=== PATIENT | male | born 1930 | race Caucasian/White ===

== ENCOUNTER 2017-02-15 13:32 | Inpatient (IN) | payer MEDICARE, OTHER ==
[2017-02-15 14:15] LABS: #Eosinphils 0.1 thou/uL (0.0-0.7); #Lymphocytes 1.7 thou/uL (1.20-3.40); #Monocytes 0.6 thou/uL (0.11-0.59); #Neutrophils 3.5 thou/uL (1.40-6.50); %Basophils 0.6 % (0.0-1.0); %Eosinophils 2.4 % (0.0-10.0); %Lymphocytes 28.2 % (21.0-51.0); %Monocytes 9.6 % (0.0-10.0); Hematocrit 29.2 % (42.0-52.0); Mean Platelet Volume 7.7 fL (7.4-10.4); Red Blood Cell (RBC) Count 3.27 mill/uL (4.70-6.10); White Blood Cell (WBC) Count 5.9 thou/uL (4.8-10.8)
[2017-02-15] MEDS ORDERED: Diltiazem HCl 125 MG, IV Admixture Fee 1 EACH in Sodium Chloride 0.9% 100 ML IVPB SCH (14:15)
[2017-02-15 14:24] LABS: PTT 38.7 SEC (22.9-36.1); Prothrombin Time 31.9 SEC (12.0-14.7)
[2017-02-15 14:36] LABS: ALT (SGPT) 11 U/L (8-55); AST (SGOT) 16 U/L (5-34); Alkaline Phosphatase 77 U/L (40-150); Anion Gap 11 mmol/L (10-20); BUN (Urea Nitrogen) 21 mg/dL (8.4-25.7); Bilirubin, Total 0.5 mg/dL (0.2-1.2); Calc. Creatinine Clearance 0 mL/min (70-130); Calcium 8.5 mg/dL (7.8-10.44); Carbon Dioxide 32 mmol/L (23-31); Chloride 102 mmol/L (98-107); Estimated GFR-MDRD 40; Globulin 2.6 g/dL (2.4-3.5); Protein, Total 6.1 g/dL (5.8-8.1)
[2017-02-15 14:40] LABS: Troponin I 0.028 ng/mL (< 0.028)
--- NOTE | 2017-02-15 15:17 | RAD ---
PORTABLE CHEST ONE VIEW: Date: 02-15-17 Time: 2:36 p.m. History: Irregular heartbeat, dizziness, shortness of breath. FINDINGS: Comparison is made with 01-05-16. Heart size is borderline. There are mild bibasilar infiltrates. No pneumothorax or pleural effusions are seen. There is no evidence of ilya pulmonary edema. POS: [facility]
--- NOTE | 2017-02-15 16:26 | HP ---
PRIMARY CARE PHYSICIAN: Bandar Dinero MD. REASON FOR ADMISSION: Atrial fibrillation with rapid ventricular response. HISTORY OF PRESENT ILLNESS: An 86-year-old male who has paroxysmal atrial fibrillation on chronic anticoagulation therapy with warfarin, who was not feeling good on Monday. The patient was feeling dizziness. He had a followup appointment with primary care physician. At that time, patient was doing well and that is why no action was taken. Patient was keep feeling dizziness over the weekend. Today, his home health nurse came and she checked pulse and patient's pulse was in 140 and it was irregular At the same time, the patient was feeling dizziness and mild shortness of breath and that is why a home health nurse advised to go to the emergency room for evaluation. Patient was not wanted to come to the ER, but patient's family member advised as well; and finally, he agreed to come to the ER. When he came to the emergency room, he was found with atrial fibrillation with RVR. His heart rate was 128. He was given Cardizem drip; and after that, his rate was under control. Patient was feeling better after Cardizem drip. At this point, we are admitting this patient for medication adjustment. The patient denies any fever, but he was feeling chills. He does report intermittent constipation. He denies any UTI symptoms. He denies any nausea, vomiting, or chest pain. He denies any syncope. He denies any orthopnea, PND or leg swelling. Patient saw primary care physician on Monday. At that time, his Coumadin level was checked. The patient was also told that he had some urinary tract infection and patient was given prescription for Omnicef, but patient has not started antibiotic therapy yet. He was feeling cold, but he denies any fever. Patient denies using oxygen at home, but when he arrived to emergency room, he was relatively hypoxic with saturation 90%. REVIEW OF SYSTEMS: Please see my HPI for pertinent positives and negatives. All other review of system reviewed and negative except as mentioned in the HPI. Constitutional: Weight loss or gain, ability to conduct usual activities. Skin: Rash, itching. Eyes: Double vision, pain. ENT/Mouth: Nose bleeding, neck stiffness, pain, tenderness. Cardiovascular: Palpitations, dyspnea on exertion, orthopnea. Respiratory: Shortness of breath, wheezing, cough, hemoptysis, fever or night sweats. Gastrointestinal: Poor appetite, abdominal pain, heartburn, nausea, vomiting, constipation, or diarrhea. Genitourinary: Urgency, frequency, dysuria, nocturia. Musculoskeletal: Pain, swelling. Neurologic/Psychiatric: Anxiety, depression. Allergy/Immunologic: Skin rash, bleeding tendency. PAST MEDICAL HISTORY: Coronary artery disease, paroxysmal atrial fibrillation, diabetes type 2, benign enlargement of prostate, chronic physical deconditioning , history of ulcerative colitis. PAST SURGICAL HISTORY: Carpal tunnel surgery, cardioversion for atrial fibrillation. PAST PSYCHIATRIC HISTORY: Anxiety and depression. The patient is not on any specific medication. SOCIAL HISTORY: Patient lives at [facility]. No history of tobacco, alcohol or illicit drug abuse. FAMILY HISTORY: No strong family history of CAD, CVA or cancer ALLERGY: No known drug allergy. EMERGENCY ROOM COURSE: The patient is given Cardizem drip. CURRENT HOME MEDICATIONS: Proscar 5 mg p.o. daily, fludrocortisone 0.1 mg p.o. daily, glipizide 10 mg p.o. daily, isosorbide mononitrate 10 mg p.o. daily, Lasix 40 mg p.o. b.i.d., Synthroid 100 mcg p.o. daily, lisinopril 10 mg p.o. b.i.d., Toprol-XL 50 mg p.o. daily, omeprazole 40 mg p.o. daily, warfarin 5 mg at bedtime on Monday, , Monday, and 7.5 mg on Monday, Monday, Monday, Monday. PHYSICAL EXAMINATION: VITAL SIGNS: Currently, blood pressure 115/64, pulse 68, respiratory rate 24, temperature 98.4, saturation 90% on room air on arrival, weight 90.9 kilograms. GENERAL: Patient is currently alert, awake, in no obvious acute distress. HEENT: Head, normocephalic, atraumatic. Eyes: Pupils round, reactive to light. Extraocular muscles intact. ENT: Oropharynx within normal limits. Moist mucous membranes. No oral lesions. No pharyngeal erythema. No exudate. NECK: Supple. Range of motion is normal. No meningeal signs of irritation. LUNGS: Clear to auscultation without any rhonchi or rales. CARDIAC: S1, S2, irregular, rate controlled. No murmur. No gallop. No rub. ABDOMEN: Soft, bowel sounds present, nontender, nondistended. No organomegaly. No mass. No suprapubic tenderness. BACK EXAMINATION: Unremarkable, no CVA tenderness. EXTREMITIES: Upper extremity passive movement of all joints are normal. Lower extremities: No edema. Good peripheral pulsation. SKIN: No skin rash. HEMATOLOGICAL SYSTEM: No lymphadenopathy. PSYCHIATRIC: Normal affect. SIGNIFICANT LABS: 1. CBC: WBC 5.9, hemoglobin 9.5, platelet 189,000. INR 2.9. D-dimer less than 0.27. BMP shows sodium 141, potassium 3.8, chloride 102, carbon dioxide 32 , BUN 11, creatinine 1.65, glucose 201, calcium 8.5. 2. LFT: AST 16, ALT 11, alkaline phosphatase 77, albumin 3.5. CK-MB 1.8, troponin I 0.028. BNP 643.1. EKG showing atrial fibrillation with RVR. Subsequently, director workers compensation showing atrial fibrillation with controlled ventricular response. ASSESSMENT AND PLAN: 1. Atrial fibrillation with rapid ventricular response, currently controlled with Cardizem drip. At this point, I will hold the Cardizem drip for a while and we will monitor on telemetry floor. If he is getting recurrently atrial rapid ventricular response, then we will restart Cardizem drip at 5 mg per hour. If this patient remains in atrial fibrillation with RVR, then we will consult Cardiology for medication adjustment. Meanwhile, we will continue with Toprol-XL 50 mg p.o. daily. I will obtain echocardiography to assess ejection fraction and other structural abnormality. 2. Elevated BNP, likely due to diastolic heart failure. We will obtain echocardiography to assess ejection fraction and other structural abnormality. 3. Diabetes type 2. We will continue glipizide 10 mg p.o. daily, insulin as per sliding scale per protocol. Diabetic diet will be given. 4. Hypothyroidism. We will continue Synthroid 100 mcg p.o. daily and will check TSH. 5. Benign enlargement of prostate. We will continue Proscar 5 mg p.o. daily. 6. Hypertension. Currently, blood pressure is well controlled. We will continue with lisinopril 10 mg twice daily. 7. Chronic anticoagulation. We will continue warfarin as per home dosage. We will monitor PT/INR on daily basis. 8. Ulcerative colitis. We will continue patient's home medication for ulcerative colitis. 9. Deep venous thrombosis prophylaxis. Patient is already on chronic anticoagulation therapy, no need of Lovenox therapy. 10. Gastrointestinal prophylaxis, Protonix 40 mg p.o. daily. CODE STATUS: The patient is FULL CODE. The patient's is surrogate decision maker. Disposition plan based on clinical course. At this point, we will keep this patient as a full admission. If this patient has recurrent atrial fibrillation with RVR, then he may need ablation procedure versus cardioversion. In that case, we will consult cardiology evaluation. BRANDON
[2017-02-15] MEDS ORDERED: Ondansetron ODT 4 MG TAB SL PRN (17:45)
[2017-02-15] MEDS ORDERED: Acetaminophen 325 MG TAB PO PRN ×2 (17:45→17:56)
[2017-02-15] MEDS ORDERED: Ondansetron HCl/PF 4 MG/2 ML Vial IVP PRN ×2 (17:45→17:56)
[2017-02-15] MEDS ORDERED: HYDROcodone/Acetaminophen 5/325 mg Tablet PO PRN (17:56)
[2017-02-15] MEDS ORDERED: Diabetic Tussin 200 MG/10 ML UDCUP PO PRN (17:56)
[2017-02-15] MEDS ORDERED: Loratadine 10 MG TAB PO PRN (17:56)
[2017-02-15] MEDS ORDERED: Dextrose 5% in Water 1,000 ML IV PRN (17:56)
[2017-02-15] MEDS ORDERED: Loperamide HCl 2 MG CAP PO PRN (17:56)
[2017-02-15] MEDS ORDERED: Zolpidem Tartrate 5 MG TAB PO PRN (17:56)
[2017-02-15] MEDS ORDERED: Nitroglycerin 0.4 MG TAB (25 Tab Bottle) SL PRN (17:56)
[2017-02-15] MEDS ORDERED: Senokot 8.6 MG TAB PO PRN (17:56)
[2017-02-15] MEDS ORDERED: Eucerin (Mineral Oil/Petrolatum,White) 30 gm Jar TOP PRN (17:56)
[2017-02-15] MEDS ORDERED: Dextrose 50% Abboject 50 ML SYRINGE SLOW IVP PRN (17:56)
[2017-02-15] MEDS ORDERED: Mag-Al 1200 mg/1200 mg/30 ML UDCUP PO PRN (17:56)
[2017-02-15] MEDS ORDERED: Milk Of Magnesia 30 ML UDCUP PO PRN (17:56)
[2017-02-15] MEDS ORDERED: Ondansetron ODT 4 MG TAB PO PRN (17:56)
[2017-02-15] MEDS ORDERED: Pharmacy to MANAGE WARFARIN PO PRN (17:59)
[2017-02-15] MEDS ORDERED: Warfarin Sodium 7.5 MG TAB PO SCH (18:15)
[2017-02-15 20:10] LABS: Bilirubin Negative (Negative); Blood, Urine Negative (Negative); Glucose, Urine (Dipstick) Negative (Negative); Ketone, Urine Negative (Negative); Nitrite Negative (Negative); Protein, Urine (Dipstick) Negative (Neg-Trace)
[2017-02-15 20:13] LABS: Bacteria/HPF None Seen HPF (None Seen); Hyaline Casts/LPF 0-3 HYALINE CAST LPF (0-3 Hyaline); RBC/HPF 0-3 HPF (0-3); Squamous Epithelial None Seen HPF (0-3); WBC/HPF None Seen HPF (0-3)
[2017-02-16] MEDS ORDERED: Sodium Chloride 0.9% 10 ML ONE (02:36)
[2017-02-16] MEDS ORDERED: Digoxin 0.5 MG/2 ML AMP SLOW IVP SCH (02:45)
[2017-02-16] MEDS: Sodium Chloride 0.9% 1,000 ML IV SCH ×3 (03:00→22:08)
[2017-02-16 05:15] LABS: #Eosinphils 0.2 thou/uL (0.0-0.7); #Lymphocytes 1.5 thou/uL (1.20-3.40); #Monocytes 0.6 thou/uL (0.11-0.59); #Neutrophils 2.7 thou/uL (1.40-6.50); %Basophils 0.7 % (0.0-1.0); %Eosinophils 4.4 % (0.0-10.0); %Monocytes 12.2 % (0.0-10.0); Hematocrit 26.6 % (42.0-52.0); Mean Platelet Volume 7.9 fL (7.4-10.4); Red Blood Cell (RBC) Count 2.98 mill/uL (4.70-6.10); White Blood Cell (WBC) Count 5.1 thou/uL (4.8-10.8)
[2017-02-16 05:28] LABS: Prothrombin Time 35.2 SEC (12.0-14.7)
--- NOTE | 2017-02-16 05:31 | PDOC.EVN ---
Event Note - Event Note Event Note: Afib with rvr into 130's despite increasing cardizem drip to 10mg/hr. One dose digoxin 0.5mg iv. Clinically appears a bit dry, NS@100mls/hr one liter and stop.
[2017-02-16 05:54] LABS: Anion Gap 11 mmol/L (10-20); BUN (Urea Nitrogen) 21 mg/dL (8.4-25.7); Calc. Creatinine Clearance 49 mL/min (70-130); Calcium 8.3 mg/dL (7.8-10.44); Carbon Dioxide 32 mmol/L (23-31); Chloride 102 mmol/L (98-107); Cholesterol 138 mg/dl (< 200 Desired); Estimated GFR-MDRD 43; LDL Cholesterol, Calculated 90 mg/dL; Magnesium 1.5 mg/dL (1.6-2.6); Phosphorus 3.2 mg/dL (2.3-4.7)
[2017-02-16] MEDS: Levothyroxine Sodium 100 MCG TAB PO SCH (07:14)
[2017-02-16] MEDS ORDERED: Potassium Chloride 40 MEQ in Premix Bag 1 BAG IVPB SCH (09:00)
[2017-02-16] MEDS: Isosorbide Dinitrate 20 MG TAB PO SCH (09:14)
[2017-02-16] MEDS: glipiZIDE 10 MG TAB PO SCH (09:15)
[2017-02-16] MEDS: Potassium Chloride 20 MEQ TAB PO SCH (09:15)
[2017-02-16] MEDS: Magnesium Oxide 400 MG TAB PO SCH ×2 (09:15→20:19)
[2017-02-16] MEDS: Finasteride 5 MG TAB PO SCH (09:16)
[2017-02-16] MEDS ORDERED: Potassium Chloride 40 MEQ, IV Admixture Fee 1 EACH in Sodium Chloride 0.9% 250 ML 250 ML IVPB SCH (09:30)
--- NOTE | 2017-02-16 11:38 | PDOC.PN ---
- Subjective Encounter Start Date: 02/16/17 Encounter Start Time: 11:36 - Objective Resuscitation Status: Resuscitation Status FULL:Full Resuscitation Vital Signs & Weight: Vital Signs (12 hours) Temp Pulse Resp BP Pulse Ox 02/16/17 09:06 98.4 F 88 20 130/67 93 L 02/16/17 08:00 98.4 F 88 20 93 L 02/16/17 07:08 98.2 F 80 16 146/65 H 02/16/17 04:10 88 02/16/17 03:07 83 16 147/68 H 95 02/16/17 03:00 78 L 02/16/17 02:44 133 H 02/16/17 01:30 142 H 18 119/68 02/16/17 00:35 130 H 18 118/71 Weight Weight 213 lb 9.6 oz I&O: 02/15/17 02/16/17 02/17/17 06:59 06:59 06:59 Intake Total 485.5 Balance 485.5 Result Diagrams: 02/16/17 04:25 02/16/17 04:25 Additional Labs: Accuchecks 02/16/17 02/15/17 02/15/17 05:54 23:37 18:23 POC Glucose 138 H 215 H 161 H Laboratory Tests 01/01/16 01/03/17 01/10/17 12:04 11:19 12:34 Hgb 11.6 L Creatinine 1.84 H B-Natriuretic Peptide 288.8 H Triglycerides Cholesterol LDL Cholesterol, Calc HDL Cholesterol TSH 3rd Generation 02/15/17 02/15/17 02/15/17 13:50 13:50 13:50 Hgb 9.5 L Creatinine 1.65 H B-Natriuretic Peptide 643.1 H Triglycerides Cholesterol LDL Cholesterol, Calc HDL Cholesterol TSH 3rd Generation 02/16/17 02/16/17 02/16/17 04:25 04:25 04:25 Hgb 8.6 L Creatinine 1.55 H B-Natriuretic Peptide Triglycerides 102 Cholesterol 138 LDL Cholesterol, Calc 90 HDL Cholesterol 28 TSH 3rd Generation 0.3441 L Radiology Reviewed by me: Yes (CXR-mild bibasilar infiltrates) Phys Exam - Physical Examination Constitutional: NAD sleepy but easily awakened HEENT: PERRLA, moist MMs, sclera anicteric, oral pharynx no lesions Neck: no nodes, no JVD, supple, full ROM Respiratory: no wheezing, no rales, no rhonchi Cardiovascular: no significant murmur, irregular Gastrointestinal: soft, non-tender, no distention, positive bowel sounds Musculoskeletal: no edema, pulses present Neurological: non-focal, normal sensation, moves all 4 limbs Psychiatric: normal affect Skin: no rash Dx/Plan (1) Chronic atrial fibrillation with RVR Code(s): I48.2 - CHRONIC ATRIAL FIBRILLATION Status: Acute (2) CINDY (acute kidney injury) Code(s): N17.9 - ACUTE KIDNEY FAILURE, UNSPECIFIED Status: Acute (3) DM2 (diabetes mellitus, type 2) Status: Chronic Qualifiers: Diabetes mellitus complication status: with hyperglycemia (4) HTN (hypertension) Code(s): I10 - ESSENTIAL (PRIMARY) HYPERTENSION Status: Chronic (5) Hypothyroid Code(s): E03.9 - HYPOTHYROIDISM, UNSPECIFIED Status: Chronic (6) Anemia Code(s): D64.9 - ANEMIA, UNSPECIFIED Status: Chronic Qualifiers: Anemia type: unspecified type Qualified Code(s): D64.9 - Anemia, unspecified (7) H/O ulcerative colitis Code(s): Z87.19 - PERSONAL HISTORY OF OTHER DISEASES OF THE DIGESTIVE SYSTEM Status: Chronic (8) Chronic anticoagulation Code(s): Z79.01 - MCC (CURRENT) USE OF ANTICOAGULANTS Status: Chronic Comment: Monitor Daily INR.dosing per pharmacy - Plan plan discussed w/ family, PT/OT, geriatric social worker, out of bed/ambulate, DVT proph w/SCDs Cont cardiazem drip.cardiology recs requested. HR better controlled. -: ECHO pending.cont Coumadin as before w INR monitoring. -: check Iron indices,FOBt,B12/FA for drop in Hb-H/O UC w/o bleed now -: add PO ABx for early PNA on CXR.. -: Monitor renal Fx.on IVF for now as clinically dry. * .replace and recheck Potassium Review of Systems - Review of Systems Other: Pt reluctant as he is sleepy.discussed w family at bedside. - Medications/Allergies Allergies/Adverse Reactions: Allergies Allergy/AdvReac Type Severity Reaction Status Date / Time No Known Drug Allergies Allergy Verified 08/27/13 22:26 Medications: Current Medications Acetaminophen (Tylenol) 650 mg PO Q4H PRN PRN Reason: Headache/Fever or Pain Hydrocodone Bitart/Acetaminophen ([place] 5/325) 1 tab PO Q4H PRN PRN Reason: Moderate Pain (4-6) Al Hydroxide/Mg Hydroxide (Maalox) 30 ml PO Q6H PRN PRN Reason: Heartburn or Indigestion Dextrose/Water (Dextrose 50%) 25 gm SLOW IVP PRN PRN PRN Reason: Hypoglycemia Finasteride (Proscar) 5 mg PO DAILY [facility] Last Admin: 02/16/17 09:16 Dose: 5 mg Glipizide (Glucotrol) 10 mg PO DAILY-[facility] Last Admin: 02/16/17 09:15 Dose: 10 mg Glucagon (Glucagon) 1 mg IM PRN PRN PRN Reason: Hypoglycemia Guaifenesin (Robitussin Sf) 200 mg PO Q4H PRN PRN Reason: Cough Hydralazine HCl (Apresoline) 10 mg SLOW IVP Q4H PRN PRN Reason: Systolic BP > 180 Dextrose/Water (D5w) 1,000 mls @ 0 mls/hr IV .Q0M PRN; As Directed PRN Reason: Hypoglycemia Diltiazem HCl 125 mg/ Sodium (Chloride) 125 mls @ 10 mls/hr IVPB INF PRN; Protocol; 10 MG/HR PRN Reason: for afib with rvr >120 persist Last Admin: 02/16/17 09:14 Dose: 125 mls Sodium Chloride (Normal Saline 0.9%) 1,000 mls @ 100 mls/hr IV .Q10H [facility] Last Admin: 02/16/17 03:00 Dose: 1,000 mls Potassium Chloride 40 meq/Miscellaneous Medication 1 each/ Sodium Chloride 270 mls @ 67.5 mls/hr IVPB NOW [facility] Stop: 02/16/17 13:00 Last Admin: 02/16/17 11:17 Dose: Not Given Insulin Human Lispro (Humalog) 0 units SC .MODERATE SLIDING SC PRN PRN Reason: Moderate Correctional Scale Insulin Human Lispro (Humalog) 0 units SC .BEDTIME SLIDING SC PRN PRN Reason: Bedtime Correctional Scale Isosorbide Dinitrate (Isordil) 10 mg PO DAILY [facility] Last Admin: 02/16/17 09:14 Dose: 10 mg Levothyroxine Sodium (Synthroid) 100 mcg PO 0600 [facility] Last Admin: 02/16/17 07:14 Dose: 100 mcg Loperamide HCl (Imodium) 2 mg PO PRN PRN PRN Reason: Diarrhea/Loose Stools Loratadine (Claritin) 10 mg PO DAILYPRN PRN PRN Reason: Sinus Symptoms Magnesium Hydroxide (Milk Of Magnesium) 30 ml PO DAILYPRN PRN PRN Reason: Constipation Magnesium Oxide (Magnesium Oxide) 400 mg PO BID [facility] Last Admin: 02/16/17 09:15 Dose: 400 mg Mineral Oil/White Petrolatum (Eucerin Cream) 0 gm TOP BIDPRN PRN PRN Reason: Dry Skin Miscellaneous Medication (Pharmacy To Dose) 1 each PO PRN PRN PRN Reason: . Nitroglycerin (Nitrostat) 0.4 mg SL Q5MIN PRN PRN Reason: Chest Pain Ondansetron HCl (Zofran Odt) 4 mg PO Q6H PRN PRN Reason: Nausea/Vomiting Ondansetron HCl (Zofran) 4 mg IVP Q6H PRN PRN Reason: Nausea/Vomiting Pantoprazole Sodium (Protonix) 40 mg PO DAILY [facility] Last Admin: 02/16/17 09:16 Dose: 40 mg Potassium Chloride (K-Dur) 40 meq PO QAM-WM [facility] Last Admin: 02/16/17 09:15 Dose: 40 meq Senna (Senokot) 2 tab PO HSPRN PRN PRN Reason: Constipation Sodium Chloride (Flush - Normal Saline) 10 ml IVF Q12HR [facility] Sodium Chloride (Flush - Normal Saline) 10 ml IVF PRN PRN PRN Reason: Saline Flush Warfarin Sodium (Coumadin) 5 mg PO TuThSa@1700 [facility] Warfarin Sodium (Coumadin) 7.5 mg PO SuMoWeFr@1700 [facility] Zolpidem Tartrate (Ambien) 5 mg PO HSPRN PRN PRN Reason: Insomnia
--- NOTE | 2017-02-16 11:40 | CON ---
DATE OF CONSULTATION: 02/16/2017 REASON FOR CONSULTATION: Atrial fibrillation with rapid ventricular response. REFERRING PROVIDER: Cori Campbell M.D. HISTORY OF PRESENT ILLNESS: Mr. Fried is a very pleasant 86-year-old gentleman who I have seen and evaluated in the past. He has a history of chronic atrial fibrillation and is on anticoagulation t herapy. He states he has not been feeling well over the last several days. During my interview, he appeared to be wheezing, which is a new finding. No chest pain or pressure noted. He did have barney rtness of breath, likely related to atrial fibrillation with RVR. He has been on beta-jaron thera py in the past. PAST MEDICAL HISTORY: Hyperlipidemia, hypertension, diabetes mellitus, chronic atrial fibrillation, basal cell skin cancer, left shoulder surgery, cholecystectomy, and prostate biopsy. ALLERGIES: None. HOME MEDICATIONS: Include Coumadin, Nitrostat, isosorbide, Lasix, glyburide, Tirosint, omeprazole, lisinopril, metformin, finasteride, and metoprolol. REVIEW OF SYSTEMS: Ten point review of systems reviewed and as above, otherwise negative. PHYSICAL EXAMINATION: GENERAL: Patient is a pleasant male, who is in no acute distress. The patient appears his stated age. VITAL SIGNS: Blood pressure 130/67, pulse 88, and temperature 98.4. NEUROLOGIC: The patient is alert and oriented x3 with no focal neurologic deficits. HEENT: Sclerae without icterus. Mouth has moist mucous membranes with normal pallor. NECK: No JVD. Carotid upstroke brisk. No bruits bilaterally. LUNGS: Wheezing noted bilaterally. BACK: No scoliosis or kyphosis. CARDIAC: Irregularly irregular. ABDOMEN: Soft, nontender, nondistended. No peritoneal signs present. No hepatosplenomegaly. No abnormal striae. EXTREMITIES: 1+ pitting edema. SKIN: No gross abnormalities. PERTINENT LABORATORY DATA: Including hemoglobin of 8.6, creatinine 1.55 with a GFR of 43. BNP of 643. IMPRESSION: Atrial fibrillation with rapid ventricular response. RECOMMENDATIONS: Mr. Fried's heart rate is certainly increased. He has been on metoprolol in the past. He is currently wheezing. At this point, we will add Cardizem 180 one p.o. x1 dose now and h opes of decreasing the IV calcium channel jaron. We may also consider IV digoxin. We would recom mend an echo with Doppler. Last echo in the office was dated 12/2015 with an EF of 55% to 60%. Las t EKG in the office also showed sinus rhythm, which was dated 11/2015. Goal at this point is rate control and anticoagulation therapy. If he fails rate control, we would consider cardioversion. We will also try and decrease beta-jaron therapy due to asthma.
[2017-02-16] MEDS ORDERED: Amoxicillin/Potassium Clav 875 MG TAB PO SCH (12:00)
[2017-02-16] MEDS: HumaLOG 300 UNITS/3 ML VIAL SC PRN (12:22)
[2017-02-16 15:36] LABS: Iron 24 ug/dL (65-175)
[2017-02-16 16:50] LABS: Free T3 1.96 pg/mL (1.71-3.71)
[2017-02-16] MEDS ORDERED: Warfarin Sodium 5 MG TAB PO SCH (17:00)
[2017-02-16] MEDS: Amoxicillin/Potassium Clav 875 MG TAB PO SCH (20:19)
[2017-02-17] MEDS ORDERED: Furosemide 40 MG/4 ML VIAL ONE (04:55)
[2017-02-17] MEDS ORDERED: Furosemide 100 MG/10 ML VIAL SLOW IVP SCH (05:00)
--- NOTE | 2017-02-17 05:06 | PDOC.EVN ---
Event Note - Event Note Event Note: S: Called to evaluate patient for low oxygen saturations. Patient was notes to drop his oxygen saturation when he walked to the bathroom earlier, and also while he has been laying in bed. The patient currently denies feeling short of breath O: Lungs- + expiratory wheezing, and decreased breath sounds at the bases CV: heart rate is regular, no murmurs EXT : + pitting edema P: Hypoxemia- suspect volume overload- IV fluids have been heplocked, and will give a dose of Lasix 60mg IV and re-assess.
[2017-02-17 06:33] LABS: #Eosinphils 0.1 thou/uL (0.0-0.7); #Lymphocytes 1.5 thou/uL (1.20-3.40); #Monocytes 0.7 thou/uL (0.11-0.59); #Neutrophils 5.2 thou/uL (1.40-6.50); %Basophils 0.3 % (0.0-1.0); %Eosinophils 1.9 % (0.0-10.0); %Lymphocytes 20.2 % (21.0-51.0); %Monocytes 9.5 % (0.0-10.0); Mean Platelet Volume 7.3 fL (7.4-10.4); Red Blood Cell (RBC) Count 3.21 mill/uL (4.70-6.10); White Blood Cell (WBC) Count 7.6 thou/uL (4.8-10.8)
[2017-02-17 06:44] LABS: Prothrombin Time 33.1 SEC (12.0-14.7)
[2017-02-17] MEDS: Levothyroxine Sodium 100 MCG TAB PO SCH (06:53)
[2017-02-17 07:01] LABS: Anion Gap 14 mmol/L (10-20); BUN (Urea Nitrogen) 19 mg/dL (8.4-25.7); Calc. Creatinine Clearance 47 mL/min (70-130); Calcium 8.3 mg/dL (7.8-10.44); Carbon Dioxide 27 mmol/L (23-31); Chloride 105 mmol/L (98-107); Estimated GFR-MDRD 41
--- NOTE | 2017-02-17 09:13 | PRG ---
DATE OF SERVICE: 02/17/2017 Mr. Fried's status is unchanged. He continues to be on IV Cardizem at 10 mg per hour. He also con tinues to have wheezing. PHYSICAL EXAMINATION: VITAL SIGNS: Blood pressure 134/73, pulse 87, temperature afebrile. LUNGS: Mild wheezing noted bilaterally. CARDIAC: Irregular, irregular. ABDOMEN: Soft, nontender, nondistended. EXTREMITIES: No edema. PERTINENT LABORATORY DATA: Hemoglobin 9.1. Creatinine 1.62, GFR 41. IMPRESSION: 1. Atrial fibrillation. 2. Recent volume overload and hypoxia. RECOMMENDATIONS: I agree with the dose of Lasix last evening. Will also add diltiazem 180 one p.o. q.a.m. to try and wean off his IV Cardizem. His LVEF has been normal in the past. Would recommend a repeat echo to assess LV function.
[2017-02-17] MEDS ORDERED: IRON SUCROSE COMPLEX 100 MG/5 ML SLOW IVP SCH (09:15)
[2017-02-17] MEDS: glipiZIDE 10 MG TAB PO SCH (09:21)
[2017-02-17] MEDS: Isosorbide Dinitrate 20 MG TAB PO SCH (09:23)
[2017-02-17] MEDS: Magnesium Oxide 400 MG TAB PO SCH ×2 (09:23→21:33)
[2017-02-17] MEDS: Finasteride 5 MG TAB PO SCH (09:24)
[2017-02-17] MEDS: Potassium Chloride 20 MEQ TAB PO SCH (09:27)
[2017-02-17] MEDS: Amoxicillin/Potassium Clav 875 MG TAB PO SCH ×2 (09:27→21:33)
[2017-02-17] MEDS: HumaLOG 300 UNITS/3 ML VIAL SC PRN ×2 (12:02→21:42)
--- NOTE | 2017-02-17 12:51 | PDOC.PN ---
- Subjective Encounter Start Date: 02/17/17 Encounter Start Time: 12:49 Subjective: had pisode of SOb this am which improved w lasix -: feels better now .no chest pain. wants to move around - Objective Resuscitation Status: Resuscitation Status FULL:Full Resuscitation MAR Reviewed: Yes Vital Signs & Weight: Vital Signs (12 hours) Temp Pulse Pulse Resp BP BP Pulse Ox 02/17/17 08:52 102 H 157/86 H 02/17/17 08:00 97.1 F L 100 28 H 135/77 94 L 02/17/17 04:48 20 87 L 02/17/17 04:20 89 18 134/73 98 02/17/17 04:18 98 02/17/17 03:54 96 Pulse Ox 02/17/17 08:52 94 L 02/17/17 08:00 02/17/17 04:48 02/17/17 04:20 02/17/17 04:18 02/17/17 03:54 Weight Weight 213 lb 9.6 oz I&O: 02/16/17 02/17/17 02/18/17 06:59 06:59 06:59 Intake Total 3301.5 Output Total 1390 Balance 1911.5 Result Diagrams: 02/17/17 06:07 02/17/17 06:07 Additional Labs: Accuchecks 02/17/17 02/17/17 02/16/17 11:25 05:56 22:21 POC Glucose 310 H 197 H 199 H 02/16/17 17:01 POC Glucose 146 H Laboratory Tests 01/03/17 02/15/17 02/15/17 11:19 13:50 13:50 Creatinine 1.65 H Iron TIBC % Saturation B-Natriuretic Peptide 288.8 H 643.1 H Vitamin B12 02/16/17 02/16/17 02/16/17 04:25 14:58 14:58 Creatinine 1.55 H Iron 24 L TIBC 300 % Saturation 8 L B-Natriuretic Peptide Vitamin B12 365 02/17/17 06:07 Creatinine 1.62 H Iron TIBC % Saturation B-Natriuretic Peptide Vitamin B12 Phys Exam - Physical Examination Constitutional: NAD HEENT: PERRLA, moist MMs, sclera anicteric, oral pharynx no lesions Neck: no nodes, no JVD, supple, full ROM Respiratory: no wheezing, no rales few rhonchi and decreased sounds at bases Cardiovascular: no significant murmur, irregular Gastrointestinal: soft, non-tender, no distention, positive bowel sounds Musculoskeletal: no edema, pulses present Neurological: non-focal, normal sensation, moves all 4 limbs Psychiatric: normal affect, A&O x 3 Skin: no rash Dx/Plan (1) Dyspnea Code(s): R06.00 - DYSPNEA, UNSPECIFIED Status: Acute Comment: likley due to Fluid overload (2) Fluid overload Code(s): E87.70 - FLUID OVERLOAD, UNSPECIFIED Status: Acute (3) Chronic atrial fibrillation with RVR Code(s): I48.2 - CHRONIC ATRIAL FIBRILLATION Status: Acute Comment: Rate controlled now on PO cardiazem (4) CINDY (acute kidney injury) Code(s): N17.9 - ACUTE KIDNEY FAILURE, UNSPECIFIED Status: Acute Comment: Stable. (5) DM2 (diabetes mellitus, type 2) Status: Chronic Qualifiers: Diabetes mellitus complication status: with hyperglycemia (6) HTN (hypertension) Code(s): I10 - ESSENTIAL (PRIMARY) HYPERTENSION Status: Chronic (7) Hypothyroid Code(s): E03.9 - HYPOTHYROIDISM, UNSPECIFIED Status: Chronic (8) Anemia Code(s): D64.9 - ANEMIA, UNSPECIFIED Status: Chronic Qualifiers: Anemia type: unspecified type Qualified Code(s): D64.9 - Anemia, unspecified (9) H/O ulcerative colitis Code(s): Z87.19 - PERSONAL HISTORY OF OTHER DISEASES OF THE DIGESTIVE SYSTEM Status: Chronic (10) Chronic anticoagulation Code(s): Z79.01 - PRISON (CURRENT) USE OF ANTICOAGULANTS Status: Chronic Comment: Monitor Daily INR.dosing per pharmacy (11) EBONI (iron deficiency anemia) Code(s): D50.9 - IRON DEFICIENCY ANEMIA, UNSPECIFIED Status: Chronic Qualifiers: Iron deficiency anemia type: unspecified iron deficiency Qualified Code(s) : D50.9 - Iron deficiency anemia, unspecified - Plan continue antibiotics, PT/OT, secondary social studies teacher, respiratory therapy, incentive spirometry, out of bed/ambulate, DVT proph w/SCDs restart low dose daily lasix but closely monitor renal Fx.O2 prn.nebs etc -: cont empiric ABx for PNA. -: Fe levels low-will give IV Fe to improve oxygenation as well. -: FOBt ngative.H/h stable.monitor. -: Cont PO Cardiazem for rate control.cont coumadin w INr monitoring * .am labs. * HH set up as pt did well w PT Review of Systems - Review of Systems Constitutional: Weakness. negative: Fever, Chills, Sweats, Malaise, Other Respiratory: SOB with Excertion. negative: Cough, Dry, Shortness of Breath, Hemoptysis, Pleuritic Pain, Sputum, Wheezing Cardiovascular: negative: Chest Pain, Palpitations, Orthopnea, Paroxysmal Noc. Dyspnea, Edema, Light Headedness, Other Gastrointestinal: negative: Nausea, Vomiting, Abdominal Pain, Diarrhea, Constipation, Melena, Hematochezia, Other Genitourinary: negative: Dysuria, Frequency, Incontinence, Hematuria, Retention , Other Musculoskeletal: negative: Neck Pain, Shoulder Pain, Arm Pain, Back Pain, Hand Pain, Leg Pain, Foot Pain, Other Neurological: negative: Weakness, Numbness, Incoordination, Change in Speech, Confusion, Seizures, Other - Medications/Allergies Allergies/Adverse Reactions: Allergies Allergy/AdvReac Type Severity Reaction Status Date / Time No Known Drug Allergies Allergy Verified 08/27/13 22:26 shrimp Allergy Uncoded 05/01/13 13:29 Medications: Current Medications Acetaminophen (Tylenol) 650 mg PO Q4H PRN PRN Reason: Headache/Fever or Pain Hydrocodone Bitart/Acetaminophen ([place] 5/325) 1 tab PO Q4H PRN PRN Reason: Moderate Pain (4-6) Al Hydroxide/Mg Hydroxide (Maalox) 30 ml PO Q6H PRN PRN Reason: Heartburn or Indigestion Albuterol/Ipratropium (Duoneb) 3 ml NEB Q4H PRN PRN Reason: SOB &/or Wheezing Last Admin: 02/17/17 03:54 Dose: 3 ml Amoxicillin/Clavulanate Potassium (Augmentin) 875 mg PO Q12HR [facility] Last Admin: 02/17/17 09:27 Dose: 875 mg Dextrose/Water (Dextrose 50%) 25 gm SLOW IVP PRN PRN PRN Reason: Hypoglycemia Diltiazem HCl (Cardizem Cd) 180 mg PO DAILY [facility] Last Admin: 02/17/17 09:26 Dose: 180 mg Finasteride (Proscar) 5 mg PO DAILY [facility] Furosemide (Lasix) 40 mg PO DAILY [facility] Glipizide (Glucotrol) 10 mg PO DAILY-[facility] Last Admin: 02/17/17 09:21 Dose: 10 mg Glucagon (Glucagon) 1 mg IM PRN PRN PRN Reason: Hypoglycemia Guaifenesin (Robitussin Sf) 200 mg PO Q4H PRN PRN Reason: Cough Hydralazine HCl (Apresoline) 10 mg SLOW IVP Q4H PRN PRN Reason: Systolic BP > 180 Dextrose/Water (D5w) 1,000 mls @ 0 mls/hr IV .Q0M PRN; As Directed PRN Reason: Hypoglycemia Diltiazem HCl 125 mg/ Sodium (Chloride) 125 mls @ 10 mls/hr IVPB INF PRN; Protocol; 10 MG/HR PRN Reason: for afib with rvr >120 persist Last Admin: 02/16/17 22:10 Dose: 125 mls Insulin Human Lispro (Humalog) 0 units SC .MODERATE SLIDING SC PRN PRN Reason: Moderate Correctional Scale Last Admin: 02/17/17 12:02 Dose: 8 unit Insulin Human Lispro (Humalog) 0 units SC .BEDTIME SLIDING SC PRN PRN Reason: Bedtime Correctional Scale Isosorbide Dinitrate (Isordil) 10 mg PO DAILY [facility] Last Admin: 02/17/17 09:23 Dose: 10 mg Levothyroxine Sodium (Synthroid) 100 mcg PO 0600 [facility] Last Admin: 02/17/17 06:53 Dose: 100 mcg Levothyroxine Sodium (Synthroid) 100 mcg PO DAILY [facility] Loperamide HCl (Imodium) 2 mg PO PRN PRN PRN Reason: Diarrhea/Loose Stools Loratadine (Claritin) 10 mg PO DAILYPRN PRN PRN Reason: Sinus Symptoms Magnesium Hydroxide (Milk Of Magnesium) 30 ml PO DAILYPRN PRN PRN Reason: Constipation Magnesium Oxide (Magnesium Oxide) 400 mg PO BID [facility] Last Admin: 02/17/17 09:23 Dose: 400 mg Mineral Oil/White Petrolatum (Eucerin Cream) 0 gm TOP BIDPRN PRN PRN Reason: Dry Skin Miscellaneous Medication (Pharmacy To Dose) 1 each PO PRN PRN PRN Reason: . Nitroglycerin (Nitrostat) 0.4 mg SL Q5MIN PRN PRN Reason: Chest Pain Ondansetron HCl (Zofran Odt) 4 mg PO Q6H PRN PRN Reason: Nausea/Vomiting Ondansetron HCl (Zofran) 4 mg IVP Q6H PRN PRN Reason: Nausea/Vomiting Pantoprazole Sodium (Protonix) 40 mg PO DAILY [facility] Potassium Chloride (K-Dur) 40 meq PO QAM-WM [facility] Last Admin: 02/17/17 09:27 Dose: 40 meq Senna (Senokot) 2 tab PO HSPRN PRN PRN Reason: Constipation Sodium Chloride (Flush - Normal Saline) 10 ml IVF Q12HR [facility] Last Admin: 02/17/17 12:03 Dose: 10 ml Sodium Chloride (Flush - Normal Saline) 10 ml IVF PRN PRN PRN Reason: Saline Flush Warfarin Sodium (Coumadin) 5 mg PO 1700 [facility] Zolpidem Tartrate (Ambien) 5 mg PO HSPRN PRN PRN Reason: Insomnia
[2017-02-17] MEDS ORDERED: Warfarin Sodium 7.5 MG TAB PO SCH (17:00)
[2017-02-17] MEDS ORDERED: Warfarin Sodium 5 MG TAB PO SCH (17:00)
[2017-02-18 05:32] LABS: #Eosinphils 0.3 thou/uL (0.0-0.7); #Lymphocytes 1.1 thou/uL (1.20-3.40); #Monocytes 0.8 thou/uL (0.11-0.59); #Neutrophils 3.4 thou/uL (1.40-6.50); %Basophils 0.5 % (0.0-1.0); %Eosinophils 4.5 % (0.0-10.0); %Monocytes 14.2 % (0.0-10.0); Hematocrit 27.1 % (42.0-52.0); Mean Platelet Volume 7.8 fL (7.4-10.4); White Blood Cell (WBC) Count 5.7 thou/uL (4.8-10.8)
[2017-02-18 05:36] LABS: Prothrombin Time 30.6 SEC (12.0-14.7)
[2017-02-18 06:04] LABS: Anion Gap 13 mmol/L (10-20); BUN (Urea Nitrogen) 21 mg/dL (8.4-25.7); Calc. Creatinine Clearance 48 mL/min (70-130); Calcium 8.5 mg/dL (7.8-10.44); Carbon Dioxide 29 mmol/L (23-31); Chloride 104 mmol/L (98-107); Estimated GFR-MDRD 43
[2017-02-18] MEDS: Levothyroxine Sodium 100 MCG TAB PO SCH ×2 (06:47→10:02)
[2017-02-18] MEDS ORDERED: Non-Formulary Item 1 EACH (Omeprazole [Omeprazole] 40 MG) PO SCH (09:00)
[2017-02-18] MEDS ORDERED: Furosemide 40 MG TAB PO SCH (09:12)
[2017-02-18] MEDS: Furosemide 40 MG TAB PO SCH (09:56)
[2017-02-18] MEDS: Isosorbide Dinitrate 20 MG TAB PO SCH (09:57)
[2017-02-18] MEDS: Finasteride 5 MG TAB PO SCH (09:57)
[2017-02-18] MEDS: glipiZIDE 10 MG TAB PO SCH (09:57)
[2017-02-18] MEDS: Magnesium Oxide 400 MG TAB PO SCH ×2 (09:58→23:03)
[2017-02-18] MEDS: Amoxicillin/Potassium Clav 875 MG TAB PO SCH ×2 (09:59→23:03)
[2017-02-18] MEDS: Potassium Chloride 20 MEQ TAB PO SCH (09:59)
--- NOTE | 2017-02-18 13:57 | PDOC.PN ---
- Subjective Encounter Start Date: 02/18/17 Encounter Start Time: 08:20 Pt seen for followup re: atrial flutter. Denies chest pain, shortness of breath , fever or chills. - Objective Resuscitation Status: Resuscitation Status FULL:Full Resuscitation MAR Reviewed: Yes Vital Signs & Weight: Vital Signs (12 hours) Temp Pulse Resp BP BP Pulse Ox 02/18/17 11:19 98.6 F 97 24 H 149/63 H 99 02/18/17 09:05 98.6 F 97 24 H 151/69 H 97 02/18/17 04:00 96.3 F L 74 16 132/59 L 97 Weight Weight 213 lb 9.6 oz I&O: 02/17/17 02/18/17 02/19/17 06:59 06:59 06:59 Intake Total 3301.5 250 Output Total 1390 300 550 Balance 1911.5 -300 -300 Result Diagrams: 02/18/17 04:23 02/18/17 04:23 Additional Labs: Accuchecks 02/18/17 02/18/17 02/17/17 05:15 04:34 20:56 POC Glucose 144 H 142 H 233 H 02/17/17 17:29 POC Glucose 148 H EKG Reviewed by me: Yes (Tele: atrial flutter) Dx/Plan (1) Atrial flutter Code(s): I48.92 - UNSPECIFIED ATRIAL FLUTTER Status: Acute (2) Pneumonia Code(s): J18.9 - PNEUMONIA, UNSPECIFIED ORGANISM Status: Suspected (3) Hypothyroid Code(s): E03.9 - HYPOTHYROIDISM, UNSPECIFIED Status: Chronic (4) Atrial fibrillation Code(s): I48.91 - UNSPECIFIED ATRIAL FIBRILLATION Status: Chronic (5) Benign hypertension Code(s): I10 - ESSENTIAL (PRIMARY) HYPERTENSION Status: Chronic (6) Diabetes mellitus Code(s): E11.9 - TYPE 2 DIABETES MELLITUS WITHOUT COMPLICATIONS Status: Chronic - Plan continue antibiotics, PT/OT, out of bed/ambulate * . Continue diuretics. Continue antibiotic (suspected pneumonia). Mobilize pt. Continue synthroid. Review of Systems - Review of Systems Constitutional: negative: Fever, Chills, Sweats, Weakness, Malaise Respiratory: negative: Cough, Dry, Shortness of Breath, Hemoptysis, SOB with Excertion, Pleuritic Pain, Sputum, Wheezing Cardiovascular: negative: Chest Pain, Palpitations, Orthopnea, Paroxysmal Noc. Dyspnea, Edema, Light Headedness Gastrointestinal: negative: Nausea, Vomiting, Abdominal Pain, Diarrhea, Constipation, Melena, Hematochezia - Medications/Allergies Allergies/Adverse Reactions: Allergies Allergy/AdvReac Type Severity Reaction Status Date / Time No Known Drug Allergies Allergy Verified 08/27/13 22:26 shrimp Allergy Uncoded 05/01/13 13:29 Medications: Current Medications Acetaminophen (Tylenol) 650 mg PO Q4H PRN PRN Reason: Headache/Fever or Pain Hydrocodone Bitart/Acetaminophen ([place] 5/325) 1 tab PO Q4H PRN PRN Reason: Moderate Pain (4-6) Al Hydroxide/Mg Hydroxide (Maalox) 30 ml PO Q6H PRN PRN Reason: Heartburn or Indigestion Albuterol/Ipratropium (Duoneb) 3 ml NEB Q4H PRN PRN Reason: SOB &/or Wheezing Last Admin: 02/17/17 03:54 Dose: 3 ml Amoxicillin/Clavulanate Potassium (Augmentin) 875 mg PO Q12HR [facility] Last Admin: 02/18/17 09:59 Dose: 875 mg Dextrose/Water (Dextrose 50%) 25 gm SLOW IVP PRN PRN PRN Reason: Hypoglycemia Diltiazem HCl (Cardizem Cd) 180 mg PO DAILY [facility] Last Admin: 02/18/17 09:58 Dose: 180 mg Finasteride (Proscar) 5 mg PO DAILY [facility] Last Admin: 02/18/17 09:57 Dose: 5 mg Furosemide (Lasix) 40 mg PO DAILY [facility] Last Admin: 02/18/17 09:56 Dose: 40 mg Glipizide (Glucotrol) 10 mg PO DAILY-[facility] Last Admin: 02/18/17 09:57 Dose: 10 mg Glucagon (Glucagon) 1 mg IM PRN PRN PRN Reason: Hypoglycemia Guaifenesin (Robitussin Sf) 200 mg PO Q4H PRN PRN Reason: Cough Hydralazine HCl (Apresoline) 10 mg SLOW IVP Q4H PRN PRN Reason: Systolic BP > 180 Dextrose/Water (D5w) 1,000 mls @ 0 mls/hr IV .Q0M PRN; As Directed PRN Reason: Hypoglycemia Diltiazem HCl 125 mg/ Sodium (Chloride) 125 mls @ 10 mls/hr IVPB INF PRN; Protocol; 10 MG/HR PRN Reason: for afib with rvr >120 persist Last Admin: 02/16/17 22:10 Dose: 125 mls Insulin Human Lispro (Humalog) 0 units SC .MODERATE SLIDING SC PRN PRN Reason: Moderate Correctional Scale Last Admin: 02/17/17 12:02 Dose: 8 unit Insulin Human Lispro (Humalog) 0 units SC .BEDTIME SLIDING SC PRN PRN Reason: Bedtime Correctional Scale Last Admin: 02/17/17 21:42 Dose: 2 unit Isosorbide Dinitrate (Isordil) 10 mg PO DAILY [facility] Last Admin: 02/18/17 09:57 Dose: 10 mg Levothyroxine Sodium (Synthroid) 100 mcg PO 0600 [facility] Last Admin: 02/18/17 06:47 Dose: 100 mcg Levothyroxine Sodium (Synthroid) 100 mcg PO DAILY [facility] Last Admin: 02/18/17 10:02 Dose: Not Given Loperamide HCl (Imodium) 2 mg PO PRN PRN PRN Reason: Diarrhea/Loose Stools Loratadine (Claritin) 10 mg PO DAILYPRN PRN PRN Reason: Sinus Symptoms Magnesium Hydroxide (Milk Of Magnesium) 30 ml PO DAILYPRN PRN PRN Reason: Constipation Magnesium Oxide (Magnesium Oxide) 400 mg PO BID [facility] Last Admin: 02/18/17 09:58 Dose: 400 mg Mineral Oil/White Petrolatum (Eucerin Cream) 0 gm TOP BIDPRN PRN PRN Reason: Dry Skin Miscellaneous Medication (Pharmacy To Dose) 1 each PO PRN PRN PRN Reason: . Nitroglycerin (Nitrostat) 0.4 mg SL Q5MIN PRN PRN Reason: Chest Pain Ondansetron HCl (Zofran Odt) 4 mg PO Q6H PRN PRN Reason: Nausea/Vomiting Ondansetron HCl (Zofran) 4 mg IVP Q6H PRN PRN Reason: Nausea/Vomiting Pantoprazole Sodium (Protonix) 40 mg PO DAILY [facility] Last Admin: 02/18/17 09:58 Dose: 40 mg Potassium Chloride (K-Dur) 40 meq PO QA-[facility] Last Admin: 02/18/17 09:59 Dose: 40 meq Senna (Senokot) 2 tab PO HSPRN PRN PRN Reason: Constipation Sodium Chloride (Flush - Normal Saline) 10 ml IVF Q12HR [facility] Last Admin: 02/18/17 10:01 Dose: 10 ml Sodium Chloride (Flush - Normal Saline) 10 ml IVF PRN PRN PRN Reason: Saline Flush Warfarin Sodium (Coumadin) 5 mg PO 1700 [facility] Zolpidem Tartrate (Ambien) 5 mg PO HSPRN PRN PRN Reason: Insomnia
--- NOTE | 2017-02-18 17:09 | PDOC.CTH ---
Cardiology Progress Note - Subjective No new issues or complaints. - Objective Vital Signs Temp Pulse Resp BP Pulse Ox 02/18/17 16:00 98.2 F 70 22 H 138/60 100 02/18/17 11:19 98.6 F 97 24 H 149/63 H 99 02/18/17 09:05 98.6 F 97 24 H 151/69 H 97 Weight 213 lb 9.6 oz 02/17/17 02/18/17 02/19/17 06:59 06:59 06:59 Intake Total 3301.5 250 Output Total 1390 300 550 Balance 1911.5 -300 -300 - Physical Examination General/Neuro: alert & oriented x3, NAD Neck: no JVD present Lungs: unlabored respirations Heart: other: (Irregular) Abdomen: NT/ND Extremities: other: (no edema.) - Telemetry Telemetry Rhythm: Afib HR 80-90 - Labs Result Diagrams: 02/18/17 04:23 02/18/17 04:23 Troponin/CKMB CK-MB (CK-2) 1.8 ng/mL (0-6.6) 02/15/17 13:50 Troponin I 0.028 ng/mL (< 0.028) 02/15/17 13:50 - Assessment/Plan 1. Chronic afib, now rate controlled. 2. Acute diastolic heart failure. 3. Possible pneumonia PLAN: - Continue current management. - On PO lasix now. - Rate controlled on current PO regimen.
[2017-02-18] MEDS: Warfarin Sodium 5 MG TAB PO SCH (18:07)
[2017-02-18] MEDS: HumaLOG 300 UNITS/3 ML VIAL SC PRN (18:11)
[2017-02-19 05:05] LABS: Anion Gap 10 mmol/L (10-20); BUN (Urea Nitrogen) 23 mg/dL (8.4-25.7); Calc. Creatinine Clearance 44 mL/min (70-130); Calcium 8.7 mg/dL (7.8-10.44); Carbon Dioxide 32 mmol/L (23-31); Chloride 104 mmol/L (98-107); Estimated GFR-MDRD 38
[2017-02-19 05:06] LABS: Prothrombin Time 24.8 SEC (12.0-14.7)
[2017-02-19] MEDS: Levothyroxine Sodium 100 MCG TAB PO SCH (05:20)
[2017-02-19] MEDS: glipiZIDE 10 MG TAB PO SCH (09:50)
[2017-02-19] MEDS: Isosorbide Dinitrate 20 MG TAB PO SCH (09:51)
[2017-02-19] MEDS: Amoxicillin/Potassium Clav 875 MG TAB PO SCH ×2 (09:52→20:32)
[2017-02-19] MEDS: Finasteride 5 MG TAB PO SCH (09:52)
[2017-02-19] MEDS: Potassium Chloride 20 MEQ TAB PO SCH (09:52)
[2017-02-19] MEDS: Magnesium Oxide 400 MG TAB PO SCH ×2 (09:52→20:32)
[2017-02-19] MEDS: Furosemide 40 MG TAB PO SCH (09:52)
--- NOTE | 2017-02-19 11:58 | PDOC.PN ---
- Subjective Encounter Start Date: 02/19/17 Encounter Start Time: 11:57 Pt seen for followup re; [email or web address]. fib. Slept better. No chest pain, shortness of breath, fevers or chills. No nausea or vomiting. - Objective Resuscitation Status: Resuscitation Status FULL:Full Resuscitation MAR Reviewed: Yes Vital Signs & Weight: Vital Signs (12 hours) Temp Pulse Resp BP BP Pulse Ox 02/19/17 11:48 97.9 F 84 22 H 121/68 92 L 02/19/17 08:15 97.4 F L 108 H 22 H 118/74 93 L 02/19/17 04:00 97.6 F 98 20 152/67 H 97 Weight Weight 213 lb 9.6 oz I&O: 02/18/17 02/19/17 02/20/17 06:59 06:59 06:59 Intake Total 250 Output Total 300 550 Balance -300 -300 Result Diagrams: 02/18/17 04:23 02/20/17 05:23 Additional Labs: Accuchecks 02/19/17 02/18/17 02/18/17 05:33 20:32 16:40 POC Glucose 116 H 172 H 257 H 02/18/17 11:26 POC Glucose 260 H EKG Reviewed by me: Yes (Tele: anthony peñaloza) Phys Exam - Physical Examination Obese HEENT: moist MMs, oral pharynx no lesions Neck: supple Respiratory: no wheezing, no rales, no rhonchi, clear to auscultation bilateral Cardiovascular: no rub, irregular Gastrointestinal: soft Musculoskeletal: pulses present Neurological: moves all 4 limbs Psychiatric: normal affect Dx/Plan (1) Atrial fibrillation Code(s): I48.91 - UNSPECIFIED ATRIAL FIBRILLATION Status: Chronic (2) Pneumonia Code(s): J18.9 - PNEUMONIA, UNSPECIFIED ORGANISM Status: Suspected (3) Hypothyroid Code(s): E03.9 - HYPOTHYROIDISM, UNSPECIFIED Status: Chronic (4) Benign hypertension Code(s): I10 - ESSENTIAL (PRIMARY) HYPERTENSION Status: Chronic (5) Diabetes mellitus Code(s): E11.9 - TYPE 2 DIABETES MELLITUS WITHOUT COMPLICATIONS Status: Chronic (6) Atrial flutter Code(s): I48.92 - UNSPECIFIED ATRIAL FLUTTER Status: Resolved - Plan continue antibiotics * . Continue diuretics. Continue diuretics. Continue warfarin. Review of Systems - Review of Systems Constitutional: negative: Fever, Chills, Sweats, Weakness, Malaise Respiratory: negative: Cough, Dry, Shortness of Breath, Hemoptysis, SOB with Excertion, Pleuritic Pain, Sputum, Wheezing Cardiovascular: negative: Chest Pain, Palpitations, Orthopnea, Paroxysmal Noc. Dyspnea, Edema, Light Headedness, Other - Medications/Allergies Allergies/Adverse Reactions: Allergies Allergy/AdvReac Type Severity Reaction Status Date / Time No Known Drug Allergies Allergy Verified 08/27/13 22:26 shrimp Allergy Uncoded 05/01/13 13:29 Medications: Current Medications Acetaminophen (Tylenol) 650 mg PO Q4H PRN PRN Reason: Headache/Fever or Pain Hydrocodone Bitart/Acetaminophen ([place] 5/325) 1 tab PO Q4H PRN PRN Reason: Moderate Pain (4-6) Al Hydroxide/Mg Hydroxide (Maalox) 30 ml PO Q6H PRN PRN Reason: Heartburn or Indigestion Albuterol/Ipratropium (Duoneb) 3 ml NEB Q4H PRN PRN Reason: SOB &/or Wheezing Last Admin: 02/17/17 03:54 Dose: 3 ml Amoxicillin/Clavulanate Potassium (Augmentin) 875 mg PO Q12HR [facility] Last Admin: 02/19/17 09:52 Dose: 875 mg Dextrose/Water (Dextrose 50%) 25 gm SLOW IVP PRN PRN PRN Reason: Hypoglycemia Diltiazem HCl (Cardizem Cd) 180 mg PO DAILY [facility] Last Admin: 02/19/17 09:50 Dose: 180 mg Finasteride (Proscar) 5 mg PO DAILY [facility] Last Admin: 02/19/17 09:52 Dose: 5 mg Furosemide (Lasix) 40 mg PO DAILY [facility] Last Admin: 02/19/17 09:52 Dose: 40 mg Glipizide (Glucotrol) 10 mg PO DAILY-[facility] Last Admin: 02/19/17 09:50 Dose: 10 mg Glucagon (Glucagon) 1 mg IM PRN PRN PRN Reason: Hypoglycemia Guaifenesin (Robitussin Sf) 200 mg PO Q4H PRN PRN Reason: Cough Hydralazine HCl (Apresoline) 10 mg SLOW IVP Q4H PRN PRN Reason: Systolic BP > 180 Dextrose/Water (D5w) 1,000 mls @ 0 mls/hr IV .Q0M PRN; As Directed PRN Reason: Hypoglycemia Insulin Human Lispro (Humalog) 0 units SC .MODERATE SLIDING SC PRN PRN Reason: Moderate Correctional Scale Last Admin: 02/18/17 18:11 Dose: 6 unit Insulin Human Lispro (Humalog) 0 units SC .BEDTIME SLIDING SC PRN PRN Reason: Bedtime Correctional Scale Last Admin: 02/17/17 21:42 Dose: 2 unit Isosorbide Dinitrate (Isordil) 10 mg PO DAILY [facility] Last Admin: 02/19/17 09:51 Dose: 10 mg Levothyroxine Sodium (Synthroid) 100 mcg PO 0600 [facility] Last Admin: 02/19/17 05:20 Dose: 100 mcg Loperamide HCl (Imodium) 2 mg PO PRN PRN PRN Reason: Diarrhea/Loose Stools Loratadine (Claritin) 10 mg PO DAILYPRN PRN PRN Reason: Sinus Symptoms Magnesium Hydroxide (Milk Of Magnesium) 30 ml PO DAILYPRN PRN PRN Reason: Constipation Magnesium Oxide (Magnesium Oxide) 400 mg PO BID [facility] Last Admin: 02/19/17 09:52 Dose: 400 mg Mineral Oil/White Petrolatum (Eucerin Cream) 0 gm TOP BIDPRN PRN PRN Reason: Dry Skin Miscellaneous Medication (Pharmacy To Dose) 1 each PO PRN PRN PRN Reason: . Nitroglycerin (Nitrostat) 0.4 mg SL Q5MIN PRN PRN Reason: Chest Pain Ondansetron HCl (Zofran Odt) 4 mg PO Q6H PRN PRN Reason: Nausea/Vomiting Ondansetron HCl (Zofran) 4 mg IVP Q6H PRN PRN Reason: Nausea/Vomiting Pantoprazole Sodium (Protonix) 40 mg PO DAILY [facility] Last Admin: 02/19/17 09:52 Dose: 40 mg Potassium Chloride (K-Dur) 40 meq PO QAM-WM [facility] Last Admin: 02/19/17 09:52 Dose: 40 meq Senna (Senokot) 2 tab PO HSPRN PRN PRN Reason: Constipation Sodium Chloride (Flush - Normal Saline) 10 ml IVF Q12HR [facility] Last Admin: 02/19/17 09:54 Dose: 10 ml Sodium Chloride (Flush - Normal Saline) 10 ml IVF PRN PRN PRN Reason: Saline Flush Warfarin Sodium (Coumadin) 5 mg PO 1700 [facility] Last Admin: 02/18/17 18:07 Dose: 5 mg Zolpidem Tartrate (Ambien) 5 mg PO HSPRN PRN PRN Reason: Insomnia
[2017-02-19] MEDS: HumaLOG 300 UNITS/3 ML VIAL SC PRN (14:02)
--- NOTE | 2017-02-19 15:00 | PDOC.CTH ---
Cardiology Progress Note - Subjective He is doing well. No new issues. Still a little short winded. - Objective Vital Signs Temp Pulse Resp BP BP Pulse Ox 02/19/17 11:48 97.9 F 84 22 H 121/68 92 L 02/19/17 08:15 97.4 F L 108 H 22 H 118/74 93 L 02/19/17 04:00 97.6 F 98 20 152/67 H 97 Weight 213 lb 9.6 oz 02/18/17 02/19/17 02/20/17 06:59 06:59 06:59 Intake Total 250 Output Total 300 550 Balance -300 -300 - Physical Examination General/Neuro: alert & oriented x3, NAD Neck: no JVD present Lungs: unlabored respirations, other: (MIld crackles. ) Heart: other: (Irregular) Abdomen: NT/ND Extremities: + edema B (1+) - Telemetry Telemetry Rhythm: Afib HR 90's. - Labs Result Diagrams: 02/18/17 04:23 02/19/17 04:23 Troponin/CKMB CK-MB (CK-2) 1.8 ng/mL (0-6.6) 02/15/17 13:50 Troponin I 0.028 ng/mL (< 0.028) 02/15/17 13:50 - Assessment/Plan 1. Chronic afib, rate controlled. 2. Acute diastolic heart failure. 3. Possible pneumonia PLAN: - Continue current management. - Continue PO lasix. - Rate controlled on current PO regimen.
[2017-02-19] MEDS: Warfarin Sodium 5 MG TAB PO SCH (17:14)
[2017-02-20 05:47] LABS: Prothrombin Time 22.1 SEC (12.0-14.7)
[2017-02-20] MEDS: Levothyroxine Sodium 100 MCG TAB PO SCH ×2 (05:48→07:49)
[2017-02-20 06:04] LABS: Anion Gap 9 mmol/L (10-20); BUN (Urea Nitrogen) 26 mg/dL (8.4-25.7); Calc. Creatinine Clearance 45 mL/min (70-130); Calcium 8.8 mg/dL (7.8-10.44); Carbon Dioxide 32 mmol/L (23-31); Chloride 104 mmol/L (98-107); Estimated GFR-MDRD 39
[2017-02-20] MEDS: Potassium Chloride 20 MEQ TAB PO SCH (08:15)
[2017-02-20] MEDS: Amoxicillin/Potassium Clav 875 MG TAB PO SCH ×2 (08:16→20:39)
[2017-02-20] MEDS: glipiZIDE 10 MG TAB PO SCH (08:16)
[2017-02-20] MEDS: Magnesium Oxide 400 MG TAB PO SCH ×2 (08:16→20:39)
[2017-02-20] MEDS: Finasteride 5 MG TAB PO SCH (08:16)
[2017-02-20] MEDS: Furosemide 40 MG TAB PO SCH (08:16)
[2017-02-20] MEDS: Isosorbide Dinitrate 20 MG TAB PO SCH (10:11)
--- NOTE | 2017-02-20 11:08 | PDOC.PN ---
- Subjective Encounter Start Date: 02/20/17 Encounter Start Time: 08:40 Pt seen for followup re; anthony peñaloza. Says he feels better. denies chest pain, shortness of breath, fevers or chills. - Objective Resuscitation Status: Resuscitation Status FULL:Full Resuscitation MAR Reviewed: Yes Vital Signs & Weight: Vital Signs (12 hours) Temp Pulse Resp BP BP Pulse Ox 02/20/17 08:15 98.2 F 101 H 12 154/86 H 96 02/20/17 04:30 92 L 02/20/17 04:00 97.8 F 108 H 20 131/87 92 L 02/20/17 00:16 94 L 02/19/17 23:51 98.3 F 110 H 18 146/92 H 94 L Weight Weight 217 lb I&O: 02/19/17 02/20/17 02/21/17 06:59 06:59 06:59 Intake Total 250 600 Output Total 550 Balance -300 600 Result Diagrams: 02/18/17 04:23 02/20/17 05:23 Additional Labs: Accuchecks 02/20/17 02/19/17 02/19/17 05:55 22:12 16:53 POC Glucose 131 H 183 H 162 H 02/19/17 11:42 POC Glucose 245 H EKG Reviewed by me: Yes (Tele: anthony peñaloza) Phys Exam - Physical Examination Constitutional: NAD HEENT: moist MMs, oral pharynx no lesions Neck: supple Respiratory: no wheezing, no rales, no rhonchi, clear to auscultation bilateral Cardiovascular: no rub, irregular Gastrointestinal: soft Musculoskeletal: edema present Neurological: moves all 4 limbs Psychiatric: normal affect Dx/Plan (1) Atrial fibrillation Code(s): I48.91 - UNSPECIFIED ATRIAL FIBRILLATION Status: Chronic (2) Pneumonia Code(s): J18.9 - PNEUMONIA, UNSPECIFIED ORGANISM Status: Suspected (3) Hypothyroid Code(s): E03.9 - HYPOTHYROIDISM, UNSPECIFIED Status: Chronic (4) Benign hypertension Code(s): I10 - ESSENTIAL (PRIMARY) HYPERTENSION Status: Chronic (5) Diabetes mellitus Code(s): E11.9 - TYPE 2 DIABETES MELLITUS WITHOUT COMPLICATIONS Status: Chronic (6) Atrial flutter Code(s): I48.92 - UNSPECIFIED ATRIAL FLUTTER Status: Resolved - Plan * . Clinically improving. Ambulate pt. Continue diuretics. Continue antibiotics. Review of Systems - Review of Systems Constitutional: negative: Fever, Chills, Sweats, Weakness, Malaise Cardiovascular: negative: Chest Pain, Palpitations, Orthopnea, Paroxysmal Noc. Dyspnea, Edema, Light Headedness Gastrointestinal: negative: Nausea, Vomiting, Abdominal Pain, Diarrhea, Constipation, Melena, Hematochezia - Medications/Allergies Allergies/Adverse Reactions: Allergies Allergy/AdvReac Type Severity Reaction Status Date / Time No Known Drug Allergies Allergy Verified 08/27/13 22:26 shrimp Allergy Uncoded 05/01/13 13:29 Medications: Current Medications Acetaminophen (Tylenol) 650 mg PO Q4H PRN PRN Reason: Headache/Fever or Pain Hydrocodone Bitart/Acetaminophen ([place] 5/325) 1 tab PO Q4H PRN PRN Reason: Moderate Pain (4-6) Al Hydroxide/Mg Hydroxide (Maalox) 30 ml PO Q6H PRN PRN Reason: Heartburn or Indigestion Albuterol/Ipratropium (Duoneb) 3 ml NEB Q4H PRN PRN Reason: SOB &/or Wheezing Last Admin: 02/17/17 03:54 Dose: 3 ml Amoxicillin/Clavulanate Potassium (Augmentin) 875 mg PO Q12HR [facility] Last Admin: 02/20/17 08:16 Dose: 875 mg Dextrose/Water (Dextrose 50%) 25 gm SLOW IVP PRN PRN PRN Reason: Hypoglycemia Diltiazem HCl (Cardizem Cd) 180 mg PO DAILY [facility] Last Admin: 02/20/17 08:16 Dose: 180 mg Finasteride (Proscar) 5 mg PO DAILY [facility] Last Admin: 02/20/17 08:16 Dose: 5 mg Furosemide (Lasix) 40 mg PO DAILY [facility] Last Admin: 02/20/17 08:16 Dose: 40 mg Glipizide (Glucotrol) 10 mg PO DAILY-[facility] Last Admin: 02/20/17 08:16 Dose: 10 mg Glucagon (Glucagon) 1 mg IM PRN PRN PRN Reason: Hypoglycemia Guaifenesin (Robitussin Sf) 200 mg PO Q4H PRN PRN Reason: Cough Hydralazine HCl (Apresoline) 10 mg SLOW IVP Q4H PRN PRN Reason: Systolic BP > 180 Dextrose/Water (D5w) 1,000 mls @ 0 mls/hr IV .Q0M PRN; As Directed PRN Reason: Hypoglycemia Insulin Human Lispro (Humalog) 0 units SC .MODERATE SLIDING SC PRN PRN Reason: Moderate Correctional Scale Last Admin: 02/19/17 14:02 Dose: 4 unit Insulin Human Lispro (Humalog) 0 units SC .BEDTIME SLIDING SC PRN PRN Reason: Bedtime Correctional Scale Last Admin: 02/17/17 21:42 Dose: 2 unit Isosorbide Dinitrate (Isordil) 10 mg PO DAILY [facility] Last Admin: 02/20/17 10:11 Dose: 10 mg Levothyroxine Sodium (Synthroid) 100 mcg PO 0600 [facility] Last Admin: 02/20/17 05:48 Dose: 100 mcg Loperamide HCl (Imodium) 2 mg PO PRN PRN PRN Reason: Diarrhea/Loose Stools Loratadine (Claritin) 10 mg PO DAILYPRN PRN PRN Reason: Sinus Symptoms Magnesium Hydroxide (Milk Of Magnesium) 30 ml PO DAILYPRN PRN PRN Reason: Constipation Magnesium Oxide (Magnesium Oxide) 400 mg PO BID [facility] Last Admin: 02/20/17 08:16 Dose: 400 mg Mineral Oil/White Petrolatum (Eucerin Cream) 0 gm TOP BIDPRN PRN PRN Reason: Dry Skin Miscellaneous Medication (Pharmacy To Dose) 1 each PO PRN PRN PRN Reason: . Nitroglycerin (Nitrostat) 0.4 mg SL Q5MIN PRN PRN Reason: Chest Pain Ondansetron HCl (Zofran Odt) 4 mg PO Q6H PRN PRN Reason: Nausea/Vomiting Ondansetron HCl (Zofran) 4 mg IVP Q6H PRN PRN Reason: Nausea/Vomiting Pantoprazole Sodium (Protonix) 40 mg PO DAILY [facility] Last Admin: 02/20/17 08:16 Dose: 40 mg Potassium Chloride (K-Dur) 40 meq PO QAM-WM [facility] Last Admin: 02/20/17 08:15 Dose: 40 meq Senna (Senokot) 2 tab PO HSPRN PRN PRN Reason: Constipation Sodium Chloride (Flush - Normal Saline) 10 ml IVF Q12HR [facility] Last Admin: 09/25/17 08:15 Dose: 10 ml Sodium Chloride (Flush - Normal Saline) 10 ml IVF PRN PRN PRN Reason: Saline Flush Warfarin Sodium (Coumadin) 6 mg PO 1700 [facility] Zolpidem Tartrate (Ambien) 5 mg PO HSPRN PRN PRN Reason: Insomnia
[2017-02-20] MEDS: HumaLOG 300 UNITS/3 ML VIAL SC PRN ×2 (12:30→18:16)
--- NOTE | 2017-02-20 12:57 | PDOC.CTH ---
Cardiology Progress Note - Subjective Patient seen and examined. No new complaints. He reports overall feeling better and denies any CP, pressure or palpitations. He states SOB is greatly improved. - Objective Vital Signs Temp Pulse Resp BP BP Pulse Ox 02/20/17 12:23 97.7 F 84 14 131/62 97 02/20/17 08:15 98.2 F 101 H 12 154/86 H 96 02/20/17 08:00 98.2 F 101 H 12 96 02/20/17 04:30 92 L 02/20/17 04:00 97.8 F 108 H 20 131/87 92 L Weight 217 lb 02/19/17 02/20/17 02/21/17 06:59 06:59 06:59 Intake Total 250 600 Output Total 550 Balance -300 600 - Physical Examination General/Neuro: alert & oriented x3, NAD Neck: no JVD present Lungs: CTA, unlabored respirations, other: (oxygen via NC) Heart: other: (irregular) Abdomen: NT/ND, soft, other: (active BS) Extremities: other: (1+ edema to BLE) - Telemetry Telemetry Rhythm: afib - Labs Result Diagrams: 02/18/17 04:23 02/20/17 05:23 Troponin/CKMB CK-MB (CK-2) 1.8 ng/mL (0-6.6) 02/15/17 13:50 Troponin I 0.028 ng/mL (< 0.028) 02/15/17 13:50 - Assessment/Plan 1. Chronic afib, rate controlled 2. Acute diastolic heart failure 3. Possible pneumonia PLAN: Mr. Fried's status continues to improve. His afib is rate controlled on current therapy and he is asymptomatic. He is anticoagulated with coumadin. We will continue diuresis with lasix and monitor response. Mitochondrial Disorders Counselor improved overnight.
[2017-02-20] MEDS: Warfarin Sodium 3 MG TAB PO SCH (16:10)
[2017-02-21 05:23] LABS: Prothrombin Time 22.2 SEC (12.0-14.7)
[2017-02-21] MEDS: Levothyroxine Sodium 100 MCG TAB PO SCH (05:26)
[2017-02-21 05:33] LABS: Anion Gap 13 mmol/L (10-20); BUN (Urea Nitrogen) 29 mg/dL (8.4-25.7); Calc. Creatinine Clearance 47 mL/min (70-130); Calcium 8.9 mg/dL (7.8-10.44); Carbon Dioxide 31 mmol/L (23-31); Chloride 100 mmol/L (98-107); Estimated GFR-MDRD 41
[2017-02-21] MEDS: Isosorbide Dinitrate 20 MG TAB PO SCH (08:48)
[2017-02-21] MEDS: glipiZIDE 10 MG TAB PO SCH (08:48)
[2017-02-21] MEDS: Potassium Chloride 20 MEQ TAB PO SCH (08:48)
[2017-02-21] MEDS: Furosemide 40 MG TAB PO SCH (08:48)
[2017-02-21] MEDS: Amoxicillin/Potassium Clav 875 MG TAB PO SCH (08:48)
[2017-02-21] MEDS: Finasteride 5 MG TAB PO SCH (08:48)
[2017-02-21] MEDS: Magnesium Oxide 400 MG TAB PO SCH ×2 (08:48→21:25)
--- NOTE | 2017-02-21 10:11 | PRG ---
DATE OF SERVICE: 02/21/2017 Mr. Fried is stable today. He is seen sitting up in a chair. He states he feels weak. PHYSICAL EXAMINATION: VITAL SIGNS: Blood pressure 144/67, pulse 100, respirations 20. LUNGS: Clear to auscultation. CARDIAC: Irregular, irregular. ABDOMEN: Soft, nontender, nondistended. EXTREMITIES: No edema. IMPRESSION: Atrial fibrillation. RECOMMENDATIONS: 1. Increase Cardizem from 180 one p.o. q.a.m. to 240 q.a.m. 2. Physical therapy. 3. Continue Coumadin as prescribed, achieve an INR of 2-3.
--- NOTE | 2017-02-21 10:32 | PQF ---
CLINICAL DOCUMENTATION IMPROVEMENT CLARIFICATION FORM: ICD-10 Updated PLEASE DO AN ADDENDUM TO THE PROGRESS NOTE WITH ANY DOCUMENTATION UPDATES OR ADDITIONS AND CARRY THROUGH TO DC SUMMARY. THANK YOU. DATE: 02/21/17 ATTN: Dr. Pope Please exercise your independent, professional judgment in responding to the clarification form. Clinical indicators are provided on the bottom of this form for your review Please check appropriate box(s): [ ] Acute Respiratory Failure: [ ] with Hypoxia[ ] with Hypercapnia [ ] Acute On Chronic Respiratory Failure: [ ] with Hypoxia [ ] with Hypercapnia [ x ] Acute Respiratory Failure due to: (etiology) ACUTE DIASTOLIC CHF__ [ ] Chronic Respiratory Failure only [ ] with Hypoxia [ ] with Hypercapnia [ ] Other diagnosis [ ] Unable to determine For continuity of documentation, please document condition throughout progress notes and discharge summary. Thank You. The following CLINICAL INDICATORS - SIGNS / SYMPTOMS are present in the medical record: H&P: RESP RATE 24, SATURATION 90% ON ROOM AIR ON ARRIVAL NURSING NOTE 02/17 0447 SATS 87% ON 2L WHILE SLEEPING 0510 60 MG IV LASIX GIVEN. SATS 94% ON 4L PER NC. EVENT NOTE 02/17: HYPOXEMIA - SUSPECT VOLUME OVERLOAD CARDIOLOGY PN 02/18: ACUTE DIASTOLIC HEART FAILURE. RISKS: H&P: HX OF CAD, PAROXYSMAL ATRIAL FIB; DM 2, ULCERATIVE COLITIS. ASSESS: ATRIAL FIBRILLATION WITH RVR. ELEVATED BNP LIKELY D/T DIASTOLIC HEART FAILURE. TREATMENT: CPOE 02/15: RESP: O2 TO KEEP SATS 92% CPOE 02/17: LASIX 60MG SLOW IVP NOW (This form is maintained as a part of the permanent medical record) 2014 [employer]. All Rights Reserved Alejandrina Lay RN, BSN [email or web address] Office: [phone] [facility]
[2017-02-21] MEDS: HumaLOG 300 UNITS/3 ML VIAL SC PRN ×3 (13:21→21:27)
--- NOTE | 2017-02-21 15:51 | DIS ---
DATE OF ADMISSION: 02/15/2017 DATE OF DISCHARGE: 02/21/2017 PRIMARY CARE PHYSICIAN: Bandar Dinero M.D. DISCHARGE DIAGNOSES: 1. Acute hypoxic respiratory failure secondary to #2. 2. Acute diastolic heart failure. 3. Atrial fibrillation with rapid ventricular response. 4. Chronic renal insufficiency. 5. Pneumonia, suspected. CONDITION OF PATIENT AT THE TIME OF DISCHARGE: Stable. I assessed Mr. Corky Sevilla on the day of dis charge. He denied any chest pain or shortness of breath. Vital signs are stable. S1 and S2 are he eyad, regular. Lung examination reveals no wheeze, rhonchi, or crepitations. DISCHARGE MEDICATIONS: Furosemide dose was decreased to 40 mg daily. Antibiotics were discontinued . Discharge medications include Cardizem-CD 240 mg daily, Proscar 5 mg daily, fludrocortisone 0.1 m g daily, isosorbide mononitrate 30 mg daily, levothyroxine 100 mcg daily, lisinopril 10 mg 2 times a day, omeprazole 40 mg daily, pravastatin 40 mg at bedtime, warfarin 5 mg on Monday, , and Monday and 7.5 mg on the remaining 4 days of the week. HOSPITAL COURSE: Mr. Corky Sevilla is a pleasant 86-year-old gentleman who was admitted to [facility] on 02/15/2017 for atrial fibrillation with rapid ventricular response. He wa s also found to be in congestive heart failure. He was seen by Cardiology Service. He was started on Cardizem drip, with improvement of his heart rate. He was continued on oral antibiotics for susp ected pneumonia. These were discontinued on the day of discharge. A 2D echocardiogram on 02/17/2017 showed ejection fraction of 50 to 55%. Diastolic function could n ot be assessed secondary to atrial fibrillation. He had moderate mitral regurgitation and sclerotic aortic valve and mild tricuspid regurgitation. His Cardizem was started during this hospitalization, dose increased to 240 mg daily on the day of d ischarge. He had a creatinine of 1.62 on the day of discharge. Because of concern over his renal function, hi s furosemide dose was decreased to 40 mg daily. He is advised to follow up with his primary care ph ysician for further management. On the day of discharge, Mr. Fried has normal electrolytes, elevated blood urea nitrogen of 29 and elevated creatinine of 1.62. On 02/18, he had a white count of 5700, hemoglobin 8.6 and platelet co unt of 180. During this hospitalization, he had a low TSH of 0.3441. Free T4 and free T3 were norm al at 1.37 and 1.96, respectively. He had a fasting lipid profile, which showed triglycerides 102, cholesterol 138, LDL 90, and HDL 28. BNP during this admission was 643.1. His vitamin B12 level wa s 365 picograms per mL. Many thanks for allowing me to participate in your patient's care. Please feel free to contact me w ith any questions or concerns. DISCHARGE DESTINATION: Home with home health. TOTAL AMOUNT OF TIME SPENT COORDINATING THIS DISCHARGE: 33 minutes.
[2017-02-21] MEDS: Warfarin Sodium 3 MG TAB PO SCH (16:23)
--- NOTE | 2017-02-21 16:39 | PDOC.PN ---
- Subjective Encounter Start Date: 02/21/17 Encounter Start Time: 08:40 Pt seen for followup re: anthony peñaloza. Denies chest pain, shortness of breath, fevers or chills. No nausea or vomiting. - Objective Resuscitation Status: Resuscitation Status FULL:Full Resuscitation MAR Reviewed: Yes Vital Signs & Weight: Vital Signs (12 hours) Temp Pulse Resp BP BP Pulse Ox 02/21/17 15:26 97.9 F 68 20 126/60 94 L 02/21/17 10:24 100 144/67 H 02/21/17 08:52 97.6 F 100 20 97 02/21/17 08:40 97.6 F 100 20 144/67 H 92 L Weight Weight 218 lb 3.2 oz I&O: 02/20/17 02/21/17 02/22/17 06:59 06:59 06:59 Intake Total 600 960 Output Total 500 Balance 600 460 Result Diagrams: 02/18/17 04:23 02/21/17 04:46 Additional Labs: Accuchecks 02/21/17 02/21/17 02/20/17 11:35 05:52 20:37 POC Glucose 283 H 111 H 138 H 02/20/17 17:39 POC Glucose 208 H EKG Reviewed by me: Yes (Tele: anthony peñaloza) Phys Exam - Physical Examination Constitutional: NAD HEENT: moist MMs Neck: supple Respiratory: no wheezing, no rales, no rhonchi, clear to auscultation bilateral Cardiovascular: no rub, irregular Gastrointestinal: soft, positive bowel sounds Musculoskeletal: pulses present Neurological: moves all 4 limbs Psychiatric: normal affect Dx/Plan (1) Atrial fibrillation Code(s): I48.91 - UNSPECIFIED ATRIAL FIBRILLATION Status: Chronic (2) Pneumonia Code(s): J18.9 - PNEUMONIA, UNSPECIFIED ORGANISM Status: Suspected (3) Hypothyroid Code(s): E03.9 - HYPOTHYROIDISM, UNSPECIFIED Status: Chronic (4) Benign hypertension Code(s): I10 - ESSENTIAL (PRIMARY) HYPERTENSION Status: Chronic (5) Diabetes mellitus Code(s): E11.9 - TYPE 2 DIABETES MELLITUS WITHOUT COMPLICATIONS Status: Chronic (6) Atrial flutter Code(s): I48.92 - UNSPECIFIED ATRIAL FLUTTER Status: Resolved - Plan * . Discontinue antibiotics. Cardizem dose increased, monitor on telemetry. Likely home later today if heart rate is controlled. Review of Systems - Medications/Allergies Allergies/Adverse Reactions: Allergies Allergy/AdvReac Type Severity Reaction Status Date / Time No Known Drug Allergies Allergy Verified 08/27/13 22:26 shrimp Allergy Uncoded 05/01/13 13:29 Medications: Current Medications Acetaminophen (Tylenol) 650 mg PO Q4H PRN PRN Reason: Headache/Fever or Pain Hydrocodone Bitart/Acetaminophen ([place] 5/325) 1 tab PO Q4H PRN PRN Reason: Moderate Pain (4-6) Al Hydroxide/Mg Hydroxide (Maalox) 30 ml PO Q6H PRN PRN Reason: Heartburn or Indigestion Albuterol/Ipratropium (Duoneb) 3 ml NEB Q4H PRN PRN Reason: SOB &/or Wheezing Last Admin: 02/17/17 03:54 Dose: 3 ml Amoxicillin/Clavulanate Potassium (Augmentin) 875 mg PO Q12HR [facility] Last Admin: 02/21/17 08:48 Dose: 875 mg Dextrose/Water (Dextrose 50%) 25 gm SLOW IVP PRN PRN PRN Reason: Hypoglycemia Diltiazem HCl (Cardizem Cd) 240 mg PO DAILY [facility] Finasteride (Proscar) 5 mg PO DAILY [facility] Last Admin: 02/21/17 08:48 Dose: 5 mg Furosemide (Lasix) 40 mg PO DAILY [facility] Last Admin: 02/21/17 08:48 Dose: 40 mg Glipizide (Glucotrol) 10 mg PO DAILY-[facility] Last Admin: 02/21/17 08:48 Dose: 10 mg Glucagon (Glucagon) 1 mg IM PRN PRN PRN Reason: Hypoglycemia Guaifenesin (Robitussin Sf) 200 mg PO Q4H PRN PRN Reason: Cough Hydralazine HCl (Apresoline) 10 mg SLOW IVP Q4H PRN PRN Reason: Systolic BP > 180 Dextrose/Water (D5w) 1,000 mls @ 0 mls/hr IV .Q0M PRN; As Directed PRN Reason: Hypoglycemia Insulin Human Lispro (Humalog) 0 units SC .MODERATE SLIDING SC PRN PRN Reason: Moderate Correctional Scale Last Admin: 02/21/17 13:21 Dose: 6 unit Insulin Human Lispro (Humalog) 0 units SC .BEDTIME SLIDING SC PRN PRN Reason: Bedtime Correctional Scale Last Admin: 02/17/17 21:42 Dose: 2 unit Isosorbide Dinitrate (Isordil) 10 mg PO DAILY [facility] Last Admin: 02/21/17 08:48 Dose: 10 mg Levothyroxine Sodium (Synthroid) 100 mcg PO 0600 [facility] Last Admin: 02/21/17 05:26 Dose: 100 mcg Loperamide HCl (Imodium) 2 mg PO PRN PRN PRN Reason: Diarrhea/Loose Stools Loratadine (Claritin) 10 mg PO DAILYPRN PRN PRN Reason: Sinus Symptoms Magnesium Hydroxide (Milk Of Magnesium) 30 ml PO DAILYPRN PRN PRN Reason: Constipation Magnesium Oxide (Magnesium Oxide) 400 mg PO BID [facility] Last Admin: 02/21/17 08:48 Dose: 400 mg Mineral Oil/White Petrolatum (Eucerin Cream) 0 gm TOP BIDPRN PRN PRN Reason: Dry Skin Miscellaneous Medication (Pharmacy To Dose) 1 each PO PRN PRN PRN Reason: . Nitroglycerin (Nitrostat) 0.4 mg SL Q5MIN PRN PRN Reason: Chest Pain Ondansetron HCl (Zofran Odt) 4 mg PO Q6H PRN PRN Reason: Nausea/Vomiting Ondansetron HCl (Zofran) 4 mg IVP Q6H PRN PRN Reason: Nausea/Vomiting Pantoprazole Sodium (Protonix) 40 mg PO DAILY [facility] Last Admin: 02/21/17 08:47 Dose: 40 mg Potassium Chloride (K-Dur) 40 meq PO QAM-WM [facility] Last Admin: 02/21/17 08:48 Dose: 40 meq Senna (Senokot) 2 tab PO HSPRN PRN PRN Reason: Constipation Sodium Chloride (Flush - Normal Saline) 10 ml IVF Q12HR [facility] Last Admin: 02/21/17 08:49 Dose: 10 ml Sodium Chloride (Flush - Normal Saline) 10 ml IVF PRN PRN PRN Reason: Saline Flush Warfarin Sodium (Coumadin) 6 mg PO 1700 [facility] Last Admin: 02/21/17 16:23 Dose: 6 mg Zolpidem Tartrate (Ambien) 5 mg PO HSPRN PRN PRN Reason: Insomnia
[2017-02-22] MEDS: Levothyroxine Sodium 100 MCG TAB PO SCH (05:42)
[2017-02-22 06:24] VITALS: BMI 35.4
[2017-02-22 07:00] LABS: Prothrombin Time 21.9 SEC (12.0-14.7)
[2017-02-22 07:15] LABS: Anion Gap 12 mmol/L (10-20); BUN (Urea Nitrogen) 29 mg/dL (8.4-25.7); Calc. Creatinine Clearance 43 mL/min (70-130); Carbon Dioxide 31 mmol/L (23-31); Chloride 101 mmol/L (98-107); Estimated GFR-MDRD 36
[2017-02-22] MEDS: Finasteride 5 MG TAB PO SCH (09:33)
[2017-02-22] MEDS: Furosemide 40 MG TAB PO SCH (09:33)
[2017-02-22] MEDS: Magnesium Oxide 400 MG TAB PO SCH (09:33)
[2017-02-22] MEDS: glipiZIDE 10 MG TAB PO SCH (09:33)
[2017-02-22] MEDS: Isosorbide Dinitrate 20 MG TAB PO SCH (09:33)
[2017-02-22] MEDS: Potassium Chloride 20 MEQ TAB PO SCH (09:43)
[2017-02-22] MEDS: Albuterol Sulfate 1.25 MG/3 ML NEB NEB SCH ×2 (11:08→11:46)
[2017-02-22 12:16] VITALS: BP 125/61; TEMP 97.6
--- NOTE | 2017-02-22 13:24 | PDOC.CTH ---
Cardiology Progress Note - Subjective Patient seen and examined. No new complaints. Denies CP or palpitations. Sleepy during exam. - ROS shortness of breath - Objective Vital Signs Temp Pulse Resp BP BP Pulse Ox 02/22/17 12:00 97.6 F 73 16 125/61 100 02/22/17 11:46 73 16 100 02/22/17 11:08 82 16 100 02/22/17 09:32 100 02/22/17 09:30 97.4 F L 87 18 162/75 H 02/22/17 04:00 98.0 F 100 20 120/83 93 L Weight 219 lb 4.8 oz 02/21/17 02/22/17 02/23/17 06:59 06:59 06:59 Intake Total 960 1040 Output Total 500 525 Balance 460 515 - Physical Examination General/Neuro: NAD Neck: no JVD present Lungs: CTA, unlabored respirations Heart: other: (irregular) Extremities: other: (trace BLE edema) - Telemetry Telemetry Rhythm: afib - Labs Result Diagrams: 02/18/17 04:23 02/22/17 06:17 Troponin/CKMB CK-MB (CK-2) 1.8 ng/mL (0-6.6) 02/15/17 13:50 Troponin I 0.028 ng/mL (< 0.028) 02/15/17 13:50 - Assessment/Plan 1. Chronic afib, rate controlled 2. Acute diastolic heart failure 3. Acute hypoxia PLAN: Patient is stable from CV standpoint. He remains in afib with improved rate control after recent increase in CCB. He is anticoagulated with coumadin. Will likely need physical therapy upon discharge.
[2017-02-22] MEDS: HumaLOG 300 UNITS/3 ML VIAL SC PRN (15:22)
--- NOTE | 2017-02-22 22:56 | ADD-DIS ---
DATE OF ADMISSION: 02/15/2017 DATE OF DISCHARGE: 02/22/2017 PRIMARY CARE PHYSICIAN: Bandar Dinero M.D. Please note that this discharge summary is a followup to the discharge summary dictated on Mr. Isidro Fried Jr. on 02/21/2017. The patient was not discharged on 02/21/2017 because he was not comfor table going home that day. DISCHARGE DIAGNOSES: 1. Acute hypoxic respiratory failure secondary to acute diastolic heart failure. 2. Atrial fibrillation with rapid ventricular response. 3. Chronic renal insufficiency. 4. Suspected pneumonia. CONDITION OF PATIENT AT THE TIME OF DISCHARGE: Stable. I assessed Mr. Corky Haywood is on 02/22/2017. He denies shortness of breath or chest pain. He is ambulating well. PHYSICAL EXAMINATION: VITAL SIGNS: Stable. HEART: S1 and S2 are heard, regular. LUNGS: Clear to auscultation bilaterally. DISCHARGE MEDICATIONS: No changes were made to his discharge medications as dictated on the dischar ge summary from 02/21/2017. HOSPITAL COURSE: Mr. Corky Haywood is a pleasant 86-year-old gentleman who was admitted for atrial fibrillation with rapid ventricular response as well as congestive heart failure. He received Cardi zem drip as well as diuretics. He was also on oral antibiotics for suspected pneumonia. He improve d clinically. He had a 2D echocardiogram, which showed ejection fraction of 50%-55%, moderate baldev l regurgitation, sclerotic aortic valve and mild tricuspid regurgitation. On the day of discharge, Mr. Corky Haywood has a creatinine of 1.81. At 0617 hours on the day of di scharge, he had potassium of 5.3, which decreased to 4.7 following beta agonist nebulizers. His pot assium supplementation was discontinued. He will need his creatinine and electrolytes rechecked whe n he is followed up by his primary care physician. Please note that he had a low TSH, normal free T3, and normal free T4 during this hospitalization. He also had a lipid profile, results of which were summarized in the discharge summary dictated on 0 02/21/2017. Many thanks for allowing me to participate in your patient's care. Please feel free to contact me w ith any questions or concerns. DISCHARGE DESTINATION: Home. TOTAL AMOUNT OF TIME SPENT COORDINATING THIS DISCHARGE: 37 minutes.
== END 2017-02-22 15:46 | disposition home health service (06) | DRG 308 ==
LOC: ERS 13:32 → 2NO 15:16
PROVIDERS: ADMIT Internal Medicine; ATTEND Internal Medicine
DX: I48.2 Chronic atrial fibrillation (principal); I50.31 Acute diastolic (congestive) heart failure; J18.9 Pneumonia, unspecified organism; N17.9 Acute kidney failure, unspecified; K51.90 Ulcerative colitis, unspecified, without complications; I11.0 Hypertensive heart disease with heart failure; E11.9 Type 2 diabetes mellitus without complications; I08.3 Combined rheumatic disorders of mitral, aortic and tricuspid valves; Z79.01 Long term (current) use of anticoagulants; E03.9 Hypothyroidism, unspecified; Z79.84 Long term (current) use of oral hypoglycemic drugs; I48.92 Unspecified atrial flutter; D50.9 Iron deficiency anemia, unspecified; I25.10 Atherosclerotic heart disease of native coronary artery without angina pectoris; F41.9 Anxiety disorder, unspecified; F32.9 Major depressive disorder, single episode, unspecified; N40.0 Benign prostatic hyperplasia without lower urinary tract symptoms; I48.0 Paroxysmal atrial fibrillation
CPT/HCPCS: 36415; 36416; 71010; 80048; 80053; 80061; 81001; 82274; 82553; 82607; 82746; 83540; 83550; 83735; 83880; 84100; 84439; 84443; 84481; 84484; 85025; 85379; 85610; 85730; 87086; 93005; 93306; 93798; 94640; 96365; 96366; 96376; A4216; G8978-GP-CJ; G8979-GP-CJ; G8980-GP-CJ; G8987-GO-CK; G8988-GO-CI; J1160; J1756; J1940; J3480; J7050; J7620

== ENCOUNTER 2017-02-23 11:09 | Emergency (ER) | payer MEDICARE, OTHER ==
[2017-02-23 11:53] LABS: #Eosinphils 0.2 thou/uL (0.0-0.7); #Lymphocytes 1.1 thou/uL (1.20-3.40); #Monocytes 0.6 thou/uL (0.11-0.59); #Neutrophils 4.3 thou/uL (1.40-6.50); %Basophils 0.4 % (0.0-1.0); %Eosinophils 2.8 % (0.0-10.0); %Lymphocytes 17.8 % (21.0-51.0); %Monocytes 10.2 % (0.0-10.0); Mean Platelet Volume 7.1 fL (7.4-10.4); Red Blood Cell (RBC) Count 3.47 mill/uL (4.70-6.10); White Blood Cell (WBC) Count 6.3 thou/uL (4.8-10.8)
--- NOTE | 2017-02-23 12:01 | RAD ---
ONE VIEW CHEST: Comparison: 02-23-17 History: Dyspnea. Congestive heart failure. FINDINGS: Normal cardiac silhouette. The pulmonary vessels are slightly prominent. Patchy interstitial opaciti es are noted. No consolidation with air bronchograms. No pneumothorax or osseous abnormalities. IMPRESSION: Persistent interstitial infiltrate in the lung base. POS: [facility]
[2017-02-23 12:05] LABS: ALT (SGPT) 11 U/L (8-55); AST (SGOT) 19 U/L (5-34); Alkaline Phosphatase 84 U/L (40-150); Anion Gap 13 mmol/L (10-20); BUN (Urea Nitrogen) 27 mg/dL (8.4-25.7); Bilirubin, Total 0.5 mg/dL (0.2-1.2); CK (CPK) 104 U/L (30-200); Calc. Creatinine Clearance 0 mL/min (70-130); Calcium 8.9 mg/dL (7.8-10.44); Carbon Dioxide 31 mmol/L (23-31); Chloride 101 mmol/L (98-107); Estimated GFR-MDRD 35; Globulin 3.1 g/dL (2.4-3.5); Protein, Total 6.6 g/dL (5.8-8.1)
[2017-02-23 12:09] LABS: Troponin I 0.036 ng/mL (< 0.028)
== END 2017-02-23 17:29 | disposition home or self-care (01) ==
LOC: ERS 11:09
DX: I11.0 Hypertensive heart disease with heart failure (principal); I50.9 Heart failure, unspecified; I25.10 Atherosclerotic heart disease of native coronary artery without angina pectoris; I48.91 Unspecified atrial fibrillation; E11.9 Type 2 diabetes mellitus without complications; K58.9 Irritable bowel syndrome, unspecified; F41.9 Anxiety disorder, unspecified; F32.9 Major depressive disorder, single episode, unspecified; N40.0 Benign prostatic hyperplasia without lower urinary tract symptoms; Z79.4 Long term (current) use of insulin; Z79.01 Long term (current) use of anticoagulants; Z79.899 Other long term (current) drug therapy
CPT/HCPCS: 36415; 71010; 80053; 82550; 82553; 83880; 84484; 85025; 93005; 94760

== ENCOUNTER 2017-09-08 12:36 | Outpatient (CLI) | payer MEDICARE, OTHER ==
--- NOTE | 2017-09-08 12:51 | RAD ---
PA AND LATERAL VIEWS CHEST: HISTORY: Dyspnea. FINDINGS: Comparison is made with the exam of 01/05/16. The heart size is borderline. The aorta is tortuous. The lungs are expanded without focal areas of consolidation, pneumothorax, or pleural effusions. A small hiatal hernia is again seen. Postop changes of distal clavicular excision are again noted. IMPRESSION: No acute process. POS: [facility]
== END 2017-09-08 12:37 | disposition home or self-care (01) ==
LOC: RAD 12:36
PROVIDERS: ATTEND Internal Medicine
DX: R06.00 Dyspnea, unspecified (principal)
CPT/HCPCS: 71046

== ENCOUNTER 2018-04-09 14:01 | Inpatient (IN) | payer MEDICARE, OTHER ==
[2018-04-09 14:32] LABS: #Eosinphils 0.1 thou/uL (0.0-0.7); #Lymphocytes 1.3 thou/uL (1.20-3.40); #Monocytes 0.4 thou/uL (0.11-0.59); #Neutrophils 4.6 thou/uL (1.40-6.50); %Basophils 0.4 % (0.0-1.0); %Eosinophils 1.5 % (0.0-10.0); %Lymphocytes 20.6 % (21.0-51.0); %Monocytes 6.7 % (0.0-10.0); %Neutrophils 70.8 % (42.0-75.0); Hemoglobin 10.4 g/dL (14.0-18.0); Mean Corpuscular HGB CONC 32.9 g/dL (32.0-36.0); Mean Corpuscular Hemoglobin 30.1 pg (27.0-31.0); Mean Corpuscular Volume 91.7 fL (78.0-98.0); Mean Platelet Volume 7.7 fL (7.4-10.4); Platelet Count 173 thou/uL (130-400); RBC Distribution Width 12.7 % (11.5-14.5); Red Blood Cell (RBC) Count 3.45 mill/uL (4.70-6.10); White Blood Cell (WBC) Count 6.5 thou/uL (4.8-10.8)
[2018-04-09 14:58] LABS: ALT (SGPT) 9 U/L (8-55); AST (SGOT) 18 U/L (5-34); Albumin 3.5 g/dL (3.4-4.8); Alkaline Phosphatase 63 U/L (40-150); Anion Gap 10 mmol/L (10-20); BUN (Urea Nitrogen) 36 mg/dL (8.4-25.7); Bilirubin, Total 0.4 mg/dL (0.2-1.2); Calc. Creatinine Clearance 0 mL/min (70-130); Calcium 8.5 mg/dL (7.8-10.44); Carbon Dioxide 28 mmol/L (23-31); Chloride 107 mmol/L (98-107); Estimated GFR-MDRD 48; Globulin 2.5 g/dL (2.4-3.5); Glucose 191 mg/dL (83-110); Potassium 4.4 mmol/L (3.5-5.1); Sodium 141 mmol/L (136-145)
[2018-04-09 14:59] LABS: Troponin I 0.018 ng/mL (< 0.028)
[2018-04-09 15:34] LABS: PTT 42.8 SEC (22.9-36.1); Prothrombin Time 38.8 SEC (12.0-14.7)
[2018-04-09] MEDS ORDERED: Lorazepam 2 MG/ML VIAL ONE ×2 (15:44→16:26)
[2018-04-09 18:02] LABS: Bilirubin Negative (Negative); Blood, Urine Moderate (Negative); Clarity CLEAR (Clear); Glucose, Urine (Dipstick) Negative (Negative); Leukocyte Negative (Negative); Nitrite Negative (Negative); Protein, Urine (Dipstick) 30 mg/dL (Neg-Trace); Specific Gravity, Urine 1.014 (1.002-1.036); Urobilinogen 0.2 mg/dL (0.2-1.0)
[2018-04-09 18:04] LABS: Bacteria/HPF None Seen HPF (None Seen); Hyaline Casts/LPF 0-3 HYALINE CAST LPF (0-3 Hyaline); RBC/HPF 21-50 HPF (0-3); WBC/HPF 0-3 HPF (0-3)
[2018-04-09 18:13] LABS: Transitional Epithelial 0-3 HPF (0-3)
--- NOTE | 2018-04-09 18:50 | CT ---
CT BRAIN: HISTORY: An 87-year-old who presents with a history of altered mental status. TECHNIQUE: Noncontrast enhanced CT images of the brain are obtained. Brain and bone windows are obtained. FINDINGS: CT images of the brain demonstrate mild cortical atrophy and deep white matter ischemic changes. No evidence of acute intracranial masses, hemorrhages, or strokes seen. IMPRESSION: Cortical atrophy and deep white matter ischemic changes. POS: [facility]
[2018-04-09 19:17] LABS: Troponin I 0.025 ng/mL (< 0.028)
[2018-04-09 19:55] VITALS: BMI 28.8
[2018-04-09 22:03] LABS: Troponin I 0.027 ng/mL (< 0.028)
[2018-04-09] MEDS ORDERED: Ondansetron ODT 4 MG TAB PO PRN (22:10)
[2018-04-09] MEDS ORDERED: Acetaminophen 325 MG TAB PO PRN (22:10)
[2018-04-09] MEDS: Sodium Chloride 0.9% 1,000 ML IV SCH (23:11)
[2018-04-10 04:21] LABS: #Eosinphils 0.2 thou/uL (0.0-0.7); #Lymphocytes 1.6 thou/uL (1.20-3.40); #Monocytes 0.6 thou/uL (0.11-0.59); #Neutrophils 5.6 thou/uL (1.40-6.50); %Basophils 0.4 % (0.0-1.0); %Eosinophils 2.2 % (0.0-10.0); %Lymphocytes 19.7 % (21.0-51.0); %Neutrophils 69.7 % (42.0-75.0); Hemoglobin 9.3 g/dL (14.0-18.0); Mean Corpuscular HGB CONC 32.5 g/dL (32.0-36.0); Mean Corpuscular Hemoglobin 29.9 pg (27.0-31.0); Mean Platelet Volume 7.9 fL (7.4-10.4); Platelet Count 176 thou/uL (130-400); RBC Distribution Width 13.1 % (11.5-14.5); Red Blood Cell (RBC) Count 3.11 mill/uL (4.70-6.10)
[2018-04-10 04:23] LABS: Prothrombin Time 41.9 SEC (12.0-14.7)
[2018-04-10 04:35] LABS: ALT (SGPT) 11 U/L (8-55); AST (SGOT) 19 U/L (5-34); Albumin 3.4 g/dL (3.4-4.8); Alkaline Phosphatase 58 U/L (40-150); Anion Gap 11 mmol/L (10-20); BUN (Urea Nitrogen) 34 mg/dL (8.4-25.7); Bilirubin, Total 0.5 mg/dL (0.2-1.2); Calc. Creatinine Clearance 58 mL/min (70-130); Calcium 8.4 mg/dL (7.8-10.44); Carbon Dioxide 26 mmol/L (23-31); Chloride 109 mmol/L (98-107); Estimated GFR-MDRD 55; Globulin 2.2 g/dL (2.4-3.5); Glucose 193 mg/dL (83-110); Potassium 4.1 mmol/L (3.5-5.1); Protein, Total 5.6 g/dL (5.8-8.1); Sodium 142 mmol/L (136-145)
[2018-04-10 05:01] LABS: INR-International Normal Ratio 4.4
[2018-04-10] MEDS: Levothyroxine Sodium 100 MCG TAB PO SCH (06:27)
[2018-04-10 06:29] LABS: Free T4 (Free Thyroxine) 1.04 ng/dL (0.70-1.48)
[2018-04-10] MEDS ORDERED: Labetalol HCl 100 MG/20 ML VIAL SLOW IVP PRN (07:23)
[2018-04-10] MEDS ORDERED: hydrALAZINE 20 MG/ML VIAL SLOW IVP PRN (07:23)
[2018-04-10] MEDS ORDERED: Morphine 4 MG/ML VIAL SLOW IVP PRN (07:24)
[2018-04-10] MEDS ORDERED: Lorazepam 2 MG/ML VIAL SLOW IVP PRN (07:24)
[2018-04-10] MEDS ORDERED: Dextrose 50% Abboject 50 ML SYRINGE SLOW IVP PRN (07:25)
[2018-04-10] MEDS ORDERED: Dextrose 5% in Water 1,000 ML IV PRN (07:25)
[2018-04-10] MEDS ORDERED: Ondansetron PF 4 MG/2 ML Vial IVP PRN (07:28)
--- NOTE | 2018-04-10 07:46 | CON ---
DATE OF CONSULTATION: 04/09/2018 REASON FOR CONSULTATION: Atrial fibrillation with rapid ventricular response. HISTORY OF PRESENT ILLNESS: Mr. Fried is a very pleasant 87-year-old gentleman, who I have seen and evaluated in the past. He was recently seen in the office on 04/03/2018. He had not been seen for 6 months. At that time, he has stopped all his medications. He felt he was taking too many medicati ons. He does have a history of chronic atrial fibrillation. His pulse at that time was 105 with a b lood pressure of 148/94. He recently presented to emergency room with not feeling well. He was encouraged by his friend to pr oceed to the emergency room. No other specific symptoms present. No fevers, chills, or other associ ated symptoms. Upon my visit in the emergency room, the patient did have some mental status changes, but did receive Ativan prior to my visit. His heart rate was in the one teens. Blood pressure was also elevated in the 140s. PAST MEDICAL HISTORY: Diabetes mellitus; hypertension; cataract surgery; hernia repair; atrial fibri llation, felt to be chronic. PAST SURGICAL HISTORY: Cholecystectomy, shoulder surgery, prostate biopsy. ALLERGIES: None. SOCIAL HISTORY: No current tobacco or alcohol use. HOME MEDICATIONS: Only pravastatin and Toprol were renewed. REVIEW OF SYSTEMS: A 10-point review of systems was difficult to obtain due to mental status changes . PHYSICAL EXAMINATION: GENERAL: The patient not oriented to time, person, and place. VITAL SIGNS: Blood pressure 150/89, pulse 111, temperature 97.3. NEUROLOGIC: The patient is alert and oriented times 3 with no focal neurologic deficits. HEENT: Sclerae without icterus. Mouth has moist mucous membranes with normal pallor. NECK: No JVD. Carotid upstroke brisk. No bruits bilaterally. LUNGS: Clear to auscultation with unlabored respirations. BACK: No scoliosis or kyphosis. CARDIAC: Irregularly irregular. ABDOMEN: Soft, nontender, nondistended. No peritoneal signs present. No hepatosplenomegaly. No ab normal striae. EXTREMITIES: 2+ femoral and 2+ dorsalis pedis pulses. No cyanosis, clubbing, or edema. SKIN: No gross abnormalities. X-RAY FINDINGS: CT scan negative. EKG shows atrial fibrillation, rapid ventricular response. PERTINENT LABORATORY DATA: Hemoglobin 9.3, hematocrit 28.7, white blood cell count 8.0, platelet cou nt 176. Creatinine 1.24. IMPRESSION: 1. Atrial fibrillation with rapid ventricular response. 2. Diarrhea. 3. Mental status changes. RECOMMENDATIONS: Mr. Fried does have a recent history of diarrhea. This may be the component of vo lume contraction. He was given Ativan prior to my visit, which may have caused his mental status odilon nges. At this point, continue rate control. He is currently on IV Cardizem and we will continue. M ay supplement with IV digoxin if needed. Last echo in the office with LVEF 50%-55%.
[2018-04-10] MEDS ORDERED: Ferrous Gluconate 324 MG TAB PO SCH (08:00)
--- NOTE | 2018-04-10 08:18 | PDOC.CTH ---
Cardiology Progress Note - Subjective Pt somnolent this am. Was on 5mg/hr IV cardizem and now on 12.5mg/hr - Objective Vital Signs Temp Pulse Resp BP Pulse Ox 04/10/18 07:47 97 04/10/18 07:28 96.8 F L 114 H 30 H 127/89 97 04/10/18 04:30 97.2 F L 111 H 16 152/89 H 98 04/10/18 00:28 98.1 F 115 H 14 158/104 H 98 Weight 206 lb 6.4 oz 04/09/18 04/10/18 04/11/18 06:59 06:59 06:59 Intake Total 394 Output Total 165 Balance 229 - Physical Examination General/Neuro: NAD Neck: no JVD present Lungs: CTA, unlabored respirations Heart: other: (irr) Abdomen: NT/ND, soft Extremities: + femoral B - Labs Result Diagrams: 04/10/18 03:58 04/10/18 03:58 Troponin/CKMB CK-MB (CK-2) 4.0 ng/mL (0-6.6) 04/09/18 14:17 Troponin I 0.027 ng/mL (< 0.028) 04/09/18 21:32 - Assessment/Plan afib with RVR MS changes DM HTN stop long acting CCB in place of short acting in order to make changes this pm if needed Add IV digoxin ?MS changes CT head negative Pt recently stopped all meds. feels he was taking too much
--- NOTE | 2018-04-10 08:27 | HP ---
DATE OF ADMISSION: 04/09/2018 HISTORY OF PRESENT ILLNESS: This is an 87-year-old white male with history of coronary artery diseas e, diabetes, chronic atrial fibrillation, hypertension, hyperlipidemia, diabetes presents with diarrh ea and altered mental status. No family is present. They left unable to locate. Nurses are present giving most of the history. Patient has a history of 2 weeks of diarrhea. Over the past several ho urs, he was brought to the hospital with an altered mental status. The family reported daily diarrhe a. He was evaluated in the emergency room and was found to be in atrial fibrillation which is chroni c as well as with a rapid ventricular response. His black stools were noted to be black, but he was Hemoccult negative. The black stools were consistent with his iron medication. He was also appeared to be dehydrated with elevated creatinine and ketones in his urine. Patient was agitated and was gi holli [address] of the head was found to be negative and the cardiac drip was started. PAST MEDICAL HISTORY: Includes hypertension, hyperlipidemia, diabetes, chronic kidney disease, GERD, coronary artery disease, atrial fibrillation, chronic hypothyroidism, BPH, arthritis. PAST SURGICAL HISTORY: Includes cholecystectomy and hernia repair. FAMILY HISTORY: Multiple members with various cancers, arthritis, diabetes, and breast cancer. SOCIAL HISTORY: He is a nonsmoker, drinks occasionally. He is retired, . He worked in a [employer]. ALLERGIES: CODEINE and SHELLFISH. REVIEW OF SYSTEMS: As above. PHYSICAL EXAMINATION: VITAL SIGNS: Temperature 97.3, pulse 115, respirations 22, pulse ox 96 on room air, blood pressure 1 62/103. GENERAL: Patient is confused. He just received 3 mg of Ativan, 1 mg IV and 2 mg IM. HEENT: Pupils are equal, reactive appears that he has had cataract surgery. TM, nose, throat otherw ise clear. NECK: Appears supple. HEART: Irregularly irregular, slightly tachycardic. LUNGS: Relatively clear. ABDOMEN: Appears to be soft, nontender. EXTREMITIES: With no edema. NEUROLOGIC: Patient does move all extremities. Does not appear to have any paralysis. Cranial nerv e exam is unremarkable. However, he is confused and unable to answer simple questions. I am not codey e if he is obtunded from the Ativan or from dehydration. IMAGING: CT of the head is unremarkable for any acute bleed. Brain CT revealed cortical atrophy and deep white matter ischemic changes. ASSESSMENT: 1. Altered mental status. 2. Dehydration. 3. Acute gastroenteritis x2 weeks. 4. Atrial fibrillation with rapid ventricular response. 5. Coronary artery disease. 6. Hypertension. 7. Hyperlipidemia. 8. Diabetes. 9. Acute kidney injury. PLAN: 1. Blood culture, urine culture, stool studies. 2. Bolus another 500 mL normal saline. 3. Normal saline at 50 mL per hour. 4. Consult Cardiology. 5. Reevaluate mental status, once patient is hydrated and Ativan wers off. 6. Consider Neuro consult in the morning. Patient may not cooperate for an MRI. 7. Need to talk with family.
[2018-04-10] MEDS ORDERED: Digoxin 0.5 MG/2 ML AMP SLOW IVP SCH (08:40)
[2018-04-10] MEDS ORDERED: Enoxaparin Sodium 40 MG/0.4 ML SYRINGE SC SCH (09:00)
[2018-04-10] MEDS ORDERED: Famotidine 20 MG TAB PO SCH (09:00)
[2018-04-10] MEDS ORDERED: Furosemide 40 MG TAB PO SCH (09:00)
[2018-04-10] MEDS ORDERED: Prevnar 13-Val Conj/PF 0.5 ML SYRINGE IM ONE (09:00)
[2018-04-10] MEDS ORDERED: Pantoprazole 40 MG VIAL IVP SCH (09:00)
[2018-04-10] MEDS: cefTRIAXone\\ROCEPHIN 2 GM in Sodium Chloride 0.9% 100 ML IVPB SCH (10:06)
[2018-04-10] MEDS: hydrALAZINE 10 MG TAB PO SCH ×4 (10:09→21:21)
[2018-04-10] MEDS: Lisinopril 10 MG TAB PO SCH ×2 (10:09→21:21)
--- NOTE | 2018-04-10 13:47 | PRG ---
DATE OF SERVICE: 04/10/2018 HISTORY OF PRESENT ILLNESS: The patient has been somewhat sedated following Ativan from the emergenc y room, however, was reported to be with altered awareness prior to benzodiazepines. Pulled out 4 IV s overnight and has been placed in soft restraints with IMCU step down status for closer nursing watc h on his functional status. The patient is able to mumble and be somewhat appropriate with questioni ng, however, is largely incoherent. The patient will respond to movement by command, however, cannot elicit any further review of systems or information. PHYSICAL EXAMINATION: VITAL SIGNS: Temperature is 97.2, pulse of 88, respiratory rate of 22, oxygen saturation 93% on room air, blood pressure 100/61. GENERAL: The patient is arousable, moves extremities on command, fairly coherent regarding speech, b tn reports he is in the hospital when asked where he is. No acute distress prior to waking the patie nt this morning. Nursing staff states he had only been asleep for 2 hours this a.m. prior to exam. HEENT: Normocephalic, atraumatic. Extraocular movements are intact; however, the patient is not ful ly opening his eyelids bilaterally. Pupils equal, round and reactive to light. NECK: Supple. HEART: Irregularly irregular. No murmurs auscultated. LUNGS: Clear to auscultation bilaterally. No rubs or wheezes. ABDOMEN: Protuberant. No pain, soft, positive bowel sounds throughout. EXTREMITIES: Lower extremities without cyanosis or edema. Some minor element of varicose veins pres ent. Unable to fully assess orientation other than the patient responds to name and knows he is in a hospital. Speech is mumbled, however, could not say is formally slurred. LABORATORY DATA: White blood cell count of 8.0, hemoglobin of 9.3, platelet count of 176,000. INR 4 .4. Sodium of 142, potassium of 4.1, CO2 of 26. Creatinine improved with IV fluids down from 1.4-1. 24, glucose 193, AST of 19, ALT of 11. Troponins x3 negative. Albumin 3.4. TSH of 3.85. Free T4 1 .0, free T3 1.9. Urinalysis, moderate blood, positive ketones, positive protein, positive red blood cells, positive squamous cells. Preliminary blood cultures, no growth to date at 12 hours. Stool oc cult blood negative. ASSESSMENT AND PLAN: Differential of transient altered awareness versus metabolic encephalopathy, espinoza spected urinary tract infection present on admission, acute kidney injury, dehydration, atrial fibril lation with rapid ventricular response, nausea, vomiting, diarrhea, anemia of chronic disease, orthos tasis present on admission from outpatient, elevated INR, hypertension and hypothyroidism. Given the patient's somewhat combative status and agitated status, he has been somewhat sedated with Ativan. We will continue to follow the patient's status and follow up on urine culture when available. For t his time being, we will start Rocephin. If the patient's mental status does not improve, we will mov e for MRI and possible Neurology consultation and follow up on Cardiology's and Critical Care's recom mendations. The patient continues on diltiazem drip as he is not currently cleared per nursing staff bedside swallow for oral medications. P.r.n. labetalol and hydralazine have been ordered IV; daniel pineda, it does not appear that the patient has used p.r.n. at this point in time. Diabetes type 2. Hold ing the patient's sulfonylurea, covering with sliding scale insulin, checks q.6 hours at this point i n time since the patient is not actively eating. Once the patient is cleared by bedside swallow, we will continue his home levothyroxine. This appear to be slightly low on the lab check, however, not critically so to cause the patient's altered sensorium. We will attempt to continue the patient's AC E inhibitor from home. The patient is currently on TKO IV fluids following multiple boluses in the E mergency Department. Acute kidney injury appears to be resolved this a.m. on lab recheck. We will t rend hemoglobin since some reports of possible blood prior to admission were reported with the patien t's diarrhea. We will hold the patient's Coumadin given supratherapeutic INR. We will restart stati n once the patient is able to take oral medications. Transition gastrointestinal prophylaxis from om eprazole outpatient to Protonix IV at this point in time. Once Cardiology deems fit, would restart t he patient on metoprolol. Continuing the patient's isosorbide mononitrate. Holding the patient's fu rosemide secondary to dehydration. We will monitor volume status and I's and O's. The patient's pul se while on IMCU is 115, last check 88 at lunch here. Rechecking hemoglobin this afternoon to trend any signs of internal bleeding. We will continue to follow the patient's mentation closely.
[2018-04-10] MEDS ORDERED: Haloperidol Lactate 5 MG/ML VIAL IM PRN (13:54)
[2018-04-10 14:18] LABS: Hemoglobin 8.7 g/dL (14.0-18.0)
--- NOTE | 2018-04-10 15:20 | CON ---
DATE OF CONSULTATION: 04/10/2018 HISTORY OF PRESENT ILLNESS: Mr. Fried is an 87-year-old male. He has a history of diabetes, vascular disease, hypertension, lipid disorder. Apparently, he has recently had diarrhea and fluctuating mental status. There is no family available to give history, and he is unable to give an accurate history. He subsequently has been admitted for further care. Apparently because of agitation, he was given Ativan in the ER which aggravated his mental status changes. I am told he is clearing up this morning. There is no past history of dementia. He is admitted with rapid atrial fibrillation. PAST MEDICAL HISTORY: Remarkable for cataract surgery, herniorrhaphy, chronic atrial fibrillation, cholecystectomy, shoulder surgery, and prostate biopsy in the past. Apparently, he has been followed by Dr. Tapia in the past but stopped all of his medications in the past. FAMILY HISTORY: Negative for lung disease in early age. SOCIAL HISTORY: Nonsmoker, nondrinker. ALLERGIES: He reports no drug allergies. REVIEW OF SYSTEMS: Ten-point review of systems completed, not obtainable. PHYSICAL EXAMINATION: GENERAL: Mr. Fried is an 87-year-old male. VITALS: He is afebrile, heart rate is 114, respiratory rate is 20, oximetry is 93 on room air, blood pressure 100/61. HEENT: Pupils react. Sclerae are anicteric. He will awake, but he gets back to sleep, moves all of his extremities equally. NECK: Supple LUNGS: Clear. HEART: Irregularly irregular. Grade 1/6-2/6 systolic murmur. ABDOMEN: Soft. He actually woke up and said I was told me I was tickling him when I was palpating his abdomen. EXTREMITIES: Without clubbing, cyanosis, or edema. LABORATORY DATA: White count 8.0, hemoglobin 9.3, platelets 176. Sodium 142, potassium 4.1, chloride 109, bicarbonate 26, BUN 34, creatinine 1.24, glucose 193. IMPRESSION: 1. Rapid atrial fibrillation. 2. ? intravascular volume depletion. 3. Encephalopathy. He is not febrile but he could be encephalopathic from decompensated dementia at 87 years of age or some of this could be related to a viral process. Supportive care in atrial fibrillation rate control is the plan at this time. Benzodiazepines need to be avoided in him and Geodon or Haldol would probably be better choices if he becomes agitated at night. I will put an order for hiwot Connor. We are happy to follow while he is in the Intermediate Care Unit. This is a 50 minute consult, with greater than 50% of time spent on unit with coordination of care. BRANDON
[2018-04-10] MEDS: Fludrocortisone Acetate 0.1 MG TAB PO SCH (16:50)
[2018-04-10] MEDS ORDERED: Warfarin Sodium 7.5 MG TAB PO SCH (17:00)
[2018-04-10] MEDS: Sodium Chloride 0.9% 1,000 ML IV SCH (17:12)
[2018-04-11 04:24] LABS: #Eosinphils 0.2 thou/uL (0.0-0.7); #Lymphocytes 1.6 thou/uL (1.20-3.40); #Monocytes 0.6 thou/uL (0.11-0.59); #Neutrophils 4.4 thou/uL (1.40-6.50); %Basophils 0.4 % (0.0-1.0); %Eosinophils 3.5 % (0.0-10.0); %Lymphocytes 23.2 % (21.0-51.0); %Monocytes 8.4 % (0.0-10.0); %Neutrophils 64.5 % (42.0-75.0); Hemoglobin 7.9 g/dL (14.0-18.0); Mean Corpuscular Hemoglobin 30.8 pg (27.0-31.0); Mean Corpuscular Volume 93.5 fL (78.0-98.0); Mean Platelet Volume 7.7 fL (7.4-10.4); Platelet Count 191 thou/uL (130-400); RBC Distribution Width 13.4 % (11.5-14.5); Red Blood Cell (RBC) Count 2.56 mill/uL (4.70-6.10); White Blood Cell (WBC) Count 6.9 thou/uL (4.8-10.8)
[2018-04-11 04:38] LABS: INR-International Normal Ratio 3.7; Prothrombin Time 36.6 SEC (12.0-14.7)
[2018-04-11 05:12] LABS: Anion Gap 10 mmol/L (10-20); BUN (Urea Nitrogen) 36 mg/dL (8.4-25.7); Calc. Creatinine Clearance 53 mL/min (70-130); Calcium 8.3 mg/dL (7.8-10.44); Carbon Dioxide 24 mmol/L (23-31); Chloride 113 mmol/L (98-107); Estimated GFR-MDRD 50; Glucose 199 mg/dL (83-110); Magnesium 1.8 mg/dL (1.6-2.6); Potassium 4.1 mmol/L (3.5-5.1); Sodium 143 mmol/L (136-145)
[2018-04-11] MEDS ORDERED: Sodium Chloride 0.9% 500 ML IV SCH (06:00)
[2018-04-11] MEDS: Levothyroxine Sodium 100 MCG TAB PO SCH (06:30)
[2018-04-11] MEDS: HumaLOG 300 UNITS/3 ML VIAL SC PRN (06:30)
[2018-04-11] MEDS ORDERED: Magnesium Citrate 300 ML BOT PO SCH (08:15)
--- NOTE | 2018-04-11 08:39 | PRG ---
DATE OF SERVICE: 04/11/2018 HISTORY OF PRESENT ILLNESS: The patient has improved in mentation from yesterday. He is no longer i n soft restraints. He is verbalizing much similar to his baseline. He does have some tangential tho ught processes and is not fully oriented. He does not recognize myself as his PCP. He does ask for his fiance/friend who is not currently at bedside given the patient is in the ICU. He denies any abd omen pain. He is sitting at side of bed. Per nursing staff, he had a slightly lower trend of blood pressure overnight 102/57 in the early a.m., morning blood pressure medications were held including lisinopril. The patient has been successfully weaned off of diltiazem drip. Remains on Rocephin at this point in time without report back on urine culture. VITAL SIGNS: This morning, temperature 97.9, pulse of 98, respiratory rate of 21, oxygen saturation 94% on room air, blood pressure 130/70, [facility] through 500 mL bolus of normal saline. LABORATORY DATA: Sodium 143, potassium of 4.1, CO2 of 24, BUN of 36, creatinine of 1.25, glucose 190 to 236 in the last 12 hours, magnesium of 1.8. Ammonia of 31. LDH of 231, hemoglobin is trending down 10.4 on admission to 7.9 this morning, white blood cell count of 6.9, MCV 93.5, platelet count o f 191. The patient's typed and crossed for 2 units, but not with any order for transfusion at this point in time. No further diarrhea has occurred since admission. Initial guaiac was negative. Repeat guaiac s x3 for screening purposes have not been performed secondary to no bowel movements. PHYSICAL EXAMINATION: GENERAL: The patient is slightly agitated mentally, but in no acute distress. HEENT: Head is normocephalic, atraumatic. Extraocular movements are intact. Sclerae are white. Or al mucosa slightly dry. NECK: Supple. HEART: Irregular, irregular rhythm. No murmurs auscultated. LUNGS: Clear to auscultation bilaterally. No rubs or wheezes. ABDOMEN: Protuberant, soft, nontender. Positive bowel sounds, slightly hypoactive. EXTREMITIES: Lower extremities without cyanosis or edema. Several varicose veins present. NEUROLOGIC: The patient is alert and oriented x1, self, knows he is in some sort health care facilit y, but does not identify it correctly as a hospital or the fact that he is in [place], [place], does not identify myself, does remember Charlene, his friend/he stated gopi. The patient reports recalling h is last INR outpatient being 2.7. Patient's last [facility] noted to be 1 .4, so this is inconsistent with the patient's recollection that was on 04/03/2018, point of care kevin Garcia. The patient's INR this morning is 3.7. ASSESSMENT AND PLAN: Transient altered awareness, possible secondary to suspected urinary tract infe ction versus metabolic encephalopathy with processing of gastrointestinal bleed. This is only suspec chadd at this point. No blood has been elicited since the patient has been here, but hemoglobin is thierno nding down. Blood pressure trending down and the patient with supratherapeutic INR. The patient's a cute kidney injury has returned with the patient's downturn in blood pressure. Bolus the patient as above with 500 mL normal saline and per nursing staff, hold his home lisinopril. The patient current ly adequately anticoagulated with his atrial fibrillation with RVR. Cardiology is following. The echo beasley reports of nausea, vomiting, diarrhea may not be fully accurate as he does not recall all event s accurately in the last 2 weeks. His diabetes is being managed with sliding scale insulin checks q. 6h. The patient has been able to tolerate oral intake and has started taking oral medications includ ing his thyroid medication we hope to get it in today. We will have trending hemoglobins at this poi nt in time given the relatively benign abdomen. We will hold off any CTA or tagged red blood cell tim gamboa, consult Gastroenterology for secondary opinion. We will attempt magnesium citrate to produce a stool for testing of blood and if the patient's hemoglobin drops below 7 we will go ahead and trans fuse the 2 units PRBCs. The patient at this point in time; however, continues to be hemodynamically stable. We will continue to follow along with his lab values this afternoon.
[2018-04-11] MEDS: cefTRIAXone\\ROCEPHIN 2 GM in Sodium Chloride 0.9% 100 ML IVPB SCH (09:22)
[2018-04-11] MEDS: hydrALAZINE 10 MG TAB PO SCH ×3 (09:22→20:57)
[2018-04-11] MEDS: Fludrocortisone Acetate 0.1 MG TAB PO SCH (09:22)
[2018-04-11] MEDS: Lisinopril 10 MG TAB PO SCH ×2 (09:23→20:16)
[2018-04-11] MEDS: Pantoprazole 40 MG VIAL IVP SCH ×2 (09:24→20:17)
--- NOTE | 2018-04-11 12:58 | PRG ---
DATE OF SERVICE: 04/11/2018 Mr. Fried is more interactive, but still does not know the day or the place. PHYSICAL EXAMINATION: VITAL SIGNS: He is afebrile, heart rate is 90, respiratory rate 20, oximetry is 94% on room air, blo od pressure 105/65. LUNGS: His lungs are clear. HEART: Regular rhythm. ABDOMEN: Soft. LABORATORY DATA: White count 6.9, hemoglobin 7.9, platelets 191,000. Gastroenterology has apparently been consulted for his hemoglobin. Sodium 143, potassium 4.1, chloride 113, bicarbonate 24, BUN 36, creatinine 1.35. IMPRESSION: 1. Atrial fibrillation. 2. Dementia. Apparently his daughter relayed that he does have dementia that has been progressive l ately. 3. Cholecystectomy. 4. History of shoulder surgery. 5. History of prostate biopsy in the past. 6. Anemia. PLAN: Continue supportive care. He is stable to move out of the Critical Care Unit in my opinion. His code status is not address and he really should be a do not resuscitate patient with his pre-exis ting dementia.
[2018-04-11] MEDS ORDERED: Phytonadione 10 MG/ML AMP SC SCH (15:00)
--- NOTE | 2018-04-11 15:28 | PQF ---
DATE: 04-11-18 ATTN: DR. OLGA BRUNNER Please exercise your independent, professional judgment in responding to the clarification form. Clinical indicators are provided on the bottom of this form for your review Please check appropriate box(s): [ x ] Encephalopathy: Type: [x ] Acute [ ] Subacute [ ] Chronic Etiology: [ x ] Metabolic [ ] Toxic [ x ] in the setting of underlying dementia [ ] Other (please specify) [ ] Transient Alteration of Awareness [ ] Other diagnosis [ ] Unable to determine In addition, please specify: Present on Admission (POA): [ x ] Yes [ ] No [ ] Unable to determine For continuity of documentation, please document condition throughout progress notes and discharge summary. Thank You. CLINICAL INDICATORS - SIGNS / SYMPTOMS / LABS ER DX: A FIB RVR, ALTERED MENTAL STATUS, DIARRHEA H&P: BROUGHT TO THE HOSPITAL WITH AN ALTERED MENTAL STATUS, PATIENT IS CONFUSED. H&P: ALTERED MENTA STATUS PN DR. BRUNNER 04-10-18: DIFFERENTIAL OF TRANSIENT ALTERED AWARENESS VS METABOLIC ENCEPHALOPATHY PN DR. BRUNNER 04-11-18: TRANSIENT ALTERED AWARENESS, POSSIBLE 2/2 TO SUSPECTED UTI VS METABOLIC ENCEPHALOPATHY WITH PROCESSING F GI BLEED. RISK FACTORS: PN DR. BRUNNER 04-11-18: TRANSIENT ALTERED AWARENESS, POSSIBLE 2/2 TO SUSPECTED UTI VS METABOLIC ENCEPHALOPATHY WITH PROCESSING F GI BLEED. H&P: HX HTN, HLP, DM, CKD, GERD, CAD, IN WITH AMS, DEHYDRATION, ACUTE GASTROENTERITIS TREATMENTS: H&P: CONSIDER NEURO CONSULT, PATIENT MAY NOT COOPERATE FOR AN MRI. ER: NS IVF X 2 (This form is maintained as a part of the permanent medical record) 2014 [employer] All Rights Reserved [email or web address] Office: [phone] BRANDON
[2018-04-11] MEDS: Sodium Chloride 0.9% 1,000 ML IV SCH (16:33)
--- NOTE | 2018-04-11 17:32 | PDOC.CTH ---
Cardiology Progress Note - Subjective doing much better this am. No current complaints. Much more lucid - Objective Vital Signs Temp Pulse Resp BP BP Pulse Ox 04/11/18 16:55 88 126/73 04/11/18 15:00 97.7 F 88 16 126/73 92 L 04/11/18 09:23 109/64 04/11/18 09:22 98 04/11/18 08:00 97.9 F 90 20 105/65 94 L Admit Weight 206 lb 6.4 oz Weight 206 lb 9 oz 04/10/18 04/11/18 04/12/18 06:59 06:59 06:59 Intake Total 394 2615 Output Total 165 525 Balance 229 0 - Physical Examination General/Neuro: alert & oriented x3, NAD Neck: carotid US brisk, no JVD present Lungs: unlabored respirations Heart: other: (irr) Abdomen: NT/ND, soft Extremities: + femoral B - Labs Result Diagrams: 04/11/18 14:02 04/11/18 04:07 Troponin/CKMB CK-MB (CK-2) 4.0 ng/mL (0-6.6) 04/09/18 14:17 Troponin I 0.027 ng/mL (< 0.028) 04/09/18 21:32 - Assessment/Plan afib anemia MS changes HR correctly controlled off IV CCB Concerned about anemia Recheck in am May consider stopping coumadin as outpatient given low HB
[2018-04-12 04:10] LABS: #Eosinphils 0.3 thou/uL (0.0-0.7); #Lymphocytes 1.3 thou/uL (1.20-3.40); #Monocytes 0.5 thou/uL (0.11-0.59); #Neutrophils 3.3 thou/uL (1.40-6.50); %Basophils 0.4 % (0.0-1.0); %Eosinophils 5.6 % (0.0-10.0); %Lymphocytes 23.4 % (21.0-51.0); %Monocytes 9.6 % (0.0-10.0); Hemoglobin 7.3 g/dL (14.0-18.0); Mean Corpuscular HGB CONC 33.1 g/dL (32.0-36.0); Mean Corpuscular Hemoglobin 31.1 pg (27.0-31.0); Mean Corpuscular Volume 93.8 fL (78.0-98.0); Mean Platelet Volume 7.8 fL (7.4-10.4); Platelet Count 181 thou/uL (130-400); RBC Distribution Width 13.8 % (11.5-14.5); Red Blood Cell (RBC) Count 2.35 mill/uL (4.70-6.10); White Blood Cell (WBC) Count 5.4 thou/uL (4.8-10.8)
[2018-04-12 04:22] LABS: INR-International Normal Ratio 2.1; Prothrombin Time 23.9 SEC (12.0-14.7)
[2018-04-12 04:31] LABS: Anion Gap 8 mmol/L (10-20); BUN (Urea Nitrogen) 26 mg/dL (8.4-25.7); Calc. Creatinine Clearance 53 mL/min (70-130); Calcium 8.2 mg/dL (7.8-10.44); Carbon Dioxide 27 mmol/L (23-31); Chloride 112 mmol/L (98-107); Estimated GFR-MDRD 50; Glucose 187 mg/dL (83-110); Potassium 4.2 mmol/L (3.5-5.1); Sodium 143 mmol/L (136-145)
[2018-04-12] MEDS: Levothyroxine Sodium 100 MCG TAB PO SCH (05:14)
[2018-04-12] MEDS: cefTRIAXone\\ROCEPHIN 2 GM in Sodium Chloride 0.9% 100 ML IVPB SCH (08:19)
[2018-04-12] MEDS: Pantoprazole 40 MG VIAL IVP SCH ×2 (08:19→21:21)
[2018-04-12] MEDS: hydrALAZINE 10 MG TAB PO SCH ×3 (08:21→21:20)
--- NOTE | 2018-04-12 08:22 | CON ---
DATE OF CONSULTATION: 04/11/2018 HISTORY OF PRESENT ILLNESS: Mr. Fried is an 87-year-old gentleman who is a resident of [facility] o was brought in as he was having some diarrhea and vomiting. The patient related much of the histor y and the patient's daughter at bedside is not aware of the exact details either, but the emergency r oom report indicates for about a week, he was having some diarrhea and about 4 days of nausea, vomiti ng. Presently, the patient has no nausea or vomiting, he has been started to eat. He also had more confusion in baseline, apparently has some dementia and his daughter notes he is still a little more confused than baseline. The ER note reports the patient said he had his stool was thick and bloody, although he does not recall that at this time. He denies any abdominal pain. He confirms his hemate mesis was dark when asked if it was dark, although again the amount of reliability is uncertain. Her e, he has had no hematemesis or vomiting, in fact he had not had a bowel movement. In the emergency room, he was Hemoccult negative. Finally, this afternoon, stool for Hemoccults have been obtained. The nurse notes it was dark, but there was no overt bleeding. Lab result is pending. REVIEW OF SYSTEMS: The patient denies any headache, neck pain, throat pain, dysphagia, odynophagia, shortness of breath, dyspnea on exertion, orthopnea, PND, palpitations, abdominal pain, change in bow el function except for as noted per HPI, dysuria, frequency, urgency. He has been unstable in his ga it. He has not had any recent falls. PAST SURGICAL HISTORY: Orthopedic surgeries, carpal tunnel repair, cardioversion for atrial fibrilla tion in the past, umbilical hernia repair, cholecystectomy with subsequent bleeding which required la parotomy. PAST MEDICAL HISTORY: Includes coronary artery disease, arrhythmia, atrial fibrillation, diabetes, B PH, hypertension, chronic hypothyroidism. PREVIOUS GI PROCEDURES: He had an EGD and colonoscopy about 5 years ago with some gastric polyps rem art, there was bleeding at that time and at that time, he had a normal colonoscopy; in 2013, he had a sigmoidoscopy with biopsy. SOCIAL HISTORY: The patient is retired. He worked at a chemical plant. He is . He lives at [place]. He does not smoke. Drinks alcohol rarely. FAMILY HISTORY: Breast malignancy, diabetes, arthritis. ALLERGIES: CODEINE, SHELLFISH. HOME MEDICATIONS: Warfarin 5 mg daily, pravastatin, omeprazole, Toprol, lisinopril, levothyroxine, i sosorbide mononitrate, furosemide, diltiazem, glipizide. MEDICATIONS HERE: Rocephin, acetaminophen, D5W, diltiazem, Florinef, glucagon, Haldol, Apresoline, H umalog, Imdur, Normodyne, Synthroid, Zestril, morphine, Zofran p.r.n., Protonix 40 IV q.12 hours, nor mal saline at 50 mL an hour. PHYSICAL EXAMINATION: GENERAL: The patient is resting comfortably in bed. His is at the bedside. VITAL SIGNS: Temperature 97.9, pulse 98, blood pressure 109/64. HEENT: Oropharynx without lesions. NECK: Supple, without any adenopathy. LUNGS: Clear. HEART: Regular rate and rhythm without clicks or murmurs. ABDOMEN: No further scar in the upper abdomen. There is no rebound. There is no guarding. No evid ence of hernias or incarceration. There is no palpable hepatosplenomegaly. EXTREMITIES: No clubbing, cyanosis or edema. NEUROLOGIC: He is alert and oriented to person, place. He does not know the date. His daughter sta vani that sometimes it seems he has been thinking he is back at the retirement or back in his apartm ent. LABORATORY STUDIES: Hemoglobin 10.4 on admission, it was 12.1, on 12/27/2017, hemoglobin 6.5, platel et count was 173. His hemoglobin has dropped since then to 9.3 on the , 8.7, 7.9 this morning an d then at 2:00 is 8. His white count remains at 6.9. INR was 4.4 yesterday, it is 3.7 today. BUN a nd creatinine are 36 and 1.35 today. Sodium 143, potassium 4.1. Electrolytes otherwise normal. Amm onia was 31, LDH 231. Liver function tests normal, albumin 3.4. No iron studies obtained. ASSESSMENT: 1. Admission with reported diarrhea for 2 weeks. There has been no diarrhea really here since admis kajal. In fact, he has been somewhat constipated. He also reports there was nausea and vomiting that resolved, it is unclear if this is related to gastrointestinal bleeding or possibly gastroenteritis. He did present with some dehydration and that has improved. 2. Atrial fibrillation with rapid ventricular response and under control. 3. Coagulopathy. The patient gives an INR of 4 on Coumadin, still elevated at 3.7, is likely relate d to medications and poor p.o. intake, cannot rule out the possibility of drug toxicity. 4. Confusion. It seems like a worsening of his baseline dementia with no overt signs of hepatic enc ephalopathy. 5. Anemia. His hemoglobin has dropped from baseline. We will have to see if his second stool is He moccult positive or not. He was coagulopathic, so he definitely has a reason to bleed, and he has shukla d a previous history of eroded gastric polyps that were felt to be a source of bleeding about 5 years ago. He is up to date on colonoscopy screening and had a normal exam 5 years ago. RECOMMENDATIONS: 1. The patient has recurrent stool diarrhea, may worth checking a C. diff and stool cultures. 2. Continue to hold the patient's Coumadin and give a small dose of vitamin K to get his INR down an ticipation of endoscopy tomorrow. 3. We will proceed with EGD tomorrow to rule out recurrent bleeding of eroded gastric polyps or othe r sources. We will follow along with you during this hospitalization.
[2018-04-12] MEDS: Fludrocortisone Acetate 0.1 MG TAB PO SCH (08:25)
[2018-04-12] MEDS: Lisinopril 10 MG TAB PO SCH ×2 (08:26→21:19)
[2018-04-12] MEDS: Sodium Chloride 0.9% 1,000 ML IV SCH (11:00)
--- NOTE | 2018-04-12 12:54 | PRG ---
DATE OF SERVICE: 04/12/2018 Chito Fried is being seen in followup for being in the Intermediate Care Unit. He is in no distres s. He is flat in bed. PHYSICAL EXAMINATION: VITAL SIGNS: He is afebrile, heart rate is 101, blood pressure 116/69, respiratory rates in the teen s. Oximetry is 93 on room air. IMPRESSION: 1. Atrial fibrillation that is chronic. 2. Dementia. 3. Anemia with hemoglobin of 8 yesterday, hemoglobin 7.3 today.
--- NOTE | 2018-04-12 13:45 | PRG ---
DATE OF SERVICE: 04/12/2018 The patient is refusing to go down for his esophagogastroduodenoscopy. I went upstairs and discussed it with him and his family members; however, he still refuses. We will try again for tomorrow. OBJECTIVE: VITAL SIGNS: Temperature is 98.2, pulse 98, respiratory rate 20, blood pressure 124/72. HEENT: Unremarkable. NECK: Supple. CHEST: Clear. CARDIOVASCULAR: Regular rate and rhythm. ABDOMEN: Soft, nontender, without organomegaly or masses. EXTREMITIES: Normal. LABORATORY DATA: Shows a white blood cell count 5.4, hemoglobin 7.3, hematocrit 22.1. PT is 23.9 wi th an INR of 2.1. Chemistries significant for a BUN 26, creatinine 1.36, glucose 187. ASSESSMENT: 1. Atrial fibrillation with rapid ventricular response. 2. Coagulopathy secondary to Coumadin. 3. Anemia. 4. History of gastric polyps. RECOMMENDATIONS: 1. We will attempt EGD tomorrow. 2. Go ahead and begin diet today. 3. May benefit from a transfusion. 4. Continue to hold Coumadin. 5. May need additional vitamin K as his PT/INR is still above 2.
[2018-04-12 14:17] LABS: Hemoglobin 7.7 g/dL (14.0-18.0)
[2018-04-12 14:22] LABS: INR-International Normal Ratio 1.7; Prothrombin Time 19.8 SEC (12.0-14.7)
[2018-04-12] MEDS: HumaLOG 300 UNITS/3 ML VIAL SC PRN (16:18)
--- NOTE | 2018-04-12 17:15 | PDOC.CTH ---
Cardiology Progress Note - Subjective Still with some confusion. No acute changes. HR stable in the 90's - Objective Vital Signs Temp Pulse Resp BP BP BP Pulse Ox 04/12/18 16:01 103 H 124/72 04/12/18 16:00 97.5 F L 99 18 111/68 96 04/12/18 12:00 98.2 F 98 20 124/72 95 04/12/18 08:26 116/69 04/12/18 08:21 101 H 116/69 04/12/18 08:00 97.8 F 86 18 96/51 L 93 L Admit Weight 206 lb 6.4 oz Weight 209 lb 4 oz 04/11/18 04/12/18 04/13/18 06:59 06:59 06:59 Intake Total 2615 1610 360 Output Total 525 Balance 2090 1610 360 - Physical Examination General/Neuro: alert & oriented x3, NAD Neck: carotid US brisk, no JVD present Lungs: CTA, unlabored respirations Heart: other: (irr) Abdomen: NT/ND, soft Extremities: + femoral B - Labs Result Diagrams: 04/12/18 14:08 04/12/18 03:26 Troponin/CKMB CK-MB (CK-2) 4.0 ng/mL (0-6.6) 04/09/18 14:17 Troponin I 0.027 ng/mL (< 0.028) 04/09/18 21:32 - Assessment/Plan afib-chronic. Rate controlled Anemia-GI davidson in progress. Avoid ACT for now Confusion-DAVIDSON per hospitalist service
--- NOTE | 2018-04-12 17:56 | PRG ---
DATE OF SERVICE: 04/12/2018 HISTORY OF PRESENT ILLNESS: The patient was slated to undergo upper endoscopy to rule out GI bleed, Marley-Martins tear, gastroesophageal erosion, ulceration, or polyp as the patient has a history of po lyp in the past. However, the patient refused. The patient states that he is tired of taking multip le medications; however, he routinely on retour complains about all of his medical issues such as his prostate. The patient has had dizziness in the past while taking Flomax and has been placed on mido drine on outpatient basis fludrocortisone or Cortef. The patient has been maintained on Cortef with good results to his dizziness; however, the patient continues to have reportedly stopped all of his medications. The patient continues to refuse at bedside this afternoon to undergo endoscopy. U rine culture appears to be negative at 48 hours deescalating antibiotics. Discussed with the patient and daughter at bedside. Discussed possible need for transitioning the patient from independent woody ing to assisted living, possibly with dementia unit capacity. We will have case management speak wit h the daughter and the patient. Biggest concern is medication management. The patient is no longer able to do for himself. PHYSICAL EXAMINATION: VITAL SIGNS: Temperature of 97.5, pulse of 99, respiratory rate of 18, oxygen saturation 96% on room air, blood pressure of 124/72. GENERAL: The patient is alert, in no acute distress. HEENT: Head is normocephalic, atraumatic. Extraocular movements are intact. Sclerae are white. Or al mucosa is dry. NECK: Supple. HEART: Irregularly irregular. LUNGS: Clear to auscultation bilaterally. ABDOMEN: Protuberant. Positive bowel sounds. No pain. Soft. EXTREMITIES: Lower extremities without cyanosis or edema. Mild varicose veins present. NEUROLOGIC: The patient is alert and oriented x2 today. Recognizes myself and daughter at bedside. LABORATORY DATA: Blood glucoses remain in high 100s to low 200s. Sodium of 143, potassium of 4.2, C O2 of 27, creatinine of 1.36. Hemoglobin continues to have been stabilized in the 7's; however, the patient's atrial fibrillation with recent RVR and comorbidities may be more appropriate cardiac goal of 9 hemoglobin. The patient's INR is 1.7 this morning. ASSESSMENT AND PLAN: Acute kidney injury; dehydration; atrial fibrillation with rapid ventricular ra te; diabetes type 2; anemia of likely gastrointestinal blood loss, resolved; elevated INR; hypertensi on; hypothyroidism. At this point, looks like Gastroenterology will re-attempt EGD tomorrow. The patient's hemoglobin an d hematocrit appeared to have been stabilized with resolution of elevated INR. We will transfuse 1 u nit for cardiac goals. Follow up with GI recommendations tomorrow. We will start to attempt to retu rn the patient back to some of his home medications, have Social Work follow up with the patient's michele sena as above. We will get walking program to walk the patient to see if he is appropriate for ret urn back to independent living on discharge. We will need other placement options. The patient's me ntation is near back to baseline, but still has difficulty with some baseline early dementia symptoms .
[2018-04-13 04:59] LABS: #Eosinphils 0.4 thou/uL (0.0-0.7); #Lymphocytes 1.5 thou/uL (1.20-3.40); #Monocytes 0.5 thou/uL (0.11-0.59); #Neutrophils 2.7 thou/uL (1.40-6.50); %Basophils 0.8 % (0.0-1.0); %Lymphocytes 29.4 % (21.0-51.0); %Monocytes 9.7 % (0.0-10.0); %Neutrophils 52.1 % (42.0-75.0); Hemoglobin 8.3 g/dL (14.0-18.0); Mean Corpuscular HGB CONC 33.6 g/dL (32.0-36.0); Mean Corpuscular Volume 92.5 fL (78.0-98.0); Mean Platelet Volume 7.3 fL (7.4-10.4); Platelet Count 200 thou/uL (130-400); RBC Distribution Width 13.9 % (11.5-14.5); Red Blood Cell (RBC) Count 2.69 mill/uL (4.70-6.10); White Blood Cell (WBC) Count 5.2 thou/uL (4.8-10.8)
[2018-04-13 05:00] LABS: Anion Gap 8 mmol/L (10-20); BUN (Urea Nitrogen) 22 mg/dL (8.4-25.7); Calc. Creatinine Clearance 53 mL/min (70-130); Calcium 8.2 mg/dL (7.8-10.44); Carbon Dioxide 28 mmol/L (23-31); Chloride 110 mmol/L (98-107); Estimated GFR-MDRD 49; Glucose 161 mg/dL (83-110); Potassium 4.1 mmol/L (3.5-5.1); Sodium 142 mmol/L (136-145)
[2018-04-13 05:02] LABS: INR-International Normal Ratio 1.5; Prothrombin Time 17.7 SEC (12.0-14.7)
[2018-04-13] MEDS: Levothyroxine Sodium 100 MCG TAB PO SCH (05:21)
[2018-04-13] MEDS: Sodium Chloride 0.9% 1,000 ML IV SCH (05:24)
[2018-04-13] MEDS ORDERED: Rifampin 150 MG CAP PO SCH (10:00)
[2018-04-13] MEDS: Lisinopril 10 MG TAB PO SCH ×2 (10:54→22:40)
[2018-04-13] MEDS: Furosemide 40 MG TAB PO SCH (10:55)
[2018-04-13] MEDS: hydrALAZINE 10 MG TAB PO SCH ×3 (10:55→22:38)
[2018-04-13] MEDS: Fludrocortisone Acetate 0.1 MG TAB PO SCH (10:55)
[2018-04-13] MEDS: Pantoprazole 40 MG VIAL IVP SCH ×2 (10:59→22:40)
--- NOTE | 2018-04-13 11:26 | OP ---
DATE OF PROCEDURE: 04/13/2018 SURGEON: Dr. Shlomo Villagran PREOPERATIVE DIAGNOSIS: Anemia. PROCEDURE: After informed consent was obtained, the patient placed in left lateral decubitus positio n. Anesthesia was administered per the Anesthesia Department. Forward-viewing endoscope was inserte d into the esophagus under direct visualization with ease and passed to the second portion of the duo denum with ease. Second portion of duodenum and duodenal bulb were normal. The pylorus, antrum, bod y, fundus, and cardia were normal except for numerous polyps. These polyps were consistent with bonnie gn fundic gland polyps. There was one larger polyp that had some stigmata of bleeding and this was r emoved with hot snare polypectomy. Retroflexion in the stomach showed a medium sized hiatal hernia. The esophagus was normal throughout. ASSESSMENT: 1. 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 2. One large pedunculated polyp with stigmata of hemorrhage - status post polypectomy. 3. Medium sized hiatal hernia. 4. Otherwise normal esophagogastroduodenoscopy. RECOMMENDATIONS: 1. Continue proton pump inhibitor. 2. Hold Coumadin for 1 week. 3. No antibiotics for E. coli infection. 4. Dr. Geronimo covering.
[2018-04-13] MEDS ORDERED: PROPOFOL 200 MG/20 ML VIAL ONE (12:55)
--- NOTE | 2018-04-13 14:27 | PRG ---
DATE OF SERVICE: 04/13/2018 HISTORY OF PRESENT ILLNESS: The patient still remains confused, has some elements of owning. He is somewhat inappropriate with questioning this morning, when I asked about if he would consider doi ng the procedure, he talks about the weather on the TV. When he talks about education on the gastroi ntestinal bleeding, he states that he has had a scab that is bled before, but does not appear to gras p the situation. He does, however, state that he is ready to get the procedure done, so he can eat s ome breakfast; however, I do not fully believe he is referring to endoscopy at this point in time. W ith the help of daughter, he was consented yesterday, do feel he still needs EGD if able to proceed w ith GI and if his mentation improves as the day goes on. The patient received PRBC with appropriate bump in hemoglobin overnight with some difficulty with IV site. OBJECTIVE: VITAL SIGNS: Temperature of 97.8, pulse of 103, respiratory rate of 18, oxygen saturation 94% on dat m air, blood pressure 147/79. GENERAL: The patient is alert, in no acute distress. HEENT: Normocephalic, atraumatic. Extraocular movements are intact. Sclerae are white. Oral mucos a is moist. NECK: Supple. HEART: Irregular, irregular. No murmurs auscultated. LUNGS: Clear to auscultation bilaterally. ABDOMEN: Protuberant, positive bowel sounds, nontender. EXTREMITIES: Lower extremities without cyanosis or tenderness, somewhat mild varicose veins present bilaterally. NEUROLOGIC: The patient is alert x1 to [address]; however, not specifically to time o r [facility]. LABORATORY DATA: White blood cell count of 5.2, hemoglobin following blood transfusion 1 unit of PRB Cs was 8.3, platelet count of 200. INR of 1.5, creatinine of 1.3, blood glucose of 160 in the last 8 hours. Sodium of 142, potassium of 4.1, CO2 of 28. C. diff assay was negative. Occult blood x2, n egative. Toxin assay for stool studies for Campylobacter and Shiga toxin, actually positive for E. c patricio with Shiga toxin 1 and 2. Urine culture is negative at 48 hours. Blood culture is negative at 4 8 hours. ASSESSMENT AND PLAN: Infectious diarrhea with E. coli with Shiga toxin, acute kidney injury, anemia of acute blood loss secondary to gastrointestinal losses, resolved, elevated INR, hypothyroidism, hyp ertension, atrial fibrillation, now rate controlled, diabetes type 2, early stage dementia complicate d by metabolic encephalopathy, felt to be possibly from urinary tract infection on admission; however , this now becomes apparent that was secondary to Escherichia coli, infectious diarrhea. Patient is still not fully at baseline. We will reengage antibiotics more towards E. coli in at this poin t. The patient's Rocephin has been discontinued yesterday prior to Shiga toxin being positive, but t he patient did receive antibiotics over the last several days. We will continue to follow up on GI's recommendations regarding attempts at EGD. The patient's hemoglobin appears to be stable. We will continue to withhold anticoagulants for the time being until GI blood loss potential can be clarified . Follow up on GI recommendations.
[2018-04-13] MEDS: HumaLOG 300 UNITS/3 ML VIAL SC PRN (16:41)
--- NOTE | 2018-04-13 17:05 | EKG ---
Test Reason : Blood Pressure : / mmHG Vent. Rate : 118 BPM Atrial Rate : 133 BPM P-R Int : 000 ms QRS Dur : 074 ms QT Int : 368 ms P-R-T Axes : 000 -03 060 degrees QTc Int : 515 ms Atrial fibrillation with rapid ventricular response with premature ventricular or aberrantly conducte d complexes Nonspecific ST and T wave abnormality Abnormal ECG Confirmed by MATTHEW GARNER ([id number]), editor & co founder RICHARD GARCIA ([id number]) on 04/13/2018 5:04:23 PM Referred By: Confirmed By:MATTHEW GARNER
[2018-04-14 04:14] LABS: #Eosinphils 0.5 thou/uL (0.0-0.7); #Lymphocytes 1.6 thou/uL (1.20-3.40); #Monocytes 0.6 thou/uL (0.11-0.59); #Neutrophils 3.5 thou/uL (1.40-6.50); %Basophils 0.7 % (0.0-1.0); %Eosinophils 7.8 % (0.0-10.0); %Lymphocytes 25.2 % (21.0-51.0); %Monocytes 9.2 % (0.0-10.0); %Neutrophils 57.2 % (42.0-75.0); Hemoglobin 8.3 g/dL (14.0-18.0); Mean Corpuscular HGB CONC 32.9 g/dL (32.0-36.0); Mean Corpuscular Hemoglobin 30.5 pg (27.0-31.0); Mean Corpuscular Volume 92.8 fL (78.0-98.0); Mean Platelet Volume 7.4 fL (7.4-10.4); Platelet Count 222 thou/uL (130-400); RBC Distribution Width 14.1 % (11.5-14.5); Red Blood Cell (RBC) Count 2.72 mill/uL (4.70-6.10); White Blood Cell (WBC) Count 6.2 thou/uL (4.8-10.8)
[2018-04-14 04:35] LABS: Anion Gap 13 mmol/L (10-20); BUN (Urea Nitrogen) 21 mg/dL (8.4-25.7); Calc. Creatinine Clearance 46 mL/min (70-130); Carbon Dioxide 24 mmol/L (23-31); Chloride 107 mmol/L (98-107); Estimated GFR-MDRD 43; Glucose 142 mg/dL (83-110); Potassium 4.2 mmol/L (3.5-5.1); Sodium 140 mmol/L (136-145)
[2018-04-14] MEDS: Sodium Chloride 0.9% 1,000 ML IV SCH (04:56)
[2018-04-14] MEDS: Levothyroxine Sodium 100 MCG TAB PO SCH (06:29)
[2018-04-14] MEDS: Lisinopril 10 MG TAB PO SCH ×2 (08:19→21:47)
[2018-04-14] MEDS: Fludrocortisone Acetate 0.1 MG TAB PO SCH (08:19)
[2018-04-14] MEDS: Furosemide 40 MG TAB PO SCH (08:20)
[2018-04-14] MEDS: hydrALAZINE 10 MG TAB PO SCH ×3 (08:20→21:46)
[2018-04-14] MEDS: Pantoprazole 40 MG VIAL IVP SCH ×2 (08:21→21:47)
--- NOTE | 2018-04-14 09:40 | PRG ---
DATE OF SERVICE: 04/14/2018 SUBJECTIVE: Mr. Fried has no complaints of chest pain or pressure. He is sleepy when I went into t he room, but he wakes up easily. OBJECTIVE: VITAL SIGNS: His blood pressure is 105/65, pulse is between 90-110, it is irregular. ABDOMEN: Soft, nontender. EXTREMITIES: Mild edema. SKIN: Warm and dry. ASSESSMENT: 1. Chronic atrial fibrillation. 2. Recent gastrointestinal bleed. PLAN: 1. He is off anticoagulation for a week. 2. His rate is controlled. 3. We will sign off the case as per Dr. Tapia' instructions. Please call us if needed.
--- NOTE | 2018-04-14 12:23 | PRG ---
DATE OF SERVICE: 04/14/2018 SUBJECTIVE: The patient is sitting up, eating breakfast, conversing. He is doing much better than u darion admission. He is still somewhat confused. I did talk with his daughter, Pam, and she states t hat he is not quite at baseline, but he is improving. OBJECTIVE: VITAL SIGNS: Temperature 98.1, pulse 112, respirations 18, and blood pressure 131/84. GENERAL: No acute distress. HEART: Regular rate and rhythm. LUNGS: Clear. ABDOMEN: Soft and nontender. LABORATORY DATA: White count 6.2, H and H 8.3 and 25.3. Electrolytes normal. Creatinine 1.55. Blo od sugar 140-153. ASSESSMENT: 1. Escherichia coli infectious diarrhea with Shiga toxin. 2. Acute kidney injury. 3. Anemia of acute blood loss secondary to gastric polyp. 4. Elevated INR on admission. 5. Hypothyroid. 6. Hypertension. 7. Atrial fibrillation. 8. Diabetes. 9. Urinary tract infection. 10. Dementia/metabolic encephalopathy. PLAN: 1. Continue hydration. 2. Placement is pending. car rental agency manager is working on possible placement for short term to . Th e patient may not be able to return to independent living. We will continue to follow, this may not happen until Monday. 3. I did talk with Pam, the daughter, and she is in agreement with this short term placement. She states that her father is much better, but still is not back at baseline.
--- NOTE | 2018-04-14 17:11 | PRG ---
DATE OF SERVICE: 04/14/2018 HISTORY OF PRESENT ILLNESS: Mr. Chito Fried is an 87-year-old male seen by Dr. Tyshawn ho for GI bleeding. He had an EGD done which revealed a large gastric polyp . He was on Cou madin before which has been hold now. The patient had some stool culture, came back positive for C. coli; however, he is not having diarrhea, no abdominal pain, no nausea or vomiting. He is not very h appy to be here and he says he wants to get out right now. I tried to talk to him and explained to h im, but he is kind of just being on leaving. He tells me he is feeling fine. He has no abdominal pa in and he is not having nausea, vomiting, and diarrhea. PHYSICAL EXAMINATION: GENERAL: He is obese, appears comfortable. VITAL SIGNS: Stable. Afebrile, pulse 102, blood pressure is 122/73. CARDIOVASCULAR: First and second heart sounds normal. LUNGS: Clear to auscultation. ABDOMEN: Soft. No organomegaly. No tenderness. LABORATORY: CBC done today is pretty stable over the last 48 hours. On 04/11/2018, he had hemoglobi n of 7.9 and today 8.3, hematocrit 25. CLINICAL IMPRESSION: 1. Gastric polyp, status post polypectomy. 2. Anemia due to blood loss. 3. He is pretty stable at the present time. He is denying abdominal pain, nausea, vomiting, diarrhe a. He going home and I tell one of the nurses to call his primary care doctor to talk to him. In the meantime, we would recommend diet as tolerated and follow up H&H.
[2018-04-14] MEDS: HumaLOG 300 UNITS/3 ML VIAL SC PRN (17:44)
[2018-04-15] MEDS: Sodium Chloride 0.9% 1,000 ML IV SCH ×2 (02:49→19:39)
[2018-04-15] MEDS: Levothyroxine Sodium 100 MCG TAB PO SCH (05:25)
[2018-04-15] MEDS: hydrALAZINE 10 MG TAB PO SCH ×3 (10:01→21:30)
[2018-04-15] MEDS: Pantoprazole 40 MG VIAL IVP SCH ×2 (10:01→22:15)
[2018-04-15] MEDS: Lisinopril 10 MG TAB PO SCH ×2 (10:02→21:30)
[2018-04-15] MEDS: Furosemide 40 MG TAB PO SCH (10:02)
[2018-04-15] MEDS: Fludrocortisone Acetate 0.1 MG TAB PO SCH (17:47)
[2018-04-15] MEDS: HumaLOG 300 UNITS/3 ML VIAL SC PRN (17:48)
--- NOTE | 2018-04-15 20:29 | PRG ---
DATE OF SERVICE: 04/15/2018 HISTORY OF PRESENT ILLNESS: This is an 87-year-old male bleeding. He had an EGD, po lypectomy done by Dr. Villagran two days ago. He has done well since his endoscopic studies. He has no a bdominal pain, no nausea, vomiting. He has no black stool. He is off Coumadin because of recent EGD and polypectomy. PHYSICAL EXAMINATION: GENERAL: He appears comfortable, he is in no distress. He is afebrile. VITAL SIGNS: Pulse is 108, blood pressure is . CARDIOVASCULAR: First and second heart sounds normal. LUNGS: Clear to auscultation. ABDOMEN: Soft. No organomegaly. No tenderness. No masses. RECOMMENDATIONS: 1. Hold Coumadin. 2. Encourage p.o. intake. 3. We will sign off from today and if there are new problems, please call us back.
[2018-04-16] MEDS: Levothyroxine Sodium 100 MCG TAB PO SCH (05:05)
[2018-04-16] MEDS: HumaLOG 300 UNITS/3 ML VIAL SC PRN ×2 (05:05→16:54)
[2018-04-16] MEDS: hydrALAZINE 10 MG TAB PO SCH ×3 (07:58→20:50)
[2018-04-16] MEDS: Furosemide 40 MG TAB PO SCH (07:58)
[2018-04-16] MEDS: Lisinopril 10 MG TAB PO SCH ×2 (07:58→20:51)
[2018-04-16] MEDS: Fludrocortisone Acetate 0.1 MG TAB PO SCH (07:58)
[2018-04-16] MEDS: Cipro 250 MG TAB PO SCH (20:50)
--- NOTE | 2018-04-16 23:40 | PRG ---
DATE OF SERVICE: 04/16/2018 HISTORY OF PRESENT ILLNESS: Patient remains somewhat confused, slightly worse than last check, does report some abdomen pain. Stool cultures have grown back Pseudomonas, recommendations for no antibiotics from Gastroenterology for E. coli was Shiga toxin alone; however, this is prior to Pseudomonas coming back on culture. Patient pending a possible short stay in inpatient rehabilitation at [facility]. Clinicals have been faxed, given the patient's confusion and recent GI bleed, not felt safe to return to anticoagulation for his atrial fibrillation. Pathology reports are pending for bleeding gastric polyp. Patient has no acute complaints but is not appropriate with questioning today. PHYSICAL EXAMINATION: VITAL SIGNS: Temperature 97.7, pulse of 84, respiratory rate of 20, oxygen saturation 98% on room air, blood pressure 143/70. GENERAL: Patient is sleeping in chair, arousable, no acute distress. HEENT: Normocephalic, atraumatic. Extraocular movements are intact. Sclerae are white. Oral mucosa is moist. NECK: Supple. HEART: Irregularly irregular. No murmurs auscultated. LUNGS: Clear to auscultation bilaterally. No rubs or wheezes. ABDOMEN: Slightly tender generalized without rebound or guarding. EXTREMITIES: Lower extremities without cyanosis or edema. Scant bilateral varicose veins present. NEUROLOGIC: Patient is alert and oriented x1 to 2 only, moving all extremities. ASSESSMENT AND PLAN: 1. Resolved gastrointestinal bleed, status post esophagogastroduodenoscopy and removal of bleeding gastric polyp with transfusion 1 unit, pending CBC check in the a.m. 2. Altered mentation, resolving metabolic encephalopathy was under pinnings of the dementia. Patient not appropriate to return home and taking some medication. He started and stopped it multiple times on home medications. Patient's family looking at assisted living in long-term, short term inpatient rehab. Continued rehabilitation following infectious diarrhea with both Pseudomonas and Escherichia coli with Shiga toxin. Given patient's continued confusion and mild abdomen pain, he reports on exam today, we will cover with ciprofloxacin and monitor for any increase in diarrhea while on antibiotics. No reports of bleeding with stools since admission. 3. Chronic kidney disease, stage 2-3, and slowly return patient back to Lasix once a day monitoring oral intake. Patient's IV has been removed over the weekend and has not been restarted. We will check creatinine function in a.m. to make sure patient is not further getting dehydrated. Still reports some sundowning present. 4. Regarding his diabetes, continue sliding scale insulin, contraindication to anticoagulation. Patient is covered on Protonix b.i.d. 40 mg. Patient continued on home levothyroxine. We will follow up if patient excepted inpatient rehabilitation tomorrow. BRANDON
[2018-04-17 04:59] LABS: #Basophils 0.1 thou/uL (0.0-0.2); #Eosinphils 0.3 thou/uL (0.0-0.7); #Lymphocytes 2.1 thou/uL (1.20-3.40); #Monocytes 0.7 thou/uL (0.11-0.59); #Neutrophils 3.4 thou/uL (1.40-6.50); %Basophils 0.9 % (0.0-1.0); %Eosinophils 4.3 % (0.0-10.0); %Neutrophils 51.8 % (42.0-75.0); Hemoglobin 9.7 g/dL (14.0-18.0); Mean Corpuscular HGB CONC 32.2 g/dL (32.0-36.0); Mean Corpuscular Hemoglobin 30.1 pg (27.0-31.0); Mean Corpuscular Volume 93.4 fL (78.0-98.0); Mean Platelet Volume 7.5 fL (7.4-10.4); Platelet Count 332 thou/uL (130-400); RBC Distribution Width 13.8 % (11.5-14.5); Red Blood Cell (RBC) Count 3.21 mill/uL (4.70-6.10); White Blood Cell (WBC) Count 6.6 thou/uL (4.8-10.8)
[2018-04-17 05:09] LABS: Anion Gap 12 mmol/L (10-20); BUN (Urea Nitrogen) 31 mg/dL (8.4-25.7); Calc. Creatinine Clearance 36 mL/min (70-130); Calcium 8.4 mg/dL (7.8-10.44); Carbon Dioxide 30 mmol/L (23-31); Chloride 101 mmol/L (98-107); Estimated GFR-MDRD 32; Glucose 213 mg/dL (83-110); Potassium 3.7 mmol/L (3.5-5.1); Sodium 139 mmol/L (136-145)
[2018-04-17] MEDS: Levothyroxine Sodium 100 MCG TAB PO SCH (05:13)
[2018-04-17] MEDS: Cipro 250 MG TAB PO SCH (05:14)
[2018-04-17] MEDS: HumaLOG 300 UNITS/3 ML VIAL SC PRN (05:20)
[2018-04-17] MEDS: Furosemide 40 MG TAB PO SCH (07:51)
[2018-04-17] MEDS: hydrALAZINE 10 MG TAB PO SCH (07:51)
[2018-04-17] MEDS: Fludrocortisone Acetate 0.1 MG TAB PO SCH (07:52)
[2018-04-17] MEDS: Lisinopril 10 MG TAB PO SCH (07:52)
[2018-04-17] MEDS ORDERED: Sodium Chloride 0.9% 1,000 ML IV SCH (08:15)
[2018-04-17 11:36] VITALS: BP 95/61; TEMP 97.3
--- NOTE | 2018-04-18 09:40 | DIS ---
DATE OF ADMISSION: 04/09/2018 DATE OF DISCHARGE: 04/17/2018 CHIEF COMPLAINT: Altered mental status. HISTORY OF PRESENT ILLNESS: On admission, the patient had nausea, vomiting, diarrhea with subsequent reports of blood on outpatient basis who presented to emergency department and found to have dehydra tion and continued mentation changes, was agitated, was given Ativan which was transitioned to altern ative medications once the patient became further attended. Found to have a GI bleed while tillmanin g in the IM. Gastroenterology was consulted and taken back for EGD after the patient initially ref used, found to have gastric polyp that was bleeding. This was removed, cauterized, sent for patholog y. Cardiology was consulted on admission for the patient's atrial fibrillation which was slightly el evated in 110s to 120s. The patient was continued on his home Cardizem with rehydration as pulse cam e down. The patient was initially placed on Rocephin x3 days for potential UTI; however, this was ru led out, found to have infectious diarrhea with E. coli with Shiga toxin and Pseudomonas. Gastroente rology recommending no further antibiotics for E. coli; however, this is prior to pseudomonal finding s on culture. The patient continued to have mental status changes as well as dehydration and some GI abdomen pain. The patient was started on low dose Cipro secondary to renal function for pseudomonal infection, possibly making a metabolic encephalopathy worse. The patient has some underpinnings of early dementia. Sliding scale insulin was coverage for patient's diabetes type 2. His sulfonylurea was held while on sliding scale insulin. The patient was transfused 1 unit of PRBCs and I have given vitamin K to stop his supratherapeutic INR, which was found on admission. The patient has routinely stopped medications, restarted medications on [facility] on outpatient basis when he feels like it recent ly one week prior to admission. The patient was on [facility] with subtherapeutic INR, it is un clear if the patient was actually even taking his Coumadin at that point. Lives in [facility], has a girlfriend; however, she is not directly supervising his medication administrat ion. Daughter lives here nearby, discussed possible assisted living, transitioned on outpatient basi s to supervise his medications, so he can go back on anticoagulation. Cardiology was fine with the p atient returning to [facility] for reinitiation of warfarin one week after discharge, however, w as also fine with the patient transitioning down to something like aspirin if he is unable to be sonal tored properly on this medication. Alternatively, following q.1 week rather than q.2 week INRs are m ore initially would be appropriate as well. Further anticoagulation or deep venous thrombosis prophy laxis was held secondary to gastrointestinal bleed on this admission. The patient's creatinine somew hat elevated despite holding his furosemide and decreasing it half. Recommend daily weights with the patient and recheck on creatinine, going to [facility] for physical t herapy and shelter for monitoring of patient's mentation, renal function, and continuation of oral antibiotics. The patient resides here long enough. He may be a candidate for reinitiation of Coumadin as well. DISCHARGE DIAGNOSES: Include resolved bleeding of gastric polyp, infectious diarrhea with E. coli wi th Shiga toxin and Pseudomonas aeruginosa, metabolic encephalopathy, acute kidney injury, dehydration , atrial fibrillation with RVR with early stages of dementia, diabetes type 2, anemia of acute blood loss and of chronic disease, orthostasis, home diagnosis of elevated INR, hypertension, hypothyroidis m. Recommend follow up with myself, Dr. Bandar Dinero in 7 days post-discharge from SNF, follow up wit Dr. Tapia within 1 month. Follow up with Dr. Villagran, who performed EGD within 1 month of dischar ge. Follow up with [facility] as above 1 week following discharge for possible reinitiation if not already done so or INR checked otherwise, discussed with daughter continued looking assisted heidiron ribera. DISCHARGE DIET: ADA. DISCHARGE ACTIVITY: Up with assistance, cane, or walker as tolerated. Physical therapy is to follow , occupational therapy if needed, shelter [facility]. DISCHARGE MEDICATIONS: Include fludrocortisone 0.1 mg daily, diltiazem 240 mg extended release tab d aily, ciprofloxacin 250 mg 1 tab p.o. b.i.d. Hold Coumadin for at least 1 week, last regimen was 5 m g daily, believe Monday and , the patient be on 7.5. Pravastatin 40 mg, omeprazole 40 mg, m etoprolol succinate 25 mg, lisinopril 10 mg, levothyroxine 100 mcg, isosorbide mononitrate 60 mg, res umption of glipizide 10 mg b.i.d. with Accu-Cheks.
== END 2018-04-17 14:06 | DRG 377 ==
LOC: ERS 14:01 → IMCU/EMU 18:16 → T4-A 04-11 11:21
PROVIDERS: ADMIT Family Medicine; ATTEND Family Medicine
PROC: 30233N1 Transfusion of Nonautologous Red Blood Cells into Peripheral Vein, Percutaneous Approach (ICD-10-PCS; 2018-04-12)
PROC: 0DB68ZX Excision of Stomach, Via Natural or Artificial Opening Endoscopic, Diagnostic (ICD-10-PCS; principal; 2018-04-13)
DX: K92.2 Gastrointestinal hemorrhage, unspecified (principal); G93.41 Metabolic encephalopathy; N17.9 Acute kidney failure, unspecified; A09 Infectious gastroenteritis and colitis, unspecified; D62 Acute posthemorrhagic anemia; I48.2 Chronic atrial fibrillation; I25.10 Atherosclerotic heart disease of native coronary artery without angina pectoris; E78.5 Hyperlipidemia, unspecified; E86.0 Dehydration; E11.22 Type 2 diabetes mellitus with diabetic chronic kidney disease; I12.9 Hypertensive chronic kidney disease with stage 1 through stage 4 chronic kidney disease, or unspecified chronic kidney disease; N18.9 Chronic kidney disease, unspecified; K21.9 Gastro-esophageal reflux disease without esophagitis; E03.9 Hypothyroidism, unspecified; N40.0 Benign prostatic hyperplasia without lower urinary tract symptoms; M19.90 Unspecified osteoarthritis, unspecified site; D64.9 Anemia, unspecified; K44.9 Diaphragmatic hernia without obstruction or gangrene; K31.7 Polyp of stomach and duodenum; F03.90 Unspecified dementia, unspecified severity, without behavioral disturbance, psychotic disturbance, mood disturbance, and anxiety; B96.20 Unspecified Escherichia coli [E. coli] as the cause of diseases classified elsewhere; D63.8 Anemia in other chronic diseases classified elsewhere; Z88.5 Allergy status to narcotic agent; Z91.013 Allergy to seafood; Z90.49 Acquired absence of other specified parts of digestive tract
CPT/HCPCS: 36415; 36416; 36430; 51701; 70450; 80048; 80053; 81003; 81015; 82140; 82274; 82553; 83615; 83735; 84439; 84443; 84481; 84484; 85025; 85610; 85730; 86850; 86900; 86901; 87040; 87045; 87046; 87086; 87177; 87186; 87324; 87449; 87899; 88305; 88312; 90471; 90670; 93005; 96361; 96365; 96366; 96372; 96374; 96375; C9113; G0009; G8978-GP-CK; G8979-GP-CI; G8987-GO-CK; G8988-GO-CJ; J0360; J0696; J0744; J1160; J1630; J2060; J2704; J3430; J7050; P9016

== ENCOUNTER 2018-05-01 18:34 | Inpatient (IN) | payer MEDICARE, OTHER ==
[2018-05-01 20:06] LABS: #Eosinphils 0.1 thou/uL (0.0-0.7); #Lymphocytes 0.8 thou/uL (1.20-3.40); #Monocytes 0.8 thou/uL (0.11-0.59); #Neutrophils 4.4 thou/uL (1.40-6.50); %Basophils 0.5 % (0.0-1.0); %Eosinophils 1.4 % (0.0-10.0); %Lymphocytes 13.2 % (21.0-51.0); %Monocytes 12.3 % (0.0-10.0); %Neutrophils 72.7 % (42.0-75.0); Hemoglobin 8.3 g/dL (14.0-18.0); Mean Corpuscular Hemoglobin 29.6 pg (27.0-31.0); Mean Corpuscular Volume 89.8 fL (78.0-98.0); Platelet Count 198 thou/uL (130-400); RBC Distribution Width 14.6 % (11.5-14.5); Red Blood Cell (RBC) Count 2.81 mill/uL (4.70-6.10); White Blood Cell (WBC) Count 6.1 thou/uL (4.8-10.8)
[2018-05-01 20:13] LABS: INR-International Normal Ratio 1.5; PTT 28.8 SEC (22.9-36.1); Prothrombin Time 18.4 SEC (12.0-14.7)
[2018-05-01 20:29] LABS: ALT (SGPT) 11 U/L (8-55); AST (SGOT) 17 U/L (5-34); Albumin 3.7 g/dL (3.4-4.8); Alkaline Phosphatase 82 U/L (40-150); Anion Gap 12 mmol/L (10-20); BUN (Urea Nitrogen) 71 mg/dL (8.4-25.7); Bilirubin, Total 0.3 mg/dL (0.2-1.2); CK (CPK) 241 U/L (30-200); Calc. Creatinine Clearance 0 mL/min (70-130); Calcium 8.4 mg/dL (7.8-10.44); Carbon Dioxide 26 mmol/L (23-31); Chloride 105 mmol/L (98-107); Estimated GFR-MDRD 21; Globulin 3.1 g/dL (2.4-3.5); Glucose 321 mg/dL (83-110); Potassium 5.8 mmol/L (3.5-5.1); Protein, Total 6.8 g/dL (5.8-8.1); Sodium 137 mmol/L (136-145)
--- NOTE | 2018-05-01 20:38 | RAD ---
RADIOGRAPH CHEST 1 VIEW: Date: 05/01/18 Time: 7:04 p.m. HISTORY: 87-year-old male with dyspnea. COMPARISON: 04/30/18, 2:26 p.m. FINDINGS: Cardiomegaly. Pulmonary venous engorgement. Probable bilateral pleural effusions. Indistinctness of b ilateral hemidiaphragms. Air space densities in the bilateral lower lung zones, right greater than le ft. No pneumothorax. The comparison is somewhat difficult because of differences of positioning, but there has probably been no major interval change. IMPRESSION: 1. Evidence for congestive heart failure with bilateral pleural effusions, cardiomegaly, and bib asilar pulmonary densities (for which there is uncertainty as to whether they represent pulmonary christina ma, atelectasis, or pneumonia). 2. Probably no major interval change since yesterday. 3. Prominence of the right hilum as mentioned on the previous report. Recommend chest CT on an e lective basis. AMANDA [] POS: MARGARET
[2018-05-01] MEDS ORDERED: Furosemide 40 MG/4 ML VIAL ONE (20:45)
--- NOTE | 2018-05-01 20:56 | CT ---
CT OF BRAIN PERFORMED WITHOUT CONTRAST ENHANCEMENT: 05/01/18 HISTORY: Altered mental status. COMPARISON: 04/09/18 study. There is generalized ventricular and sulcal prominence. Decreased attenuation of the periventricular white matter is consistent with some chronic white matter change. There is no signs of intracerebral hemorrhage or extra-axial fluid collections. Mastoid air cells and visualized sinuses are clear. IMPRESSION: No acute intracranial abnormalities. POS: [facility]
[2018-05-01 21:22] LABS: Actual Bicarbonate (HCO3a) 24.9 mEq/L (22-28); Analyzer IN Cardio ER; Base Excess (BEa) -2.6 mEq/L (-2.0 to +3.0); Calcium, Ionized 1.15 mmol/L (1.12-1.30); Carboxyhemoglobin (COHb) 0.3 gm% (0.0-3.0); Hemoglobin (Hb) 8.9 g/dL (14.0-18.0); O2 Tension (PaO2) 152.5 mmHg (> 60.0); Potassium - ABG Lab 5.52 mmol/L (3.70-5.30)
[2018-05-01 21:23] LABS: pH, Arterial 7.25 (7.35-7.45)
[2018-05-01 21:24] LABS: Puncture Site RRA
[2018-05-01] MEDS ORDERED: Ziprasidone 20 MG VIAL ONE ×2 (22:27→23:57)
[2018-05-01] MEDS ORDERED: Water For Inject, Bacteriostat 30 ML ONE ×2 (22:28→23:57)
--- NOTE | 2018-05-01 22:51 | CT ---
CT ABDOMEN NONCONTRAST CT PELVIS NONCONTRAST: (urolithiasis protocol) DATE: 05/01/18 TIME: 7:39 p.m. HISTORY: 87-year-old male with generalized abdominal pain. COMPARISON: CT of abdomen and pelvis on 08/27/13 with contrast. TECHNIQUE: IV injection of iodinated contrast media: none Oral contrast media: none FINDINGS: Other than for urolithiasis, the lack of IV and oral contrast limits the evaluation. The current CT and that of the previous CT are of two different people; the anatomy appears completel y different. On the previous CT scan there were findings involving coloproctitis, with a moderate noelle unt of free fluid in the pelvic cavity, but otherwise, the solid abdominal organs appeared normal, th ose of a much young person than the purported age of [address] the previous CT. On the current study, there are atherosclerotic calcifications of the abdominal aorta (without aneury sm) which were not present on the previous CT. Furthermore, the kidneys are mildly atrophic, whereas they had much more parenchymal tissue on the previous CT. There is a small approximately 3 to 4 mm ca lculus in a right renal mid pole calyx. No hydronephrosis. No calculus in the ureters or bladder. Pro state gland is enlarged, whereas it was not significantly enlarged on the previous CT. There is diffu se moderate anasarca throughout the subcutaneous tissues circumferentially around the abdomen and pel vis. There are bilateral moderate sized pleural effusions, right greater than left. There is no pneum operitoneum. There is a tiny amount of perirectal fluid in the dependent, presacral portion of the l ower inferior pelvic cavity. There is fat stranding suggesting of mild edema in the perirenal spaces and minimally along the bilateral paracolic gutters and Gerota's fascia. No small bowel dilation. Num erous diverticula throughout the sigmoid and descending colon without acute diverticulitis. No small bowel dilation. There is multilevel high grade degenerative disc disease in the lumbar spine, whereas the lumbar spine on the previous CT was relatively normal. Approximately 20% of the stomach has la iated superior to the diaphragm. IMPRESSION: 1. Moderate sized bilateral pleural effusions with adjacent passive atelectasis of bilateral low er lobes. 2. Moderate sized sliding hiatal hernia. 3. Anasarca. 4. Mild nephrolithiasis consisting of a single 4 or 5 mm right renal calculus. 5. No obstructive uropathy. 6. Enlarged prostate. 7. Colonic diverticulosis without diverticulitis. 8. Advanced lumbar spondylosis. 10. Please note that the CT of the abdomen and pelvis of 08/27/13, along with other imaging studies dur ing 2014, that are included under this patient's name and medical record number currently in [employer] P[facility], appear to be those of a different, much younger patient. Recommend consultation with medical re cords department. This may require coordination between radiologist and medical records to sort out w hich imaging studies belong to which patient. AMANDA Overton POS: MARGARET
[2018-05-02 01:38] VITALS: BMI 34.0
[2018-05-02] MEDS: Furosemide 100 MG/10 ML VIAL SLOW IVP SCH ×2 (05:39→14:15)
[2018-05-02] MEDS ORDERED: Acetaminophen 500 MG TAB PO PRN (07:14)
[2018-05-02] MEDS ORDERED: Labetalol HCl 100 MG/20 ML VIAL SLOW IVP PRN (07:14)
[2018-05-02] MEDS ORDERED: Ondansetron PF 4 MG/2 ML Vial IVP PRN (07:14)
[2018-05-02] MEDS ORDERED: Nitroglycerin 0.4 MG TAB (25 Tab Bottle) SL PRN (07:14)
[2018-05-02 07:55] LABS: Anion Gap 13 mmol/L (10-20); BUN (Urea Nitrogen) 71 mg/dL (8.4-25.7); Calc. Creatinine Clearance 30 mL/min (70-130); Calcium 8.4 mg/dL (7.8-10.44); Carbon Dioxide 23 mmol/L (23-31); Chloride 107 mmol/L (98-107); Estimated GFR-MDRD 22; Glucose 289 mg/dL (83-110); Magnesium 2.4 mg/dL (1.6-2.6); Potassium 5.7 mmol/L (3.5-5.1); Sodium 137 mmol/L (136-145)
[2018-05-02 08:22] LABS: Actual Bicarbonate (HCO3a) 25.5 mEq/L (22-28); Base Excess (BEa) -3.3 mEq/L (-2.0 to +3.0); Calcium, Ionized 1.13 mmol/L (1.12-1.30); Carboxyhemoglobin (COHb) 1.4 gm% (0.0-3.0); Hemoglobin (Hb) 8.5 g/dL (14.0-18.0); O2 Tension (PaO2) 73.6 mmHg (> 60.0); Potassium - ABG Lab 5.59 mmol/L (3.70-5.30)
[2018-05-02 08:24] LABS: CO2 Tension 70.5 mmHg (35.0-45.0); Puncture Site RRA; pH, Arterial 7.18 (7.35-7.45)
[2018-05-02 08:25] LABS: ALV-art Gradient 123.475 (0-20)
[2018-05-02] MEDS ORDERED: Prevnar 13-Val Conj/PF 0.5 ML SYRINGE IM ONE (09:00)
[2018-05-02] MEDS ORDERED: Lisinopril 10 MG TAB PO SCH (09:00)
[2018-05-02] MEDS ORDERED: Morphine 4 MG/ML VIAL ONE ×2 (09:10→09:14)
[2018-05-02] MEDS ORDERED: Propofol 1,000 MG/100 ML VIAL IV ONE (09:11)
[2018-05-02] MEDS ORDERED: Midazolam HCl 2 mg/2 ml Vial ONE (09:12)
[2018-05-02] MEDS ORDERED: Ventilator Sedation Protocol 1 EACH FS SCH (09:30)
[2018-05-02] MEDS ORDERED: fentaNYL Citrate/PF 2,000 MCG in Sodium Chloride 0.9% 60 ML IV SCH (10:05)
[2018-05-02] MEDS ORDERED: Lorazepam 2 MG/ML VIAL SLOW IVP PRN (10:05)
[2018-05-02] MEDS ORDERED: Propofol BOLUS 1,000 MG/100 ML VIAL IV PRN (10:05)
[2018-05-02] MEDS ORDERED: DISCONTINUE PREVIOUS NARCOTIC PAIN MEDICATIONS AND BENZODIAZEPINES FS SCH (10:05)
[2018-05-02] MEDS ORDERED: Morphine 2 MG/ML SYRINGE SLOW IVP PRN (10:05)
[2018-05-02] MEDS ORDERED: Fentanyl BOLUS 250 ML IVPB PRN (10:05)
[2018-05-02 10:43] LABS: Actual Bicarbonate (HCO3a) 24.4 mEq/L (22-28); Base Excess (BEa) -0.1 mEq/L (-2.0 to +3.0); Calcium, Ionized 1.09 mmol/L (1.12-1.30); Carboxyhemoglobin (COHb) 1.7 gm% (0.0-3.0); Hemoglobin (Hb) 7.5 g/dL (14.0-18.0); O2 Tension (PaO2) 102.2 mmHg (> 60.0); Potassium - ABG Lab 5.49 mmol/L (3.70-5.30); pH, Arterial 7.42 (7.35-7.45)
[2018-05-02 10:46] LABS: Puncture Site RRA
--- NOTE | 2018-05-02 11:31 | RAD ---
CHEST ONE VIEW: History: Dyspnea. Intubated. Comparison: 05-01-18 FINDINGS: Cardiac silhouette is magnified, enlarged, and partially obscured by bilateral pleural fluid. Pulmona ry vasculature is more engorged than on the previous exam. Mediastinum is midline with aortic calcifi cation. Endotracheal catheter is at the level of the aortic arch. No evidence of pneumothorax. Nasoga stric tube descends to the abdomen. ekg monitor leads overlie the chest. IMPRESSION: 1. Endotracheal catheter is good radiographic position. 2. Worsening pulmonary edema. POS: [facility]
[2018-05-02] MEDS ORDERED: Dextrose 50% Abboject 50 ML SYRINGE SLOW IVP PRN (11:57)
[2018-05-02] MEDS ORDERED: Dextrose 5% in Water 1,000 ML IV PRN (11:57)
[2018-05-02] MEDS: Enoxaparin Sodium 60 MG/0.6 ML SYRINGE SC SCH (13:21)
[2018-05-02] MEDS: Pantoprazole 40 MG VIAL IVP SCH (13:26)
--- NOTE | 2018-05-02 13:34 | CON ---
DATE OF CONSULTATION: HISTORY OF PRESENT ILLNESS: This is an 87-year-old, morbidly obese gentleman, who was just recently discharged from the hospital, presented to the ER last night with worsening respiratory distress, shortness of breath, and cough. X-ray showed bilateral pleural effusions. CT abdomen shows bilateral pleural effusion. He refused noninvasive ventilation. He is transferred to the MICU. This morning, his condition got worse with worsening respiratory distress. Now, he is on a BiPAP. Dr. Jaxson Singh, apparently attending physician, contacted us early in the day to let us know that he was coming to the MICU. At present, he appears to be still encephalopathic and confused. Denies any pain or discomfort. PAST MEDICAL HISTORY: From his recent note, is pertinent for congestive heart failure and renal failure. Probably sleep apnea and severe deconditioning. PAST SURGICAL HISTORY: Past surgeries including hernia, cholecystectomy, shoulder surgery, prostate, and EGD. MEDICATIONS: His discharge medication apparently included; 1. Cardizem 240 once a day. 2. Antibiotics. 3. Coumadin. 4. Metoprolol 25. 5. Lisinopril 10. 6. Pravastatin 40. 7. Levothyroxine 100. 8. Ismo 60. 9. Glipizide 10 b.i.d. ALLERGIES: CODEINE, IODINE, AND SHRIMP. REVIEW OF SYSTEMS: Not obtainable. PHYSICAL EXAMINATION: GENERAL: Clearly confused, on BiPAP. VITAL SIGNS: Saturations are 94%, respiratory rate 24, temperature 97, and blood pressure 136/63. LUNGS: Decreased breath sounds. No wheezing. CARDIAC: Normal S1 and S2. No gallops. ABDOMEN: Soft. No masses. EXTREMITIES: Trace edema. LABORATORY DATA: White count 6000, , and platelet count is 198. A pO2 is 152, pCO2 is 58, a nonrebreather. His BUN and creatinine are 71 and 2.7. His BNP is 913. CT abdomen and pelvis done last night shows evidence of bilateral pleural effusion, anasarca, nephrolithiasis, and enlarged prostate. IMPRESSION: 1. Respiratory failure, congestive heart failure. 2. Chronic renal failure. 3. Encephalopathy. 4. Hypothyroidism. 5. Probable sleep apnea. 6. Renal failure. PLAN: Continue noninvasive ventilation. Blood gas being ordered. Discussed with family ongoing treatment plan regarding the intubation versus comfort care. This is 45 minutes critical time. Job ID: [id number]
--- NOTE | 2018-05-02 14:38 | ULT ---
RENAL ULTRASOUND: Comparison: None. History: Renal failure. Technique: Multiplanar grayscale and color doppler images were obtained in a renal ultrasound. FINDINGS: The kidneys are normal in echogenicity without hydronephrosis or calculi and measures 11.1 and 11.0 c m in length on the right and left, respectively. The urinary bladder is decompressed with a Ji catheter. IMPRESSION: Unremarkable renal ultrasound. POS: [facility]
--- NOTE | 2018-05-02 15:56 | CON ---
DATE OF CONSULTATION: RENAL MEDICINE HISTORY OF PRESENT ILLNESS: Mr. Fried is an 87-year-old white male, half-way patient, who was sent today due to shortness of breath. During the initial workup, CT scan of the abdomen was done. Finding of urolithiasis was noted. He also had a chest x-ray done, which showed evidence of pulmonary edema/congestive heart failure. Furthermore, a CT scan of the brain was also done on Mr. Fried, which showed no acute intracranial abnormality. We are now being consulted for his mild hyperkalemia and acute kidney injury. REVIEW OF SYSTEMS: Not obtainable since the patient is currently intubated and on ventilator support. PAST MEDICAL HISTORY: Includes history of rapid atrial fibrillation, hypertension, hyperlipidemia, type 2 diabetes mellitus, chronic renal disease, GERD, coronary artery disease, hypothyroidism, BPH, and DJD. PAST SURGICAL HISTORY: Includes status post cholecystectomy and status post hernia repair. 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 Currently, no smoking or alcohol intake. ALLERGIES: CODEINE. TRAUMA: None. IMMUNIZATION: Up-to-date. HOSPITALIZATIONS: Please see past medical history. FAMILY HISTORY: No family history of ESRD. PHYSICAL EXAMINATION: VITAL SIGNS: Blood pressure is noted at 136/64 and heart rate 93. GENERAL: The patient is sedated, intubated on ventilator support. SKIN: Adequate turgor. HEENT: He has had slightly pale conjunctivae. Anicteric sclerae. NECK: No neck mass. No carotid bruits. No JVD. CHEST: No deformities. LUNGS: Decreased breath sounds. HEART: Normal sinus rhythm. No murmur. No gallops. No rubs. ABDOMEN: Globular, soft, and nontender. EXTREMITIES: Trace edema. MEDICATIONS: Medications of May 02, 2018; 1. DuoNeb q.4. 2. Lipitor 80 mg at bedtime. 3. Cardizem CD 360 mg once a day. 4. Lovenox 60 mg once a day. 5. Lasix 80 mg IV q.12. 6. Synthroid 100 mcg daily. 7. Solu-Medrol 40 mg IV q.6. 8. Toprol-XL 25 mg once a day. 9. Protonix 40 mg 1 mg daily. LABORATORY DATA: Laboratories of May 01, 2018, white count 6.1 and hemoglobin 8.3. Sodium 137, potassium 5.7, chloride 107, carbon dioxide 23, BUN 71, creatinine 2.77, glucose is 289, phosphorus 5.0, magnesium 2.4, and calcium 8.4. BNP is 913 and troponin I 0.026. ASSESSMENT AND PLAN: 1. Congestive heart failure - the patient is now intubated due to the worsening respiratory distress. Continue Lasix 80 mg IV q.12. 2. Chronic renal failure/acute kidney injury. Creatinine is noted at 2.77, which is only slightly improved from 2.83 yesterday. Baseline creatinine for this patient is about 1.9 to 2.0. He may have a superimposed prerenal azotemia secondary to his underlying congestive heart failure. Continue to diurese. There is no indication for any dialytic intervention with this patient at the present time. Consider doing a renal ultrasound, this has not been done previously. Agree with current management. Job ID: [id number]
[2018-05-02 17:31] LABS: Bilirubin Negative (Negative); Blood, Urine Large (Negative); Clarity CLOUDY (Clear); Glucose, Urine (Dipstick) Negative (Negative); Leukocyte Trace (Negative); Nitrite Negative (Negative); Protein, Urine (Dipstick) 100 mg/dL (Neg-Trace); Specific Gravity, Urine 1.011 (1.002-1.036); Urobilinogen 0.2 mg/dL (0.2-1.0)
[2018-05-02 17:38] LABS: Bacteria/HPF None Seen HPF (None Seen); Hyaline Casts/LPF 0-3 HYALINE CAST LPF (0-3 Hyaline); RBC/HPF GREATER THAN 50-TNTC HPF (0-3); Squamous Epithelial None Seen HPF (0-3); WBC/HPF 0-3 HPF (0-3)
--- NOTE | 2018-05-02 18:01 | OP ---
DATE OF PROCEDURE: 05/02/2018 INDICATION FOR PROCEDURE: After seeing the patient, blood gas was ordered, which showed his pO2 was 70, pCO2 of 70, pH 7.18, clearly severe respiratory acidosis. I spoke to his daughter. The patient with a BiPAP, clearly need to be intubated. She stated she wanted him to be intubated. The patient's fiancee was at the bedside , who stated that the patient has a DNR ordered, though we had a long discussion with the patient's fiancee in the room, who stated the [id number] was actually the daughters. DESCRIPTION OF PROCEDURE: Therefore, he was transferred to the ICU. He was given morphine and bite block was placed, and disposable flexible Olympus bronchoscope was used with a 7.5 endotracheal tube placed over it with a bite block in place. Vocal cord was visualized. Tube was passed in, secured above the dianelys. It was bagged. Oxygen saturations improved. Ultimately, the bronchoscope was repassed again for bronchial lavage issues because of extensive secretions and COPD exacerbation. There was copious amounts of thick purulent secretion in the right lung, but no endobronchial disease was seen. The right upper and right middle lobe were visualized. The left lung inspected left upper lobe once again, copious thick secretion was seen, which was suctioned and lavaged until clear, but no endobronchial lesion was seen.conected to__ respirator. Washings were sent for gram stain and C and S. Sedation protocol will be initiated. Please note, this is the intubation procedure for bronchoalveolar lavage. DIAGNOSES: 1. Respiratory failure. 2. Chronic obstructive pulmonary disease. 3. Sleep apnea. 4. Renal failure. Job ID: [id number] [id number]
[2018-05-02] MEDS: Atorvastatin Calcium 10 MG TAB PO SCH (20:35)
--- NOTE | 2018-05-02 22:33 | HP ---
CHIEF COMPLAINT: Shortness of breath. HISTORY OF PRESENT ILLNESS: The patient was seen in the hospital on 04/09/2018, where he had a stay for infectious diarrhea with mental status changes and he subsequently went into AFib with RVR. He returned to sinus rhythm with increase of diltiazem; however, he subsequently had a GI bleed after he took more Coumadin than he was supposed to and became supratherapeutic INR. He was required to be transfused 1 unit PRBCs and was seen by Dr. Villagran, who did an EGD and removed a bleeding gastric polyp. He was since stabilized. His Lasix was held secondary to patient being hemodynamic unstable following GI bleed. The patient, given his mental status changes and weakness, we discussed with daughter that he may be a better candidate instead of living at [facility] to be transitioned to assisted living to help better manage his medications. In the interim, however, had weakness and the patient was transferred to [facility] for rehabilitation. There it appears, on review of documentation, that his Lasix was not restarted at inpatient rehab. He subsequently had been restarted on Coumadin very slowly. He did not reach therapeutic INR prior to readmission. His creatinine did trend up over the last week prior to admission. Chest x-ray was performed given the patient feeling more short of breath and some suggestion of volume overload with worsening lower extremity edema and crackles. Per list of exam, found to have pleural effusions with pulmonary congestion. The patient was transferred to the emergency department at [facility] for further evaluation, found to be in worsening respiratory distress. The patient was initially stabilized on 4 L nasal cannula and admitted to the IMCU late last night. Subsequently, the patient's respiratory status decompensated and he went initially through short stint of BiPAP and then to intubation after Pulmonary Critical Care contacted the patient's daughter. The patient was obtunded prior to this and was unable to answer on questioning at bedside this morning. The patient's ABGs had since stabilized. No reports of bleeding throughout the patient's records, either in the emergency department on arrival to ICU or at [facility]. Review of past medical, social, and surgical history includes paroxysmal atrial fibrillation, on Coumadin for anticoagulation chronically; lumbar radiculopathy; degenerative disk disease, lumbar; diabetes type 2 with circulatory complications; hypertension, hyperlipidemia, hypothyroidism, gastroesophageal reflux disease with history of GI bleeds with gastric polyps x2, benign prostatic hyperplasia, orthostatic hypotension, actinic keratosis, coronary artery disease of [place] artery, and CKD stage 4. The patient has been followed by Dr. Guillaume, Orthopedic Surgery; Dr. Tapia, Cardiology; and Dr. Grove, Neurosurgery on outpatient basis. Had prior seen in [facility]. MEDICATIONS: On outpatient basis prior to admission last March: 1. Pravastatin 40 mg. 2. Lasix 20 mg b.i.d. 3. Cortef .4. 4. Diltiazem 360 mg once daily. 5. Coumadin 5 mg daily. 6. Metoprolol 25 mg daily. 7. Lisinopril 10 mg. 8. Isosorbide mononitrate 60 mg. 9. Glipizide 10 mg. 10. Omeprazole 40 mg. ALLERGIES: INCLUDE SHELLFISH AND IODINE. AGAIN, THE PATIENT'S LASIX HAD BEEN APPARENTLY CONTINUED TO BE HELD, SO DID HIS CORTEF. COUMADIN WAS TRANSITIONED TO MONDAY, MONDAY, MONDAY, AND MONDAY WHILE IN SNF. THE PATIENT WITH HISTORY OF CHOLECYSTECTOMY AND A HERNIA REPAIR IN 2003. HE IS A NONSMOKER, DRINKS SOCIALLY. HE IS , BUT HAS A GIRLFRIEND AT [facility]. NEXT TO KIN, DAUGHTER. REVIEW OF VITAL SIGNS ON ARRIVAL TO THE FLOOR; TEMPERATURE OF 97.9, PULSE IS 78, RESPIRATORY RATE OF 20, OXYGEN SATURATION OF 91% ON 4 L NASAL CANNULA, BLOOD PRESSURE 138/62. MORE RECENTLY, THE PATIENT WAS MECHANICALLY VENTILATED. PULSE OF 93, BLOOD PRESSURE OF 136/64. ADMISSION WEIGHT IS 237 POUNDS TODAY. ADMISSION WEIGHT 1 MONTH AGO 206 POUNDS. LABORATORY DATA: Review of laboratory work: White blood cell count is 6.1, hemoglobin of 8.3, MCV of 89, platelet count of 198. INR 1.5, blood gases stated at pH of 7.25, following intubation 7.42, improved. Sodium of 137, potassium of 5.7, chloride of 107, CO2 of 23, BUN of 71, creatinine of 1.83, glucose of 321, calcium of 8.4, phosphorus of 5.0, magnesium of 2.4. AST of 17, ALT of 11, alkaline phosphatase of 82. CK of 241. Troponin 0.026. BNP of 913. Albumin of 3.7. Last echo on file in [facility] was in late 2017 with preserved ejection fraction of 55 % to 60%, grade 1 diastolic dysfunction. Review of chest x-ray on admission; pulmonary edema bilaterally with pulmonary effusions. Abdomen CT; sliding hiatal hernia, positive anasarca; mild nephrolithiasis, 4 to 5 mL, right side, nonobstructing; enlarged prostate, diverticulosis without overt diverticulitis, advanced lumbar spondylosis. No hemorrhagic component to CT of brain. PHYSICAL EXAMINATION: GENERAL: The patient is unable to respond to commands, currently restrained. HEART: Regular rate and rhythm at the time of exam. No murmurs. LUNGS: Crackles and diminished bases bilaterally. Coarse bronchial breath sounds. No rhonchi or rales formally. ABDOMEN: Protuberant. Positive bowel sounds throughout. The patient does not withdraw from deep palpation. EXTREMITIES: Lower extremities with 1+ pitting edema bilaterally, full length of shins. Good capillary refill. No cyanosis of digits. EYES: The patient with sclerae that are white. No discharge present. NEUROLOGIC: The patient is in agitated state. Unable to assess orientation. The patient is not formally following commands. At the time of exam, the patient was on BiPAP. Moving all extremities. SKIN: No skin breakdown or rashes noted. ASSESSMENT AND PLAN: 1. Acute respiratory failure secondary to congestive heart failure exacerbation, which is diastolic in nature. 2. Acute on chronic renal failure. 3. Hyperkalemia. 4. Hyperphosphatemia. 5. Anemia secondary to recent gastrointestinal bleed last month and of chronic disease, currently stable. 6. Paroxysmal atrial fibrillation. 7. Diabetes type 2. 8. Pleural effusion. The patient has been intubated and stabilized from respiratory standpoint by Pulmonology. The patient has somewhat failed Lasix given 40 mg oral in [facility], 40 mg IV in the emergency department and 80 mg IV in ICU; nursing reports only approximately 250 mL out with all this. Given the fact that the patient is not therapeutic on Coumadin, we will transition the patient to renal dosing for Lovenox. The patient is currently n.p.o. given his respiratory distress, but would continue his diltiazem once able, covering with labetalol p.r.n. for hypertension. It is very likely or possible that the patient may require hemodialysis for cardiorenal syndrome and will default to Nephrology consultation however. If recommendation is for no dialysis, we would look to give the patient Kayexalate via NG tube to help bring down his potassium. We will cover with sliding scale insulin checks. The patient has OG tube, which is cleared for medication. I would look to restart the patient's statin, beta-jaron, KAREN inhibitor; however, currently holding KAREN inhibitor secondary to hyperkalemia. Aspirin was held secondary to recent GI bleed. We will follow up on Nephrology's renal ultrasounds, which have been ordered. If the patient has any left shift in cell counts or any signs of fever, would have low threshold to cover for pseudomonas as the patient had pseudomonal findings on diarrhea culture last month and was treated with short stint of ciprofloxacin in fpc; however, unable to get a urinary sample secondary to traumatic Ji in the emergency department, attempts were ceased in order to not make the patient bleed any further. Blood cultures have been ordered and are pending from emergency department, however. Respiratory culture has been performed during intubation and lavage with Pulmonology. The patient is continued on Lasix at this point in time. Steroid and respiratory treatments have been initiated to help open up the patient's airways with all means possible. The patient remains sedated currently. Job ID: [id number] [facility]
[2018-05-03] MEDS: HumaLOG 300 UNITS/3 ML VIAL SC PRN ×5 (00:17→20:56)
[2018-05-03] MEDS: Propofol 1,000 MG/100 ML VIAL IV PRN ×4 (04:06→20:55)
[2018-05-03 04:35] LABS: #Lymphocytes 0.4 thou/uL (1.20-3.40); #Monocytes 0.1 thou/uL (0.11-0.59); #Neutrophils 5.8 thou/uL (1.40-6.50); %Basophils 0.2 % (0.0-1.0); %Eosinophils 0.2 % (0.0-10.0); %Lymphocytes 6.2 % (21.0-51.0); %Monocytes 1.7 % (0.0-10.0); %Neutrophils 91.8 % (42.0-75.0); Hemoglobin 7.9 g/dL (14.0-18.0); Mean Corpuscular HGB CONC 33.5 g/dL (32.0-36.0); Mean Corpuscular Hemoglobin 29.3 pg (27.0-31.0); Mean Corpuscular Volume 87.3 fL (78.0-98.0); Mean Platelet Volume 8.5 fL (7.4-10.4); Platelet Count 174 thou/uL (130-400); RBC Distribution Width 14.6 % (11.5-14.5); Red Blood Cell (RBC) Count 2.71 mill/uL (4.70-6.10); White Blood Cell (WBC) Count 6.4 thou/uL (4.8-10.8)
[2018-05-03 04:36] LABS: Anion Gap 15 mmol/L (10-20); BUN (Urea Nitrogen) 66 mg/dL (8.4-25.7); Calc. Creatinine Clearance 33 mL/min (70-130); Calcium 8.2 mg/dL (7.8-10.44); Carbon Dioxide 24 mmol/L (23-31); Chloride 107 mmol/L (98-107); Estimated GFR-MDRD 25; Glucose 246 mg/dL (83-110); Potassium 4.7 mmol/L (3.5-5.1); Sodium 141 mmol/L (136-145)
[2018-05-03] MEDS: Furosemide 100 MG/10 ML VIAL SLOW IVP SCH ×2 (06:04→15:38)
[2018-05-03] MEDS: Levothyroxine Sodium 100 MCG TAB PO SCH (06:04)
[2018-05-03 07:18] LABS: Actual Bicarbonate (HCO3a) 27.1 mEq/L (22-28); Base Excess (BEa) 4.8 mEq/L (-2.0 to +3.0); CO2 Tension 30.9 mmHg (35.0-45.0); Calcium, Ionized 1.07 mmol/L (1.12-1.30); Carboxyhemoglobin (COHb) 1.4 gm% (0.0-3.0); O2 Tension (PaO2) 75.1 mmHg (> 60.0)
[2018-05-03 07:19] LABS: ALV-art Gradient 314.075 (0-20); Puncture Site RRA; pH, Arterial 7.56 (7.35-7.45)
--- NOTE | 2018-05-03 08:23 | RAD ---
FRONTAL RADIOGRAPH CHEST PORTABLE SEMIUPRIGHT: DATE: 05/03/2018. COMPARISON: 05/02/2018. HISTORY: Ventilated patient. FINDINGS: Thee is an endotracheal tube projecting over the tracheal air column, terminating approximately 3 cm above the dianelys. There is stable pulmonary vascular congestion. Bilateral moderate-sized pleural e ffusions are suspected, right greater than left, worsened on the right when compared to the prior exa m. There is partial consolidation/collapse of both lower lobes and there is perihilar increased dens ity bilaterally which could signify airspace disease, vascular prominence, and/or lymphadenopathy. IMPRESSION: Findings suggesting pulmonary edema, worsened. Infectious pneumonitis or aspiration cannot be exclud ed. Underlying lymphadenopathy in the mediastinal and/or hilar regions cannot be excluded either. F ollowup imaging following treatment to document resolution thus advised. POS: MARGARET
[2018-05-03] MEDS: Pantoprazole 40 MG VIAL IVP SCH (09:01)
[2018-05-03] MEDS: Enoxaparin Sodium 60 MG/0.6 ML SYRINGE SC SCH (09:01)
--- NOTE | 2018-05-03 11:13 | PRG ---
DATE OF SERVICE: 05/03/2018 SUBJECTIVE: Nursing staffs were able to get a coude Ji catheter with some blood clots mildly returning, which have improved over the evening. The patient was diuresed much more over the evening time with second dose of Lasix. Output overnight up to 5 L documented. The patient, when weaned on sedation this morning, had difficulty with even minimal stimulation, fighting restraints, attempting to possibly self extubate whenever NG tube and OG tube attempted to be placed with sedation. Nursing staff withhold of on this at this point in time and oral medications were unavailable at this point in time. The patient's girlfriend has brought by his advanced directive; however, daughter, next-of-kin, I spoke to her yesterday, did not want the patient intubated. Per nursing staff, they will see if Pulmonary wants to speak with daughter in an attempt to extubate or wean as normal. Nephrology states now that the patient is diuresing with Ji catheter and to continue that as the patient's electrolytes have normalized this morning, no need for dialysis. No fevers reported. OBJECTIVE: VITAL SIGNS: Temperature of 98.6, respiratory rate of 16, heart rate of 110, oxygen saturation of 99%, mechanically ventilated 88% FiO2. GENERAL: The patient is intubated and sedated. HEENT: Head is normocephalic and atraumatic. Sclerae white. ET tube in place. No OG or NG tube. No JVD present. HEART: The patient in irregularly irregular heart beat. No murmurs auscultated. LUNGS: Crackles and diminished bases to lungs on auscultation. Bilaterally, no rales or rhonchi. ABDOMEN: Protuberant. Slightly diminished bowel sounds today compared to yesterday. The patient winces when pressed. EXTREMITIES: Still element of anasarca present; however, the patient's lower extremity is with improved pitting edema, now trace, unable to assess orientation secondary to sedation but the patient does respond to minimal stimuli. Moving all extremities. LABORATORY DATA: White blood cell count is 6.4, hemoglobin is 7.9, platelet count of 174. Sodium of 141, potassium of 4.7, CO2 of 24, BUN of 66, creatinine of 2.48, glucose of 246, range 165 to 253 last 12 hours. Calcium of 8.2. Urinalysis, grossly bloody, no bacteria, no nitrites, no glucose. Microbiology, no growth in blood cultures at 16 hours. Bronchial washing pending. Urine culture on specimen pending. Chest x-ray read this morning is pending. ASSESSMENT AND PLAN: Acute respiratory failure, diastolic congestive heart failure exacerbation, acute on chronic renal failure, atrial fibrillation, diabetes type 2, pleural effusion, anemia of chronic disease, and recent gastrointestinal bleed last month. Continuing mechanical ventilator support. Lasix b.i.d. at 80 mg, sliding scale insulin. Monitoring of laboratory work and anemia checks. Blood clots have improved with Ji placement. I do not believe the patient is actively bleeding subsided with Ji catheter. We will continue to monitor. Follow up on cultures and family talks over the rest of the day. Job ID: [id number] [facility]
--- NOTE | 2018-05-03 11:17 | PRG ---
DATE OF SERVICE: 05/03/2018 RENAL MEDICINE SUBJECTIVE: Mr. Fried is an 87-year-old white male, who was seen for his acute kidney injury that we felt was a hemodynamically-mediated renal dysfunction. He also went into acute respiratory failure and the patient had to be intubated and placed on ventilator support. We have initiated Lasix 80 mg IV b.i.d. with this patient. In the last 24 hours, he has diuresed about 5 L. This morning, the patient remains to be intubated on ventilator support. OBJECTIVE: VITAL SIGNS: Blood pressure is 96/59, ranging to 105/51 with a heart rate of 124, respiratory rate 14, pulse ox 95%. GENERAL: The patient is noted to be sedated, intubated on ventilator support. HEENT: Pinkish conjunctivae, anicteric sclerae. No neck mass. No carotid bruits. No JVD. CHEST: No deformities. LUNGS: Decreased breath sounds. HEART: Tachycardic. No murmur. No gallops or rubs. ABDOMEN: Globular, soft, and nontender. EXTREMITIES: Positive for edema. MEDICATIONS: Medications of May 03, 2018, were reviewed. LABORATORY DATA: Laboratories of May 03, 2018, white count 6.4, hemoglobin 7.9. Sodium 141, potassium 4.7, chloride 107, carbon dioxide 24, BUN 66, creatinine 2.48, glucose 246, calcium is 8.2. ASSESSMENT AND PLAN: 1. Congestive heart failure - chest x-ray shows congestive heart failure. He is being diuresed. He is currently on Lasix 80 mg IV q.12h. He has made about 5 L of urine output in the last 24 hours. 2. Acute kidney injury - consider a superimposed hemodynamically-mediated renal dysfunction secondary to his prerenal azotemia from his congestive heart failure. Currently, on Lasix 80 mg IV q.12, tolerating current diuretic regimen. There is no indication for any dialytic intervention with this patient. 3. Overall, I agree with current management. We will check baseline CBC. Job ID: [id number]
--- NOTE | 2018-05-03 15:22 | PRG ---
DATE OF SERVICE: 05/03/2018 SUBJECTIVE: Mr. Fried is sedated on ventilation. OBJECTIVE: VITAL SIGNS: Blood pressure 105/61. He is in atrial fibrillation with a rate from 114 to 124 this morning oximetry is 95. LUNGS: Remarkable for decreased breath sounds at his bases. HEART: Irregularly irregular. Grade 2/6 systolic murmur is heard. ABDOMEN: Soft and nontender. EXTREMITIES: Without asymmetry. His significant other tells me that he really has been out of bed since he allowed to go to rehab, and he is extremely weak. Intake and output Chest radiograph finding suggestive of a left effusion with some pulmonary edema. IMPRESSION: 1. Atrial fibrillation with pulmonary edema. 2. Extreme deconditioning. 3. Dementia. 4. Preexisting, do not resuscitate status. His daughter reversed that. I have talked to her by phone this morning, I explained that if he has a signed document, his wishes have to be honored. She wants the children to come. I will be here some time later today. I would anticipate extubation tomorrow hopefully. I would at least temporarily hope that he can interact with his family, but given his dementia, I am not sure that we are accomplishing anything by continuing him on ongoing mechanical ventilation, especially in light of his wishes about resuscitation. Critical care time 30 minutes. Job ID: [id number] [facility]
[2018-05-03] MEDS ORDERED: Furosemide 100 MG/10 ML VIAL ONE (15:29)
[2018-05-03] MEDS: Atorvastatin Calcium 10 MG TAB PO SCH (20:54)
[2018-05-03] MEDS: Metoprolol Tartrate 25 MG TAB PER TUBE SCH (20:55)
[2018-05-04] MEDS: HumaLOG 300 UNITS/3 ML VIAL SC PRN ×2 (00:13→05:20)
[2018-05-04] MEDS: Propofol 1,000 MG/100 ML VIAL IV PRN (03:44)
[2018-05-04] MEDS: Levothyroxine Sodium 100 MCG TAB PO SCH (05:20)
[2018-05-04 05:33] LABS: #Lymphocytes 0.4 thou/uL (1.20-3.40); #Monocytes 0.4 thou/uL (0.11-0.59); #Neutrophils 8.7 thou/uL (1.40-6.50); %Basophils 0.3 % (0.0-1.0); %Lymphocytes 4.1 % (21.0-51.0); %Monocytes 4.1 % (0.0-10.0); %Neutrophils 91.5 % (42.0-75.0); Hemoglobin 8.1 g/dL (14.0-18.0); Mean Corpuscular Hemoglobin 28.8 pg (27.0-31.0); Mean Corpuscular Volume 87.4 fL (78.0-98.0); Mean Platelet Volume 8.2 fL (7.4-10.4); Platelet Count 179 thou/uL (130-400); RBC Distribution Width 14.5 % (11.5-14.5); Red Blood Cell (RBC) Count 2.81 mill/uL (4.70-6.10); White Blood Cell (WBC) Count 9.5 thou/uL (4.8-10.8)
[2018-05-04 05:56] LABS: Anion Gap 14 mmol/L (10-20); BUN (Urea Nitrogen) 70 mg/dL (8.4-25.7); Calc. Creatinine Clearance 36 mL/min (70-130); Calcium 8.1 mg/dL (7.8-10.44); Carbon Dioxide 26 mmol/L (23-31); Chloride 106 mmol/L (98-107); Estimated GFR-MDRD 28; Glucose 165 mg/dL (83-110); Potassium 4.1 mmol/L (3.5-5.1); Sodium 142 mmol/L (136-145)
[2018-05-04 08:12] LABS: Actual Bicarbonate (HCO3a) 28.8 mEq/L (22-28); CO2 Tension 38.8 mmHg (35.0-45.0); Calcium, Ionized 1.02 mmol/L (1.12-1.30); Carboxyhemoglobin (COHb) 1.5 gm% (0.0-3.0); Hemoglobin (Hb) 8.5 g/dL (14.0-18.0); O2 Tension (PaO2) 62.2 mmHg (> 60.0); Potassium - ABG Lab 4.01 mmol/L (3.70-5.30); pH, Arterial 7.49 (7.35-7.45)
[2018-05-04 08:17] LABS: Puncture Site RRA
[2018-05-04] MEDS: Pantoprazole 40 MG VIAL IVP SCH (08:54)
[2018-05-04] MEDS: Enoxaparin Sodium 60 MG/0.6 ML SYRINGE SC SCH (08:54)
[2018-05-04] MEDS: Metoprolol Tartrate 25 MG TAB PER TUBE SCH ×2 (08:55→23:53)
--- NOTE | 2018-05-04 09:12 | RAD ---
SEMIUPRIGHT PORTABLE CHEST 1 VIEW: Date: 05/04/18 HISTORY: 87-year-old male with history of respiratory insufficiency. COMPARISON: 05/03/18. FINDINGS: Stable endotracheal tube. NG tube has been placed. Bilateral pleural effusions and bilateral vascular congestion. IMPRESSION: Prominent bilateral pleural effusions and bilateral vascular congestion. Opacity in both lungs appear s to be somewhat increased, but this may just be positional. Continue short-term follow-up. POS: MARGARET
--- NOTE | 2018-05-04 13:24 | PRG ---
DATE OF SERVICE: 05/04/2018 SUBJECTIVE: Mr. Fried'rizwan sedation was held this morning. He awakened and moved all his extremities. OBJECTIVE: VITAL SIGNS: Vital signs were stable overnight. Does have signs on exam of diaphragm muscle weakness. CHEST: He had no rhonchi on chest exam. HEART: Regular rhythm. ABDOMEN: Soft. LABORATORY DATA: White count 9.5, hemoglobin 8.1, and platelets 179. Sodium 142, potassium 4.1, chloride 106, bicarb 26, BUN 70, and creatinine 2.26. Creatinine yesterday was 2.48. IMPRESSION: 1. Extreme deconditioning with retained secretions leading to intubation. 2. Atrial fibrillation. 3. Bilateral pleural effusions, likely related to atrial fibrillation. 4. Chronic kidney disease, stable. 5. His intake and output has been a little improvement. On his radiograph, I doubt he has pneumonia. 6. Do not resuscitate status prior to intubation. I have explained to the family that this takes priority. This is his signed DNR order. 7. One of the family members wanted to know why we could not just leave him on the ventilator, I have answered that question. Other problems include; 1. History of cholecystectomy. 2. History of atrial fibrillation. 3. History of chronic anticoagulation. 4. History of lipid disorder. 5. Hypothyroidism, on replacement. 6. History of hypertension. 7. Diabetes. His prognosis just because of muscle weakness is quite guarded. He made no progress in rehabilitation and he has basically been bedridden the entire time he has been over there from what his significant other tells me. Critical care time is 35 minutes. Job ID: [id number] [facility]
--- NOTE | 2018-05-04 13:29 | PRG ---
DATE OF SERVICE: 05/04/2018 SUBJECTIVE: Mr. Fried will be extubated today. He will be kept comfortable. He can be moved out of the critical care unit. He remained stable for a few hours. explained to family, moving forward will be one of comfort care. I have explained to them that I hope he continues to improve and can get to a full-time [facility] care environment, may be eventually home, but based on my evaluation of him in last few days, I suspect he will be too weak to make progress and comfort will be the main focus of care. He will not be reintubated per his preexisting wishes. Job ID: [id number]
[2018-05-04] MEDS: Furosemide 100 MG/10 ML VIAL SLOW IVP SCH (15:39)
--- NOTE | 2018-05-04 16:05 | PRG ---
DATE OF SERVICE: 05/04/2018 RENAL MEDICINE SUBJECTIVE: Mr. Fried is an 87-year-old white male, who came in with acute congestive heart failure and acute respiratory failure. We are seeing this patient for his acute kidney injury. He was started on Lasix 80 mg IV q.12. He is diuresing well with this. The plan is to have him extubated today per the patient's request previously. His renal function is remaining stable, actually slightly improved. He made 3.5 L of urine output in the last 24 hours. PHYSICAL EXAMINATION: VITAL SIGNS: Blood pressure is 99/67 to as high as 103/71, heart rate 75, respiratory rate 23, and pulse ox 93%. GENERAL: The patient is arousable, not in distress, intubated on ventilator support. SKIN: Adequate turgor. HEENT: He has a pinkish conjunctivae. Anicteric sclerae. NECK: No neck mass. No carotid bruits. No JVD. CHEST: No deformities. LUNGS: Decreased breath sounds. HEART: Normal sinus rhythm. No murmurs. No gallops. No rubs. ABDOMEN: Globular, soft, and nontender. No masses. EXTREMITIES: No edema. No deformities. MEDICATIONS: Medications of May 04, 2018, reviewed. LABORATORY DATA: Laboratories of May 04, 2018, sodium 142, potassium 4.1, chloride 106, carbon dioxide 26, BUN 70, and creatinine 2.26. GFR 28 mL/minute. Glucose 165 and calcium 8.1. ASSESSMENT AND PLAN: 1. Acute kidney injury - hemodynamically-mediated renal dysfunction secondary to his underlying congestive heart failure, stabilizing renal function. 2. Will continue current diuretic regimen, adjust as needed. My bias is to decrease the Lasix tomorrow to 40 mg IV q.12. 3. Acute respiratory failure, clinically much improved. The plan is to extubate him. 4. Anemia. Continue to observe. 5. The patient is currently DNR. Continue supportive care. Job ID: [id number]
[2018-05-04] MEDS: Atorvastatin Calcium 10 MG TAB PO SCH (23:53)
[2018-05-05 06:09] LABS: #Lymphocytes 0.5 thou/uL (1.20-3.40); #Monocytes 0.3 thou/uL (0.11-0.59); #Neutrophils 8.5 thou/uL (1.40-6.50); %Eosinophils 0.1 % (0.0-10.0); %Lymphocytes 5.2 % (21.0-51.0); %Monocytes 3.1 % (0.0-10.0); %Neutrophils 91.6 % (42.0-75.0); Hemoglobin 8.3 g/dL (14.0-18.0); Mean Corpuscular HGB CONC 33.1 g/dL (32.0-36.0); Mean Corpuscular Hemoglobin 29.2 pg (27.0-31.0); Mean Corpuscular Volume 88.1 fL (78.0-98.0); Mean Platelet Volume 8.3 fL (7.4-10.4); Platelet Count 195 thou/uL (130-400); RBC Distribution Width 14.8 % (11.5-14.5); Red Blood Cell (RBC) Count 2.83 mill/uL (4.70-6.10); White Blood Cell (WBC) Count 9.2 thou/uL (4.8-10.8)
[2018-05-05 06:32] LABS: Anion Gap 16 mmol/L (10-20); BUN (Urea Nitrogen) 79 mg/dL (8.4-25.7); Calc. Creatinine Clearance 34 mL/min (70-130); Calcium 7.9 mg/dL (7.8-10.44); Carbon Dioxide 28 mmol/L (23-31); Chloride 104 mmol/L (98-107); Estimated GFR-MDRD 25; Glucose 346 mg/dL (83-110); Potassium 3.9 mmol/L (3.5-5.1); Sodium 144 mmol/L (136-145)
[2018-05-05] MEDS: Levothyroxine Sodium 100 MCG TAB PO SCH (06:35)
[2018-05-05] MEDS: Furosemide 100 MG/10 ML VIAL SLOW IVP SCH (06:36)
[2018-05-05] MEDS: Pantoprazole 40 MG VIAL IVP SCH (09:49)
[2018-05-05] MEDS: Enoxaparin Sodium 60 MG/0.6 ML SYRINGE SC SCH (09:49)
[2018-05-05] MEDS: Metoprolol Tartrate 25 MG TAB PER TUBE SCH ×2 (09:50→20:23)
--- NOTE | 2018-05-05 12:06 | EKG ---
Test Reason : AMS Blood Pressure : / mmHG Vent. Rate : 066 BPM Atrial Rate : 288 BPM P-R Int : 000 ms QRS Dur : 078 ms QT Int : 416 ms P-R-T Axes : 000 019 013 degrees QTc Int : 436 ms Atrial fibrillation Low voltage QRS Abnormal ECG Confirmed by GILBERT BARTLETT DO ([id number]), editor city [place] ([id number]) on 05/05/2018 12:05:48 PM Referred By: Confirmed By:GILBERT BARTLETT DO
[2018-05-05] MEDS: HumaLOG 300 UNITS/3 ML VIAL SC PRN ×3 (12:28→20:26)
[2018-05-05] MEDS: Furosemide 40 MG/4 ML VIAL SLOW IVP SCH (15:24)
--- NOTE | 2018-05-05 19:35 | PRG ---
DATE OF SERVICE: 05/05/2018 SERVICE: Pulmonary Medicine. INTERVAL HISTORY: The patient is doing fine from respiratory standpoint. He indicates that he is breathing comfortably. He has got a cough, but it is less severe than it was yesterday. He is certainly not bring up any sputum. He cannot provide any additional elements of the history. The family says that he has been comfortable all day. Nursing reports no overnight events. OBJECTIVE: VITAL SIGNS: Afebrile, pulse 101, blood pressure 121/61, respirations 20, saturation 93% on 2 L nasal cannula. GENERAL: The patient is awake, alert, in no apparent distress. LUNGS: Excellent air entry. Crackles are present. There is no prolonged expiratory phase or wheezing. HEART: Normal rate and regular. ABDOMEN: Soft, nontender, and nondistended. Bowel sounds are positive. MUSCULOSKELETAL: No cyanosis or clubbing. There is no pitting in the bilateral lower extremities. NEUROLOGIC: Grossly nonfocal. LABORATORY DATA: WBC 9.2, hemoglobin 8.3, and platelets 195,000. Basic metabolic profile is essentially unremarkable. Creatinine 2.44, and roughly stable. BUN 70. Basic metabolic profile is otherwise unremarkable. Blood cultures x2, urine culture, and respiratory culture are all negative to date. ASSESSMENT: 1. Acute hypoxic respiratory failure. 2. Chronic kidney disease, stage 4. 3. Atrial fibrillation. 4. Bilateral pleural effusions, related to volume overload. 5. Deconditioning, severe. DISCUSSION AND PLAN: We will continue making an attempt to get the patient close to euvolemic. Pulmonary/Critical Care will continue to follow along while the patient remains in-house. We will back off on his steroids to once daily. At some point, repeat x-ray in the outpatient setting should be entertained if we would like to prove that these effusions have resolved. Job ID: [id number]
[2018-05-05] MEDS: Atorvastatin Calcium 10 MG TAB PO SCH (20:23)
--- NOTE | 2018-05-05 21:46 | PRG ---
DATE OF SERVICE: 05/05/2018 SUBJECTIVE: The patient was seen and examined today, feeling better. Noted with the following. OBJECTIVE: VITAL SIGNS: Afebrile, pulse 101, respiratory rate 16, O2 saturation of 91% with a blood pressure of 126/61. HEENT EXAMINATION: Unremarkable. CARDIOVASCULAR SYSTEM: First and second heart sounds were heard. RESPIRATORY SYSTEM: Clear to auscultation. DIGESTIVE SYSTEM: Reviewed a benign abdomen. EXTREMITIES: Showed significant edema. NEUROLOGIC: Alert, oriented. No lateralizing signs. LABORATORY DATA: Hemoglobin 8.3. Chemistry showed a creatinine of 2.44, BUN of 79. Urinalysis shows significant proteinuria. IMPRESSION: 1. Acute on chronic kidney disease. 2. Hypervolemia/congestive heart failure, responded to diuretics. PLAN: 1. We will continue with current regimen of treatments. 2. Further management will be dependent on the clinical course. Job ID: [id number]
[2018-05-05] MEDS ORDERED: Insulin Glargine 20 UNITS in Pre-Filled Syringe 1 EACH SC SCH (23:45)
--- NOTE | 2018-05-06 00:38 | PRG ---
DATE OF SERVICE: 05/05/2018 HISTORY OF PRESENT ILLNESS: The patient successfully transitioned to floor status, remains on nasal cannula, continues to be on Lasix with Ji catheter with good urine output. The patient's mentation continues to wax and wane with some classic sundowning patterns. His family members did stay with him, continued to have to redirect him from pulling out his IV and NG tube. The patient did pass bedside swallow evaluation with modified texture consistency diet and NG tube was removed. OBJECTIVE: VITAL SIGNS: Review of vital signs; temperature of 98.1, pulse of 112, respiratory rate of 22 to 16 in last 6 hours, oxygen saturation of 92% on 2 L nasal cannula, and blood pressure of 122/73. GENERAL: The patient is alert, in no acute distress. HEENT: Head is normocephalic and atraumatic. Extraocular movements are intact. Oral mucosa is moist. NECK: Supple. Nasal cannula in place. NG tube in place this morning at the time of exam. HEART: Irregularly irregular, slightly tachycardic. No murmurs. LUNGS: Clear to auscultation bilaterally. No rubs or wheezes. No crackles. Slightly diminished breath sounds at bases. ABDOMEN: Protuberant, generalized tenderness. No rebound or guarding. EXTREMITIES: Lower extremities without cyanosis or edema. No further trace pitting edema, which is currently resolved. NEUROLOGIC: The patient is alert and oriented x1 to 2. Speech is normal. No focal deficits. LABORATORY DATA: Hemoglobin of 8.3, white blood cell count of 9.2. Blood glucose have increased markedly in last 12 hours reaching 413. Cultures remained negative. ASSESSMENT AND PLAN: Congestive heart failure exacerbation, improving. Acute respiratory failure, improving. The patient remains on nasal cannula, continuing on Lasix for congestive heart failure as above. Paroxysmal atrial fibrillation, currently active. The patient is on Lovenox 60 mg daily for renal dosing for the patient's chronic kidney disease stage IV, which appears to be stable at baseline and the patient has diabetes type 2. Sliding scale insulin not appearing to keep pace while the patient on such significant steroids which has been down dosed to once daily instead of q.i.d. by Pulmonology. We will start titrating insulin accordingly. The patient initially passed bedside swallow by Speech. Diet was ordered. Accordingly, the NG tube was removed following a traumatic Ji, on blood thinners. The patient currently remains still on Ji catheter. We will follow up on PT and Speech and likely initiate placement with case management on Monday if the patient remains stable. Job ID: [id number]
[2018-05-06] MEDS: Furosemide 40 MG/4 ML VIAL SLOW IVP SCH ×2 (06:13→12:28)
[2018-05-06] MEDS: Levothyroxine Sodium 100 MCG TAB PO SCH (06:14)
[2018-05-06 06:55] LABS: Anion Gap 15 mmol/L (10-20); BUN (Urea Nitrogen) 86 mg/dL (8.4-25.7); Calc. Creatinine Clearance 35 mL/min (70-130); Calcium 7.9 mg/dL (7.8-10.44); Carbon Dioxide 31 mmol/L (23-31); Chloride 105 mmol/L (98-107); Estimated GFR-MDRD 26; Glucose 106 mg/dL (83-110); Sodium 147 mmol/L (136-145)
[2018-05-06 08:33] LABS: Band 9 % (5-11); Hemoglobin 8.3 g/dL (14.0-18.0); Lymphocytes 9 % (21-51); MDiff Complete? YES; Mean Corpuscular HGB CONC 31.5 g/dL (32.0-36.0); Mean Corpuscular Hemoglobin 27.6 pg (27.0-31.0); Mean Corpuscular Volume 87.7 fL (78.0-98.0); Mean Platelet Volume 8.3 fL (7.4-10.4); Monocytes 3 % (0-10); Neutrophil 79 % (42-75); Platelet Count 186 thou/uL (130-400); RBC Distribution Width 14.5 % (11.5-14.5); Red Blood Cell (RBC) Count 3.02 mill/uL (4.70-6.10); White Blood Cell (WBC) Count 9.6 thou/uL (4.8-10.8)
[2018-05-06] MEDS: Pantoprazole 40 MG VIAL IVP SCH (09:04)
[2018-05-06] MEDS: Enoxaparin Sodium 60 MG/0.6 ML SYRINGE SC SCH (09:04)
[2018-05-06] MEDS: Metoprolol Tartrate 25 MG TAB PER TUBE SCH ×2 (09:04→21:05)
[2018-05-06] MEDS ORDERED: Senokot 8.6 MG TAB PO ONE (09:30)
[2018-05-06] MEDS: HumaLOG 300 UNITS/3 ML VIAL SC PRN ×2 (12:28→18:13)
[2018-05-06] MEDS: Atorvastatin Calcium 10 MG TAB PO SCH (21:05)
[2018-05-06] MEDS: Insulin Glargine 16 UNITS in Pre-Filled Syringe SC SCH (21:05)
[2018-05-06] MEDS: Senokot S 8.6-50 MG TAB PO SCH (21:06)
--- NOTE | 2018-05-06 21:17 | PRG ---
DATE OF SERVICE: 05/04/2018 HISTORY OF PRESENT ILLNESS: The patient was successfully extubated today with further discussions with the patient, the patient's medical power of employment law attorney, his daughter, ancillary family at bedside including, I believe, his son and another daughter and their spouses reaffirmed the patient as do not resuscitate and do not attempt resuscitation. Unable to completely clarify tube feed desires or long- term desire to attempt dialysis if necessary in the future. We will continue to have ongoing discussions following speech therapy evaluation tomorrow as the patient failed more than just ice chips at bedside swallow evaluation following extubation. We will consult Physical Therapy as the patient is eager to get mobilized and off multiple lines. However, we will attempt to leave the NG tube until feeding assessment tomorrow. The patient's advance directive was reviewed, and it does not mention anything about dialysis or feeding status. However, it is clear to do not attempt resuscitation and keep the patient comfortable. For this point in time , we will maintain Ji catheter and IV Lasix; however, we will likely start to deescalate. The patient again was approximately 30 pounds positive in one month following transition from last hospitalization is down currently 4 L to 4.5 L from admission fluid balance. The patient is alert and oriented x2, and unable to coherently track medical decision making conversations at bedside after extensive conversations. At this point in time, we will default to medical power of employment law attorney for additional decisions, but we will reassess the patient daily. PHYSICAL EXAMINATION: VITAL SIGNS: On review of vital signs, temperature of 98.0, following extubation, this evening, vital signs pulse 117, GENERAL: The patient is alert, in no acute distress. HEENT: Head is normocephalic and atraumatic. Extraocular movements are intact. NG tube and nasal cannula in place. Oral mucosa is still moist. NECK: Supple. HEART: Irregularly irregular. Slightly tachycardic. LUNGS: Coarse bronchial bilaterally, diminished at bilateral bases. No rhonchi or rales. ABDOMEN: Protuberant. Positive bowel sounds. Mild tenderness with palpation, however, no rebound or guarding. EXTREMITIES: Without cyanosis or edema. SCDs in place. NEUROLOGIC: The patient is alert and oriented x2, person and place. He is not fully oriented in time or additional circumstances, consistently has tangential thought process and is inappropriate with questioning. LABORATORY AND DIAGNOSTIC DATA: Blood glucose 172. Sodium 142, potassium 4.1, CO2 of 26, and creatinine of 2.2. Hemoglobin of 8.1, white blood cell count of 9.5 , and platelet count of 179. All cultures, blood, urine, and respiratory cultures were negative and normal. Chest x-ray this morning, continued visualization of pleural effusion and pulmonary congestion, indeterminate possibility of infiltrates, likely positional change as per read per Radiology. Recommend continue daily chest x-rays. ASSESSMENT AND PLAN: 1. Acute respiratory failure, partially resolved. The patient is extubated per his wishes. We will not reintubate. The patient is stable on nasal cannula. Transitioning the patient to floor status. Continuing Lasix and nasal cannula support. 2. Dysphagia. Follow up Speech Therapy evaluation following post extubation. We will continue to have discussions with medical power of employment law attorney, daughter, and the patient's orientation regarding potential tube feeding tomorrow versus removal of NG tube and start diet for nutritional needs. 3. Regarding the patient's atrial fibrillation, hopefully, we will be starting consistent beta-jaron, diltiazem to help rate control patient and rhythm control patient; however, the patient currently not in rapid ventricular response 1` teens does not report chest pain. Currently, covering with renal dose Lovenox as the patient's prior bridge to Coumadin was not fully therapeutic. No signs or symptoms of bleeding following tamponade of traumatic Ji by coude. We will look to hopefully maintain catheter for several more days to allow healing. We will look to taper steroids and Lasix over the next several days as well as Physical Therapy evaluation to mobilize the patient and see if he is appropriate to return to SNF or any additional therapy services. Again, the patient's respiratory failure is secondary to pleural effusion and diastolic congestive heart failure exacerbation. The patient with chronic kidney disease stage 4, acute phase, appears to be returning back to baseline on his renal failure with Lasix. We will continue for the time being. Job ID: [id number] [facility]
--- NOTE | 2018-05-06 21:26 | PRG ---
DATE OF SERVICE: 05/06/2018 SERVICE: Pulmonary Medicine. INTERVAL HISTORY: The patient is doing okay from respiratory standpoint. He is breathing comfortably. I woke him up from a deep sleep. On waking, he is talking in full sentences. He is a little tachypneic. He does not have any significant distress or accessory muscle use. He is coughing. He brings up a little bit of phlegm. There were not any fevers or other overnight events. OBJECTIVE: VITAL SIGNS: Afebrile, pulse 95, blood pressure 125/71, respirations 24, saturation 94% on 2 L nasal cannula. GENERAL: The patient is awake, alert, in no apparent distress. LUNGS: Decreased air entry. Dependent crackles still present. HEART: Normal rate and regular. ABDOMEN: Soft, nontender, and nondistended. Bowel sounds are positive. MUSCULOSKELETAL: No cyanosis or clubbing. There is trace 1+ pitting in the bilateral lower extremities. NEUROLOGIC: Grossly nonfocal. LABORATORY DATA: WBC 9.6, hemoglobin 8.3, and platelets 186,000. Sodium 147 and up-trending. Creatinine 2.36 and roughly stable, BUN 86 and gently up-trending. Basic metabolic profile is otherwise unremarkable. Bicarb is trending up gently. Respiratory culture, blood cultures x2, urine culture all unremarkable. ASSESSMENT: 1. Acute hypoxic respiratory failure. 2. Chronic kidney disease stage 4. 3. Atrial fibrillation. 4. Bilateral pleural effusions, related to volume overload. 5. Deconditioning, severe. DISCUSSION AND PLAN: We will continue our efforts at mobilizing the patient through time. We will continue his steroids and nebulized medications. Agree with continuing diuretics. He may need a little bit of free water in order to prevent increasing hypernatremia. Pulmonary Critical Care will continue to follow along. Job ID: [id number]
--- NOTE | 2018-05-07 00:56 | PRG ---
DATE OF SERVICE: 05/06/2018 HISTORY OF PRESENT ILLNESS: The patient has been tolerating a diet to a low dinner last night and breakfast today, still has waxing and waning mentation and sundowning symptoms, remains on nasal cannula, however, stable. He is kind of still with Ji catheter and no further blood clots being produced. LABORATORY DATA: Creatinine 2.36, blood glucose is 106 to 317 in last 12 hours. White blood cell count of 9.6 and hemoglobin of 8.3. PHYSICAL EXAMINATION: VITAL SIGNS: Temperature 97.8, pulse of 80, respiratory rate of 18, oxygen saturation 96% on 2 liters nasal cannula. GENERAL: The patient is alert, in no acute distress. HEENT: Head is normocephalic and atraumatic. Extraocular movements are intact. Sclerae are white. Nasal cannula in place. NECK: Supple. Mucosa is moist. HEART: Irregularly irregular. No murmurs auscultated. LUNGS: Clear to auscultation bilaterally. No rubs or wheezes. Diminished sounds in bases bilaterally. ABDOMEN: Protuberant. Mild tenderness throughout. No rebound or guarding. EXTREMITIES: There is no pitting edema or cyanosis of lower extremities. NEUROLOGIC: The patient is alert and oriented x2, waxes and wanes, sometimes appropriate for questions, and sometimes tangential thought process. ASSESSMENT AND PLAN: 1. Congestive heart failure exacerbation with respiratory failure largely resolved, slowly titrating down on IV Lasix, will likely transition to orals in the next 24 to 48 hours. Traumatic Ji. We will continue to have Ji in place while on IV Lasix. We will hopefully look to discontinue in the next 24 to 48 hours. The patient's transition to diet low and we will look at physical therapy and placement this week. 2. Chronic kidney disease, stage 4, currently stable. Job ID: [id number] [facility]
[2018-05-07 05:45] LABS: #Lymphocytes 0.7 thou/uL (1.20-3.40); #Monocytes 0.6 thou/uL (0.11-0.59); %Eosinophils 0.1 % (0.0-10.0); %Lymphocytes 7.9 % (21.0-51.0); %Monocytes 6.1 % (0.0-10.0); %Neutrophils 85.9 % (42.0-75.0); Hemoglobin 9.1 g/dL (14.0-18.0); Mean Corpuscular HGB CONC 32.3 g/dL (32.0-36.0); Mean Corpuscular Hemoglobin 28.4 pg (27.0-31.0); Mean Corpuscular Volume 88.1 fL (78.0-98.0); Mean Platelet Volume 8.2 fL (7.4-10.4); Platelet Count 192 thou/uL (130-400); RBC Distribution Width 14.8 % (11.5-14.5); White Blood Cell (WBC) Count 9.3 thou/uL (4.8-10.8)
[2018-05-07 06:06] LABS: Anion Gap 16 mmol/L (10-20); BUN (Urea Nitrogen) 80 mg/dL (8.4-25.7); Calc. Creatinine Clearance 38 mL/min (70-130); Calcium 7.7 mg/dL (7.8-10.44); Carbon Dioxide 32 mmol/L (23-31); Chloride 101 mmol/L (98-107); Estimated GFR-MDRD 29; Glucose 160 mg/dL (83-110); Potassium 3.5 mmol/L (3.5-5.1); Sodium 145 mmol/L (136-145)
[2018-05-07] MEDS: Levothyroxine Sodium 100 MCG TAB PO SCH (06:28)
[2018-05-07] MEDS: HumaLOG 300 UNITS/3 ML VIAL SC PRN ×3 (06:28→17:46)
[2018-05-07] MEDS: Furosemide 40 MG/4 ML VIAL SLOW IVP SCH ×2 (06:28→15:29)
--- NOTE | 2018-05-07 07:42 | PRG ---
DATE OF SERVICE: 05/07/2018 OBJECTIVE: The patient noted with the following vital signs with no new complaints. VITAL SIGNS: Afebrile, temperature 97.8, pulse 80, respiratory rate of 18, and O2 saturation 96% with blood pressure of 113/66. HEENT: Unremarkable. CARDIOVASCULAR: First and second heart sounds were heard. RESPIRATORY: Clear to auscultation. DIGESTIVE: Revealed a benign abdomen. EXTREMITIES: No peripheral edema. SKIN: No new gross rash. LYMPHATICS: No peripheral lymphadenopathy. LABORATORY DATA: Hemoglobin 8.3. Chemistry showed a creatinine down to 2.36. IMPRESSION: 1. Acute on chronic kidney disease, which seems to be improving. 2. Congestive heart failure exacerbation, on diuretics. PLAN: 1. Continue current renal supportive measures. 2. Consider transitioning diuretics to oral. 3. Further management to be dependent on the clinical course. Job ID: [id number]
--- NOTE | 2018-05-07 07:46 | RAD ---
FRONTAL RADIOGRAPH CHEST: DATE: 05/07/2018. COMPARISON: 05/04/2018. HISTORY: Pleural effusions. FINDINGS: The endotracheal tube and nasogastric tube present on the prior examination have been removed. No pn eumothorax is seen. There is blunting of bilateral costophrenic angles suggesting small/moderate siz ed bilateral pleural effusions. There is pulmonary vascular congestion with hazy airspace disease in both lung bases. IMPRESSION: Pulmonary vascular congestion with bibasilar pleural and parenchymal opacity as detailed above. Find ings suggest pulmonary edema with associated pleural effusions. Superimposed infectious pneumonitis or aspiration cannot be excluded. Followup to resolution advised. POS: [facility]
[2018-05-07] MEDS ORDERED: Magnesium Citrate 300 ML BOT PO SCH (08:00)
[2018-05-07] MEDS: Senokot S 8.6-50 MG TAB PO SCH ×2 (08:03→21:09)
[2018-05-07] MEDS: Pantoprazole 40 MG VIAL IVP SCH (08:03)
[2018-05-07] MEDS: Metoprolol Tartrate 25 MG TAB PO SCH ×2 (08:03→21:09)
[2018-05-07] MEDS: Enoxaparin Sodium 60 MG/0.6 ML SYRINGE SC SCH (08:34)
--- NOTE | 2018-05-07 09:15 | PRG ---
DATE OF SERVICE: 05/07/2018 HISTORY OF PRESENT ILLNESS: The patient states he is taking the sennosides, but did not have any bowel movement yesterday. He is tolerating nectar-thickened liquids and mechanical soft diet, which the Speech Therapy is following. However, he is pining after a hot coffee, which cannot be thickened due to sugared. The patient is stable on nasal cannula. Physical Therapy is continuing to work with the patient and recommending return to [facility], consulted Case Management to help facilitate. The patient will likely be deescalated down to oral agents only and Ji removed in the next 24 hours. Chest x-ray continues to show evolving pulmonary congestion and pleural effusions. OBJECTIVE: VITAL SIGNS: Temperature of 97.8, pulse of 100, oxygen saturation of 95% on 2 L nasal cannula, and blood pressure of 126/72. GENERAL: The patient is alert, in no acute distress. HEENT: Head is normocephalic, atraumatic. Extraocular movements are intact. Nasal cannula in place. Oral mucosa is moist. NECK: Supple. HEART: Irregularly irregular. No murmurs auscultated. LUNGS: Bilateral bases diminished to auscultation. Bronchial airway is clear. No rhonchi or rales. No crackles in transitional zone. ABDOMEN: Soft, protuberant. Generalized tenderness without rebound or guarding to left lower quadrant. EXTREMITIES: Lower extremities without cyanosis or edema. NEUROLOGIC: The patient is alert and oriented x2 this morning. No focal deficits. Speech is normal. LABORATORY DATA: Hemoglobin of 9.1, white blood cell count of 9.3. Creatinine of 2.18, slow trend down to BUN, glucose of 270 to 317 in the last 24 hours. ASSESSMENT: 1. Pleural effusion, slowly resolving diastolic congestive heart failure exacerbation. 2. Chronic kidney disease, stage 4. 3. Dementia. 4. Anemia of chronic disease. 5. Paroxysmal atrial fibrillation, currently active, but without rapid ventricular response. 6. Diabetes, type 2. 7. Constipation. PLAN: Continuing Lasix and steroids for respiratory coverage. Continuing Ji catheter for traumatic Ji prior in this hospital admission while the patient is on IV Lasix. The patient slowly restarted his oral medications with improving heart rate. Creatinine returning to baseline. Titrating Lantus daily for additional coverage beyond sliding scale regarding his blood sugars while on steroid. His blood sugars have risen since the patient has restarted feeding. Speech Therapy continuing to work with the patient regarding his dysphagia and modify diet postextubation from his hospitalization earlier. I will attempt magnesium citrate in addition to the sennosides for constipation and continue to attempt to mobilize the patient with physical therapy. Await Case Management placement recommendations. Job ID: [id number]
[2018-05-07] MEDS: Insulin Glargine 16 UNITS in Pre-Filled Syringe SC SCH (21:09)
[2018-05-07] MEDS: Atorvastatin Calcium 10 MG TAB PO SCH (21:09)
--- NOTE | 2018-05-07 21:27 | CON ---
DATE OF CONSULTATION: 05/07/2018 HISTORY OF PRESENT ILLNESS: This is an 87-year-old male, who was admitted on the , that will be 5 days ago, with altered mental status, congestive heart failure. In the ICU, he was actually intubated. Initially, he was see by Dr. Castillo. Dr. Ferrell saw him because of elevated creatinine. He is a patient of, I think, Dr. Dinero's. He did have a CAT scan when he came in, which I have reviewed. It is a noncontrast CAT done because of elevated creatinine. He apparently was having some generalized abdominal pain or at least that is the reason that the CAT scan was mentioned. I have reviewed that. There is a very small stone that is nonobstructing in the right mid kidney. I do not see any ureteral stones or hydronephrosis. The kidneys are both showing no obvious masses or cyst, but again, it is a noncontrast study. He has bilateral pleural effusions and some evidence of anasarca on the scan also. He is out of the ICU now and up on the 4th floor and extubated. He is on breathing tube . I was asked to see him because of some dark particulate matter in the urine that was noted I think by his girlfriend today. They apparently do not live together as and , but are in the same [place]. She does not recall that he has ever seen a urologist before. She does report that 2 days ago his urine was grossly bloody, and he is on Lovenox currently, and I think he has been on chronic anticoagulation before coming into the hospital. To her knowledge, he has never seen a urologist before. His urine otherwise is clear. PAST MEDICAL HISTORY: His medical history is mostly taken from his chart as he is still a little bit confused today, but he has a history of elevated cholesterol, heart failure, atrial fibrillation, hypertension, hyperlipidemia, low thyroid, reflux disease with GI bleeds, he was here for GI bleed just last month, lower urinary tract symptoms, coronary artery disease, and chronic renal insufficiency. PAST SURGICAL HISTORY: Includes cholecystectomy and hernia repair. ALLERGIES: IODINE AND SHELLFISH. HE HAD A URINALYSIS DONE WHEN HE CAME IN ON THE . THE URINALYSIS ON THE SHOWED GREATER THAN 50 RED CELLS, NO WHITE CELL, NO BACTERIA. HIS CREATININE WAS ELEVATED AND IT IS 2.18 CURRENTLY, WHICH IS PROBABLY CLOSE TO HIS BASELINE. HE HAS A HEMOGLOBIN OF 9.1, NORMAL WHITE COUNT, NORMAL PLATELET COUNT, AND A URINE CULTURE DONE WHEN HE CAME IN THAT SHOWED NO GROWTH AT 48 HOURS. BLOOD CULTURES HAVE ALSO BEEN NO GROWTH. ONE OF THE NOTES FROM THIS HOSPITALIZATION INDICATES THAT HE MAY HAVE HAD A DIFFICULT CATHETER PLACEMENT EITHER EARLY ON IN THIS VISIT OR PERHAPS IN A PRIOR VISIT, BUT GIRLFRIEND HAS NO RECOLLECTION OF THAT. PHYSICAL EXAMINATION: GENERAL: He has no flank tenderness. ABDOMEN: Obese, but nontender and soft. GENITOURINARY: He is not circumcised. There is no lesion. There is no phimosis. There is a little bit of blood around the Ji catheter at the meatus. The testicles are both descended without mass or tenderness. RECTAL: We did not do a rectal exam today. The urine is clear, but there is some particulate matter in it that may just be some old blood, certainly dark blackish in color. I have repeated his CAT scan. There is nothing to suggest that he would have a fistula and certainly does not have anything in terms of a positive urine culture, so I suspect that this is just a small blood clot that is breaking up and coming out in the catheter. I will follow along with you. I think the catheter should just be left in as long as he needs it just for monitoring and for diuresis, but we would get that out as soon as possible. I do not think he will need a cystoscopic exam. My guess is that he is on Lovenox, he had a catheter placed, he had been anticoagulated before he came in, he had some bleeding after placement of the catheter, and now he is dealing with some old blood that had clotted and now it is breaking up. We will follow along with you. Job ID: [id number]
--- NOTE | 2018-05-07 22:22 | PRG ---
DATE OF SERVICE: 05/07/2018 SUBJECTIVE: The patient is seen and examined. OBJECTIVE: VITAL SIGNS: Noted with the following vital signs; afebrile, temperature 98.1, pulse 82, respiratory rate of 20, O2 saturation of 96%, and blood pressure 129/64. HEENT: Unremarkable. CARDIOVASCULAR: First and second heart sounds were heard. RESPIRATORY: Clear to auscultation. DIGESTIVE: Revealed a benign abdomen. EXTREMITIES: No peripheral edema. SKIN: No new gross rash. LYMPHATICS: No peripheral lymphadenopathy. LABORATORY INVESTIGATION: Showed hemoglobin 9.1. Chemistry showed a creatinine of 2.1, BUN of 80, calcium of 7.7. The patient earlier today noted to have a lot of junky material in his Ji catheter raising the possibility of this being either kidney stones versus blood clots. IMPRESSION: 1. Acute on chronic kidney disease, which is much improved. 2. Congestive heart failure exacerbation. PLAN: 1. Urology already evaluated the patient's urine and felt this to be related to blood clots/bleeding in the past. 2. Continue renal supportive measures. 3. We will slowly begin to deescalate diuresis and transition this patient to oral diuretics. 4. Further management will be dependent on the clinical course. Job ID: [id number]
[2018-05-08] MEDS: Furosemide 40 MG/4 ML VIAL SLOW IVP SCH (05:38)
[2018-05-08] MEDS: Levothyroxine Sodium 100 MCG TAB PO SCH (05:38)
[2018-05-08 05:59] LABS: Anion Gap 12 mmol/L (10-20); BUN (Urea Nitrogen) 73 mg/dL (8.4-25.7); Calc. Creatinine Clearance 43 mL/min (70-130); Calcium 7.3 mg/dL (7.8-10.44); Carbon Dioxide 33 mmol/L (23-31); Chloride 100 mmol/L (98-107); Estimated GFR-MDRD 34; Glucose 201 mg/dL (83-110); Potassium 3.6 mmol/L (3.5-5.1); Sodium 141 mmol/L (136-145)
[2018-05-08] MEDS: HumaLOG 300 UNITS/3 ML VIAL SC PRN ×2 (06:04→11:43)
[2018-05-08 06:47] LABS: Band 5 % (5-11); Hemoglobin 8.6 g/dL (14.0-18.0); Lymphocytes 11 % (21-51); MDiff Complete? YES; Mean Corpuscular HGB CONC 32.3 g/dL (32.0-36.0); Mean Corpuscular Hemoglobin 28.5 pg (27.0-31.0); Mean Platelet Volume 8.2 fL (7.4-10.4); Monocytes 7 % (0-10); Neutrophil 77 % (42-75); Platelet Count 176 thou/uL (130-400); RBC Distribution Width 14.5 % (11.5-14.5); Red Blood Cell (RBC) Count 3.01 mill/uL (4.70-6.10); White Blood Cell (WBC) Count 7.9 thou/uL (4.8-10.8)
[2018-05-08] MEDS: Furosemide 40 MG TAB PO SCH ×2 (08:00→13:43)
[2018-05-08] MEDS: Senokot S 8.6-50 MG TAB PO SCH (08:00)
[2018-05-08] MEDS ORDERED: predniSONE 20 MG TAB PO SCH (08:00)
[2018-05-08] MEDS: Metoprolol Tartrate 25 MG TAB PO SCH (08:01)
[2018-05-08] MEDS: Enoxaparin Sodium 60 MG/0.6 ML SYRINGE SC SCH (08:01)
[2018-05-08 12:03] LABS: INR-International Normal Ratio 1.4; Prothrombin Time 16.9 SEC (12.0-14.7)
[2018-05-08 14:20] VITALS: BP 125/81; TEMP 97.5
[2018-05-08] MEDS ORDERED: Warfarin Sodium 5 MG TAB PO SCH (17:00)
--- NOTE | 2018-05-09 05:13 | DIS ---
DATE OF ADMISSION: 05/02/2018 DATE OF DISCHARGE: 05/08/2018 PRIMARY CARE PHYSICIAN: Dr. Bandar Dinero. CONSULTATIONS: Included Pulmonary Critical Care, Nephrology, Urology, and Palliative Care. CHIEF COMPLAINT: Shortness of breath. HOSPITAL COURSE: The patient was transferred from [facility] to [facility]. Respiratory status deteriorated after found to be in CHF exacerbation. It is not fully clear if the patient was adequately restarted back on his Lasix from last hospital admission a month ago with GI bleed and with the patient's hypertension. The patient was approximately 30 pounds heavier on admission this hospitalization from discharge last hospitalization. The patient was given multiple rounds of oral and IV Lasix. He had required BiPAP and then became obtunded and was intubated. It was later brought to light that the patient's advance directive said he was a do not resuscitate. The patient has a recent diagnosis of dementia, which has been made worse by his deteriorating health. He remained anemic, but no blood was reported during the hospital stay other than traumatic Ji incident which was resolved by leaving catheter in until cleared by Urology. Prior to discharge, the patient remains at baseline of CKD stage 4, however, had acute renal failure with electrolyte abnormalities with hyperkalemia and hyperphosphatemia. Nephrology did not deem dialysis was necessary while the patient was intubated in the ICU, especially given his possible return to DNR status. The patient was intubated at the wishes of medical power of divorce attorney, his daughter, prior to advance directive being enforced. The patient was terminally extubated and actually did very well following 15 pounds of fluid removal. The patient was transitioned on Lasix down, maintained on steroids, sliding scale insulin, and Lantus while on prednisone with increased blood glucose regarding his diabetes. The patient's atrial fibrillation was active throughout hospital stay. Stroke prevention was obtained with renally dosed Lovenox. The patient has been on Coumadin prior and Coumadin was restarted the day before discharge, but was not titrated. The recommendation is to continue Lovenox until at goal 2 to 3. The patient still has pleural effusions, significant pulmonary congestion, which maintain the patient's respiratory failure, but was stable on 2 L nasal cannula prior to discharge. During his hospitalization, became constipated, was treated with Senokot-S and magnesium citrate with some relief. The patient had some mild dysphagia following intubation. Speech Therapy cleared him only for nectar thickened liquids and mechanically soft diet, 1800 calorie ADA diet recommended by dietitian. Electrolyte abnormalities resolved with improvement in kidney function back down to patient's baseline. There is some feuding going on between the patient, the patient's girlfriend, and family members. The patient's family was fully aware and in support of enforcement of the patient's DNAR. Following extubation during this hospitalization, the patient slowly regained some mentation, but continued to sundown and pull the NG tubes and IV access with easy agitation. The patient remained paranoid throughout the hospital stay that his children were trying to steal his money. Secondhand reports that the patient's girlfriend told the patient that neurologist evaluated the patient and stated that he was mentally able to make his own decisions, which no neurologist evaluated the patient during hospitalization. I have deemed the patient not medically competent to make his own decisions during the hospitalization as he was only alert and oriented times 1 to 2 at best. He has some resemblance of where he is at and when it is, but still fails repeat questioning and fails complicated medical discussions about his code status and about his care. The patient does seem to gravitate in his demented state towards wanting his girlfriend to be involved in his care coordination. Family has largely been gracious enough to allow her to stay in room throughout hospitalization and follow along. The patient is being discharged to the [facility] to continue Speech Therapy, Physical Therapy, diet of 1800 calorie ADA mechanically soft and nectar thickened liquids. DISCHARGE CONDITION: Fair. REHAB POTENTIAL: Fair. DISCHARGE FOLLOWUP: With myself, Dr. Bandar Dinero, within 1 week of discharge from senior care facility. Recommend to follow up with Cardiology within 2 to 4 weeks of discharge for followup echocardiogram, his last echo was approximately a year ago. I spoke with foster care case manager of CHF Program, they were fine with outpatient followup of echo. The patient to be placed on fluid restriction and continued on Lasix in the interim as he has recovered well with just Lasix therapy. Heart rate has been maintained on diltiazem regarding his atrial fibrillation. DIAGNOSES DURING HOSPITALIZATION: Include acute respiratory failure, diastolic congestive heart failure exacerbation, acute on chronic renal failure, hyperkalemia, hyperphosphatemia, chronic kidney disease stage 4, dysphagia, dementia, anemia secondary to recent gastrointestinal bleed, paroxysmal atrial fibrillation, diabetes type 2, pleural effusion, and constipation. DISCHARGE MEDICATIONS: Included; 1. Levothyroxine 100 mcg. 2. Lisinopril 10 mg. 3. Pravastatin 40 mg. 4. Celexa 20 mg. 5. Cardizem 90 mg q.6 hours. 6. Levaquin daily. 7. Lasix 40 mg oral twice daily. 8. Sliding scale insulin checks before meals and at bedtime. 9. Lantus 16 units nightly while on steroids. 10. Metoprolol 12.5 mg b.i.d. 11. Protonix 40 mg. 12. Prednisone 20 mg daily. 13. Sennosides-docusate sodium one tablet p.o. b.i.d. 14. Recommendations for discontinuing steroid after the patient gets off nasal cannula requirements. 15. Coumadin 5 mg daily to start with INR checks recommended daily until bridge can be completed, goal INR 2 to 3. Job ID: [id number]
[2018-05-09] MEDS ORDERED: Citalopram 20 MG TAB PO SCH (09:00)
== END 2018-05-08 16:18 | DRG 208 ==
LOC: ERS 18:34 → IMCU/EMU 05-02 01:17 → CCU 05-02 09:28 → T4-A 05-04 20:47
PROVIDERS: ADMIT Family Medicine; ATTEND Family Medicine
PROC: 5A1945Z Respiratory Ventilation, 24-96 Consecutive Hours (ICD-10-PCS; principal; 2018-05-02)
PROC: 0BH17EZ Insertion of Endotracheal Airway into Trachea, Via Natural or Artificial Opening (ICD-10-PCS; 2018-05-02)
PROC: 5A09357 Assistance with Respiratory Ventilation, Less than 24 Consecutive Hours, Continuous Positive Airway Pressure (ICD-10-PCS; 2018-05-02)
PROC: 0B9G8ZX Drainage of Left Upper Lung Lobe, Via Natural or Artificial Opening Endoscopic, Diagnostic (ICD-10-PCS; 2018-05-02)
DX: J96.01 Acute respiratory failure with hypoxia (principal); I50.33 Acute on chronic diastolic (congestive) heart failure; I13.0 Hypertensive heart and chronic kidney disease with heart failure and stage 1 through stage 4 chronic kidney disease, or unspecified chronic kidney disease; N18.4 Chronic kidney disease, stage 4 (severe); N17.9 Acute kidney failure, unspecified; G93.40 Encephalopathy, unspecified; E11.22 Type 2 diabetes mellitus with diabetic chronic kidney disease; I48.0 Paroxysmal atrial fibrillation; E78.5 Hyperlipidemia, unspecified; E03.9 Hypothyroidism, unspecified; E87.5 Hyperkalemia; E83.39 Other disorders of phosphorus metabolism; K21.9 Gastro-esophageal reflux disease without esophagitis; N40.0 Benign prostatic hyperplasia without lower urinary tract symptoms; I25.10 Atherosclerotic heart disease of native coronary artery without angina pectoris; D50.0 Iron deficiency anemia secondary to blood loss (chronic); K59.00 Constipation, unspecified; R13.10 Dysphagia, unspecified; F03.90 Unspecified dementia, unspecified severity, without behavioral disturbance, psychotic disturbance, mood disturbance, and anxiety; Z66 Do not resuscitate; Z88.8 Allergy status to other drugs, medicaments and biological substances; Z91.013 Allergy to seafood; Z79.01 Long term (current) use of anticoagulants; Z79.84 Long term (current) use of oral hypoglycemic drugs; Z79.899 Other long term (current) drug therapy
CPT/HCPCS: 36415; 36416; 51702; 70450; 71045; 74176; 76770; 80048; 81001; 82550; 82805; 83735; 83880; 84100; 84484; 85025; 85610; 85730; 87040; 87070; 87086; 87205; 93005; 94002; 94003; 94640; 94660; 96372; 96374; C9113; G8978-GP-CK; G8979-GP-CI; G8996-GN-CJ; G8997-GN-CI; J1650; J1940; J2250; J2270; J2704; J2920; J3010; J3486; J7050; J7506; J7620

== ENCOUNTER 2018-05-22 09:43 | Emergency (ER) | payer MEDICARE, OTHER ==
--- NOTE | 2018-05-22 11:11 | RAD ---
PORTABLE CHEST 1 VIEW: Date: 05/22/18 Time: 1043 hours HISTORY: Chest pain, left shoulder pain. FINDINGS/IMPRESSION: Comparison made with exam of 05/07/18. The heart size is borderline. Small left pleural effusion is seen. No pneumothoraces or lobar consoli dation is identified. There is mild prominence of the pulmonary vascularity. POS: [facility]
--- NOTE | 2018-05-22 11:18 | RAD ---
LEFT SHOULDER 2 VIEWS: Date: 05/22/18 HISTORY: Left shoulder pain. FINDINGS/IMPRESSION: Degenerative changes are present. No acute fracture or dislocation is identified. POS: [facility]
== END 2018-05-22 11:55 | disposition home or self-care (01) ==
LOC: ERS 09:43
DX: S29.011A Strain of muscle and tendon of front wall of thorax, initial encounter (principal); I25.10 Atherosclerotic heart disease of native coronary artery without angina pectoris; I48.91 Unspecified atrial fibrillation; E11.9 Type 2 diabetes mellitus without complications; I10 Essential (primary) hypertension; K58.9 Irritable bowel syndrome, unspecified; E03.9 Hypothyroidism, unspecified; F41.9 Anxiety disorder, unspecified; Z79.899 Other long term (current) drug therapy; Z79.01 Long term (current) use of anticoagulants; X58.XXXA Exposure to other specified factors, initial encounter
CPT/HCPCS: 71045

== ENCOUNTER 2018-08-07 12:41 | Outpatient (CLI) | payer MEDICARE, OTHER | END 2018-08-07 12:42 | disposition home or self-care (01) | LOC: CP 12:41 | PROVIDERS: ATTEND Nurse Practitioner Family | DX: J44.9 Chronic obstructive pulmonary disease, unspecified (principal) | CPT/HCPCS: 94060; 94727 ==

== ENCOUNTER 2018-08-28 15:55 | Inpatient (IN) | payer MEDICARE, OTHER ==
[2018-08-28] MEDS ORDERED: Diltiazem 125 MG/25 ML ONE (16:25)
[2018-08-28 16:27] LABS: #Eosinphils 0.1 thou/uL (0.0-0.7); #Lymphocytes 1.6 thou/uL (1.20-3.40); #Monocytes 0.6 thou/uL (0.11-0.59); #Neutrophils 3.2 thou/uL (1.40-6.50); %Basophils 0.2 % (0.0-1.0); %Eosinophils 2.3 % (0.0-10.0); %Lymphocytes 28.9 % (21.0-51.0); %Monocytes 10.7 % (0.0-10.0); Hemoglobin 9.3 g/dL (14.0-18.0); Mean Corpuscular HGB CONC 30.1 g/dL (32.0-36.0); Mean Corpuscular Hemoglobin 23.4 pg (27.0-31.0); Mean Corpuscular Volume 77.9 fL (78.0-98.0); Mean Platelet Volume 8.8 fL (7.4-10.4); Platelet Count 189 thou/uL (130-400); RBC Distribution Width 18.7 % (11.5-14.5); Red Blood Cell (RBC) Count 3.96 mill/uL (4.70-6.10); White Blood Cell (WBC) Count 5.5 thou/uL (4.8-10.8)
[2018-08-28] MEDS ORDERED: Diltiazem HCl 125 MG, Admixture Fee 1 EACH in Sodium Chloride 0.9% 100 ML IVPB SCH (16:45)
[2018-08-28 16:47] LABS: ALT (SGPT) 8 U/L (8-55); AST (SGOT) 19 U/L (5-34); Albumin 3.7 g/dL (3.4-4.8); Alkaline Phosphatase 59 U/L (40-150); Anion Gap 11 mmol/L (10-20); BUN (Urea Nitrogen) 31 mg/dL (8.4-25.7); Bilirubin, Total 0.3 mg/dL (0.2-1.2); CK (CPK) 106 U/L (30-200); Calc. Creatinine Clearance 0 mL/min (70-130); Calcium 8.6 mg/dL (7.8-10.44); Carbon Dioxide 28 mmol/L (23-31); Chloride 106 mmol/L (98-107); Estimated GFR-MDRD 32; Globulin 2.6 g/dL (2.4-3.5); Glucose 120 mg/dL (83-110); Lipase 14 U/L (8-78); Potassium 4.8 mmol/L (3.5-5.1); Protein, Total 6.3 g/dL (5.8-8.1); Sodium 140 mmol/L (136-145)
--- NOTE | 2018-08-28 17:04 | RAD ---
CHEST ONE VIEW: 08/28/18 HISTORY: Fast heart rate. Atrial fibrillation. COMPARISON: Radiograph 2018. FINDINGS: The heart size is enlarged. Small effusions. Lungs are hypoinflated. No pneumothorax. The pulmonary a rteries are dilated. Mild pulmonary venous congestion. IMPRESSION: 1. Cardiomegaly and mild pulmonary venous congestion. 2. Small bilateral pleural effusions. POS: [facility]
[2018-08-28 17:57] LABS: INR-International Normal Ratio 2.9; PTT 41.7 SEC (22.9-36.1)
[2018-08-28] MEDS ORDERED: Digoxin 0.5 MG/2 ML AMP ONE (18:04)
[2018-08-28] MEDS ORDERED: Magnesium 2 GM/50 ML BAG (IN WATER) ONE (18:04)
[2018-08-28] MEDS ORDERED: Ondansetron ODT 4 MG TAB SL PRN (19:00)
[2018-08-28] MEDS ORDERED: Acetaminophen 325 MG TAB PO PRN (19:00)
[2018-08-28] MEDS ORDERED: Ondansetron PF 4 MG/2 ML Vial IVP PRN (19:00)
[2018-08-28] MEDS ORDERED: Acetaminophen 500 MG TAB PO PRN (19:20)
[2018-08-28] MEDS ORDERED: Nitroglycerin 0.4 MG TAB (25 Tab Bottle) SL PRN (19:20)
[2018-08-28] MEDS ORDERED: Dextrose 50% Abboject 50 ML SYRINGE SLOW IVP PRN (19:24)
[2018-08-28] MEDS ORDERED: Dextrose 5% in Water 1,000 ML IV PRN (19:24)
[2018-08-28] MEDS ORDERED: Labetalol HCl 100 MG/20 ML VIAL SLOW IVP PRN (19:26)
[2018-08-28] MEDS ORDERED: Diltiazem 125 MG in Sodium Chloride 0.9% 100 ML IVPB SCH (19:30)
[2018-08-28] MEDS: Atorvastatin Calcium 10 MG TAB PO SCH (20:39)
[2018-08-28] MEDS: Metoprolol Tartrate 25 MG TAB PO SCH (20:39)
[2018-08-28 22:17] LABS: Troponin I 0.026 ng/mL (< 0.028)
--- NOTE | 2018-08-29 01:44 | HP ---
The patient's PCP is myself, Dr. Bandar Dinero. CHIEF COMPLAINT: Palpitations. HISTORY OF PRESENT ILLNESS: The patient was referred to Nephrology for worsening renal function, CKD stage 4 status with positive microalbumin. While in office with Dr. Odom today, was found to have tachycardia in the 130s with irregularly irregular rhythm, was instructed to go to the emergency department, found to be in atrial fibrillation and flutter with RVR and was initiated on diltiazem drip. The patient is on diltiazem as an outpatient max oral dose, was asymptomatic throughout all of this. He states that he has had decreased appetite and decreased thirst. Emergency Department physician reported the patient looking dry and gave him 500 mL bolus as to the possible outcome of recent decline in kidney function. The patient has early stages of dementia and states he has no idea what happened at the operations tech today. PAST MEDICAL, SOCIAL, AND SURGICAL HISTORY: On review of past medical, social, and surgical history, include paroxysmal atrial fibrillation, on Coumadin for chronic anticoagulation; lumbar radiculopathy secondary to degenerative disk disease of the lumbar region; diabetes type 2 with peripheral vascular disease; hypertension; hyperlipidemia; hypothyroidism; gastroesophageal reflux disease; recurrent GI bleed secondary to gastric polyps; benign prostatic hyperplasia; orthostatic hypotension; CKD stage 4; coronary artery disease; and actinic keratosis. The patient has been followed previously on outpatient basis by Dr. Guillaume, Dr. Tapia, and Dr. Grove, transitioned back to the [facility] and after being discharged from home health services, I believe he resides at [facility]. Ambulatory with cane currently. ALLERGIES: INCLUDE IODINE AND SHELLFISH. LABORATORY WORK: Includes a white blood cell of 5.5, hemoglobin of 9.3, and platelet count of 183. INR of 2.9. Troponins x1 0.015, #2 of 0.02. Sodium of 140, potassium of 4.8, chloride of 106, CO2 of 28, BUN of 31, creatinine of 1.9, estimated GFR of 32, glucose of 120, AST of 19, and ALT of 8. MEDICATION LIST: Include, 1. Levothyroxine 100 mcg. 2. Lisinopril 10 mg. 3. Pravastatin 40 mg. 4. Citalopram 20 mg. 5. Diltiazem 90 mg q.6 hours. 6. Furosemide 40 mg b.i.d. 7. Sliding scale insulin. 8. Humalog 16 units of insulin glargine. 9. Metoprolol tartrate 12.5 mg b.i.d. 10. Nitroglycerin 0.4 mg sublingual p.r.n. chest pain. 11. Protonix 40 mg daily. 12. Coumadin 5 mg daily. IMAGING DATA: Review of chest x-ray, no acute cardiopulmonary events, small pleural effusions basally bilaterally. PHYSICAL EXAMINATION: GENERAL: The patient is alert and oriented. VITAL SIGNS: In the emergency department, pulse titrated down from 130 to 102, respiratory rate of 16, oxygen saturation 95% on room air, and temperature of 98.5. HEENT: Head is normocephalic and atraumatic. Extraocular movements are intact. The patient has no acute distress. Oral mucosa is slightly dry. NECK: Supple. HEART: Irregularly irregular. Slightly tachycardic. LUNGS: Clear to auscultation bilaterally. No rubs or wheezes. ABDOMEN: Soft and nontender. Positive bowel sounds throughout. EXTREMITIES: Lower extremities without cyanosis or edema. NEUROLOGIC: The patient is alert and oriented x4, although has difficulty with short-term memory details. The patient does report in the review of systems, positive diarrhea x1 day, positive vomiting x1 day following eating shellfish crab cake, which he feels may have caused his dehydration. No fevers or chills. No cough. No chest pain. The patient does not feel his palpitations. Denies lower extremity edema. He does report confusion at baseline now. Does verbalized that he wants to be a full code, but if any prolonged intubation or coding procedure would be amicable to termination of that, however, acutely does want to be full code. ASSESSMENT AND PLAN: Atrial fibrillation/atrial flutter with rapid ventricular response, rate controlled currently with diltiazem drip. Consult Cardiology to follow up. Continuing the patient's home medications, largely sliding scale insulin for the patient's diabetes type 2. Continuing levothyroxine for hypothyroidism. Holding Lasix for dehydration and monitor for further diarrhea episodes and will bolus the patient as necessary. Follow up on Cardiology's recommendations. We will continue to follow alongside with Cardiology recommends and proceed from there. We will continue his Coumadin and monitor for INRs at this point in time. No signs of bleeding continuing the patient's proton pump inhibitor for history of gastrointestinal bleed secondary to gastric polyps. Job ID: [id number]
[2018-08-29] MEDS: Levothyroxine Sodium 100 MCG TAB PO SCH (05:01)
[2018-08-29 07:12] LABS: INR-International Normal Ratio 2.9; Prothrombin Time 30.7 SEC (12.0-14.7)
[2018-08-29 07:28] LABS: #Eosinphils 0.3 thou/uL (0.0-0.7); #Lymphocytes 1.7 thou/uL (1.20-3.40); #Monocytes 0.6 thou/uL (0.11-0.59); #Neutrophils 1.8 thou/uL (1.40-6.50); %Basophils 0.6 % (0.0-1.0); %Eosinophils 6.9 % (0.0-10.0); %Lymphocytes 38.5 % (21.0-51.0); %Monocytes 13.2 % (0.0-10.0); %Neutrophils 40.8 % (42.0-75.0)
[2018-08-29 07:30] LABS: Anion Gap 8 mmol/L (10-20); BUN (Urea Nitrogen) 26 mg/dL (8.4-25.7); Calc. Creatinine Clearance 42 mL/min (70-130); Calcium 8.4 mg/dL (7.8-10.44); Carbon Dioxide 30 mmol/L (23-31); Chloride 108 mmol/L (98-107); Estimated GFR-MDRD 39; Glucose 102 mg/dL (83-110); Potassium 4.4 mmol/L (3.5-5.1); Sodium 142 mmol/L (136-145)
[2018-08-29 08:30] LABS: Elliptocytes SLIGHT = 2-5 cells (100X) (0-1/hpf); Hemoglobin 8.6 g/dL (14.0-18.0); Hypochromia SLIGHT = 6-15 cells (100X) (0-5/hpf); MDiff Complete? YES; Mean Corpuscular Hemoglobin 23.5 pg (27.0-31.0); Mean Corpuscular Volume 78.2 fL (78.0-98.0); Mean Platelet Volume 9.1 fL (7.4-10.4); Ovalocytes SLIGHT = 2-5 cells (100X) (0-1/hpf); Platelet Count 185 thou/uL (130-400); Polychromasia SLIGHT = 2-3 cells (100X) (0-2/hpf); RBC Distribution Width 18.9 % (11.5-14.5); Red Blood Cell (RBC) Count 3.68 mill/uL (4.70-6.10); Schistocytes SLIGHT = 2-5 cells (100X) (0-1/hpf); White Blood Cell (WBC) Count 4.4 thou/uL (4.8-10.8)
[2018-08-29] MEDS ORDERED: Lisinopril 10 MG TAB PO SCH (09:00)
--- NOTE | 2018-08-29 09:04 | PRG ---
DATE OF SERVICE: 08/29/2018 HISTORY OF PRESENT ILLNESS: The patient went back into sinus rhythm approximately at 1 a.m., last night with Cardizem drip, was dc'd to home oral q.i.d. Cardizem on max oral dose. The patient's blood pressure remained stable. He naturally has home oxygen compressor, was placed on nasal cannula. On admission, did show small pleural effusions. The patient denies any further diarrhea or emesis following no further exposure to shellfish, which he has known allergy to. The patient states he is a bit fatigued this morning. Denies any chest pain. Troponins overnight were stable and not significantly elevated. With light hydration from admission, the patient's creatinine improved this morning. Nursing staff reported 21 beats of ventricular tachycardia, which spontaneously corrected itself. The patient was asymptomatic other than above breathing complaint. Cardiology consultation is pending. OBJECTIVE: VITAL SIGNS: This morning, pulse of 60, temperature of 97.9, respiratory rate of 20, oxygen saturation of 94% on 2 L nasal cannula, blood pressure 120/55. LABORATORY DATA: A.M. CBC is pending. INR stable at 2.9 on Coumadin. Creatinine 1.66, sodium 142, potassium 4.4, BUN of 29, CO2 of 30, glucose of 119. PHYSICAL EXAMINATION: GENERAL: The patient is alert and oriented. HEENT: Head is normocephalic and atraumatic. Extraocular movements are intact. Sclerae are white. Nasal cannula in place. Oral mucosa is moist. NECK: Supple. HEART: Bradycardia, but regular rhythm. No murmurs auscultated. LUNGS: With diminished breath sounds at bilateral bases. ABDOMEN: Soft and nontender. Positive bowel sounds throughout. EXTREMITIES: Lower extremities without cyanosis or edema. NEUROLOGIC: The patient is alert and oriented x3. No focal deficits. Speech is normal. ASSESSMENT AND PLAN: Atrial fibrillation/atrial flutter with rapid ventricular response, currently resolved following Cardizem drip. Awaiting Cardiology consultation. Diarrhea, currently resolved, likely secondary to the patient eating shellfish on outpatient basis, which he has not done so since. NonSustained ventricular tachycardia. We will follow up on Cardiology's recommendations. Currently, on beta-jaron and calcium channel jaron medications and is anticoagulated appropriately. Diabetes, type 2, on sliding scale insulin. The patient currently not being allowed to have diet secondary to potential procedures. Dehydration, appears to be moderately corrected from hospitalization admission bolus. Still holding the patient's Lasix at this point in time. We will consider following up chest x-ray tomorrow seeing if pleural effusions start to worsen and restart the patient's Lasix. Job ID: [id number] MTDD
--- NOTE | 2018-08-29 09:09 | RAD ---
TWO VIEW CHEST: Indications: Tachycardia. Comparison: Portable exam, 08-28-18. FINDINGS: The heart size is upper normal and stable. No evidence of infiltrate. Vascular markings are mildly pr ominent but no evidence of overt congestion or edema. There is evidence of small bilateral effusions obscuring both posterior gutters. Osseous structures unremarkable. Aortic calcification. IMPRESSION: Small bilateral effusions. Lungs are otherwise clear. POS: [facility]
--- NOTE | 2018-08-29 09:20 | CON ---
DATE OF CONSULTATION: 08/29/2018 REASON FOR CONSULTATION: Atrial flutter. HISTORY OF PRESENT ILLNESS: Mr. Fried is a very pleasant 88-year-old gentleman , whom I have seen and evaluated in the past. He recently presented to his engineering model maker for new patient visit. He is found to be tachycardic. He was felt to be dehydrated. He has a history of chronic atrial fibrillation. He was fairly symptomatic. Given his increased heart rate, decided to proceed to the emergency room. He was placed on IV Cardizem and p.o. medication. He is also given IV fluids. After IV fluids and medications, his heart rate has been controlled. He currently has no symptoms. PAST MEDICAL HISTORY: Includes chronic atrial fibrillation, hiatal hernia, cataract surgery, basal cell skin cancer, diabetes mellitus, hypertension, chronic diastolic heart failure, mild dementia? HOME MEDICATIONS: Include; 1. NovoLog. 2. Advair. 3. Lasix. 4. Metolazone. 5. Metoprolol. 6. Diltiazem. 7. Lisinopril/hydrochlorothiazide. 8. Iron. 9. Coumadin. 10. Stool softeners. 11. Acetaminophen. 12. Pantoprazole. 13. Celexa. 14. Levothyroxine. 15. Mucinex. 16. Zofran. 17. Pravastatin. PAST SURGICAL HISTORY: Prostate biopsy, cholecystectomy, left shoulder surgery , and gallbladder removal. SOCIAL HISTORY: No current tobacco or alcohol use. ALLERGIES: SHELLFISH. HOSPITALIZATIONS: Recent hospitalizations include CHF on 04/2018. REVIEW OF SYSTEMS: Ten-point review of systems is reviewed and as above, otherwise negative. PHYSICAL EXAMINATION: GENERAL: Patient is a pleasant gentleman, who is in no acute distress. The patient appears their stated age. VITAL SIGNS: Blood pressure 127/60, pulse 61, and temperature 97.8. NEUROLOGIC: The patient is alert and oriented x3 with no focal neurologic deficits. HEENT: Sclerae without icterus. Mouth has moist mucous membranes with normal pallor. NECK: No JVD. Carotid upstroke brisk. No bruits bilaterally. LUNGS: Clear to auscultation with unlabored respirations. BACK: No scoliosis or kyphosis. CARDIAC: Irregularly irregular. ABDOMEN: Soft, nontender, nondistended. No peritoneal signs present. No hepatosplenomegaly. No abnormal striae. EXTREMITIES: 2+ femoral and 2+ dorsalis pedis pulses. No cyanosis, clubbing, or edema. SKIN: No gross abnormalities. PERTINENT LABORATORY DATA: Hemoglobin 8.6. Creatinine 1.66, which is decreased from 1.97 and GFR of 39. IMAGING DATA: Echo Doppler dated 07/19/2018, LVEF 45% to 50%, moderate MR, [id number] TR. Telemetry monitoring shows atrial fibrillation with a 20-beat run of nonsustained VT. IMPRESSION: 1. Atrial fibrillation with rapid ventricular response. 2. Nonsustained ventricular tachycardia. 3. Chronic edema. 4. Diastolic dysfunction. RECOMMENDATIONS: At this point, we recommend conservative therapy. Mr. Fried' s last echo showed LVEF of 45% to 50% and likely underestimated due to atrial fibrillation. He has no current symptoms suggesting angina. We will recommend checking the magnesium and phosphorus levels. At this point, he does not need an echo given recent echo 1 month ago. If he is stable through the day, it would be okay from my standpoint to discharge home soon. Job ID: [id number] [facility]
[2018-08-29] MEDS: Metoprolol Tartrate 25 MG TAB PO SCH ×2 (10:49→21:32)
[2018-08-29] MEDS: Citalopram 20 MG TAB PO SCH (10:50)
[2018-08-29 11:30] LABS: Calcium 8.9 mg/dL (7.8-10.44); Phosphorus 3.5 mg/dL (2.3-4.7)
[2018-08-29 13:12] VITALS: BMI 33.1
[2018-08-29] MEDS: Warfarin Sodium 5 MG TAB PO SCH (17:57)
[2018-08-29] MEDS: Atorvastatin Calcium 10 MG TAB PO SCH (21:32)
[2018-08-30] MEDS: Levothyroxine Sodium 100 MCG TAB PO SCH (05:27)
[2018-08-30 05:52] LABS: #Eosinphils 0.2 thou/uL (0.0-0.7); #Lymphocytes 1.4 thou/uL (1.20-3.40); #Monocytes 0.6 thou/uL (0.11-0.59); #Neutrophils 2.3 thou/uL (1.40-6.50); %Basophils 0.2 % (0.0-1.0); %Eosinophils 3.9 % (0.0-10.0); %Lymphocytes 31.9 % (21.0-51.0); %Monocytes 13.6 % (0.0-10.0); %Neutrophils 50.5 % (42.0-75.0); Hemoglobin 8.6 g/dL (14.0-18.0); Mean Corpuscular HGB CONC 29.9 g/dL (32.0-36.0); Mean Corpuscular Hemoglobin 23.9 pg (27.0-31.0); Mean Corpuscular Volume 79.9 fL (78.0-98.0); Mean Platelet Volume 9.6 fL (7.4-10.4); Platelet Count 161 thou/uL (130-400); RBC Distribution Width 19.1 % (11.5-14.5); White Blood Cell (WBC) Count 4.5 thou/uL (4.8-10.8)
[2018-08-30 05:54] LABS: INR-International Normal Ratio 2.7
[2018-08-30 06:20] LABS: Anion Gap 11 mmol/L (10-20); BUN (Urea Nitrogen) 25 mg/dL (8.4-25.7); Calc. Creatinine Clearance 43 mL/min (70-130); Calcium 8.4 mg/dL (7.8-10.44); Carbon Dioxide 26 mmol/L (23-31); Chloride 107 mmol/L (98-107); Estimated GFR-MDRD 41; Glucose 97 mg/dL (83-110); Potassium 5.2 mmol/L (3.5-5.1); Sodium 139 mmol/L (136-145)
--- NOTE | 2018-08-30 07:01 | PDOC.CTH ---
Cardiology Progress Note - Subjective Doing well. Rate controlled. Low HR noted at night, no symptoms (asleep) - Objective Vital Signs Temp Pulse Resp BP BP Pulse Ox 08/30/18 03:22 97.4 F L 75 18 144/62 H 93 L 08/29/18 21:31 97.6 F 63 18 131/60 96 Admit Weight 207 lb Weight 205 lb 4 oz 08/29/18 08/30/18 08/31/18 06:59 06:59 06:59 Intake Total 300 425 Output Total 200 175 Balance 100 250 - Physical Examination General/Neuro: alert & oriented x3, NAD Neck: carotid US brisk, no JVD present Lungs: unlabored respirations Heart: other: (irr) Abdomen: NT/ND, soft Extremities: + femoral B - Labs Result Diagrams: 08/30/18 05:24 08/30/18 05:24 Troponin/CKMB Troponin I 0.026 ng/mL (< 0.028) 08/28/18 21:30 - Assessment/Plan Afib with RVR dementia edema Pt with good rate control EF 45% on last echo one month ago Continue ACT and rate control Will sign off; plan to see pt back in office
[2018-08-30] MEDS: Citalopram 20 MG TAB PO SCH (08:11)
[2018-08-30] MEDS: Furosemide 40 MG TAB PO SCH ×2 (08:11→14:31)
[2018-08-30] MEDS: Metoprolol Tartrate 25 MG TAB PO SCH ×2 (08:11→21:11)
[2018-08-30] MEDS: HumaLOG 300 UNITS/3 ML VIAL SC PRN ×2 (13:11→18:10)
[2018-08-30] MEDS ORDERED: Furosemide 40 MG/4 ML VIAL SLOW IVP SCH (14:15)
--- NOTE | 2018-08-30 14:38 | PRG ---
DATE OF SERVICE: 08/30/2018 HISTORY OF PRESENT ILLNESS: The patient is still requiring some nasal cannula overnight. Does have p.r.n. oxygen use at baseline. Does show some signs of swelling of lower extremities and some diminished breath sounds in lower bases worsening from prior. Dr. Tapia feels the patient is back at his baseline from a cardiac standpoint. I have been holding his Lasix for his episode of diarrhea and dehydration. I spoke with nursing staff. We will reinitiate Lasix today and give IV Lasix x1. See if his respiratory status given his pleural effusions on admission improve and he is able to be more stable when he is discharged back to Assisted Living. Current vital signs of 98 temperature, pulse of 63, respiratory rate of 18, oxygen saturation 92% on room air. This afternoon was desaturating down to 86%. This morning prior to sitting up, blood pressure 142/69, hemoglobin of 8.6, INR of 2.7. Sodium of 139 with potassium of 5.2, BUN of 25, CO2 of 26, creatinine of 1.62, glucose of 97. PHYSICAL EXAMINATION: GENERAL: The patient is arousable, somewhat confused in the morning, however, oriented x3 when questioned, no acute distress. HEENT: Head is normocephalic and atraumatic. Extraocular movements are intact. Sclerae are white. Oral mucosa is moist. NECK: Supple. Nasal cannula in place this morning at the time of exam. HEART: Regular rate and rhythm. No murmurs auscultated. LUNGS: Without rhonchi or rales. Diminished lower bases bilaterally. ABDOMEN: Soft, nontender. Positive bowel sounds throughout. EXTREMITIES: Lower extremities now with trace pitting edema. The patient again oriented x3. No focal deficits. Speech is normal. However, the patient is somewhat inappropriate with advanced topics regarding his health, which has been his baseline for the last 6 months, waxing and waning mentation. ASSESSMENT AND PLAN: Atrial fibrillation and atrial flutter with RVR, currently resolved to a flutter rate of 60s to 70s. Diarrhea resolved following crab cake. He ate with shellfish allergy. No blood reported. Nonsustained ventricular tachycardia. No reports of that, but however, some bradycardia on telemetry strip. No further interventions from Cardiology standpoint. Diabetes type 2, stable on sliding scale insulin. Dehydration, currently resolved. Pleural effusion, returning to Lasix now. The patient has been adequately rehydrated. This is also likely cause of patient's hyperkalemia. Holding his lisinopril today. Re-initiation of Lasix and will follow up in the morning. Expect discharge if the patient can be diuresed gently and has better lung function. The patient is adequately anticoagulating in regard to his atrial fibrillation. Job ID: [id number]
[2018-08-30] MEDS: Warfarin Sodium 5 MG TAB PO SCH (18:08)
[2018-08-30] MEDS: Atorvastatin Calcium 10 MG TAB PO SCH (21:11)
[2018-08-31 05:02] LABS: #Eosinphils 0.2 thou/uL (0.0-0.7); #Lymphocytes 1.8 thou/uL (1.20-3.40); #Monocytes 0.6 thou/uL (0.11-0.59); #Neutrophils 2.6 thou/uL (1.40-6.50); %Basophils 0.6 % (0.0-1.0); %Eosinophils 4.2 % (0.0-10.0); %Lymphocytes 34.3 % (21.0-51.0); %Monocytes 12.1 % (0.0-10.0); %Neutrophils 48.9 % (42.0-75.0); Hemoglobin 8.2 g/dL (14.0-18.0); Mean Corpuscular HGB CONC 30.5 g/dL (32.0-36.0); Mean Corpuscular Hemoglobin 24.3 pg (27.0-31.0); Mean Corpuscular Volume 79.7 fL (78.0-98.0); Mean Platelet Volume 9.2 fL (7.4-10.4); Platelet Count 166 thou/uL (130-400); RBC Distribution Width 19.5 % (11.5-14.5); Red Blood Cell (RBC) Count 3.37 mill/uL (4.70-6.10); White Blood Cell (WBC) Count 5.3 thou/uL (4.8-10.8)
[2018-08-31 05:09] LABS: INR-International Normal Ratio 2.4
[2018-08-31 05:24] LABS: Anion Gap 8 mmol/L (10-20); BUN (Urea Nitrogen) 26 mg/dL (8.4-25.7); Calc. Creatinine Clearance 40 mL/min (70-130); Calcium 8.4 mg/dL (7.8-10.44); Carbon Dioxide 31 mmol/L (23-31); Chloride 104 mmol/L (98-107); Estimated GFR-MDRD 37; Glucose 138 mg/dL (83-110); Potassium 4.1 mmol/L (3.5-5.1); Sodium 139 mmol/L (136-145)
[2018-08-31] MEDS: Levothyroxine Sodium 100 MCG TAB PO SCH (05:32)
[2018-08-31] MEDS: Metoprolol Tartrate 25 MG TAB PO SCH (08:25)
--- NOTE | 2018-08-31 09:53 | RAD ---
CHEST 2 VIEWS: HISTORY: Pleural effusion. COMPARISON: Radiographs of 08/29/2018. FINDINGS: There are small bilateral pleural effusions, similar. There are airspace opacities in both lower lob es. No pneumothorax. Heart size is mildly enlarged. No acute osseous abnormality. IMPRESSION: Similar appearance of the effusions with bilateral compressive atelectasis. POS: [facility]
[2018-08-31] MEDS: Furosemide 40 MG TAB PO SCH ×2 (10:18→13:04)
[2018-08-31] MEDS: Citalopram 20 MG TAB PO SCH (10:18)
[2018-08-31] MEDS: HumaLOG 300 UNITS/3 ML VIAL SC PRN (11:53)
[2018-08-31 12:02] VITALS: BP 128/57; TEMP 98.2
--- NOTE | 2018-08-31 17:53 | DIS ---
DATE OF ADMISSION: 08/28/2018 DATE OF DISCHARGE: 08/31/2018 PRIMARY CARE PHYSICIAN: Bandar Dinero MD CHIEF COMPLAINT: Tachyarrhythmia. HISTORY OF PRESENT ILLNESS: The patient was seen in Dr. Odom's office for the first time for chronic kidney disease stage 4, was noted to have rapid heart rate in 130s, and was instructed if any symptoms to present to the emergency department. He presented to the emergency department, found to be in atrial fibrillation flutter 130s with RVR, was admitted on Cardizem drip. The patient takes Cardizem on an outpatient basis and has been compliant since he has been supervised at [place] [facility]. The patient converted to regular rhythm with still some atrial flutter patterns, less than 24 hours on drip. Cardiology was consulted with Dr. Tapia, felt the patient's last echo was current and valid enough not to repeat. Given the patient converted and back on oral medications, no interventions were planned. The patient did, however, prior to discharge dipped down into the 40s. HOME MEDICATIONS: Included: 1. Warfarin 5 mg daily. 2. Protonix 40 mg daily. 3. Lasix 40 mg b.i.d. 4. Diltiazem 90 mg q.i.d. 5. Citalopram 20 mg daily. 6. Pravachol 40 mg daily. 7. Levothyroxine 100 mcg daily. 8. Insulin aspart sliding scale. 9. Insulin detemir 16 units at bedtime. 10. Metoprolol was instructed to be held by Cardiology on discharge, again was increased from patient's 12.5 b.i.d. outpatient to 25 mg daily while inpatient, was held on day of discharge. Regarding patient's rehab potential, he refuses home health for home health physical therapy, is in early stages of dementia without appropriate executive function. Power of senior trial attorney spoken to last hospitalization much on the patient's prior thoughts of being a DNR DNI, however, patient continues to state he wants full code when he comes into the hospital last two times. However, randomly will refuse services such as one of the last hospitalizations, refused intubation for GI bleed regarding gastric polyps. He has not had any reported bleeding since. However, he does have continued anemia. The patient's dehydration was evident, was adequately rehydrated during hospitalization this time. However, pleural effusion from diastolic congestive heart failure, which is present on admission at baseline, preserved ejection fraction. The patient was restarted on Lasix and improved. Has p.r.n. oxygen at home. Part of patient's dehydration was caused by eating shellfish and a crab cake, which he is allergic to, which causes emesis and diarrhea, which resolved while inpatient. The patient did have a run of ventricular tachycardia as opposed to the bradycardia. Recommending follow up with Dr. Tapia in the next 1 to 2 months to see if any beta-jaron to be reinitialized. This is difficult case regarding patient's bradycardia and tachycardia. Doubtful, patient would rehab well from even a simple pacemaker procedure. However, we will see if the patient remains stable on an outpatient basis going forward. Resuming home medications for diabetes. Held lisinopril secondary to hyperkalemia. We will restart on outpatient basis if improved and based on the patient's blood pressure, INR was controlled throughout the hospitalization. DISCHARGE DIET: Heart healthy and ADA. DISCHARGE ACTIVITY: As tolerated with assistance. Oxygen p.r.n., keep saturations above 88%. Return to [facility]. DISCHARGE CONDITION: Fair. Job ID: [id number]
== END 2018-08-31 15:43 | DRG 309 ==
LOC: ERS 15:55 → 2NO 17:48
PROVIDERS: ADMIT Family Medicine; ATTEND Family Medicine
DX: I48.0 Paroxysmal atrial fibrillation (principal); N18.4 Chronic kidney disease, stage 4 (severe); I13.0 Hypertensive heart and chronic kidney disease with heart failure and stage 1 through stage 4 chronic kidney disease, or unspecified chronic kidney disease; I50.32 Chronic diastolic (congestive) heart failure; I48.92 Unspecified atrial flutter; F03.90 Unspecified dementia, unspecified severity, without behavioral disturbance, psychotic disturbance, mood disturbance, and anxiety; E11.22 Type 2 diabetes mellitus with diabetic chronic kidney disease; M51.16 Intervertebral disc disorders with radiculopathy, lumbar region; E11.51 Type 2 diabetes mellitus with diabetic peripheral angiopathy without gangrene; E78.5 Hyperlipidemia, unspecified; L57.0 Actinic keratosis; E03.9 Hypothyroidism, unspecified; E86.0 Dehydration; E87.5 Hyperkalemia; I47.2 Ventricular tachycardia; D64.9 Anemia, unspecified; K44.9 Diaphragmatic hernia without obstruction or gangrene; K21.9 Gastro-esophageal reflux disease without esophagitis; N40.0 Benign prostatic hyperplasia without lower urinary tract symptoms; I34.0 Nonrheumatic mitral (valve) insufficiency; I07.1 Rheumatic tricuspid insufficiency; I95.1 Orthostatic hypotension; Z79.01 Long term (current) use of anticoagulants; Z79.4 Long term (current) use of insulin; Z79.899 Other long term (current) drug therapy; Z87.19 Personal history of other diseases of the digestive system; Z88.8 Allergy status to other drugs, medicaments and biological substances; Z91.013 Allergy to seafood
CPT/HCPCS: 36415; 36416; 71045; 71046; 80048; 80053; 82550; 83690; 83735; 84100; 84484; 85025; 85610; 85730; 93005; 96365; 96366; 96368; 96375; 96376; J1160; J1940; J3475; J7050

== ENCOUNTER 2018-11-28 09:37 | Emergency (ER) | payer MEDICARE, OTHER ==
[2018-11-28 10:35] LABS: #Basophils 0.1 thou/uL (0.0-0.2); #Eosinphils 0.2 thou/uL (0.0-0.7); #Lymphocytes 1.8 thou/uL (1.20-3.40); #Monocytes 0.6 thou/uL (0.11-0.59); #Neutrophils 3.4 thou/uL (1.40-6.50); %Basophils 1.6 % (0.0-1.0); %Eosinophils 3.1 % (0.0-10.0); %Lymphocytes 29.5 % (21.0-51.0); %Monocytes 9.5 % (0.0-10.0); %Neutrophils 56.4 % (42.0-75.0); Hemoglobin 12.7 g/dL (14.0-18.0); Mean Corpuscular HGB CONC 32.7 g/dL (32.0-36.0); Mean Corpuscular Hemoglobin 28.3 pg (27.0-31.0); Mean Corpuscular Volume 86.6 fL (78.0-98.0); Mean Platelet Volume 8.7 fL (7.4-10.4); Platelet Count 157 thou/uL (130-400); Red Blood Cell (RBC) Count 4.49 mill/uL (4.70-6.10)
[2018-11-28 10:40] LABS: Bilirubin Negative (Negative); Blood, Urine Trace (Negative); Clarity Clear (Clear); Glucose, Urine (Dipstick) Normal (Negative); Leukocyte Negative Leu/uL (Negative); Nitrite Negative (Negative); Protein, Urine (Dipstick) Negative (Neg-Trace); Squamous Epithelial 0-3 HPF (0-3); Urobilinogen Normal mg/dL (Less than 2); WBC/HPF 0-3 HPF (0-3)
--- NOTE | 2018-11-28 10:40 | RAD ---
XR Chest 1 View Portable History: Dyspnea Comparison: Radiograph August 31, 2018 Findings: Heart size is enlarged. No significant effusion. No pneumothorax. Mild portal venous conges tion. No acute osseous abnormality. Left distal clavicular osteolysis. Impression: Mild cardiomegaly and pulmonary venous congestion. Previously described effusions have re solved.
[2018-11-28 10:59] LABS: ALT (SGPT) 13 U/L (8-55); AST (SGOT) 22 U/L (5-34); Alkaline Phosphatase 73 U/L (40-150); Anion Gap 13 mmol/L (10-20); BUN (Urea Nitrogen) 40 mg/dL (8.4-25.7); Bilirubin, Total 0.5 mg/dL (0.2-1.2); CK (CPK) 116 U/L (30-200); Calc. Creatinine Clearance 0 mL/min (70-130); Calcium 8.7 mg/dL (7.8-10.44); Carbon Dioxide 28 mmol/L (23-31); Chloride 100 mmol/L (98-107); Estimated GFR-MDRD 30; Globulin 2.4 g/dL (2.4-3.5); Glucose 162 mg/dL (83-110); Potassium 3.9 mmol/L (3.5-5.1); Protein, Total 6.4 g/dL (5.8-8.1); Sodium 137 mmol/L (136-145)
--- NOTE | 2018-12-02 01:07 | EKG ---
Test Reason : CHEST PAIN Blood Pressure : / mmHG Vent. Rate : 076 BPM Atrial Rate : 249 BPM P-R Int : 000 ms QRS Dur : 084 ms QT Int : 404 ms P-R-T Axes : 086 029 -04 degrees QTc Int : 454 ms Atrial flutter with variable A-V block with premature ventricular or aberrantly conducted complexes Nonspecific ST abnormality Abnormal ECG Confirmed by JENY CEE ([id number]), clinical editor RICHARD GARCIA ([id number]) on 12/02/2018 1:06:38 AM Referred By: Confirmed By:JENY CEE
== END 2018-11-28 12:16 | disposition home or self-care (01) ==
LOC: ERS 09:37
DX: I13.0 Hypertensive heart and chronic kidney disease with heart failure and stage 1 through stage 4 chronic kidney disease, or unspecified chronic kidney disease (principal); N18.9 Chronic kidney disease, unspecified; I50.9 Heart failure, unspecified; I25.10 Atherosclerotic heart disease of native coronary artery without angina pectoris; E11.22 Type 2 diabetes mellitus with diabetic chronic kidney disease; N40.0 Benign prostatic hyperplasia without lower urinary tract symptoms; F41.9 Anxiety disorder, unspecified; F32.9 Major depressive disorder, single episode, unspecified; Z79.4 Long term (current) use of insulin; Z79.899 Other long term (current) drug therapy
CPT/HCPCS: 36415; 71045; 80053; 81003; 82550; 83880; 84484; 85025; 93005

== ENCOUNTER 2019-02-15 00:01 | Emergency (ER) | payer MEDICARE, OTHER ==
[2019-02-15 00:31] LABS: #Basophils 0.1 thou/uL (0.0-0.2); #Eosinphils 0.2 thou/uL (0.0-0.7); #Lymphocytes 2.3 thou/uL (1.20-3.40); #Monocytes 0.7 thou/uL (0.11-0.59); #Neutrophils 4.9 thou/uL (1.40-6.50); %Basophils 0.8 % (0.0-1.0); %Eosinophils 2.5 % (0.0-10.0); %Lymphocytes 28.2 % (21.0-51.0); %Monocytes 8.6 % (0.0-10.0); %Neutrophils 59.9 % (42.0-75.0); Hemoglobin 12.8 g/dL (14.0-18.0); Mean Corpuscular HGB CONC 33.8 g/dL (32.0-36.0); Mean Corpuscular Hemoglobin 30.8 pg (27.0-31.0); Mean Corpuscular Volume 91.1 fL (78.0-98.0); Mean Platelet Volume 7.8 fL (7.4-10.4); Platelet Count 168 thou/uL (130-400); RBC Distribution Width 13.5 % (11.5-14.5); Red Blood Cell (RBC) Count 4.17 mill/uL (4.70-6.10); White Blood Cell (WBC) Count 8.1 thou/uL (4.8-10.8)
[2019-02-15 00:38] LABS: INR-International Normal Ratio 2.8; Prothrombin Time 29.6 SEC (12.0-14.7)
[2019-02-15 00:51] LABS: ALT (SGPT) 14 U/L (8-55); AST (SGOT) 26 U/L (5-34); Albumin 4.4 g/dL (3.4-4.8); Alkaline Phosphatase 80 U/L (40-150); Anion Gap 16 mmol/L (10-20); BUN (Urea Nitrogen) 43 mg/dL (8.4-25.7); Bilirubin, Total 0.3 mg/dL (0.2-1.2); Calc. Creatinine Clearance 0 mL/min (70-130); Carbon Dioxide 24 mmol/L (23-31); Chloride 102 mmol/L (98-107); Estimated GFR-MDRD 28; Glucose 101 mg/dL (83-110); Potassium 3.7 mmol/L (3.5-5.1); Protein, Total 7.4 g/dL (5.8-8.1); Sodium 138 mmol/L (136-145)
[2019-02-15] MEDS ORDERED: Meclizine HCl 25 MG TAB ONE (00:59)
--- NOTE | 2019-02-15 07:57 | CT ---
PRELIMINARY REPORT/[facility]/EMERGENCY AFTER HOURS PROCEDURE: PROCEDURE INFORMATION: Exam: CT Head Without Contrast Exam date and time: 02/15/2019 12:39 AM Clinical history: 88 years old, male; Dizziness; Patient HX: PT states he was sitting in his recliner and shifted positions when he started feeling dizzy, slight headache, and vomiting TECHNIQUE: Imaging protocol: Computed tomography of the head without contrast. COMPARISON: No relevant prior studies available. FINDINGS: Brain: No acute intracranial hemorrhage or mass effect. There is decreased attenuation in the periventricular white matter, likely from microvascular disease . Suspect old lacunar infarcts in the inferior basal ganglia regions bilaterally. No definite acute infarct by CT. MRI could be more sensitive/specific for detection, and also for dis tinguishing between old and subacute infarcts, as clinically directed. Ventricles: Ventricle size is normal for age. Bones/joints: No definite acute skull fracture. Sinuses: Included paranasal sinuses are essentially clear. Mastoid air cells: No significant acute finding. Vasculature: Vascular calcifications noted in the internal carotid and vertebral basilar systems. IMPRESSION: 1. No acute intracranial hemorrhage or mass effect. 2. Changes of microvascular disease, and old lacunar infarcts. 3. No definite acute infarct by CT, see above. 4. Other findings discussed above. Thank you for allowing us to participate in the care of your patient. Dictated and Authenticated by: Albin Ward MD 02/15/2019 1:17 AM Central Time ([place] & [place]) FINAL REPORT CT HEAD WITHOUT CONTRAST: Date: 02/15/19 IMPRESSION: There are chronic ischemic white matter changes. No acute process. No significant change from CT of 1 07/02/17. I am in agreement with the preliminary report issued by [facility]. POS: [facility]
--- NOTE | 2019-02-15 08:04 | RAD ---
AP CHEST: INDICATION: Chest pain. COMPARISON: 11/28/2018. FINDINGS/IMPRESSION: Lung guerra appear clear of infiltrate. Heart is mildly enlarged with mild vascular engorgement. No significant effusion. No interval change noted. POS: [facility]
--- NOTE | 2019-02-16 13:38 | EKG ---
Test Reason : Blood Pressure : / mmHG Vent. Rate : 095 BPM Atrial Rate : 277 BPM P-R Int : 000 ms QRS Dur : 088 ms QT Int : 388 ms P-R-T Axes : 000 -07 028 degrees QTc Int : 487 ms Atrial fibrillation Prolonged QT Abnormal ECG Confirmed by JENY CEE ([id number]), video editor LUCÍA SORTO ([id number]) on 02/16/2019 1:37:45 PM Referred By: Confirmed By:JENY CEE
== END 2019-02-15 01:56 ==
LOC: ERS 00:01
DX: R42 Dizziness and giddiness (principal); I25.10 Atherosclerotic heart disease of native coronary artery without angina pectoris; I11.0 Hypertensive heart disease with heart failure; I50.9 Heart failure, unspecified; I48.91 Unspecified atrial fibrillation; E11.9 Type 2 diabetes mellitus without complications; E03.9 Hypothyroidism, unspecified; F41.9 Anxiety disorder, unspecified; F32.9 Major depressive disorder, single episode, unspecified; Z79.4 Long term (current) use of insulin; Z79.899 Other long term (current) drug therapy; Z79.01 Long term (current) use of anticoagulants
CPT/HCPCS: 36415; 70450; 71045; 80053; 83880; 84484; 85025; 85610; 85730; 93005; J8597

== ENCOUNTER 2019-06-13 04:16 | Emergency (ER) | payer MEDICARE, OTHER ==
[2019-06-13 04:53] LABS: #Eosinphils 0.3 thou/uL (0.0-0.7); #Lymphocytes 1.6 thou/uL (1.20-3.40); #Monocytes 0.8 thou/uL (0.11-0.59); #Neutrophils 4.3 thou/uL (1.40-6.50); %Basophils 0.4 % (0.0-1.0); %Eosinophils 4.8 % (0.0-10.0); %Lymphocytes 22.8 % (21.0-51.0); %Monocytes 11.1 % (0.0-10.0); %Neutrophils 60.9 % (42.0-75.0); Hemoglobin 10.8 g/dL (14.0-18.0); Mean Corpuscular HGB CONC 33.4 g/dL (32.0-36.0); Mean Corpuscular Hemoglobin 30.4 pg (27.0-31.0); Mean Corpuscular Volume 91.1 fL (78.0-98.0); Mean Platelet Volume 8.3 fL (7.4-10.4); Platelet Count 145 thou/uL (130-400); RBC Distribution Width 12.8 % (11.5-14.5); Red Blood Cell (RBC) Count 3.57 mill/uL (4.70-6.10)
[2019-06-13 04:59] LABS: INR-International Normal Ratio 2.3; Prothrombin Time 25.4 SEC (12.0-14.7)
[2019-06-13 05:13] LABS: ALT (SGPT) 10 U/L (8-55); AST (SGOT) 26 U/L (5-34); Albumin 3.5 g/dL (3.4-4.8); Alkaline Phosphatase 65 U/L (40-110); Anion Gap 13 mmol/L (10-20); BUN (Urea Nitrogen) 39 mg/dL (8.4-25.7); Bilirubin, Total 0.4 mg/dL (0.2-1.2); Calc. Creatinine Clearance 0 mL/min (70-130); Calcium 8.1 mg/dL (7.8-10.44); Carbon Dioxide 26 mmol/L (23-31); Chloride 107 mmol/L (98-107); Estimated GFR-MDRD 32; Globulin 2.6 g/dL (2.4-3.5); Glucose 160 mg/dL (83-110); Potassium 4.5 mmol/L (3.5-5.1); Protein, Total 6.1 g/dL (5.8-8.1); Sodium 141 mmol/L (136-145)
[2019-06-13] MEDS ORDERED: Morphine 4 MG/ML VIAL ONE (06:48)
[2019-06-13] MEDS ORDERED: Ondansetron PF 4 MG/2 ML Vial ONE (06:48)
--- NOTE | 2019-06-13 07:38 | RAD ---
EXAM: 3 views of the left hand COMPARISON: None HISTORY: Hand pain after fall FINDINGS: 3 views of the hand shows a minimally displaced fracture of the fifth metacarpal. No degene rative changes are seen. No soft tissue swelling is present. IMPRESSION: Fifth metacarpal fracture
--- NOTE | 2019-06-13 07:43 | RAD ---
EXAM: 4 views of the right knee HISTORY: Knee pain after fall COMPARISON: None FINDINGS: No knee effusion is seen. There is no evidence of acute fracture or dislocation. No signifi cant degenerative changes are seen. Severe diffuse soft tissue swelling is present. IMPRESSION: No evidence of acute osseous abnormality.
--- NOTE | 2019-06-13 07:57 | CT ---
PRELIMINARY REPORT/[facility]/EMERGENCY AFTER HOURS PROCEDURE EXAM: CT Right Knee, without Contrast DATE/TIME: 06/13/2019, 5:05 AM INDICATION: Trauma, fall; pain TECHNIQUE: Helical CT was performed through the right knee. Coronal and sagittal reconstructions w ere generated and reviewed. Exam was performed using one or more of the following dose reduction lisa hniques: automated exposure control, adjustment of the mA and/or kV according to patient size, or us e of iterative reconstruction technique. COMPARISON: None. FINDINGS: The imaging begins 23 cm above the knee joint and continues 20 cm distally for a longitudinal anatomi c coverage of 43 cm. Bones are demineralized with cortical thinning and significant loss of trabeculae. There is no evide nce of fracture or dislocation. Trace knee joint effusion is seen. Within the anteromedial soft tis sues there is a hematoma which measures 11.0 x 5.0 x 8.0 cm. Significant thickening of the subcutane ous trabeculae extends from the proximal anteromedial region caudally to nearly encircle the visualiz ed lower leg. Scattered atherosclerotic calcified plaque is noted. IMPRESSION: 1. CT shows no fracture or dislocation. 2. Probable osteoporosis. 3. Large anteromedial soft tissue hematoma. 4. Trabecular thickening in the subcutaneous tissues is compatible with lymphedema. ELECTRONICALLY SIGNED BY: Adi Kaiser DO Jun 13, 2019 6:29:51 AM REFRACTIVE SURGEON This report is intended for review by the ordering physician only, in accordance of law. If you recei ve this report in error, please call [facility] at [phone]. FINAL REPORT EMERGENT AFTER HOURS CT RIGHT KNEE: IMPRESSION: DISAGREE with the preliminary interpretation. There is evidence for a nondisplaced impaction-type fr acture involving the anterior aspects of the medial femoral trochlea. No additional fracture is evid ent. There is large soft tissue hematoma at the anteromedial aspect of the knee. There is fluid den sity within the regional subcutaneous adipose layer, likely reflecting bruising or edema rather than lymphedema. Vascular calcifications are seen. CODE CR POS: [facility]
--- NOTE | 2019-06-13 11:35 | CON ---
DATE OF CONSULTATION: 06/13/2019 HISTORY OF PRESENT ILLNESS: The patient fell today and sustained a very small lateral femoral condyle fracture, small piece displaced, but very insignificant. Rest of the knee looks good. He does have quite a large hemarthrosis, but he is on Coumadin. He can wiggle his toes. He is little hard of hearing and answers most of the questions appropriately. His past medical history, surgical history, medications, and allergies can all be gleaned by the ER provider's note. REVIEW OF SYSTEMS: Got little left hand pain, little hard of hearing, right knee pain. Otherwise, denies any bowel or bladder issues, chest pain, or shortness of breath. Rest of review of systems are negative. PHYSICAL EXAMINATION: GENERAL: Pleasant male, in no acute distress as long as we do not jar that knee around which is placed in a knee immobilizer currently. Speech is clear. Answers simple questions well. HEENT: Normal exam. Face symmetric. Tongue midline. LUNGS: Respirations 16. No acute distress. PELVIS: No pain. EXTREMITIES: Upper extremities, left upper extremity has been casted. His upper extremities are equal in size, shape, symmetry, normal bulk and tone. Movements are intact. Left lower extremity; normal strength, bulk, and tone. Right lower extremity; significant looking hemarthrosis, but moving both lower extremities well. DP and PT pulses are intact. Sensations are good currently. DIAGNOSTIC DATA: X-rays of hands show a nondisplaced fifth metacarpal fracture, this has been splinted. CT showed the fracture of the lateral condyle, small chip off of this. He was placed in a knee immobilizer. ASSESSMENT: Fall with ensuing left hand fifth metatarsal fracture and a right lateral femoral chip fracture. PLAN: I was assisted by NROM Hannon extraordinaire. We removed the knee immobilizer, adjusted it, and we also wrapped right lower extremity from the ankle past the knee. Reapplied the knee immobilizer for the patient, had it fit well. The patient is okay to go to rehab. He will follow up with us in a few weeks. He does not need the knee immobilizer while in bed, but should have it on for comfort when he is up. He can also have it off for shower. This is explained to the patient and the [facility] student services representative, Zora. Job ID: [id number] [facility]
== END 2019-06-13 17:55 ==
LOC: ERS 04:16
DX: S62.307A Unspecified fracture of fifth metacarpal bone, left hand, initial encounter for closed fracture (principal); S82.001A Unspecified fracture of right patella, initial encounter for closed fracture; R53.1 Weakness; I25.10 Atherosclerotic heart disease of native coronary artery without angina pectoris; I13.0 Hypertensive heart and chronic kidney disease with heart failure and stage 1 through stage 4 chronic kidney disease, or unspecified chronic kidney disease; I50.9 Heart failure, unspecified; N18.4 Chronic kidney disease, stage 4 (severe); I48.91 Unspecified atrial fibrillation; E11.9 Type 2 diabetes mellitus without complications; E03.9 Hypothyroidism, unspecified; G30.9 Alzheimer's disease, unspecified; F02.80 Dementia in other diseases classified elsewhere, unspecified severity, without behavioral disturbance, psychotic disturbance, mood disturbance, and anxiety; M19.90 Unspecified osteoarthritis, unspecified site; K21.9 Gastro-esophageal reflux disease without esophagitis; F41.9 Anxiety disorder, unspecified; F32.9 Major depressive disorder, single episode, unspecified; Z79.899 Other long term (current) drug therapy; Z79.01 Long term (current) use of anticoagulants; Z79.51 Long term (current) use of inhaled steroids; Z79.4 Long term (current) use of insulin; W18.09XA Striking against other object with subsequent fall, initial encounter; Y93.01 Activity, walking, marching and hiking; Y92.129 Unspecified place in nursing home as the place of occurrence of the external cause
CPT/HCPCS: 29125; 80053; 85025; 85610; 96374; 96375; J2270; J2405

== ENCOUNTER 2019-06-28 13:02 | Inpatient (IN) | payer MEDICARE, OTHER ==
[2019-06-28 13:59] LABS: #Basophils 0.1 thou/uL (0.0-0.2); #Eosinphils 0.1 thou/uL (0.0-0.7); #Lymphocytes 1.3 thou/uL (1.20-3.40); #Monocytes 0.9 thou/uL (0.11-0.59); %Basophils 0.8 % (0.0-1.0); %Eosinophils 1.5 % (0.0-10.0); %Lymphocytes 13.8 % (21.0-51.0); %Monocytes 9.7 % (0.0-10.0); %Neutrophils 74.2 % (42.0-75.0); Hemoglobin 10.5 g/dL (14.0-18.0); Mean Corpuscular HGB CONC 31.9 g/dL (32.0-36.0); Mean Corpuscular Hemoglobin 30.3 pg (27.0-31.0); Mean Corpuscular Volume 95.1 fL (78.0-98.0); Mean Platelet Volume 6.6 fL (7.4-10.4); Platelet Count 330 thou/uL (130-400); RBC Distribution Width 13.3 % (11.5-14.5); Red Blood Cell (RBC) Count 3.45 mill/uL (4.70-6.10); White Blood Cell (WBC) Count 9.4 thou/uL (4.8-10.8)
[2019-06-28 14:04] LABS: INR-International Normal Ratio 2.4; PTT 49.9 SEC (22.9-36.1); Prothrombin Time 25.7 SEC (12.0-14.7)
[2019-06-28 14:18] LABS: ALT (SGPT) 10 U/L (8-55); AST (SGOT) 21 U/L (5-34); Albumin 3.7 g/dL (3.4-4.8); Alkaline Phosphatase 88 U/L (40-110); Anion Gap 11 mmol/L (10-20); BUN (Urea Nitrogen) 36 mg/dL (8.4-25.7); Bilirubin, Total 0.7 mg/dL (0.2-1.2); Calc. Creatinine Clearance 0 mL/min (70-130); Calcium 8.4 mg/dL (7.8-10.44); Carbon Dioxide 32 mmol/L (23-31); Chloride 102 mmol/L (98-107); Estimated GFR-MDRD 30; Glucose 106 mg/dL (83-110); Potassium 4.7 mmol/L (3.5-5.1); Protein, Total 6.7 g/dL (5.8-8.1); Sodium 140 mmol/L (136-145)
--- NOTE | 2019-06-28 14:43 | RAD ---
RIGHT KNEE 4 VIEWS: Date: 06/28/2019 HISTORY: Knee pain status post fall. FINDINGS: The bones are demineralized. There are no signs of fracture, dislocation, or joint effusion. Vascular calcifications are present. IMPRESSION: No acute injury. POS: [facility]
[2019-06-28] MEDS ORDERED: Piperacillin/Tazobactam 4.5 GM in Sodium Chloride 0.9% 100 ML IVPB ONE (14:45)
[2019-06-28] MEDS ORDERED: Vancomycin 1.5 GRAM/300 ML BAG 1.5 GM in Premix Bag 1 BAG IVPB SCH (14:45)
[2019-06-28] MEDS ORDERED: Calcium Carbonate 500 MG ChewTAB PO PRN (17:06)
[2019-06-28] MEDS ORDERED: Dextrose 5% in Water 1,000 ML IV PRN (17:10)
[2019-06-28] MEDS ORDERED: Dextrose 50% Abboject 50 ML SYRINGE SLOW IVP PRN (17:10)
--- NOTE | 2019-06-28 17:32 | HP ---
PRIMARY CARE PHYSICIAN: Dr. Bandar Dinero. CHIEF COMPLAINT: Possible right lower extremity infection. HISTORY OF PRESENT ILLNESS: The patient is an 89-year-old male with atrial fibrillation, on anticoagulation, degenerative joint disease with recent right lateral femoral chip fracture with hemarthrosis, presented to the hospital with above complaints. Two weeks ago, the patient had a fall. He was diagnosed with small lateral femoral canal fracture along with hemarthrosis. He was evaluated by Orthopedic Service in the emergency room and was discharged to [facility]. He was discharged from inpatient rehabilitation back to [facility]. The staff at the [facility] sent him to the emergency room for possible right leg wound infection. At this time, the patient denies any fever, chills. He had some pain earlier, which he rated 7/10 without any relieving factor. The pain gets worse on ambulation. He denies any chest pain, palpitations, lightheadedness, dizziness, or syncope. He is compliant with all of his medications. PAST MEDICAL HISTORY: 1. Diabetes mellitus type 2. 2. Benign prostatic hypertrophy. 3. Chronic diastolic heart failure. 4. Chronic atrial fibrillation, on anticoagulation. 5. Coronary artery disease. 6. Hypothyroidism. 7. Inflammatory bowel disease. 8. Recent nondisplaced fracture of the 5th metacarpal bone of the left hand as well as right lateral femoral chip fracture. 9. Restless legs syndrome. 10. Chronic low back pain secondary to spinal stenosis, followed by Dr. Grove. PAST SURGICAL HISTORY: 1. Cholecystectomy. 2. Carpal tunnel surgery. 3. Cardioversion for atrial fibrillation. 4. Hernia surgery. 5. Cataract surgery. ALLERGIES: THE PATIENT IS ALLERGIC TO CODEINE, IODINE. CURRENT HOME MEDICATIONS: The patient is unable to recall any of his home medications. We will try to obtain from the family when they arrive. SOCIAL HISTORY: The patient currently lives at [facility]. He is a nonsmoker. He is retired. He makes his own decision with the help of his family. He is full code. FAMILY HISTORY: Cancer and diabetes runs in his family. REVIEW OF SYSTEMS: All other review of systems were reviewed and were found negative. PHYSICAL EXAMINATION: VITAL SIGNS: Temperature 98.9, respiration of 18, pulse rate of 76, blood pressure of 131/88, O2 saturation 95% on room air. GENERAL: An 89-year-old male, in no apparent distress. Pain controlled at this time. HEENT: Head; atraumatic and normocephalic. Sclerae are anicteric. Moist mucous membranes. No oral lesion. NECK: Supple. No JVD. No carotid bruit. LUNGS: Clear to auscultation bilaterally. No wheezing, rales, or rhonchi. HEART: S1, S2 present. No rubs or gallops. 2/6 systolic murmur over the mitral area. ABDOMEN: Soft, nontender. Bowel sounds present. EXTREMITIES: There is an eschar over the right knee with surrounding erythema and swelling. There is tenderness on palpation as well. The eschar is in irregular-shape approximately 2 to 3 inches. NEUROLOGIC: Grossly nonfocal. Moves all 4 extremities. PSYCHIATRY: Alert, awake, oriented x3. LABORATORY FINDINGS: CBC showed WBC 9.5 with hemoglobin 10.5, hematocrit 32.9, platelets 330. Chemistry showed sodium 140, potassium 4.7, chloride 102, bicarb 32, BUN 36, creatinine 2.08. LFTs in normal range. INR 2.4. IMAGING DATA: X-ray of the knee by my review was negative for acute findings. IMPRESSION: 1. Right lower extremity cellulitis. 2. Recent fall causing right knee hemarthrosis with nondisplaced left 5th metacarpal fracture as well as right lateral femoral chip fracture. 3. Atrial fibrillation, on anticoagulation. 4. Anxiety. 5. Hypothyroidism. 6. Hypertension. 7. Gastroesophageal reflux disease. 8. Diabetes mellitus type 2. 9. Chronic kidney disease stage 4. 10. Coronary artery disease. 11. Restless legs syndrome. 12. Chronic low back pain. 13. Gait imbalance. PLAN: The patient will be monitored on the medical floor. Orthopedic Team will be consulted. We will continue empiric antibiotics with vancomycin and cefepime. We will consult Wound Care. Also, consult Physical Therapy and Occupational Therapy evaluation. We will resume home medications once verified. Insulin sliding scale. The patient understands the above plan of care. Job ID: [id number]
[2019-06-28 18:19] VITALS: BMI 32.8
--- NOTE | 2019-06-28 20:35 | CON ---
DATE OF CONSULTATION: REQUESTING PHYSICIAN: Dr. Zimmerman. HISTORY OF PRESENT ILLNESS: The patient is an 89-year-old gentleman, who is examined in his hospital bed at [facility] for evaluation of his right lower extremity. The patient sustained a ground level fall on 06/13/2019, at which time, he presented to the emergency room of [facility]. Workup included x-ray of his left hand as well as x-ray of the right knee. He was found to have a contusion of the anterior knee. X-rays were unremarkable, but followup CT scan showed a small depressed lateral condyle fracture, but no instability of the distal femur. He was placed in a knee immobilizer and allowed to bear weight. He was doing fairly well, but did develop an eschar at the anterior knee with some surrounding erythema and the erythema has now tracked lower into the lower leg and as such, the patient was transferred from [facility] back to the emergency room for evaluation for possible right leg wound infection. The patient denies fevers or chills. He does report some pain with weightbearing and pain to the touch of the lower leg. PAST MEDICAL HISTORY: Remarkable for type 2 diabetes, benign prostatic hypertrophy, chronic atrial fibrillation for which he is on anticoagulation, coronary artery disease, restless legs syndrome, history of spinal stenosis as well as most recently a fall with small depressed fracture of the lateral femoral condyle and he also sustained a minimally displaced fracture of the 5th metacarpal on the left side. PAST SURGICAL HISTORY: Includes cholecystectomy, cardioversion, hernia, carpal tunnel. MEDICATIONS: I will refer you to his medication reconciliation form for home medications. ALLERGIES: CODEINE AND IODINE. FAMILY HISTORY: Remarkable for diabetes. SOCIAL HISTORY: He is a nonsmoker. He lives at [facility] independently. REVIEW OF SYSTEMS: Denies recent fevers, chills, or sweats. Denies any recent chest pain or shortness of breath. Denies numbness or tingling in the right lower extremity. PHYSICAL EXAMINATION: VITAL SIGNS: He has a temperature of 98.7, heart rate of 94, respiratory rate of 16, and blood pressure 134/70. HEENT: Atraumatic, normocephalic. HEART: Shows a regular rate and rhythm with a 2/6 systolic ejection murmur. LUNGS: Clear to auscultation bilaterally. ABDOMEN: Soft. PELVIS: Stable. EXTREMITIES: Remarkable for right lower extremity with a large black eschar overlying the patella and infrapatellar tendon. There is a rim of erythema around this eschar consistent with his history of contusion. He now has an area of erythema that also extends down into the lower leg, most consistent with possible cellulitis. I do not appreciate any ascending lymphangitis. The knee itself is remarkable for pain with motion, although he does have this history of lateral condyle compression injury. I am able to move his knee from a range of motion of full extension to approximately 50 degrees of flexion with minimal discomfort. LABORATORY DATA: He was found to have a white count of 9.5, hematocrit of 32.9, and 330,000 platelets. He has an INR of 2.4. X-rays: New x-rays of this knee were obtained and read as normal. I went back and looked at the CT scan from 06/13/2019, and there does appear to be a small compression type injury at the anterior femoral condyle laterally, but without any fracture through the condyles or mechanical weakening of the distal femur based on CT and plain x-ray. ASSESSMENT: An 89-year-old gentleman status post ground level fall sustaining severe contusion of the anterior knee with a small compression type injury of the lateral femoral condyle on the right side as well as a left 5th metacarpal fracture that is minimally displaced. The patient now with black eschar at the area of contusion anteriorly with possible mild cellulitic response in the lower leg. PLAN: At this time, the patient can be weightbearing as tolerated. I believe that he will require a surgical debridement of this eschar and might will require a graft procedure for this anterior knee skin. At this time, I am in agreement with antibiotics for what appears to be a mild cellulitis of the lower leg. I do not see evidence for a septic knee joint at this time. We will follow him expectantly while he is on antibiotics to ensure that the cellulitis is resolving. I will speak with my Plastic Surgery colleague regarding consultation for possible debridement and if necessary, skin grafting procedure. The patient appears comfortable with our discussion and plan. Job ID: [id number]
[2019-06-28] MEDS: Cefepime 1 GM in Sodium Chloride 0.9% 100 ML IVPB SCH (21:26)
[2019-06-28] MEDS: Senokot S 8.6-50 MG TAB PO SCH (21:26)
[2019-06-29] MEDS: Acetaminophen 325 MG TAB PO PRN ×2 (01:39→18:30)
[2019-06-29 04:52] LABS: #Eosinphils 0.3 thou/uL (0.0-0.7); #Lymphocytes 1.3 thou/uL (1.20-3.40); #Monocytes 0.9 thou/uL (0.11-0.59); #Neutrophils 5.4 thou/uL (1.40-6.50); %Basophils 0.6 % (0.0-1.0); %Eosinophils 3.4 % (0.0-10.0); %Lymphocytes 16.1 % (21.0-51.0); %Monocytes 11.8 % (0.0-10.0); %Neutrophils 68.1 % (42.0-75.0); Mean Corpuscular Hemoglobin 30.3 pg (27.0-31.0); Mean Corpuscular Volume 94.7 fL (78.0-98.0); Mean Platelet Volume 6.5 fL (7.4-10.4); Platelet Count 319 thou/uL (130-400); RBC Distribution Width 13.3 % (11.5-14.5); White Blood Cell (WBC) Count 7.9 thou/uL (4.8-10.8)
[2019-06-29 04:56] LABS: INR-International Normal Ratio 2.6; Prothrombin Time 27.3 SEC (12.0-14.7)
[2019-06-29 05:21] LABS: Anion Gap 14 mmol/L (10-20); BUN (Urea Nitrogen) 32 mg/dL (8.4-25.7); Calc. Creatinine Clearance 38 mL/min (70-130); Calcium 8.2 mg/dL (7.8-10.44); Carbon Dioxide 24 mmol/L (23-31); Chloride 105 mmol/L (98-107); Estimated GFR-MDRD 36; Glucose 113 mg/dL (83-110); Potassium 4.4 mmol/L (3.5-5.1); Sodium 139 mmol/L (136-145)
[2019-06-29] MEDS: Senokot S 8.6-50 MG TAB PO SCH ×2 (09:18→21:23)
[2019-06-29] MEDS ORDERED: Meclizine HCl 25 MG TAB PO PRN (10:32)
[2019-06-29] MEDS ORDERED: Phytonadione 10 MG/ML AMP PO SCH (11:00)
[2019-06-29 11:34] LABS: Hemoglobin 10.2 g/dL (14.0-18.0); Platelet Count 325 thou/uL (130-400)
[2019-06-29] MEDS ORDERED: Ondansetron ODT 4 MG TAB PO PRN (12:00)
[2019-06-29] MEDS: Diltiazem HCl SR 90 mg Capsule PO SCH ×2 (12:28→18:30)
[2019-06-29] MEDS: Heparin 10,000 UNITS/ 10 ML VIAL SLOW IVP SCH (12:29)
[2019-06-29] MEDS: Heparin 25,000 units/D5W 500 ML IVPB SCH (12:31)
--- NOTE | 2019-06-29 12:34 | RAD ---
UPRIGHT PORTABLE CHEST ONE VIEW: HISTORY: Shortness of breath. FINDINGS: Heart size is within normal limits. Increased markings bilaterally. Evidence for a hiatal hernia. No confluent pneumonia, overt edema or pleural effusion. IMPRESSION: 1. Evidence for a hiatal hernia. 2. Stable appearing increased markings bilaterally. 3. No pneumonia, edema, pleural effusion or other acute process. POS: [facility]
--- NOTE | 2019-06-29 15:09 | PDOC.HOSPP ---
- Subjective Subjective: Seen and examined on the medical unit with telemetry. Patient's fianc at bedside able to aid in history. Patient with knee immobilizer in place. Patient denies pain. Breathing well on room air. States that he feels like his nose is stuffy. Time was given for questions, all answered in detail. - Objective Vital Signs & Weight: Vital Signs (12 hours) Temp Pulse Resp BP Pulse Ox 06/29/19 13:36 116/76 06/29/19 13:16 98.6 F 99 16 182/86 H 94 L 06/29/19 12:40 84 16 06/29/19 07:41 98.2 F 95 16 152/85 H 100 06/29/19 04:15 97.9 F 92 18 159/80 H 95 Weight Admit Weight 203 lb 1.6 oz Weight 203 lb 1.6 oz I&O: 06/28/19 06/29/19 06/30/19 06:59 06:59 06:59 Intake Total 540 Output Total 1200 Balance -660 Result Diagrams: 06/29/19 11:19 06/29/19 04:36 Additional Labs: Accuchecks 06/29/19 06/28/19 10:17 21:04 POC Glucose 128 H 199 H Radiology Reviewed by me: Yes Hospitalist ROS - Review of Systems All other systems reviewed; all pertinent +/- noted in HPI/Subj - Medication Medications: Active Medications Generic Name Dose Route Start Last Admin Trade Name Freq PRN Reason Stop Dose Admin Acetaminophen 650 mg 06/28/19 17:06 06/29/19 01:39 Tylenol PO 650 mg Q4H PRN Administration Headache/Fever/Mild Pain (1-3) Albuterol/Ipratropium 3 ml 06/29/19 12:30 06/29/19 12:40 Duoneb NEB 3 ml TID-RT LEIA Administration Diltiazem HCl 90 mg 06/29/19 12:00 06/29/19 12:28 Cardizem Sr PO 90 mg Q6HR LEIA Administration Heparin Sodium (Porcine) 0 units 06/29/19 10:45 06/29/19 12:29 Heparin 1,000 Units/Ml (10 Ml) SLOW IVP 4,000 unit ASDIR LEIA Administration Protocol Cefepime HCl 1 gm/ Sodium 100 mls @ 200 mls/hr 06/28/19 21:00 06/28/19 21:26 Chloride IVPB 100 mls Q24HR LEIA Administration Heparin Sodium/Dextrose 500 mls @ 0 mls/hr 06/29/19 10:45 06/29/19 12:31 Heparin 25,000 Units/D5w 500 Ml IVPB 500 mls INF LEIA Administration Protocol Per Protocol Senna/Docusate Sodium 2 tab 06/28/19 21:00 06/29/19 09:18 Senokot S PO 2 tab BID LEIA Administration - Exam General Appearance: NAD, awake alert Eye: anicteric sclera ENT: normocephalic atraumatic, moist mucosa Neck: supple, symmetric, no lymphadenopathy Heart: no murmur, no gallops, no rubs Respiratory: CTAB, no wheezes, no rales, no ronchi, normal chest expansion Gastrointestinal: soft, non-tender, no guarding, no rigidity Extremities: no edema Skin: no rashes Neurological: cranial nerve grossly intact, no focal deficits Musculoskeletal: generalized weakness Psychiatric: normal behavior, A&O x 3 Hosp A/P (1) Knee pain Code(s): M25.569 - PAIN IN UNSPECIFIED KNEE Status: Acute (2) Hemarthrosis Code(s): M25.00 - HEMARTHROSIS, UNSPECIFIED JOINT Status: Acute (3) Skin abrasion Code(s): T14.8XXA - OTHER INJURY OF UNSPECIFIED BODY REGION, INITIAL ENCOUNTER Status: Acute (4) Chronic atrial fibrillation with RVR Code(s): I48.2 - CHRONIC ATRIAL FIBRILLATION * DO NOT USE * Status: Acute (5) Anemia Code(s): D64.9 - ANEMIA, UNSPECIFIED Status: Chronic Qualifiers: Anemia type: unspecified type Qualified Code(s): D64.9 - Anemia, unspecified (6) Chronic anticoagulation Code(s): Z79.01 - SNF (CURRENT) USE OF ANTICOAGULANTS Status: Chronic (7) DM2 (diabetes mellitus, type 2) Status: Chronic Qualifiers: Diabetes mellitus complication status: with hyperglycemia (8) HTN (hypertension) Code(s): I10 - ESSENTIAL (PRIMARY) HYPERTENSION Status: Chronic (9) Hypothyroid Code(s): E03.9 - HYPOTHYROIDISM, UNSPECIFIED Status: Chronic (10) Atrial flutter Code(s): I48.92 - UNSPECIFIED ATRIAL FLUTTER Status: Resolved - Plan Plan: medical unit with telemetry orthopedic surgery consultation, recommendations appreciated heparin drip, bridging off Coumadin vitamin K oral times one daily INR patient breathing comfortably on room air. No acute cardio pulmonary pathology at this time continue home medications as able blood pressure control blood sugar control G.I. prophylaxis DVT prophylaxis
[2019-06-29 15:41] LABS: Vancomycin, Random 10.3 ug/mL (See Comment)
[2019-06-29] MEDS ORDERED: Vancomycin 1 GM in Premix Bag 1 BAG IVPB SCH (16:00)
[2019-06-29] MEDS ORDERED: Warfarin Sodium 5 MG TAB PO SCH (17:00)
[2019-06-29] MEDS: Vancomycin HCl 1.25 GM in Sodium Chloride 0.9% 250 ML 250 ML IVPB SCH (18:06)
[2019-06-29] MEDS: Insulin Regular 300 UNITS/3 ML VIAL SC PRN ×2 (18:09→22:00)
[2019-06-29 20:18] LABS: PTT Greater than 250.0 SEC (22.9-36.1)
[2019-06-29] MEDS ORDERED: guaiFENesin/DM ER PO SCH (21:00)
[2019-06-29] MEDS: Cefepime 1 GM in Sodium Chloride 0.9% 100 ML IVPB SCH (21:22)
[2019-06-29] MEDS: guaiFENesin/DM ER PO SCH (21:23)
[2019-06-30] MEDS: Diltiazem HCl SR 90 mg Capsule PO SCH ×5 (00:09→23:58)
[2019-06-30 04:27] LABS: INR-International Normal Ratio 1.6; Prothrombin Time 19.3 SEC (12.0-14.7)
[2019-06-30] MEDS: Heparin 10,000 UNITS/ 10 ML VIAL SLOW IVP SCH ×2 (05:18→19:19)
[2019-06-30] MEDS: guaiFENesin/DM ER PO SCH ×3 (05:22→21:37)
[2019-06-30] MEDS: traMADol HCl 50 MG TAB PO PRN (06:38)
[2019-06-30] MEDS ORDERED: INSULIN DETEMIR 8 UNIT SC SCH (09:00)
[2019-06-30] MEDS: Senokot 8.6 MG TAB PO SCH (09:36)
[2019-06-30] MEDS: Levothyroxine Sodium 100 MCG TAB PO SCH (09:36)
[2019-06-30] MEDS: Furosemide 40 MG TAB PO SCH (09:36)
[2019-06-30] MEDS: Insulin Glargine 8 UNITS in Pre-Filled Syringe 1 EACH SC SCH (09:36)
[2019-06-30] MEDS: Citalopram 20 MG TAB PO SCH (09:36)
[2019-06-30] MEDS: Ferrous Sulfate 325 MG TAB PO SCH (09:36)
[2019-06-30] MEDS: Fluticasone Propionate Nasal Spray 16 gm Bottle NASAL SCH (09:42)
[2019-06-30] MEDS ORDERED: Phytonadione 10 MG/ML AMP PO SCH (09:45)
[2019-06-30] MEDS: Senokot S 8.6-50 MG TAB PO SCH ×2 (09:48→21:37)
--- NOTE | 2019-06-30 11:07 | PDOC.HOSPP ---
- Subjective Subjective: Seen and examined. Patient breathing comfortably on room air, though he tells me he does get short of breath with much walking. Expected pain in the knee. No other acute complaints at this time. Time was given for questions, all answered in detail. Family at bedside. - Objective Vital Signs & Weight: Vital Signs (12 hours) Temp Pulse Resp BP Pulse Ox 06/30/19 08:11 97.6 F 95 16 118/73 92 L 06/30/19 06:55 89 20 98 06/30/19 04:01 97.5 F L 71 16 114/75 95 06/30/19 03:34 98 20 06/30/19 00:05 98.1 F 86 18 113/68 95 Weight Admit Weight 203 lb 1.6 oz Weight 203 lb 1.6 oz I&O: 06/29/19 06/30/19 07/01/19 06:59 06:59 06:59 Intake Total 540 1317.6 Output Total 1200 475 Balance -660 842.6 Result Diagrams: 06/29/19 11:19 06/29/19 04:36 Additional Labs: Accuchecks 06/30/19 06/29/19 06/29/19 05:36 20:37 17:53 POC Glucose 118 H 233 H 270 H Radiology Reviewed by me: Yes Hospitalist ROS - Review of Systems All other systems reviewed; all pertinent +/- noted in HPI/Subj - Medication Medications: Active Medications Generic Name Dose Route Start Last Admin Trade Name Freq PRN Reason Stop Dose Admin Acetaminophen 650 mg 06/28/19 17:06 06/29/19 18:30 Tylenol PO 650 mg Q4H PRN Administration Headache/Fever/Mild Pain (1-3) Albuterol/Ipratropium 3 ml 06/29/19 12:30 06/30/19 06:55 Duoneb NEB 3 ml TID-RT LEIA Administration Albuterol/Ipratropium 3 ml 06/30/19 03:09 06/30/19 03:34 Duoneb NEB 3 ml Q4H PRN Administration SOB &/or Wheezing Citalopram Hydrobromide 20 mg 06/30/19 09:00 06/30/19 09:36 Celexa PO 20 mg DAILY LEIA Administration Diltiazem HCl 90 mg 06/29/19 12:00 06/30/19 05:22 Cardizem Sr PO 90 mg Q6HR LEIA Administration Ferrous Sulfate 325 mg 06/30/19 09:00 06/30/19 09:36 Feosol PO 325 mg DAILY LEIA Administration Fluticasone Propionate 1 gm 06/30/19 09:00 06/30/19 09:42 Flonase Nasal [place] NASAL Not Given DAILY LEIA Furosemide 40 mg 06/30/19 09:00 06/30/19 09:36 Lasix PO 40 mg DAILY LEIA Administration Guaifenesin/Dextromethorphan 1 tab 06/29/19 22:00 06/30/19 05:22 Mucinex Dm PO 1 tab Q8HR LEIA Administration Heparin Sodium (Porcine) 0 units 06/29/19 10:45 06/30/19 05:18 Heparin 1,000 Units/Ml (10 Ml) SLOW IVP 2,769 unit ASDIR LEIA Administration Protocol Cefepime HCl 1 gm/ Sodium 100 mls @ 200 mls/hr 06/28/19 21:00 06/29/19 21:22 Chloride IVPB 100 mls Q24HR LEIA Administration Heparin Sodium/Dextrose 500 mls @ 0 mls/hr 06/29/19 10:45 06/29/19 12:31 Heparin 25,000 Units/D5w 500 Ml IVPB 500 mls INF LEIA Administration Protocol Per Protocol Insulin Glargine 8 units/ 0.08 mls @ 0 mls/hr 06/30/19 09:00 06/30/19 09:36 Miscellaneous Medication SC 0.08 mls QAM LEIA Administration Vancomycin HCl 1.25 gm/ Sodium 250 mls @ 166.667 mls/hr 06/29/19 18:00 18:06 Chloride IVPB 250 mls 1800 LEIA Administration Insulin Human Regular 0 units 06/28/19 17:10 06/29/19 18:09 Humulin R SC 4 unit .MILD SLIDING SCALE PRN Administration Mild Correctional Scale Insulin Human Regular 0 units 06/28/19 17:10 06/29/19 22:00 Humulin R SC 2 unit .BEDTIME SLIDING SC PRN Administration Bedtime Correctional Scale Levothyroxine Sodium 100 mcg 06/30/19 09:00 06/30/19 09:36 Synthroid PO 100 mcg DAILY LEIA Administration Phytonadione 2.5 mg 06/30/19 09:45 06/30/19 10:15 Aquamephyton PO 06/30/19 12:00 2.5 mg NOW LIEA Administration Senna 1 tab 06/30/19 09:00 06/30/19 09:36 Senokot PO 1 tab DAILY LEIA Administration Senna/Docusate Sodium 2 tab 06/28/19 21:00 06/30/19 09:48 Senokot S PO Not Given BID LEIA Tramadol HCl 50 mg 06/29/19 10:32 06/30/19 06:38 Ultram PO 50 mg Q4H PRN Administration Pain - Exam General Appearance: NAD, awake alert Eye: anicteric sclera ENT: normocephalic atraumatic, moist mucosa Neck: supple, symmetric, no lymphadenopathy Heart: no murmur, no gallops, no rubs Respiratory: CTAB, no wheezes, no rales, no ronchi, normal chest expansion, no tachypnea Gastrointestinal: soft, non-tender, no guarding Extremities: no clubbing, no edema Skin - other findings: See wound care pictures for details Neurological: cranial nerve grossly intact, no focal deficits Musculoskeletal: generalized weakness Musculoskeletal - other findings: Right knee immobilizer in place. Dressing clean, dry, intact Psychiatric: normal affect, normal behavior, A&O x 3 Hosp A/P (1) Knee pain Code(s): M25.569 - PAIN IN UNSPECIFIED KNEE Status: Acute (2) Hemarthrosis Code(s): M25.00 - HEMARTHROSIS, UNSPECIFIED JOINT Status: Acute (3) Skin abrasion Code(s): T14.8XXA - OTHER INJURY OF UNSPECIFIED BODY REGION, INITIAL ENCOUNTER Status: Acute (4) Chronic atrial fibrillation with RVR Code(s): I48.2 - CHRONIC ATRIAL FIBRILLATION * DO NOT USE * Status: Acute (5) Anemia Code(s): D64.9 - ANEMIA, UNSPECIFIED Status: Chronic Qualifiers: Anemia type: unspecified type Qualified Code(s): D64.9 - Anemia, unspecified (6) Chronic anticoagulation Code(s): Z79.01 - [facility]ENTION (CURRENT) USE OF ANTICOAGULANTS Status: Chronic (7) DM2 (diabetes mellitus, type 2) Status: Chronic Qualifiers: Diabetes mellitus complication status: with hyperglycemia (8) HTN (hypertension) Code(s): I10 - ESSENTIAL (PRIMARY) HYPERTENSION Status: Chronic (9) Hypothyroid Code(s): E03.9 - HYPOTHYROIDISM, UNSPECIFIED Status: Chronic (10) Atrial flutter Code(s): I48.92 - UNSPECIFIED ATRIAL FLUTTER Status: Resolved - Plan Plan: medical unit with telemetry orthopedic surgery consultation, recommendations appreciated Cardiology consultation, recommendations appreciated Echo Repeat CXR for subjective shortness of breath - though breathing comfortably on room air heparin drip, bridging off Coumadin vitamin K oral times one again today daily INR, downtrending continue home medications as able blood pressure control blood sugar control G.I. prophylaxis DVT prophylaxis
--- NOTE | 2019-06-30 11:36 | RAD ---
EXAM: Chest one view: HISTORY: Shortness of breath COMPARISON: 06/29/2019 FINDINGS: Evidence for a hiatal hernia. Slight blunting and indistinction in the left costophrenic angle from yesterday's study, possibly sma ll pleural effusion. Heart size: Within normal limits. Lungs: Clear of acute process. No evidence for confluent pneumonia, pleural effusion, acute edema, or pneumothorax, or other signifi cant acute process. IMPRESSION: Slight blunting in indistinction of the left costophrenic angle, new from prior study. No confluent p neumonia.
[2019-06-30 11:51] LABS: PTT Greater than 250.0 SEC (22.9-36.1)
[2019-06-30] MEDS: Insulin Regular 300 UNITS/3 ML VIAL SC PRN ×2 (12:34→17:08)
[2019-06-30] MEDS: Vancomycin HCl 1.25 GM in Sodium Chloride 0.9% 250 ML 250 ML IVPB SCH (18:06)
[2019-06-30] MEDS: Cefepime 1 GM in Sodium Chloride 0.9% 100 ML IVPB SCH (21:37)
[2019-07-01 04:56] LABS: #Eosinphils 0.4 thou/uL (0.0-0.7); #Lymphocytes 1.2 thou/uL (1.20-3.40); #Monocytes 0.7 thou/uL (0.11-0.59); #Neutrophils 4.1 thou/uL (1.40-6.50); %Basophils 0.7 % (0.0-1.0); %Monocytes 10.6 % (0.0-10.0); %Neutrophils 63.8 % (42.0-75.0); Mean Corpuscular HGB CONC 30.8 g/dL (32.0-36.0); Mean Corpuscular Hemoglobin 29.4 pg (27.0-31.0); Mean Corpuscular Volume 95.5 fL (78.0-98.0); Mean Platelet Volume 6.6 fL (7.4-10.4); Platelet Count 289 thou/uL (130-400); RBC Distribution Width 13.4 % (11.5-14.5); Red Blood Cell (RBC) Count 3.05 mill/uL (4.70-6.10); White Blood Cell (WBC) Count 6.5 thou/uL (4.8-10.8)
[2019-07-01 05:04] LABS: INR-International Normal Ratio 1.3; Prothrombin Time 15.8 SEC (12.0-14.7)
[2019-07-01 05:17] LABS: Anion Gap 13 mmol/L (10-20); BUN (Urea Nitrogen) 28 mg/dL (8.4-25.7); Calc. Creatinine Clearance 43 mL/min (70-130); Carbon Dioxide 25 mmol/L (23-31); Chloride 105 mmol/L (98-107); Estimated GFR-MDRD 42; Glucose 134 mg/dL (83-110); Potassium 4.5 mmol/L (3.5-5.1); Sodium 138 mmol/L (136-145)
[2019-07-01] MEDS: Diltiazem HCl SR 90 mg Capsule PO SCH ×4 (06:16→23:52)
[2019-07-01] MEDS: guaiFENesin/DM ER PO SCH ×3 (06:16→21:15)
[2019-07-01] MEDS: Heparin 10,000 UNITS/ 10 ML VIAL SLOW IVP SCH (06:17)
[2019-07-01] MEDS: Heparin 25,000 units/D5W 500 ML IVPB SCH (06:17)
--- NOTE | 2019-07-01 06:42 | CON ---
DATE OF CONSULTATION: HISTORY OF PRESENT ILLNESS: Chito Fried is an 89-year-old white male, patient of Dr. Tapia. He has a longstanding history of chronic atrial fibrillation and is anticoagulated with warfarin. In May 2017, he underwent cardiac PET scan in the office, which was felt to be probably normal. He was last seen in the office in March 2019. At that time, he continued to complain of his chronic shortness of breath, although, he states at the present time, this seems to be better. He now presents on June 28, 2019 one week after he had a fall at the custodial landing on his right knee. There has been progressive redness and pain, and it is felt that he may have an abscess that needs to be drained. He denies any chest discomfort. He states his breathing has been better recently. PAST MEDICAL HISTORY: Chronic atrial fibrillation, diastolic heart failure, diabetes, hypertension, hypothyroidism, inflammatory bowel disease. PAST SURGICAL HISTORY: Cholecystectomy, carpal tunnel surgery, herniorrhaphy, cataract surgery. MEDICATIONS: 1. Celexa 20 mg daily. 2. Diltiazem q.6 hours. 3. Ferrous sulfate 325 daily. 4. Furosemide 40 daily. 5. Insulin. 6. DuoNeb. 7. Levothyroxine 100 mcg daily. 8. Meclizine 25 p.r.n. 9. Warfarin 5 mg q.p.m. ALLERGIES: CODEINE, IODINE, SHELLFISH. SOCIAL HISTORY: He does not smoke. REVIEW OF SYSTEMS: Unremarkable. PHYSICAL EXAMINATION: VITAL SIGNS: Blood pressure 125/58, pulse of 71. HEENT: PERRL. NECK: Supple. CHEST: Clear. CARDIAC: S1 and S2 normal without any S3 or S4. There is a 1/6 holosystolic murmur at the apex. ABDOMEN: Normal bowel sounds without tenderness or organomegaly. EXTREMITIES: Revealed palpable tenderness of the right knee and right ankle. NEUROLOGIC: Grossly intact. LABORATORY DATA: I do not see any EKG on the chart. Hemoglobin 10.2, hematocrit 32.1. INR 1.6. Sodium 139, potassium 4.4, chloride 105, carbon dioxide 24, BUN 32, creatinine 1.78. IMPRESSION: 1. Fall with probable development of right lower extremity abscess and cellulitis. 2. Chronic atrial fibrillation, on anticoagulation. 3. Hypertension. 4. Diabetes. PLAN: The patient's Coumadin has been held. He has been given vitamin K and currently, he is on a heparin drip, approaching surgery. Mr. Fried appears to be acceptable cardiac risk for surgery with incision and drainage of possible right leg abscess. With his recent fall, we may need to start thinking about stopping anticoagulation if this becomes a repetitive problem. Another potential long- term option would be a Watchman. Job ID: [id number] [facility]
[2019-07-01] MEDS: Ferrous Sulfate 325 MG TAB PO SCH (09:26)
[2019-07-01] MEDS: Senokot S 8.6-50 MG TAB PO SCH ×2 (09:26→21:15)
[2019-07-01] MEDS: Levothyroxine Sodium 100 MCG TAB PO SCH (09:27)
[2019-07-01] MEDS: Citalopram 20 MG TAB PO SCH (09:28)
[2019-07-01] MEDS: Insulin Glargine 8 UNITS in Pre-Filled Syringe 1 EACH SC SCH (09:28)
[2019-07-01] MEDS: Furosemide 40 MG TAB PO SCH (09:28)
[2019-07-01] MEDS: Senokot 8.6 MG TAB PO SCH (09:30)
[2019-07-01] MEDS: Fluticasone Propionate Nasal Spray 16 gm Bottle NASAL SCH (10:00)
[2019-07-01 11:02] LABS: Hemoglobin 8.9 g/dL (14.0-18.0); Platelet Count 280 thou/uL (130-400)
[2019-07-01] MEDS: Insulin Regular 300 UNITS/3 ML VIAL SC PRN ×2 (13:21→21:31)
--- NOTE | 2019-07-01 15:08 | PDOC.HOSPP ---
- Subjective Encounter Date: 07/01/19 Encounter Time: 09:00 Subjective: no chest pain or sob or palp at bedside his right LE is in immobilizer, no pain - Objective Vital Signs & Weight: Vital Signs (12 hours) Temp Pulse Resp BP Pulse Ox 07/01/19 12:46 77 16 96 07/01/19 10:30 98.1 F 72 12 119/73 92 L 07/01/19 07:45 97.4 F L 92 16 103/65 92 L 07/01/19 07:19 82 16 95 Weight Admit Weight 203 lb 1.6 oz Weight 203 lb 1.6 oz I&O: 06/30/19 07/01/19 07/02/19 06:59 06:59 06:59 Intake Total 1317.6 1188 Output Total 475 275 Balance 842.6 913 Result Diagrams: 07/01/19 10:52 07/01/19 04:47 Additional Labs: Accuchecks 07/01/19 07/01/19 06/30/19 10:33 05:21 21:10 POC Glucose 232 H 147 H 160 H 06/30/19 15:27 POC Glucose 175 H Hospitalist ROS - Medication Medications: Active Medications Generic Name Dose Route Start Last Admin Trade Name Freq PRN Reason Stop Dose Admin Acetaminophen 650 mg 06/28/19 17:06 06/29/19 18:30 Tylenol PO 650 mg Q4H PRN Administration Headache/Fever/Mild Pain (1-3) Albuterol/Ipratropium 3 ml 06/29/19 12:30 07/01/19 12:46 Duoneb NEB 3 ml TID-RT LEIA Administration Albuterol/Ipratropium 3 ml 06/30/19 03:09 06/30/19 03:34 Duoneb NEB 3 ml Q4H PRN Administration SOB &/or Wheezing Citalopram Hydrobromide 20 mg 06/30/19 09:00 07/01/19 09:28 Celexa PO 20 mg DAILY LEIA Administration Diltiazem HCl 90 mg 06/29/19 12:00 07/01/19 12:38 Cardizem Sr PO 90 mg Q6HR LEIA Administration Ferrous Sulfate 325 mg 06/30/19 09:00 07/01/19 09:26 Feosol PO 325 mg DAILY LEIA Administration Fluticasone Propionate 1 gm 06/30/19 09:00 07/01/19 10:00 Flonase Nasal [place] NASAL 1 spray DAILY LEIA Administration Furosemide 40 mg 06/30/19 09:00 07/01/19 09:28 Lasix PO 40 mg DAILY LEIA Administration Guaifenesin/Dextromethorphan 1 tab 06/29/19 22:00 07/01/19 13:20 Mucinex Dm PO 1 tab Q8HR LEIA Administration Cefepime HCl 1 gm/ Sodium 100 mls @ 200 mls/hr 06/28/19 21:00 06/30/19 21:37 Chloride IVPB 100 mls Q24HR LEIA Administration Insulin Glargine 8 units/ 0.08 mls @ 0 mls/hr 06/30/19 09:00 07/01/19 09:28 Miscellaneous Medication SC 0.08 mls QAM LEIA Administration Vancomycin HCl 1.25 gm/ Sodium 250 mls @ 166.667 mls/hr 06/29/19 18:00 18:06 Chloride IVPB 250 mls 1800 LEIA Administration Insulin Human Regular 0 units 06/28/19 17:10 07/01/19 13:21 Humulin R SC 2 unit .MILD SLIDING SCALE PRN Administration Mild Correctional Scale Insulin Human Regular 0 units 06/28/19 17:10 06/29/19 22:00 Humulin R SC 2 unit .BEDTIME SLIDING SC PRN Administration Bedtime Correctional Scale Senna 1 tab 06/30/19 09:00 07/01/19 09:30 Senokot PO Not Given DAILY LEIA Senna/Docusate Sodium 2 tab 06/28/19 21:00 07/01/19 09:26 Senokot S PO 2 tab BID LEIA Administration Tramadol HCl 50 mg 06/29/19 10:32 06/30/19 06:38 Ultram PO 50 mg Q4H PRN Administration Pain - Exam General Appearance: awake alert Eye: PERRL, anicteric sclera ENT: no oropharyngeal lesions, moist mucosa Neck: supple, no JVD Heart: no murmur, no gallops Respiratory: no wheezes, no rales Gastrointestinal: soft, non-tender, non-distended, normal bowel sounds Extremities - other findings: right LE edema+, right ant knee has large ulcer with eschar Neurological: cranial nerve grossly intact, no focal deficits Psychiatric: normal affect, A&O x 3 Hosp A/P (1) Cellulitis of right leg Code(s): L03.115 - CELLULITIS OF RIGHT LOWER LIMB Status: Acute (2) Ulcer of right knee Code(s): L97.819 - NON-PRESSURE CHRONIC ULCER OTH PRT R LOW LEG W UNSP SEVERITY Status: Acute (3) Anemia Code(s): D64.9 - ANEMIA, UNSPECIFIED Status: Chronic Qualifiers: Anemia type: unspecified type Qualified Code(s): D64.9 - Anemia, unspecified (4) Atrial fibrillation Code(s): I48.91 - UNSPECIFIED ATRIAL FIBRILLATION Status: Chronic (5) Benign hypertension Code(s): I10 - ESSENTIAL (PRIMARY) HYPERTENSION Status: Chronic (6) DM2 (diabetes mellitus, type 2) Status: Chronic Qualifiers: Diabetes mellitus terminologist insulin use: with jail use Diabetes mellitus complication status: with kidney complications Diabetes mellitus complication detail: with chronic kidney disease Chronic kidney disease stage : stage 3 (moderate) Qualified Code(s): E11.22 - Type 2 diabetes mellitus with diabetic chronic kidney disease; N18.3 - Chronic kidney disease, stage 3 ( moderate); Z79.4 - terminal block assembler (current) use of insulin (7) H/O ulcerative colitis Code(s): Z87.19 - PERSONAL HISTORY OF OTHER DISEASES OF THE DIGESTIVE SYSTEM Status: Chronic (8) HTN (hypertension) Code(s): I10 - ESSENTIAL (PRIMARY) HYPERTENSION Status: Chronic (9) Hypothyroid Code(s): E03.9 - HYPOTHYROIDISM, UNSPECIFIED Status: Chronic (10) CKD (chronic kidney disease) stage 3, GFR 30-59 ml/min Code(s): N18.3 - CHRONIC KIDNEY DISEASE, STAGE 3 (MODERATE) Status: Chronic (11) Mood disorder Code(s): F39 - UNSPECIFIED MOOD [AFFECTIVE] DISORDER Status: Chronic (12) CINDY (acute kidney injury) Code(s): N17.9 - ACUTE KIDNEY FAILURE, UNSPECIFIED Status: Resolved - Plan is on vanc and cefepime, not sure if cultures were obtained? plastic surgery to see him per ortho for likley debridement and skin grafting dc heparin drip, will start anticoagulation post procedure usg venous doppler of right LE to r/o dvt continue lantus, nebs, cardizem sr 90mg q6h, lasix, celexa hemostable is from [facility]
[2019-07-01] MEDS: Vancomycin HCl 1.25 GM in Sodium Chloride 0.9% 250 ML 250 ML IVPB SCH (18:13)
[2019-07-01] MEDS: Acetaminophen 325 MG TAB PO PRN (21:15)
[2019-07-01] MEDS: Cefepime 1 GM in Sodium Chloride 0.9% 100 ML IVPB SCH (21:16)
--- NOTE | 2019-07-02 02:29 | PDOC.EVN ---
Event Note - Event Note Event Note: Notified by RN, patient having unusual thoughts. Reportedly picturing himself jumping off a florentino. Denies suicidal ideations. Patient states has stopped medication in the past due to similar thoughts. Unclear which medications. Meds to be verified in AM. RN will ensure day team notified. Patient well in himself at this moment.
[2019-07-02 05:17] LABS: INR-International Normal Ratio 1.2; Prothrombin Time 14.8 SEC (12.0-14.7)
[2019-07-02] MEDS: Levothyroxine Sodium 100 MCG TAB PO SCH (05:20)
[2019-07-02] MEDS: Diltiazem HCl SR 90 mg Capsule PO SCH ×3 (05:20→18:44)
[2019-07-02] MEDS: guaiFENesin/DM ER PO SCH ×3 (05:20→21:05)
[2019-07-02 05:36] LABS: Anion Gap 10 mmol/L (10-20); BUN (Urea Nitrogen) 28 mg/dL (8.4-25.7); Calc. Creatinine Clearance 38 mL/min (70-130); Calcium 7.9 mg/dL (7.8-10.44); Carbon Dioxide 26 mmol/L (23-31); Chloride 105 mmol/L (98-107); Estimated GFR-MDRD 36; Glucose 68 mg/dL (83-110); Potassium 4.3 mmol/L (3.5-5.1); Sodium 137 mmol/L (136-145)
[2019-07-02] MEDS: Citalopram 20 MG TAB PO SCH (08:19)
[2019-07-02] MEDS: Insulin Glargine 8 UNITS in Pre-Filled Syringe 1 EACH SC SCH (08:19)
[2019-07-02] MEDS: Senokot S 8.6-50 MG TAB PO SCH ×2 (08:20→21:06)
[2019-07-02] MEDS: Furosemide 40 MG TAB PO SCH (08:20)
[2019-07-02] MEDS: Senokot 8.6 MG TAB PO SCH (08:20)
[2019-07-02] MEDS: Ferrous Sulfate 325 MG TAB PO SCH (08:20)
[2019-07-02] MEDS: Fluticasone Propionate Nasal Spray 16 gm Bottle NASAL SCH (10:11)
[2019-07-02] MEDS: Insulin Regular 300 UNITS/3 ML VIAL SC PRN (12:25)
[2019-07-02] MEDS ORDERED: PROPOFOL 200 MG/20 ML VIAL ONE (13:05)
--- NOTE | 2019-07-02 14:56 | PDOC.HOSPP ---
- Subjective Encounter Date: 07/02/19 Encounter Time: 11:00 Subjective: is seen ambulating in hallway with PT no sob or palp at bedside - Objective Vital Signs & Weight: Vital Signs (12 hours) Temp Pulse Resp BP Pulse Ox 07/02/19 12:05 81 16 94 L 07/02/19 10:44 98.0 F 87 18 110/71 94 L 07/02/19 08:36 97 16 94 L 07/02/19 08:00 94 L 07/02/19 07:16 97.8 F 93 18 121/73 92 L Weight Admit Weight 203 lb 1.6 oz Weight 203 lb 1.6 oz I&O: 07/01/19 07/02/19 07/03/19 06:59 06:59 06:59 Intake Total 1188 800 Output Total 275 300 Balance 913 500 Result Diagrams: 07/01/19 10:52 07/02/19 04:46 Additional Labs: Accuchecks 07/02/19 07/02/19 07/01/19 10:47 05:29 21:32 POC Glucose 187 H 91 212 H 07/01/19 15:20 POC Glucose 137 H Hospitalist ROS - Medication Medications: Active Medications Generic Name Dose Route Start Last Admin Trade Name Freq PRN Reason Stop Dose Admin Acetaminophen 650 mg 06/28/19 17:06 07/01/19 21:15 Tylenol PO 650 mg Q4H PRN Administration Headache/Fever/Mild Pain (1-3) Albuterol/Ipratropium 3 ml 06/29/19 12:30 07/02/19 12:05 Duoneb NEB 3 ml TID-RT LEIA Administration Albuterol/Ipratropium 3 ml 06/30/19 03:09 06/30/19 03:34 Duoneb NEB 3 ml Q4H PRN Administration SOB &/or Wheezing Citalopram Hydrobromide 20 mg 06/30/19 09:00 07/02/19 08:19 Celexa PO Not Given DAILY LEIA Diltiazem HCl 90 mg 06/29/19 12:00 07/02/19 12:27 Cardizem Sr PO Not Given Q6HR LEIA Ferrous Sulfate 325 mg 06/30/19 09:00 07/02/19 08:20 Feosol PO Not Given DAILY LEIA Fluticasone Propionate 1 gm 06/30/19 09:00 07/02/19 10:11 Flonase Nasal [place] NASAL Not Given DAILY [facility] Furosemide 40 mg 06/30/19 09:00 07/02/19 08:20 Lasix PO Not Given DAILY LEIA Guaifenesin/Dextromethorphan 1 tab 06/29/19 22:00 07/02/19 05:20 Mucinex Dm PO 1 tab Q8HR LEIA Administration Cefepime HCl 1 gm/ Sodium 100 mls @ 200 mls/hr 06/28/19 21:00 07/01/19 21:16 Chloride IVPB 100 mls Q24HR LEIA Administration Insulin Glargine 8 units/ 0.08 mls @ 0 mls/hr 06/30/19 09:00 07/02/19 08:19 Miscellaneous Medication SC 0.08 mls QAM LEIA Administration Vancomycin HCl 1.25 gm/ Sodium 250 mls @ 166.667 mls/hr 06/29/19 18:00 18:13 Chloride IVPB 250 mls 1800 LEIA Administration Insulin Human Regular 0 units 06/28/19 17:10 07/02/19 12:25 Humulin R SC 2 unit .MILD SLIDING SCALE PRN Administration Mild Correctional Scale Insulin Human Regular 0 units 06/28/19 17:10 07/01/19 21:31 Humulin R SC 2 unit .BEDTIME SLIDING SC PRN Administration Bedtime Correctional Scale Levothyroxine Sodium 100 mcg 07/02/19 06:00 07/02/19 05:20 Synthroid PO 100 mcg 0600 LEIA Administration Senna 1 tab 06/30/19 09:00 07/02/19 08:20 Senokot PO Not Given DAILY [facility] Senna/Docusate Sodium 2 tab 06/28/19 21:00 07/02/19 08:20 Senokot S PO Not Given BID [facility] Tramadol HCl 50 mg 06/29/19 10:32 06/30/19 06:38 Ultram PO 50 mg Q4H PRN Administration Pain - Exam General Appearance: NAD, awake alert Eye: PERRL, anicteric sclera ENT: no oropharyngeal lesions, moist mucosa Neck: supple, no JVD Heart: RRR, no murmur Respiratory: no wheezes, no rales Gastrointestinal: soft, non-tender, non-distended, normal bowel sounds Extremities: no cyanosis, 1+ LE edema Neurological: cranial nerve grossly intact, no focal deficits Psychiatric: A&O x 3 Hosp A/P (1) Cellulitis of right leg Code(s): L03.115 - CELLULITIS OF RIGHT LOWER LIMB Status: Acute (2) Ulcer of right knee Code(s): L97.819 - NON-PRESSURE CHRONIC ULCER OTH PRT R LOW LEG W UNSP SEVERITY Status: Acute (3) Anemia Code(s): D64.9 - ANEMIA, UNSPECIFIED Status: Chronic Qualifiers: Anemia type: unspecified type Qualified Code(s): D64.9 - Anemia, unspecified (4) Atrial fibrillation Code(s): I48.91 - UNSPECIFIED ATRIAL FIBRILLATION Status: Chronic (5) Benign hypertension Code(s): I10 - ESSENTIAL (PRIMARY) HYPERTENSION Status: Chronic (6) DM2 (diabetes mellitus, type 2) Status: Chronic Qualifiers: Diabetes mellitus director of brand marketing insulin use: with residential use Diabetes mellitus complication status: with kidney complications Diabetes mellitus complication detail: with chronic kidney disease Chronic kidney disease stage : stage 3 (moderate) Qualified Code(s): E11.22 - Type 2 diabetes mellitus with diabetic chronic kidney disease; N18.3 - Chronic kidney disease, stage 3 ( moderate); Z79.4 - airport operations officer (current) use of insulin (7) H/O ulcerative colitis Code(s): Z87.19 - PERSONAL HISTORY OF OTHER DISEASES OF THE DIGESTIVE SYSTEM Status: Chronic (8) HTN (hypertension) Code(s): I10 - ESSENTIAL (PRIMARY) HYPERTENSION Status: Chronic (9) Hypothyroid Code(s): E03.9 - HYPOTHYROIDISM, UNSPECIFIED Status: Chronic (10) CKD (chronic kidney disease) stage 3, GFR 30-59 ml/min Code(s): N18.3 - CHRONIC KIDNEY DISEASE, STAGE 3 (MODERATE) Status: Chronic (11) Mood disorder Code(s): F39 - UNSPECIFIED MOOD [AFFECTIVE] DISORDER Status: Chronic (12) CINDY (acute kidney injury) Code(s): N17.9 - ACUTE KIDNEY FAILURE, UNSPECIFIED Status: Resolved - Plan is on vanc and cefepime, not sure if cultures were obtained? plastic surgery for debridement and skin grafting today. usg venous doppler of right LE to r/o dvt continue lantus, nebs, cardizem sr 90mg q6h, lasix, celexa hemostable is from [facility] facility has ambulated the entire hallway with PT.
[2019-07-02] MEDS ORDERED: EPINEPHrine 1 MG/ML AMP ONE ×2 (17:15→17:26)
[2019-07-02] MEDS ORDERED: Bacitracin Zinc Ointment 30 gm TUBE ONE (17:15)
[2019-07-02] MEDS ORDERED: Lidocaine 1% w/Epinephrine 1:100K 20 ML VIAL ONE (17:15)
[2019-07-02] MEDS ORDERED: Bupivacaine 0.25% HCL 30 ML VIAL ONE ×2 (17:15→17:26)
[2019-07-02] MEDS ORDERED: Neomycin-Polymyxin 1 ML AMP ONE (17:28)
[2019-07-02] MEDS ORDERED: Fentanyl 100 MCG/2 ML VIAL ONE (17:31)
[2019-07-02] MEDS: Vancomycin HCl 1.25 GM in Sodium Chloride 0.9% 250 ML 250 ML IVPB SCH (18:45)
[2019-07-02] MEDS ORDERED: Promethazine HCl 25 MG/ML VIAL IM PRN (19:09)
[2019-07-02] MEDS ORDERED: Ondansetron HCl/PF 4 MG/2 ML Vial IVP PRN (19:09)
[2019-07-02] MEDS ORDERED: Promethazine HCl 25 MG/ML VIAL SLOW IVP PRN (19:09)
[2019-07-02] MEDS ORDERED: PACU-Morphine 4MG/ML VIAL SLOW IVP PRN (19:09)
[2019-07-02 20:33] LABS: Vancomycin, Trough 17.5 ug/mL
[2019-07-02] MEDS: Cefepime 1 GM in Sodium Chloride 0.9% 100 ML IVPB SCH (21:04)
--- NOTE | 2019-07-03 00:21 | CON ---
DATE OF CONSULTATION: CHIEF COMPLAINT: Right lower extremity infection. HISTORY OF PRESENT ILLNESS: The patient is an 89-year-old male with atrial fibrillation, who is on anticoagulation. He was admitted after falling and injuring his right knee approximately 2 weeks ago. In the interim, he appeared to have loss of the large eschar of skin over his knee as well as developing a related cellulitis. He was admitted for both of these. Plastic Surgery has been consulted for debridement and eventual reconstruction. PAST MEDICAL HISTORY: 1. Diabetes, type 2. 2. Benign prostatic hypertrophy. 3. Chronic diastolic heart failure. 4. Chronic atrial fibrillation. 5. Coronary artery disease. 6. Hypothyroidism. 7. Inflammatory bowel disease. 8. Recent fracture of the 5th metacarpal and lateral femur. 9. Restless legs syndrome. 10. Chronic low back pain. PAST SURGICAL HISTORY: 1. Cholecystectomy. 2. Carpal tunnel. 3. Cardioversion. 4. Hernia surgery. 5. Cataract surgery. ALLERGIES: THE PATIENT IS ALLERGIC TO CODEINE AND IODINE. MEDICATIONS: Reviewed in his chart. SOCIAL HISTORY: The patient is a nonsmoker. Lives in [facility]. He is competent to make his own decisions. FAMILY HISTORY: Noncontributory. REVIEW OF SYSTEMS: Noncontributory. PHYSICAL EXAMINATION: VITAL SIGNS: Reviewed in the chart. GENERAL: A well-nourished, well-developed, 89-year-old male who answers questions appropriately and is oriented to person, place, and time. HEENT: Normocephalic, atraumatic. EXTREMITIES: Large eschar approximately an 8 x 8 cm over the anterior surface of his knee, leg erythema around it. LABORATORY DATA: White blood count is 6.5 and has come down on the last 3 days. IMPRESSION: Right leg cellulitis with skin loss. I suspect that the patient developed a hematoma under the skin, which eventually sloughed. The patient will require debridement and eventually skin grafting after the wound gets over his current infection. PLAN: To take to the operating room today. Job ID: [id number]
[2019-07-03] MEDS: Diltiazem HCl SR 90 mg Capsule PO SCH ×5 (00:33→22:39)
[2019-07-03] MEDS: Acetaminophen 325 MG TAB PO PRN ×3 (00:33→22:38)
[2019-07-03] MEDS: Levothyroxine Sodium 100 MCG TAB PO SCH (05:30)
[2019-07-03] MEDS: guaiFENesin/DM ER PO SCH ×3 (05:30→22:39)
[2019-07-03 05:56] LABS: Anion Gap 8 mmol/L (10-20); BUN (Urea Nitrogen) 22 mg/dL (8.4-25.7); Calc. Creatinine Clearance 48 mL/min (70-130); Calcium 8.2 mg/dL (7.8-10.44); Carbon Dioxide 29 mmol/L (23-31); Chloride 107 mmol/L (98-107); Estimated GFR-MDRD 47; Glucose 102 mg/dL (83-110); Potassium 4.5 mmol/L (3.5-5.1); Sodium 139 mmol/L (136-145)
[2019-07-03] MEDS: Senokot S 8.6-50 MG TAB PO SCH ×2 (09:02→20:32)
[2019-07-03] MEDS: Furosemide 40 MG TAB PO SCH (09:02)
[2019-07-03] MEDS: Ferrous Sulfate 325 MG TAB PO SCH (09:02)
[2019-07-03] MEDS: Senokot 8.6 MG TAB PO SCH (09:02)
[2019-07-03] MEDS: Fluticasone Propionate Nasal Spray 16 gm Bottle NASAL SCH (09:03)
[2019-07-03] MEDS: Insulin Glargine 8 UNITS in Pre-Filled Syringe 1 EACH SC SCH (09:03)
[2019-07-03] MEDS: Citalopram 20 MG TAB PO SCH (09:05)
[2019-07-03 11:39] LABS: Hemoglobin 10.2 g/dL (14.0-18.0); Platelet Count 287 thou/uL (130-400)
[2019-07-03] MEDS: traMADol HCl 50 MG TAB PO PRN ×2 (11:43→20:32)
[2019-07-03] MEDS: Insulin Regular 300 UNITS/3 ML VIAL SC PRN ×2 (12:11→16:28)
--- NOTE | 2019-07-03 12:57 | PDOC.HOSPP ---
- Subjective Encounter Date: 07/03/19 Encounter Time: 09:15 Subjective: sitting in chair, feels good at bedside no sob - Objective Vital Signs & Weight: Vital Signs (12 hours) Temp Pulse Resp BP Pulse Ox 07/03/19 11:50 97.7 F 68 20 118/75 93 L 07/03/19 08:00 98.1 F 106 H 16 121/78 92 L 07/03/19 07:14 89 16 90 L 07/03/19 04:01 97.7 F 94 18 147/74 H 94 L Weight Admit Weight 203 lb 1.6 oz Weight 203 lb 1.6 oz I&O: 07/02/19 07/03/19 07/04/19 06:59 06:59 06:59 Intake Total 800 1240 Output Total 300 250 Balance 500 990 Result Diagrams: 07/03/19 11:27 07/03/19 05:28 Additional Labs: Accuchecks 07/03/19 07/02/19 07/02/19 05:18 21:01 15:17 POC Glucose 118 H 190 H 88 Hospitalist ROS - Medication Medications: Active Medications Generic Name Dose Route Start Last Admin Trade Name Freq PRN Reason Stop Dose Admin Acetaminophen 650 mg 06/28/19 17:06 07/03/19 12:18 Tylenol PO 650 mg Q4H PRN Administration Headache/Fever/Mild Pain (1-3) Albuterol/Ipratropium 3 ml 06/29/19 12:30 07/03/19 07:14 Duoneb NEB 3 ml TID-RT LEIA Administration Albuterol/Ipratropium 3 ml 06/30/19 03:09 06/30/19 03:34 Duoneb NEB 3 ml Q4H PRN Administration SOB &/or Wheezing Citalopram Hydrobromide 20 mg 06/30/19 09:00 07/03/19 09:05 Celexa PO 20 mg DAILY LEIA Administration Diltiazem HCl 90 mg 06/29/19 12:00 07/03/19 11:40 Cardizem Sr PO 90 mg Q6HR LEIA Administration Ferrous Sulfate 325 mg 06/30/19 09:00 07/03/19 09:02 Feosol PO 325 mg DAILY LEIA Administration Fluticasone Propionate 1 gm 06/30/19 09:00 07/03/19 09:03 Flonase Nasal [place] NASAL 1 spray DAILY LEIA Administration Furosemide 40 mg 06/30/19 09:00 07/03/19 09:02 Lasix PO 40 mg DAILY LEIA Administration Guaifenesin/Dextromethorphan 1 tab 06/29/19 22:00 07/03/19 05:30 Mucinex Dm PO 1 tab Q8HR LEIA Administration Cefepime HCl 1 gm/ Sodium 100 mls @ 200 mls/hr 06/28/19 21:00 07/02/19 21:04 Chloride IVPB 100 mls Q24HR LEIA Administration Insulin Glargine 8 units/ 0.08 mls @ 0 mls/hr 06/30/19 09:00 07/03/19 09:03 Miscellaneous Medication SC 0.08 mls QAM LEIA Administration Vancomycin HCl 1.25 gm/ Sodium 250 mls @ 166.667 mls/hr 06/29/19 18:00 18:45 Chloride IVPB Not Given 1800 LEIA Insulin Human Regular 0 units 06/28/19 17:10 07/03/19 12:11 Humulin R SC 2 unit .MILD SLIDING SCALE PRN Administration Mild Correctional Scale Insulin Human Regular 0 units 06/28/19 17:10 07/01/19 21:31 Humulin R SC 2 unit .BEDTIME SLIDING SC PRN Administration Bedtime Correctional Scale Levothyroxine Sodium 100 mcg 07/02/19 06:00 07/03/19 05:30 Synthroid PO 100 mcg 0600 LEIA Administration Senna 1 tab 06/30/19 09:00 07/03/19 09:02 Senokot PO Not Given DAILY LEIA Senna/Docusate Sodium 2 tab 06/28/19 21:00 07/03/19 09:02 Senokot S PO 2 tab BID LEIA Administration Tramadol HCl 50 mg 06/29/19 10:32 07/03/19 11:43 Ultram PO 50 mg Q4H PRN Administration Pain - Exam General Appearance: awake alert Eye: PERRL, anicteric sclera ENT: no oropharyngeal lesions, moist mucosa Neck: supple, no JVD Heart: RRR, no murmur Respiratory: no wheezes, no rales Gastrointestinal: soft, non-tender, non-distended, normal bowel sounds Extremities: no cyanosis Neurological: cranial nerve grossly intact, no focal deficits Psychiatric: normal affect, A&O x 3 Hosp A/P (1) Cellulitis of right leg Code(s): L03.115 - CELLULITIS OF RIGHT LOWER LIMB Status: Acute (2) Ulcer of right knee Code(s): L97.819 - NON-PRESSURE CHRONIC ULCER OTH PRT R LOW LEG W UNSP SEVERITY Status: Acute (3) Anemia Code(s): D64.9 - ANEMIA, UNSPECIFIED Status: Chronic Qualifiers: Anemia type: unspecified type Qualified Code(s): D64.9 - Anemia, unspecified (4) Atrial fibrillation Code(s): I48.91 - UNSPECIFIED ATRIAL FIBRILLATION Status: Chronic (5) Benign hypertension Code(s): I10 - ESSENTIAL (PRIMARY) HYPERTENSION Status: Chronic (6) DM2 (diabetes mellitus, type 2) Status: Chronic Qualifiers: Diabetes mellitus fpc insulin use: with fpc use Diabetes mellitus complication status: with kidney complications Diabetes mellitus complication detail: with chronic kidney disease Chronic kidney disease stage : stage 3 (moderate) Qualified Code(s): E11.22 - Type 2 diabetes mellitus with diabetic chronic kidney disease; N18.3 - Chronic kidney disease, stage 3 ( moderate); Z79.4 - halfway (current) use of insulin (7) H/O ulcerative colitis Code(s): Z87.19 - PERSONAL HISTORY OF OTHER DISEASES OF THE DIGESTIVE SYSTEM Status: Chronic (8) HTN (hypertension) Code(s): I10 - ESSENTIAL (PRIMARY) HYPERTENSION Status: Chronic (9) Hypothyroid Code(s): E03.9 - HYPOTHYROIDISM, UNSPECIFIED Status: Chronic (10) CKD (chronic kidney disease) stage 3, GFR 30-59 ml/min Code(s): N18.3 - CHRONIC KIDNEY DISEASE, STAGE 3 (MODERATE) Status: Chronic (11) Mood disorder Code(s): F39 - UNSPECIFIED MOOD [AFFECTIVE] DISORDER Status: Chronic (12) CINDY (acute kidney injury) Code(s): N17.9 - ACUTE KIDNEY FAILURE, UNSPECIFIED Status: Resolved - Plan is on vanc and cefepime s/p debridement done by Dr.Rude Novak, will need wound vac for dc plan, d/w CM. continue lantus, nebs, cardizem sr 90mg q6h, lasix, celexa [facility] mobilize as tolerated.
--- NOTE | 2019-07-03 14:39 | PDOC.CPN ---
- Subjective Date: 07/03/19 Time: 14:37 - Objective Allergies/Adverse Reactions: Allergies Allergy/AdvReac Type Severity Reaction Status Date / Time codeine Allergy Verified 06/28/19 19:16 cucumber Allergy Verified 06/28/19 19:16 iodine Allergy Verified 06/28/19 19:16 shellfish derived Allergy Verified 06/28/19 19:16 shrimp Allergy Uncoded 08/28/18 21:26 Visit Medications: Current Medications Acetaminophen (Tylenol) 650 mg PO Q4H PRN PRN Reason: Headache/Fever/Mild Pain (1-3) Last Admin: 07/03/19 12:18 Dose: 650 mg Albuterol/Ipratropium (Duoneb) 3 ml NEB TID-RT [facility] Last Admin: 07/03/19 12:49 Dose: 3 ml Albuterol/Ipratropium (Duoneb) 3 ml NEB Q4H PRN PRN Reason: SOB &/or Wheezing Last Admin: 06/30/19 03:34 Dose: 3 ml Calcium Carbonate (Tums) 1,000 mg PO Q4H PRN PRN Reason: Heartburn or Indigestion Citalopram Hydrobromide (Celexa) 20 mg PO DAILY [facility] Last Admin: 07/03/19 09:05 Dose: 20 mg Dextrose/Water (Dextrose 50%) 25 gm SLOW IVP PRN PRN PRN Reason: Hypoglycemia Diltiazem HCl (Cardizem Sr) 90 mg PO Q6HR [facility] Last Admin: 07/03/19 11:40 Dose: 90 mg Ergocalciferol (Drisdol) 1.25 mg PO Q7DAYS [facility] Ferrous Sulfate (Feosol) 325 mg PO DAILY [facility] Last Admin: 07/03/19 09:02 Dose: 325 mg Fluticasone Propionate (Flonase Nasal [place]) 1 gm NASAL DAILY [facility] Last Admin: 07/03/19 09:03 Dose: 1 spray Furosemide (Lasix) 40 mg PO DAILY [facility] Last Admin: 07/03/19 09:02 Dose: 40 mg Glucagon (Glucagon) 1 mg IM PRN PRN PRN Reason: Hypoglycemia Guaifenesin/Dextromethorphan (Mucinex Dm) 1 tab PO Q8HR [facility] Last Admin: 07/03/19 05:30 Dose: 1 tab Cefepime HCl 1 gm/ Sodium (Chloride) 100 mls @ 200 mls/hr IVPB Q24HR [facility] Last Admin: 07/02/19 21:04 Dose: 100 mls Dextrose/Water (D5w) 1,000 mls @ 0 mls/hr IV .Q0M PRN PRN Reason: Hypoglycemia Insulin Glargine 8 units/ (Miscellaneous Medication) 0.08 mls @ 0 mls/hr SC QAM [facility] Last Admin: 07/03/19 09:03 Dose: 0.08 mls Vancomycin HCl 1.25 gm/ Sodium (Chloride) 250 mls @ 166.667 mls/hr IVPB 1800 [facility] Last Admin: 07/02/19 18:45 Dose: Not Given Insulin Human Regular (Humulin R) 0 units SC .MILD SLIDING SCALE PRN PRN Reason: Mild Correctional Scale Last Admin: 07/03/19 12:11 Dose: 2 unit Insulin Human Regular (Humulin R) 0 units SC .BEDTIME SLIDING SC PRN PRN Reason: Bedtime Correctional Scale Last Admin: 07/01/19 21:31 Dose: 2 unit Levothyroxine Sodium (Synthroid) 100 mcg PO 0600 [facility] Last Admin: 07/03/19 05:30 Dose: 100 mcg Meclizine HCl (Antivert) 25 mg PO DAILY PRN PRN Reason: Dizziness Miscellaneous Medication (Pharmacy To Dose) 1 each IVPB PRN PRN PRN Reason: Pharmacy to dose Ondansetron HCl (Zofran Odt) 4 mg PO Q6HR PRN PRN Reason: Nausea/Vomiting Senna (Senokot) 1 tab PO DAILY [facility] Last Admin: 07/03/19 09:02 Dose: Not Given Senna/Docusate Sodium (Senokot S) 2 tab PO BID [facility] Last Admin: 07/03/19 09:02 Dose: 2 tab Sodium Chloride (Flush - Normal Saline) 10 ml IVF PRN PRN PRN Reason: Saline Flush Tramadol HCl (Ultram) 50 mg PO Q4H PRN PRN Reason: Pain Last Admin: 07/03/19 11:43 Dose: 50 mg Vital Signs & Weight: Vital Signs Temp Pulse Resp BP Pulse Ox 07/03/19 12:49 74 16 95 07/03/19 11:50 97.7 F 68 20 118/75 93 L 07/03/19 08:00 98.1 F 106 H 16 121/78 92 L 07/03/19 07:14 89 16 90 L 07/03/19 04:01 97.7 F 94 18 147/74 H 94 L Admit Weight 203 lb 1.6 oz Weight 203 lb 1.6 oz - Physical Exam HEENT: mucus membranes moist Neck: supple neck Cardiac: irregularly regular Lungs: normal exam Neuro: grossly intact - Labs Result Diagrams: 07/03/19 11:27 07/03/19 05:28 - Assessment/Plan Assessment/Plan: Chronic afib Recent debridement of hematoma HTN Chronic diastolic dysfunction Will discuss with Dr. Raza on restarting coumadin Pt is rate ocntrolled on CCB and would continue will change to long acting
[2019-07-03] MEDS ORDERED: Warfarin Sodium 5 MG TAB PO SCH (17:00)
[2019-07-03] MEDS: Warfarin Sodium 5 MG TAB PO SCH (17:09)
[2019-07-03] MEDS: Vancomycin HCl 1.25 GM in Sodium Chloride 0.9% 250 ML 250 ML IVPB SCH (17:09)
[2019-07-03] MEDS: Cefepime 1 GM in Sodium Chloride 0.9% 100 ML IVPB SCH (20:33)
[2019-07-04] MEDS: Diltiazem HCl SR 90 mg Capsule PO SCH ×4 (05:45→23:23)
[2019-07-04] MEDS: traMADol HCl 50 MG TAB PO PRN (05:45)
[2019-07-04] MEDS: guaiFENesin/DM ER PO SCH ×3 (05:45→21:04)
[2019-07-04] MEDS: Levothyroxine Sodium 100 MCG TAB PO SCH (05:45)
[2019-07-04 06:04] LABS: Anion Gap 9 mmol/L (10-20); BUN (Urea Nitrogen) 27 mg/dL (8.4-25.7); Calc. Creatinine Clearance 41 mL/min (70-130); Carbon Dioxide 27 mmol/L (23-31); Chloride 106 mmol/L (98-107); Estimated GFR-MDRD 40; Glucose 104 mg/dL (83-110); Potassium 4.5 mmol/L (3.5-5.1); Sodium 137 mmol/L (136-145)
[2019-07-04] MEDS: Senokot S 8.6-50 MG TAB PO SCH ×2 (09:09→20:01)
[2019-07-04] MEDS: Ferrous Sulfate 325 MG TAB PO SCH (09:10)
[2019-07-04] MEDS: Insulin Glargine 8 UNITS in Pre-Filled Syringe 1 EACH SC SCH (09:10)
[2019-07-04] MEDS: Furosemide 40 MG TAB PO SCH (09:10)
[2019-07-04] MEDS: Citalopram 20 MG TAB PO SCH (09:10)
[2019-07-04] MEDS: Senokot 8.6 MG TAB PO SCH (09:16)
[2019-07-04] MEDS: Fluticasone Propionate Nasal Spray 16 gm Bottle NASAL SCH (09:30)
[2019-07-04] MEDS: Insulin Regular 300 UNITS/3 ML VIAL SC PRN ×2 (11:30→16:34)
--- NOTE | 2019-07-04 13:00 | PDOC.HOSPP ---
- Subjective Encounter Date: 07/04/19 Encounter Time: 08:00 Subjective: feels better, mild pain in right knee ambu yesterday in hallway - Objective Vital Signs & Weight: Vital Signs (12 hours) Temp Pulse Resp BP BP Pulse Ox 07/04/19 12:48 90 14 07/04/19 12:23 97.5 F L 75 18 108/67 94 L 07/04/19 08:58 93 L 07/04/19 08:47 80 16 07/04/19 08:38 93 L 07/04/19 07:52 97.7 F 84 18 116/66 89 L Weight Admit Weight 203 lb 1.6 oz Weight 203 lb 1.6 oz I&O: 07/03/19 07/04/19 07/05/19 06:59 06:59 06:59 Intake Total 1240 1965 Output Total 250 150 Balance 990 1815 Result Diagrams: 07/03/19 11:27 07/04/19 04:45 Additional Labs: Accuchecks 07/04/19 07/04/19 07/03/19 10:34 05:43 20:55 POC Glucose 155 H 122 H 125 H 07/03/19 15:56 POC Glucose 216 H Hospitalist ROS - Medication Medications: Active Medications Generic Name Dose Route Start Last Admin Trade Name Freq PRN Reason Stop Dose Admin Acetaminophen 650 mg 06/28/19 17:06 07/03/19 22:38 Tylenol PO 650 mg Q4H PRN Administration Headache/Fever/Mild Pain (1-3) Albuterol/Ipratropium 3 ml 06/29/19 12:30 07/04/19 12:48 Duoneb NEB 3 ml TID-RT LEIA Administration Albuterol/Ipratropium 3 ml 06/30/19 03:09 06/30/19 03:34 Duoneb NEB 3 ml Q4H PRN Administration SOB &/or Wheezing Citalopram Hydrobromide 20 mg 06/30/19 09:00 07/04/19 09:10 Celexa PO 20 mg DAILY LEIA Administration Diltiazem HCl 90 mg 06/29/19 12:00 07/04/19 12:23 Cardizem Sr PO 90 mg Q6HR LEIA Administration Ferrous Sulfate 325 mg 06/30/19 09:00 07/04/19 09:10 Feosol PO 325 mg DAILY LEIA Administration Fluticasone Propionate 1 gm 06/30/19 09:00 07/04/19 09:30 Flonase Nasal [place] NASAL Not Given DAILY LEIA Furosemide 40 mg 06/30/19 09:00 07/04/19 09:10 Lasix PO 40 mg DAILY LEIA Administration Guaifenesin/Dextromethorphan 1 tab 06/29/19 22:00 07/04/19 05:45 Mucinex Dm PO 1 tab Q8HR LEIA Administration Cefepime HCl 1 gm/ Sodium 100 mls @ 200 mls/hr 06/28/19 21:00 07/03/19 20:33 Chloride IVPB 100 mls Q24HR LEIA Administration Insulin Glargine 8 units/ 0.08 mls @ 0 mls/hr 06/30/19 09:00 07/04/19 09:10 Miscellaneous Medication SC 0.08 mls QAM LEIA Administration Vancomycin HCl 1.25 gm/ Sodium 250 mls @ 166.667 mls/hr 06/29/19 18:00 17:09 Chloride IVPB 250 mls 1800 LEIA Administration Insulin Human Regular 0 units 06/28/19 17:10 07/04/19 11:30 Humulin R SC 2 unit .MILD SLIDING SCALE PRN Administration Mild Correctional Scale Insulin Human Regular 0 units 06/28/19 17:10 07/01/19 21:31 Humulin R SC 2 unit .BEDTIME SLIDING SC PRN Administration Bedtime Correctional Scale Levothyroxine Sodium 100 mcg 07/02/19 06:00 07/04/19 05:45 Synthroid PO 100 mcg 0600 LEIA Administration Senna 1 tab 06/30/19 09:00 07/04/19 09:16 Senokot PO Not Given DAILY LEIA Senna/Docusate Sodium 2 tab 06/28/19 21:00 07/04/19 09:09 Senokot S PO 2 tab BID LEIA Administration Tramadol HCl 50 mg 06/29/19 10:32 07/04/19 05:45 Ultram PO 50 mg Q4H PRN Administration Pain Warfarin Sodium 5 mg 07/03/19 17:00 07/03/19 17:09 Coumadin PO 5 mg 1700 LEIA Administration - Exam General Appearance: awake alert Eye: PERRL, anicteric sclera ENT: no oropharyngeal lesions, moist mucosa Neck: supple, no JVD Heart: RRR, no murmur Respiratory: no wheezes, no rales Gastrointestinal: soft, non-tender, non-distended, normal bowel sounds Extremities: 1+ LE edema Neurological: cranial nerve grossly intact, no focal deficits Psychiatric: normal affect, A&O x 3 Hosp A/P (1) Cellulitis of right leg Code(s): L03.115 - CELLULITIS OF RIGHT LOWER LIMB Status: Acute (2) Ulcer of right knee Code(s): L97.819 - NON-PRESSURE CHRONIC ULCER OTH PRT R LOW LEG W UNSP SEVERITY Status: Acute (3) Anemia Code(s): D64.9 - ANEMIA, UNSPECIFIED Status: Chronic Qualifiers: Anemia type: unspecified type Qualified Code(s): D64.9 - Anemia, unspecified (4) Atrial fibrillation Code(s): I48.91 - UNSPECIFIED ATRIAL FIBRILLATION Status: Chronic (5) Benign hypertension Code(s): I10 - ESSENTIAL (PRIMARY) HYPERTENSION Status: Chronic (6) DM2 (diabetes mellitus, type 2) Status: Chronic Qualifiers: Diabetes mellitus snf insulin use: with long term care pharmacist use Diabetes mellitus complication status: with kidney complications Diabetes mellitus complication detail: with chronic kidney disease Chronic kidney disease stage : stage 3 (moderate) Qualified Code(s): E11.22 - Type 2 diabetes mellitus with diabetic chronic kidney disease; N18.3 - Chronic kidney disease, stage 3 ( moderate); Z79.4 - termite control servicer (current) use of insulin (7) H/O ulcerative colitis Code(s): Z87.19 - PERSONAL HISTORY OF OTHER DISEASES OF THE DIGESTIVE SYSTEM Status: Chronic (8) HTN (hypertension) Code(s): I10 - ESSENTIAL (PRIMARY) HYPERTENSION Status: Chronic (9) Hypothyroid Code(s): E03.9 - HYPOTHYROIDISM, UNSPECIFIED Status: Chronic (10) CKD (chronic kidney disease) stage 3, GFR 30-59 ml/min Code(s): N18.3 - CHRONIC KIDNEY DISEASE, STAGE 3 (MODERATE) Status: Chronic (11) Mood disorder Code(s): F39 - UNSPECIFIED MOOD [AFFECTIVE] DISORDER Status: Chronic (12) CINDY (acute kidney injury) Code(s): N17.9 - ACUTE KIDNEY FAILURE, UNSPECIFIED Status: Resolved - Plan is on vanc and cefepime s/p debridement done by Dr.Rude Novak, will need wound vac for dc plan, d/w CM. continue lantus, nebs, cardizem sr 90mg q6h, lasix, celexa hemostable is from [facility], dc plan in am on oral antibiotics mobilize as tolerated.
[2019-07-04] MEDS: Warfarin Sodium 5 MG TAB PO SCH (17:11)
[2019-07-04] MEDS: Vancomycin HCl 1.25 GM in Sodium Chloride 0.9% 250 ML 250 ML IVPB SCH (17:38)
[2019-07-04] MEDS: Cefepime 1 GM in Sodium Chloride 0.9% 100 ML IVPB SCH (20:01)
[2019-07-04] MEDS: Acetaminophen 325 MG TAB PO PRN (21:04)
[2019-07-05 05:17] LABS: INR-International Normal Ratio 1.2; Prothrombin Time 15.5 SEC (12.0-14.7)
[2019-07-05 05:35] LABS: Anion Gap 11 mmol/L (10-20); BUN (Urea Nitrogen) 29 mg/dL (8.4-25.7); Calc. Creatinine Clearance 39 mL/min (70-130); Calcium 8.3 mg/dL (7.8-10.44); Carbon Dioxide 26 mmol/L (23-31); Chloride 105 mmol/L (98-107); Estimated GFR-MDRD 38; Glucose 100 mg/dL (83-110); Potassium 5.2 mmol/L (3.5-5.1); Sodium 137 mmol/L (136-145)
[2019-07-05] MEDS: Levothyroxine Sodium 100 MCG TAB PO SCH (05:44)
[2019-07-05] MEDS: Diltiazem HCl SR 90 mg Capsule PO SCH ×4 (05:44→23:23)
[2019-07-05] MEDS: guaiFENesin/DM ER PO SCH ×3 (05:45→20:40)
[2019-07-05] MEDS: Citalopram 20 MG TAB PO SCH (08:53)
[2019-07-05] MEDS: Furosemide 40 MG TAB PO SCH (08:53)
[2019-07-05] MEDS: Ferrous Sulfate 325 MG TAB PO SCH (08:53)
[2019-07-05] MEDS: Senokot S 8.6-50 MG TAB PO SCH ×2 (08:53→20:38)
[2019-07-05] MEDS: Fluticasone Propionate Nasal Spray 16 gm Bottle NASAL SCH (08:54)
[2019-07-05] MEDS: Insulin Glargine 8 UNITS in Pre-Filled Syringe 1 EACH SC SCH (08:56)
[2019-07-05] MEDS: Senokot 8.6 MG TAB PO SCH (09:01)
[2019-07-05] MEDS ORDERED: Warfarin Sodium 2.5 MG TAB PO SCH (10:00)
[2019-07-05 11:04] LABS: Hemoglobin 9.4 g/dL (14.0-18.0); Platelet Count 255 thou/uL (130-400)
--- NOTE | 2019-07-05 13:24 | PDOC.HOSPP ---
- Subjective Encounter Date: 07/05/19 Encounter Time: 08:10 Subjective: no sob or pain is still waking up just arrived they prefer going to inpt rehab - Objective Vital Signs & Weight: Vital Signs (12 hours) Temp Pulse Resp BP Pulse Ox 07/05/19 08:19 94 16 07/05/19 08:00 97.6 F 84 16 116/75 96 07/05/19 04:18 93 L 07/05/19 04:00 97.6 F 88 16 122/67 93 L 07/05/19 03:57 96 20 98 Weight Admit Weight 203 lb 1.6 oz Weight 203 lb 1.6 oz I&O: 07/04/19 07/05/19 07/06/19 06:59 06:59 06:59 Intake Total 1965 1241 Output Total 150 Balance 1815 1241 Result Diagrams: 07/05/19 10:57 07/05/19 04:46 Additional Labs: Accuchecks 07/05/19 07/05/19 07/04/19 10:52 05:29 20:30 POC Glucose 187 H 110 158 H 07/04/19 15:40 POC Glucose 177 H Hospitalist ROS - Medication Medications: Active Medications Generic Name Dose Route Start Last Admin Trade Name Freq PRN Reason Stop Dose Admin Acetaminophen 650 mg 06/28/19 17:06 07/04/19 21:04 Tylenol PO 650 mg Q4H PRN Administration Headache/Fever/Mild Pain (1-3) Albuterol/Ipratropium 3 ml 06/29/19 12:30 07/05/19 08:19 Duoneb NEB 3 ml TID-RT LEIA Administration Albuterol/Ipratropium 3 ml 06/30/19 03:09 07/05/19 03:57 Duoneb NEB 3 ml Q4H PRN Administration SOB &/or Wheezing Citalopram Hydrobromide 20 mg 06/30/19 09:00 07/05/19 08:53 Celexa PO 20 mg DAILY LEIA Administration Diltiazem HCl 90 mg 06/29/19 12:00 07/05/19 12:29 Cardizem Sr PO 90 mg Q6HR LEIA Administration Ferrous Sulfate 325 mg 06/30/19 09:00 07/05/19 08:53 Feosol PO 325 mg DAILY LEIA Administration Fluticasone Propionate 1 gm 06/30/19 09:00 07/05/19 08:54 Flonase Nasal [place] NASAL 1 spray DAILY [facility]IA Administration Furosemide 40 mg 06/30/19 09:00 07/05/19 08:53 Lasix PO 40 mg DAILY LEIA Administration Guaifenesin/Dextromethorphan 1 tab 06/29/19 22:00 07/05/19 05:45 Mucinex Dm PO 1 tab Q8HR LEIA Administration Cefepime HCl 1 gm/ Sodium 100 mls @ 200 mls/hr 06/28/19 21:00 07/04/19 20:01 Chloride IVPB 100 mls Q24HR LEIA Administration Insulin Glargine 8 units/ 0.08 mls @ 0 mls/hr 06/30/19 09:00 07/05/19 08:56 Miscellaneous Medication SC 0.08 mls QAM LEIA Administration Vancomycin HCl 1.25 gm/ Sodium 250 mls @ 166.667 mls/hr 06/29/19 18:00 17:38 Chloride IVPB 250 mls 1800 LEIA Administration Insulin Human Regular 0 units 06/28/19 17:10 07/04/19 16:34 Humulin R SC 2 unit .MILD SLIDING SCALE PRN Administration Mild Correctional Scale Insulin Human Regular 0 units 06/28/19 17:10 07/01/19 21:31 Humulin R SC 2 unit .BEDTIME SLIDING SC PRN Administration Bedtime Correctional Scale Levothyroxine Sodium 100 mcg 07/02/19 06:00 07/05/19 05:44 Synthroid PO 100 mcg 0600 LEIA Administration Senna 1 tab 06/30/19 09:00 07/05/19 09:01 Senokot PO Not Given DAILY [facility]IA Senna/Docusate Sodium 2 tab 06/28/19 21:00 07/05/19 08:53 Senokot S PO 2 tab BID LEIA Administration Tramadol HCl 50 mg 06/29/19 10:32 07/04/19 05:45 Ultram PO 50 mg Q4H PRN Administration Pain Warfarin Sodium 5 mg 07/03/19 17:00 07/04/19 17:11 Coumadin PO 5 mg 1700 LEIA Administration - Exam General Appearance: awake alert Eye: PERRL, anicteric sclera ENT: no oropharyngeal lesions, moist mucosa Neck: supple, no JVD Heart: RRR, no murmur Respiratory: no wheezes, no rales Gastrointestinal: soft, non-tender, non-distended, normal bowel sounds Extremities: no cyanosis Neurological: cranial nerve grossly intact, no new deficit Psychiatric: normal affect, A&O x 3 Hosp A/P (1) Cellulitis of right leg Code(s): L03.115 - CELLULITIS OF RIGHT LOWER LIMB Status: Acute (2) Ulcer of right knee Code(s): L97.819 - NON-PRESSURE CHRONIC ULCER OTH PRT R LOW LEG W UNSP SEVERITY Status: Acute (3) Anemia Code(s): D64.9 - ANEMIA, UNSPECIFIED Status: Chronic Qualifiers: Anemia type: unspecified type Qualified Code(s): D64.9 - Anemia, unspecified (4) Atrial fibrillation Code(s): I48.91 - UNSPECIFIED ATRIAL FIBRILLATION Status: Chronic (5) Benign hypertension Code(s): I10 - ESSENTIAL (PRIMARY) HYPERTENSION Status: Chronic (6) DM2 (diabetes mellitus, type 2) Status: Chronic Qualifiers: Diabetes mellitus snf insulin use: with continuous churn buttermaker use Diabetes mellitus complication status: with kidney complications Diabetes mellitus complication detail: with chronic kidney disease Chronic kidney disease stage : stage 3 (moderate) Qualified Code(s): E11.22 - Type 2 diabetes mellitus with diabetic chronic kidney disease; N18.3 - Chronic kidney disease, stage 3 ( moderate); Z79.4 - exterminator (current) use of insulin (7) H/O ulcerative colitis Code(s): Z87.19 - PERSONAL HISTORY OF OTHER DISEASES OF THE DIGESTIVE SYSTEM Status: Chronic (8) HTN (hypertension) Code(s): I10 - ESSENTIAL (PRIMARY) HYPERTENSION Status: Chronic (9) Hypothyroid Code(s): E03.9 - HYPOTHYROIDISM, UNSPECIFIED Status: Chronic (10) CKD (chronic kidney disease) stage 3, GFR 30-59 ml/min Code(s): N18.3 - CHRONIC KIDNEY DISEASE, STAGE 3 (MODERATE) Status: Chronic (11) Mood disorder Code(s): F39 - UNSPECIFIED MOOD [AFFECTIVE] DISORDER Status: Chronic (12) CINDY (acute kidney injury) Code(s): N17.9 - ACUTE KIDNEY FAILURE, UNSPECIFIED Status: Resolved - Plan is on vanc and cefepime s/p debridement done by Dr.Rude Novak, will need wound vac for dc plan, d/w CM. wound cultures from surgery has not grown any organism. continue lantus, nebs, cardizem sr 90mg q6h, lasix, celexa hemostable is from [facility], but wants to go to rehab now, d/w CM mobilize as tolerated.
--- NOTE | 2019-07-05 15:23 | PRG ---
DATE OF SERVICE: 07/05/2019 SUBJECTIVE: The patient is without complaint. OBJECTIVE: He is afebrile. The wound VAC has been removed. His wound is fairly clean. There is still significant undermining. There is a [place] in place. I saw the patient with the wound care team. I demonstrated that the significant undermining, which the wound VAC was not addressing. There are going to modify the wound VAC to better manage his undermining, which is close to 15 cm. His cultures are negative at 48 hours. ASSESSMENT: Status post infected hematoma. The patient is improving. There is no exposed bone or tendon. I expect after the undermining has sealed down, he will be ready for a skin graft reconstruction. Job ID: [id number]
[2019-07-05] MEDS: Warfarin Sodium 5 MG TAB PO SCH (17:53)
[2019-07-05] MEDS: Vancomycin HCl 1.25 GM in Sodium Chloride 0.9% 250 ML 250 ML IVPB SCH (18:08)
[2019-07-05] MEDS: Insulin Regular 300 UNITS/3 ML VIAL SC PRN (18:40)
[2019-07-05] MEDS: Cefepime 1 GM in Sodium Chloride 0.9% 100 ML IVPB SCH (20:38)
--- NOTE | 2019-07-05 21:32 | CON ---
DATE OF CONSULTATION: 07/05/2019 REASON FOR CONSULTATION: Cellulitis right lower extremity. HISTORY OF PRESENT ILLNESS: An 89-year-old, history of type 2 diabetes, AFib, ischemic cardiomyopathy, inflammatory bowel disease and cognitive dysfunction who fell mid May 2019 and chipped his lateral femoral area with hemarthrosis developing. Orthopedic surgery evaluated the patient and the patient was discharged to [facility] and then to [facility]. The patient takes warfarin for chronic AFib and the patient developed inflammatory changes with area of necrosis of the right anterior knee area. Dr. Raza evaluated the patient, did excision of the necrotic eschar around this area and the patient is currently on IV antimicrobial therapy. He is sitting by the bedside. He has significant cognitive dysfunction and the ability to recall is limited. We did not get a lot of information from him. Currently, he denies any headaches. No shortness of breath or chest pain. No cough. No abdominal pain or diarrhea, no genitourinary symptoms. Mild pain in the right lower extremity area. PAST MEDICAL HISTORY: Type 2 diabetes, BPH, ischemic cardiomyopathy, hypothyroidism, atrial fibrillation, on warfarin, inflammatory bowel disease, low lumbosacral spinal stenosis. PAST SURGICAL HISTORY: Cholecystectomy, carpal tunnel surgery, cardioversion, hernia surgery, cataract surgery. ALLERGIES: CODEINE, IODINE. SOCIAL HISTORY: [facility]. Never smoker. FAMILY HISTORY: Type 2 diabetes. CURRENT MEDICATIONS: 1. Tylenol. 2. DuoNeb. 3. Tums. 4. Cefepime. 5. Celexa. 6. Drisdol. 7. Feosol. 8. Flonase. 9. Lasix. 10. Mucinex. 11. Insulin. 12. Synthroid. 13. Zofran. 14. Vancomycin. 15. Warfarin. PHYSICAL EXAMINATION: VITAL SIGNS: T-max 97.5, blood pressure 116/75, pulse 84, respirations 16, and O2 saturation 96. SKIN: Shows the right area in the right knee, prepatellar region with a heart-shaped area of skin necrosis with surrounding erythema. This has been debrided by Dr. aRza and now has a negative pressure dressing on top. The patient is voiding in the toilet, has a peripheral IV access. NECK: No lymphadenopathy. Neck is supple. HEENT: Ocular movements conjugate. Oral cavity is not remarkable. LUNGS: Symmetric. Clear breath sounds. CARDIAC: Irregular rate S1-S2 with a soft aortic murmur. ABDOMEN: Soft, not distended or tender. No ascites. No bladder distention. No organomegaly. Pulses are 1+ in dorsalis pedis. The patient has 2+ edema in right leg. No edema in the left as expected. Plantar responses are flexor. No clonus. NEUROLOGIC: He moves extremities equally, but he is diffusely weak. He is awake, knows his name, could not tell me what hospital he was in. Recall was limited. Some difficulty with word finding. LABORATORY DATA: White cell count is, hemoglobin 9.0, platelets 289 with 62% neutrophils and sodium 137, creatinine 1.73, which is a little bit better than baseline. Liver profile was normal, albumin 3.7. Microbiology, we have just basically a urine sample with negative results. IMAGING STUDIES: Chest x-ray with no evidence of infiltrates, just blunting of the left costophrenic angle. There is a knee x-ray from the end of May with no acute injury. Lower extremity CT from mid May with no fracture dislocation, some osteoporosis and a soft tissue hematoma of the intermediate medial tissue, some element of lymphedema. ASSESSMENT: 1. Ischemic cardiomyopathy. 2. Chronic kidney disease. 3. Type 2 diabetes. 4. Atrial fibrillation, on chronic warfarin. 5. Fall with injury to the right anterior knee area with hematoma and ulcerated area with skin necrosis, status post debridement. DISCUSSION: Differential diagnosis includes necrosis associated with hematoma versus necrosis associated with warfarin, atypical infection, for example, by mold, or infection secondary to GNR such as P. aeruginosa. Warfarin can be can be associated with paradoxical skin necrosis due to small vessel occlusion associated with the periods where patient has subtherapeutic levels of warfarin. Warfarin inhibits the activation of fibrinolytic agent protein-C and that patient can be temporarily hypercoagulable in the moments where the INR is subtherapeutic. That can be associated with cases of skin necrosis. If that is the case, then we might have to discontinue warfarin, transition patient to a different anticoagulant such as Eliquis. An alternate interpretation would be just mechanical factors leading to the skin necrosis. I tend to believe that the warfarin is more the more likely scenario here. The patient does have some surrounding erythema and is currently on cefepime and it should not require protracted administration. I believe that as soon as there is resolution of the erythema, we could discontinue antimicrobial therapy. The possibility of Pseudomonas infection of the area with associated ecthyma gangrenosum is considered, so I think that cefepime is an adequate choice for antimicrobial therapy at this point in time. If there is progression of inflamm process, biopsy of ulcer margin for culture and histopath would be recommended as well as transition to a direct thrombin inhibitor. Calciphylaxis is unlikely. Job ID: [id number] MTDD
[2019-07-06] MEDS: Diltiazem HCl SR 90 mg Capsule PO SCH ×4 (05:03→23:09)
[2019-07-06] MEDS: guaiFENesin/DM ER PO SCH ×3 (05:03→23:09)
[2019-07-06] MEDS: Levothyroxine Sodium 100 MCG TAB PO SCH (05:03)
[2019-07-06 06:38] LABS: INR-International Normal Ratio 1.3; Prothrombin Time 15.9 SEC (12.0-14.7)
[2019-07-06 06:56] LABS: Anion Gap 10 mmol/L (10-20); BUN (Urea Nitrogen) 32 mg/dL (8.4-25.7); Calc. Creatinine Clearance 36 mL/min (70-130); Calcium 8.1 mg/dL (7.8-10.44); Carbon Dioxide 27 mmol/L (23-31); Chloride 105 mmol/L (98-107); Estimated GFR-MDRD 34; Glucose 96 mg/dL (83-110); Potassium 4.9 mmol/L (3.5-5.1); Sodium 137 mmol/L (136-145)
[2019-07-06] MEDS: Furosemide 40 MG TAB PO SCH (08:47)
[2019-07-06] MEDS: Senokot 8.6 MG TAB PO SCH (08:47)
[2019-07-06] MEDS: Ferrous Sulfate 325 MG TAB PO SCH (08:47)
[2019-07-06] MEDS: Citalopram 20 MG TAB PO SCH (08:47)
[2019-07-06] MEDS: Senokot S 8.6-50 MG TAB PO SCH ×2 (08:48→20:06)
[2019-07-06] MEDS: Fluticasone Propionate Nasal Spray 16 gm Bottle NASAL SCH (08:48)
[2019-07-06] MEDS: Insulin Glargine 8 UNITS in Pre-Filled Syringe 1 EACH SC SCH (08:49)
[2019-07-06] MEDS ORDERED: Ergocalciferol 1.25 MG(50,000 UNITS) CAP PO SCH (09:00)
--- NOTE | 2019-07-06 09:46 | PDOC.HOSPP ---
- Subjective Encounter Date: 07/06/19 Encounter Time: 08:30 Subjective: awake, not in distress no pain at bedside - Objective Vital Signs & Weight: Vital Signs (12 hours) Temp Pulse Resp BP BP Pulse Ox 07/06/19 08:31 97.5 F L 72 16 138/76 90 L 07/06/19 03:47 97.6 F 79 16 138/71 95 07/05/19 23:46 98.5 F 74 16 113/72 94 L Weight Admit Weight 203 lb 1.6 oz Weight 203 lb 1.6 oz I&O: 07/05/19 07/06/19 07/07/19 06:59 06:59 06:59 Intake Total 1241 750 Balance 1241 750 Result Diagrams: 07/05/19 10:57 07/06/19 06:07 Additional Labs: Accuchecks 07/06/19 07/05/19 07/05/19 05:33 20:58 18:41 POC Glucose 127 H 103 184 H 07/05/19 10:52 POC Glucose 187 H Hospitalist ROS - Medication Medications: Active Medications Generic Name Dose Route Start Last Admin Trade Name Freq PRN Reason Stop Dose Admin Acetaminophen 650 mg 06/28/19 17:06 07/04/19 21:04 Tylenol PO 650 mg Q4H PRN Administration Headache/Fever/Mild Pain (1-3) Albuterol/Ipratropium 3 ml 06/29/19 12:30 07/06/19 07:26 Duoneb NEB Not Given TID-RT LEIA Albuterol/Ipratropium 3 ml 06/30/19 03:09 07/05/19 03:57 Duoneb NEB 3 ml Q4H PRN Administration SOB &/or Wheezing Citalopram Hydrobromide 20 mg 06/30/19 09:00 07/06/19 08:47 Celexa PO 20 mg DAILY LEIA Administration Diltiazem HCl 90 mg 06/29/19 12:00 07/06/19 05:03 Cardizem Sr PO 90 mg Q6HR LEIA Administration Ergocalciferol 1.25 mg 07/06/19 09:00 07/06/19 08:47 Drisdol PO 1.25 mg Q7DAYS LEIA Administration Ferrous Sulfate 325 mg 06/30/19 09:00 07/06/19 08:47 Feosol PO 325 mg DAILY LEIA Administration Fluticasone Propionate 1 gm 06/30/19 09:00 07/06/19 08:48 Flonase Nasal [place] NASAL Not Given DAILY ON LICENSE OF [facility] Furosemide 40 mg 06/30/19 09:00 07/06/19 08:47 Lasix PO 40 mg DAILY LEIA Administration Guaifenesin/Dextromethorphan 1 tab 06/29/19 22:00 07/06/19 05:03 Mucinex Dm PO 1 tab Q8HR LEIA Administration Cefepime HCl 1 gm/ Sodium 100 mls @ 200 mls/hr 06/28/19 21:00 07/05/19 20:38 Chloride IVPB 100 mls Q24HR LEIA Administration Insulin Glargine 8 units/ 0.08 mls @ 0 mls/hr 06/30/19 09:00 07/06/19 08:49 Miscellaneous Medication SC 0.08 mls QAM LEIA Administration Vancomycin HCl 1.25 gm/ Sodium 250 mls @ 166.667 mls/hr 06/29/19 18:00 18:08 Chloride IVPB 250 mls 1800 LEIA Administration Insulin Human Regular 0 units 06/28/19 17:10 07/05/19 18:40 Humulin R SC 2 unit .MILD SLIDING SCALE PRN Administration Mild Correctional Scale Insulin Human Regular 0 units 06/28/19 17:10 07/01/19 21:31 Humulin R SC 2 unit .BEDTIME SLIDING SC PRN Administration Bedtime Correctional Scale Levothyroxine Sodium 100 mcg 07/02/19 06:00 07/06/19 05:03 Synthroid PO 100 mcg 0600 LEIA Administration Senna 1 tab 06/30/19 09:00 07/06/19 08:47 Senokot PO Not Given DAILY LEIA Senna/Docusate Sodium 2 tab 06/28/19 21:00 07/06/19 08:48 Senokot S PO Not Given BID ON LICENSE OF [facility] Tramadol HCl 50 mg 06/29/19 10:32 07/04/19 05:45 Ultram PO 50 mg Q4H PRN Administration Pain - Exam General Appearance: awake alert Eye: PERRL, anicteric sclera ENT: no oropharyngeal lesions, moist mucosa Neck: supple, no JVD Heart: RRR, no murmur Respiratory: no wheezes, no rales, rhonchi Gastrointestinal: soft, non-tender, non-distended, normal bowel sounds Extremities - other findings: right knee ulcer in wound vac+ Neurological: cranial nerve grossly intact, no focal deficits Psychiatric: A&O x 3 Hosp A/P (1) Cellulitis of right leg Code(s): L03.115 - CELLULITIS OF RIGHT LOWER LIMB Status: Acute (2) Ulcer of right knee Code(s): L97.819 - NON-PRESSURE CHRONIC ULCER OTH PRT R LOW LEG W UNSP SEVERITY Status: Acute (3) Anemia Code(s): D64.9 - ANEMIA, UNSPECIFIED Status: Chronic Qualifiers: Anemia type: unspecified type Qualified Code(s): D64.9 - Anemia, unspecified (4) Atrial fibrillation Code(s): I48.91 - UNSPECIFIED ATRIAL FIBRILLATION Status: Chronic (5) Benign hypertension Code(s): I10 - ESSENTIAL (PRIMARY) HYPERTENSION Status: Chronic (6) DM2 (diabetes mellitus, type 2) Status: Chronic Qualifiers: Diabetes mellitus care home insulin use: with care home use Diabetes mellitus complication status: with kidney complications Diabetes mellitus complication detail: with chronic kidney disease Chronic kidney disease stage : stage 3 (moderate) Qualified Code(s): E11.22 - Type 2 diabetes mellitus with diabetic chronic kidney disease; N18.3 - Chronic kidney disease, stage 3 ( moderate); Z79.4 - senior care (current) use of insulin (7) H/O ulcerative colitis Code(s): Z87.19 - PERSONAL HISTORY OF OTHER DISEASES OF THE DIGESTIVE SYSTEM Status: Chronic (8) HTN (hypertension) Code(s): I10 - ESSENTIAL (PRIMARY) HYPERTENSION Status: Chronic (9) Hypothyroid Code(s): E03.9 - HYPOTHYROIDISM, UNSPECIFIED Status: Chronic (10) CKD (chronic kidney disease) stage 3, GFR 30-59 ml/min Code(s): N18.3 - CHRONIC KIDNEY DISEASE, STAGE 3 (MODERATE) Status: Chronic (11) Mood disorder Code(s): F39 - UNSPECIFIED MOOD [AFFECTIVE] DISORDER Status: Chronic (12) CINDY (acute kidney injury) Code(s): N17.9 - ACUTE KIDNEY FAILURE, UNSPECIFIED Status: Resolved - Plan is on vanc and cefepime, pharmacy is dosing vanc per protocol/ckd s/p debridement done by Dr.Rude Novak, will need wound vac for dc plan, d/w CM. wound cultures from surgery has not grown any organism. continue lantus, nebs, cardizem sr 90mg q6h, lasix, celexa hemostable is from [facility], but wants to go to rehab now, await approval mobilize as tolerated.
[2019-07-06] MEDS: Warfarin Sodium 3 MG TAB PO SCH (17:56)
[2019-07-06] MEDS: Acetaminophen 325 MG TAB PO PRN (17:58)
[2019-07-06] MEDS: Vancomycin HCl 1.25 GM in Sodium Chloride 0.9% 250 ML 250 ML IVPB SCH (18:00)
[2019-07-06] MEDS: Cefepime 1 GM in Sodium Chloride 0.9% 100 ML IVPB SCH (20:06)
[2019-07-07 06:02] LABS: INR-International Normal Ratio 1.3; Prothrombin Time 16.1 SEC (12.0-14.7)
[2019-07-07 06:20] LABS: Anion Gap 11 mmol/L (10-20); BUN (Urea Nitrogen) 29 mg/dL (8.4-25.7); Calc. Creatinine Clearance 40 mL/min (70-130); Calcium 8.1 mg/dL (7.8-10.44); Carbon Dioxide 26 mmol/L (23-31); Chloride 106 mmol/L (98-107); Estimated GFR-MDRD 38; Glucose 78 mg/dL (83-110); Potassium 4.6 mmol/L (3.5-5.1); Sodium 138 mmol/L (136-145)
[2019-07-07] MEDS: guaiFENesin/DM ER PO SCH ×3 (06:24→23:08)
[2019-07-07] MEDS: Diltiazem HCl SR 90 mg Capsule PO SCH ×4 (06:24→23:08)
[2019-07-07] MEDS: Levothyroxine Sodium 100 MCG TAB PO SCH (06:24)
[2019-07-07] MEDS: Senokot S 8.6-50 MG TAB PO SCH ×2 (09:42→20:31)
[2019-07-07] MEDS: Citalopram 20 MG TAB PO SCH (09:42)
[2019-07-07] MEDS: Furosemide 40 MG TAB PO SCH (09:42)
[2019-07-07] MEDS: Ferrous Sulfate 325 MG TAB PO SCH (09:42)
[2019-07-07] MEDS: Insulin Glargine 8 UNITS in Pre-Filled Syringe 1 EACH SC SCH (09:43)
[2019-07-07] MEDS: Fluticasone Propionate Nasal Spray 16 gm Bottle NASAL SCH (09:43)
[2019-07-07] MEDS: Senokot 8.6 MG TAB PO SCH (09:47)
[2019-07-07 10:54] LABS: Hemoglobin 9.8 g/dL (14.0-18.0); Platelet Count 252 thou/uL (130-400)
--- NOTE | 2019-07-07 11:38 | PDOC.HOSPP ---
- Subjective Encounter Date: 07/07/19 Encounter Time: 09:15 Subjective: feels better, no pain in his knee - Objective Vital Signs & Weight: Vital Signs (12 hours) Temp Pulse Resp BP BP Pulse Ox 07/07/19 11:25 98.2 F 62 18 125/60 95 07/07/19 07:19 97.4 F L 82 16 123/68 96 07/07/19 07:05 75 16 95 07/07/19 04:36 98.1 F 86 20 121/74 86 L 07/07/19 00:41 98.0 F 89 16 122/72 93 L Weight Admit Weight 203 lb 1.6 oz Weight 203 lb 1.6 oz I&O: 07/06/19 07/07/19 07/08/19 06:59 06:59 06:59 Intake Total 750 750 Balance 750 750 Result Diagrams: 07/07/19 10:35 07/07/19 05:30 Additional Labs: Accuchecks 07/07/19 07/06/19 06:08 16:09 POC Glucose 89 138 H Hospitalist ROS - Medication Medications: Active Medications Generic Name Dose Route Start Last Admin Trade Name Freq PRN Reason Stop Dose Admin Acetaminophen 650 mg 06/28/19 17:06 07/06/19 17:58 Tylenol PO 650 mg Q4H PRN Administration Headache/Fever/Mild Pain (1-3) Albuterol/Ipratropium 3 ml 06/29/19 12:30 07/07/19 07:05 Duoneb NEB 3 ml TID-RT LEIA Administration Albuterol/Ipratropium 3 ml 06/30/19 03:09 07/05/19 03:57 Duoneb NEB 3 ml Q4H PRN Administration SOB &/or Wheezing Citalopram Hydrobromide 20 mg 06/30/19 09:00 07/07/19 09:42 Celexa PO 20 mg DAILY LEIA Administration Diltiazem HCl 90 mg 06/29/19 12:00 07/07/19 06:24 Cardizem Sr PO 90 mg Q6HR LEIA Administration Ergocalciferol 1.25 mg 07/06/19 09:00 07/06/19 08:47 Drisdol PO 1.25 mg Q7DAYS LEIA Administration Ferrous Sulfate 325 mg 06/30/19 09:00 07/07/19 09:42 Feosol PO 325 mg DAILY LEIA Administration Fluticasone Propionate 1 gm 06/30/19 09:00 07/07/19 09:43 Flonase Nasal [place] NASAL 2 spray DAILY LEIA Administration Furosemide 40 mg 06/30/19 09:00 07/07/19 09:42 Lasix PO 40 mg DAILY LEIA Administration Guaifenesin/Dextromethorphan 1 tab 06/29/19 22:00 07/07/19 06:24 Mucinex Dm PO 1 tab Q8HR LEIA Administration Cefepime HCl 1 gm/ Sodium 100 mls @ 200 mls/hr 06/28/19 21:00 07/06/19 20:06 Chloride IVPB 100 mls Q24HR LEIA Administration Insulin Glargine 8 units/ 0.08 mls @ 0 mls/hr 06/30/19 09:00 07/07/19 09:43 Miscellaneous Medication SC 0.08 mls QAM LEIA Administration Vancomycin HCl 1.25 gm/ Sodium 250 mls @ 166.667 mls/hr 06/29/19 18:00 18:00 Chloride IVPB 250 mls 1800 LEIA Administration Insulin Human Regular 0 units 06/28/19 17:10 07/05/19 18:40 Humulin R SC 2 unit .MILD SLIDING SCALE PRN Administration Mild Correctional Scale Insulin Human Regular 0 units 06/28/19 17:10 07/01/19 21:31 Humulin R SC 2 unit .BEDTIME SLIDING SC PRN Administration Bedtime Correctional Scale Levothyroxine Sodium 100 mcg 07/02/19 06:00 07/07/19 06:24 Synthroid PO 100 mcg 0600 LEIA Administration Senna 1 tab 06/30/19 09:00 07/07/19 09:47 Senokot PO Not Given DAILY LEIA Senna/Docusate Sodium 2 tab 06/28/19 21:00 07/07/19 09:42 Senokot S PO 2 tab BID LEIA Administration Tramadol HCl 50 mg 06/29/19 10:32 07/04/19 05:45 Ultram PO 50 mg Q4H PRN Administration Pain Warfarin Sodium 6 mg 07/06/19 17:00 07/06/19 17:56 Coumadin PO 6 mg 1700 LEIA Administration - Exam General Appearance: awake alert Eye: PERRL, anicteric sclera ENT: no oropharyngeal lesions, moist mucosa Neck: supple, no JVD Heart: RRR, no murmur Respiratory: no wheezes, no rales, rhonchi Gastrointestinal: soft, non-tender, non-distended, normal bowel sounds Extremities: no edema Extremities - other findings: right knee in brace/wound vac+ Neurological: cranial nerve grossly intact, no focal deficits Psychiatric: normal affect, A&O x 3 Hosp A/P (1) Cellulitis of right leg Code(s): L03.115 - CELLULITIS OF RIGHT LOWER LIMB Status: Acute (2) Ulcer of right knee Code(s): L97.819 - NON-PRESSURE CHRONIC ULCER OTH PRT R LOW LEG W UNSP SEVERITY Status: Acute (3) Anemia Code(s): D64.9 - ANEMIA, UNSPECIFIED Status: Chronic Qualifiers: Anemia type: unspecified type Qualified Code(s): D64.9 - Anemia, unspecified (4) Atrial fibrillation Code(s): I48.91 - UNSPECIFIED ATRIAL FIBRILLATION Status: Chronic (5) Benign hypertension Code(s): I10 - ESSENTIAL (PRIMARY) HYPERTENSION Status: Chronic (6) DM2 (diabetes mellitus, type 2) Status: Chronic Qualifiers: Diabetes mellitus intermediate accountant insulin use: with intermediate accountant use Diabetes mellitus complication status: with kidney complications Diabetes mellitus complication detail: with chronic kidney disease Chronic kidney disease stage : stage 3 (moderate) Qualified Code(s): E11.22 - Type 2 diabetes mellitus with diabetic chronic kidney disease; N18.3 - Chronic kidney disease, stage 3 ( moderate); Z79.4 - care home (current) use of insulin (7) H/O ulcerative colitis Code(s): Z87.19 - PERSONAL HISTORY OF OTHER DISEASES OF THE DIGESTIVE SYSTEM Status: Chronic (8) HTN (hypertension) Code(s): I10 - ESSENTIAL (PRIMARY) HYPERTENSION Status: Chronic (9) Hypothyroid Code(s): E03.9 - HYPOTHYROIDISM, UNSPECIFIED Status: Chronic (10) CKD (chronic kidney disease) stage 3, GFR 30-59 ml/min Code(s): N18.3 - CHRONIC KIDNEY DISEASE, STAGE 3 (MODERATE) Status: Chronic (11) Mood disorder Code(s): F39 - UNSPECIFIED MOOD [AFFECTIVE] DISORDER Status: Chronic (12) CINDY (acute kidney injury) Code(s): N17.9 - ACUTE KIDNEY FAILURE, UNSPECIFIED Status: Resolved - Plan is on vanc and cefepime, pharmacy is dosing vanc per protocol/ckd s/p debridement done by Dr.Rude Gleason, will need wound vac for dc plan, d/w CM. wound cultures from surgery has not grown any organism. continue lantus, nebs, cardizem sr 90mg q6h, lasix, celexa hemostable is from [facility], but wants to go to rehab now, await approval mobilize as tolerated. likely dc plan on keflex and flagyl?, await opinion is medically stable for dc if placement is ready.
[2019-07-07] MEDS: Insulin Regular 300 UNITS/3 ML VIAL SC PRN (12:17)
[2019-07-07] MEDS: Warfarin Sodium 3 MG TAB PO SCH (17:58)
[2019-07-07] MEDS: Vancomycin HCl 1.25 GM in Sodium Chloride 0.9% 250 ML 250 ML IVPB SCH (18:40)
[2019-07-07] MEDS: Acetaminophen 325 MG TAB PO PRN (20:31)
[2019-07-07] MEDS: Cefepime 1 GM in Sodium Chloride 0.9% 100 ML IVPB SCH (20:37)
[2019-07-07] MEDS: Melatonin 3 MG TAB PO PRN (23:12)
[2019-07-08 05:13] LABS: INR-International Normal Ratio 1.4
[2019-07-08 05:26] LABS: Anion Gap 12 mmol/L (10-20); BUN (Urea Nitrogen) 31 mg/dL (8.4-25.7); Calc. Creatinine Clearance 40 mL/min (70-130); Calcium 8.1 mg/dL (7.8-10.44); Carbon Dioxide 25 mmol/L (23-31); Chloride 107 mmol/L (98-107); Estimated GFR-MDRD 38; Glucose 86 mg/dL (83-110); Potassium 4.3 mmol/L (3.5-5.1); Sodium 140 mmol/L (136-145)
[2019-07-08] MEDS: Diltiazem HCl SR 90 mg Capsule PO SCH ×4 (05:52→23:00)
[2019-07-08] MEDS: guaiFENesin/DM ER PO SCH ×3 (05:52→22:53)
[2019-07-08] MEDS: Levothyroxine Sodium 100 MCG TAB PO SCH (05:52)
[2019-07-08] MEDS: Acetaminophen 325 MG TAB PO PRN ×2 (05:53→20:18)
[2019-07-08] MEDS: Senokot S 8.6-50 MG TAB PO SCH ×2 (08:25→20:18)
[2019-07-08] MEDS: Furosemide 40 MG TAB PO SCH (08:25)
[2019-07-08] MEDS: Ferrous Sulfate 325 MG TAB PO SCH (08:25)
[2019-07-08] MEDS: Citalopram 20 MG TAB PO SCH (08:25)
[2019-07-08] MEDS: Fluticasone Propionate Nasal Spray 16 gm Bottle NASAL SCH (08:25)
[2019-07-08] MEDS: Senokot 8.6 MG TAB PO SCH (08:34)
[2019-07-08] MEDS: Insulin Glargine 8 UNITS in Pre-Filled Syringe 1 EACH SC SCH (09:21)
--- NOTE | 2019-07-08 15:22 | PDOC.HOSPP ---
- Subjective Encounter Date: 07/08/19 Encounter Time: 15:20 Subjective: Mr. Fried was seen today in follow-up of cellulitis of the right knee, as well as HTN. He does not have any complaints today. - Objective Vital Signs & Weight: Vital Signs (12 hours) Temp Pulse Resp BP BP Pulse Ox 07/08/19 11:44 97.8 F 77 18 119/70 18 L 07/08/19 08:04 94 17 94 L 07/08/19 07:32 97.7 F 80 16 124/83 92 L 07/08/19 04:03 97.6 F 97 14 121/75 93 L Weight Admit Weight 203 lb 1.6 oz Weight 203 lb 1.6 oz I&O: 07/07/19 07/08/19 07/09/19 06:59 06:59 06:59 Intake Total 750 1935 Output Total 150 Balance 750 1785 Result Diagrams: 07/07/19 10:35 07/08/19 04:52 Additional Labs: Accuchecks 07/08/19 07/08/19 07/07/19 11:05 05:38 20:31 POC Glucose 148 H 94 159 H 07/07/19 15:45 POC Glucose 99 Hospitalist ROS - Medication Medications: Active Medications Generic Name Dose Route Start Last Admin Trade Name Freq PRN Reason Stop Dose Admin Acetaminophen 650 mg 06/28/19 17:06 07/08/19 05:53 Tylenol PO 650 mg Q4H PRN Administration Headache/Fever/Mild Pain (1-3) Albuterol/Ipratropium 3 ml 06/29/19 12:30 07/08/19 13:45 Duoneb NEB Not Given TID-RT LEIA Albuterol/Ipratropium 3 ml 06/30/19 03:09 07/05/19 03:57 Duoneb NEB 3 ml Q4H PRN Administration SOB &/or Wheezing Citalopram Hydrobromide 20 mg 06/30/19 09:00 07/08/19 08:25 Celexa PO 20 mg DAILY LEIA Administration Diltiazem HCl 90 mg 06/29/19 12:00 07/08/19 12:02 Cardizem Sr PO 90 mg Q6HR LEIA Administration Ergocalciferol 1.25 mg 07/06/19 09:00 07/06/19 08:47 Drisdol PO 1.25 mg Q7DAYS LEIA Administration Ferrous Sulfate 325 mg 06/30/19 09:00 07/08/19 08:25 Feosol PO 325 mg DAILY LEIA Administration Fluticasone Propionate 1 gm 06/30/19 09:00 07/08/19 08:25 Flonase Nasal [place] NASAL 2 spray DAILY LEIA Administration Furosemide 40 mg 06/30/19 09:00 07/08/19 08:25 Lasix PO 40 mg DAILY LEIA Administration Guaifenesin/Dextromethorphan 1 tab 06/29/19 22:00 07/08/19 14:42 Mucinex Dm PO Not Given Q8HR LEIA Cefepime HCl 1 gm/ Sodium 100 mls @ 200 mls/hr 06/28/19 21:00 07/07/19 20:37 Chloride IVPB 100 mls Q24HR LEIA Administration Insulin Glargine 8 units/ 0.08 mls @ 0 mls/hr 06/30/19 09:00 07/08/19 09:21 Miscellaneous Medication SC 0.08 mls QAM LEIA Administration Vancomycin HCl 1.25 gm/ Sodium 250 mls @ 166.667 mls/hr 06/29/19 18:00 18:40 Chloride IVPB 250 mls 1800 LEIA Administration Insulin Human Regular 0 units 06/28/19 17:10 07/07/19 12:17 Humulin R SC 4 unit .MILD SLIDING SCALE PRN Administration Mild Correctional Scale Insulin Human Regular 0 units 06/28/19 17:10 07/01/19 21:31 Humulin R SC 2 unit .BEDTIME SLIDING SC PRN Administration Bedtime Correctional Scale Levothyroxine Sodium 100 mcg 07/02/19 06:00 07/08/19 05:52 Synthroid PO 100 mcg 0600 LEIA Administration Melatonin 3 mg 07/07/19 23:00 07/07/19 23:12 Melatonin PO 3 mg HS PRN Administration Insomnia Senna 1 tab 06/30/19 09:00 07/08/19 08:34 Senokot PO Not Given DAILY LEIA Senna/Docusate Sodium 2 tab 06/28/19 21:00 07/08/19 08:25 Senokot S PO 2 tab BID LEIA Administration Tramadol HCl 50 mg 06/29/19 10:32 07/04/19 05:45 Ultram PO 50 mg Q4H PRN Administration Pain - Exam Eye: PERRL, anicteric sclera Heart: RRR, no murmur, no gallops, no rubs, normal peripheral pulses Respiratory: CTAB, no wheezes, no rales, no ronchi, normal chest expansion, no tachypnea Gastrointestinal: soft, non-tender, non-distended Extremities: 1+ LE edema (trace edema and the knee is dressed) Hosp A/P (1) Cellulitis of right leg Code(s): L03.115 - CELLULITIS OF RIGHT LOWER LIMB Status: Acute (2) Atrial fibrillation Code(s): I48.91 - UNSPECIFIED ATRIAL FIBRILLATION Status: Chronic (3) Benign hypertension Code(s): I10 - ESSENTIAL (PRIMARY) HYPERTENSION Status: Chronic (4) DM2 (diabetes mellitus, type 2) Status: Chronic Qualifiers: Diabetes mellitus supervisor intermediates insulin use: with supervisor intermediates use Diabetes mellitus complication status: with kidney complications Diabetes mellitus complication detail: with chronic kidney disease Chronic kidney disease stage : stage 3 (moderate) Qualified Code(s): E11.22 - Type 2 diabetes mellitus with diabetic chronic kidney disease; N18.3 - Chronic kidney disease, stage 3 ( moderate); Z79.4 - half-way (current) use of insulin - Plan * Cellulitis of the right knee- continue IV antibiotics as per ID Cefipime * Continue local wound care and wound vac * HTN _ blood pressure is stable * DM- Blood glucose is stable- Continue Lantus and SSI * AFIB - his heart rate is stable on Cardizem, and continue coumadin for CVA prophylaxis- warfarin is being managed by Pharmacy
[2019-07-08] MEDS ORDERED: Warfarin Sodium 7.5 MG TAB PO SCH (17:00)
[2019-07-08] MEDS: Vancomycin HCl 1.25 GM in Sodium Chloride 0.9% 250 ML 250 ML IVPB SCH (17:30)
--- NOTE | 2019-07-08 18:54 | PRG ---
DATE OF SERVICE: 07/08/2019 SUBJECTIVE: Mr. Fried is feeling well. He does not appear in distress. No respiratory symptoms or abdominal pain. The right lower extremity is in a splint. OBJECTIVE: VITAL SIGNS: Temperature has been normal. Other vital signs are normal. MUSCULOSKELETAL: The wound was reviewed today, and there is fresh granulation tissue covering most of the base of the wound, a little bit of kind of a reddish discoloration at the margin in the one side and one dark spot at around 5 o'clock. The surrounding soft tissues appear okay. ASSESSMENT AND DISCUSSION: Ischemic cardiomyopathy; chronic kidney disease; type 2 diabetes; atrial fibrillation, on warfarin; fall with right anterior knee area of hematoma and then necrosis debridement and now good progress with almost complete granulation cover. The inflammatory process has resolved. Cultures are negative and from the knee aspirate and at this point, we will discontinue antimicrobial therapy. Job ID: [id number]
[2019-07-08] MEDS: Melatonin 3 MG TAB PO PRN (20:18)
[2019-07-09] MEDS: guaiFENesin/DM ER PO SCH ×2 (05:33→14:51)
[2019-07-09] MEDS: Acetaminophen 325 MG TAB PO PRN (05:33)
[2019-07-09] MEDS: Levothyroxine Sodium 100 MCG TAB PO SCH (05:33)
[2019-07-09] MEDS: Diltiazem HCl SR 90 mg Capsule PO SCH ×2 (05:33→12:33)
[2019-07-09 05:48] LABS: Anion Gap 12 mmol/L (10-20); BUN (Urea Nitrogen) 25 mg/dL (8.4-25.7); Calc. Creatinine Clearance 42 mL/min (70-130); Calcium 8.1 mg/dL (7.8-10.44); Carbon Dioxide 27 mmol/L (23-31); Chloride 106 mmol/L (98-107); Estimated GFR-MDRD 41; Glucose 107 mg/dL (83-110); Potassium 4.7 mmol/L (3.5-5.1); Sodium 140 mmol/L (136-145)
[2019-07-09 06:04] LABS: INR-International Normal Ratio 1.6; Prothrombin Time 18.6 SEC (12.0-14.7)
[2019-07-09] MEDS: Fluticasone Propionate Nasal Spray 16 gm Bottle NASAL SCH (09:03)
[2019-07-09] MEDS: Citalopram 20 MG TAB PO SCH (09:04)
[2019-07-09] MEDS: Insulin Glargine 8 UNITS in Pre-Filled Syringe 1 EACH SC SCH (09:04)
[2019-07-09] MEDS: Ferrous Sulfate 325 MG TAB PO SCH (09:04)
[2019-07-09] MEDS: Senokot S 8.6-50 MG TAB PO SCH (09:04)
[2019-07-09] MEDS: Furosemide 40 MG TAB PO SCH (09:04)
[2019-07-09] MEDS: Senokot 8.6 MG TAB PO SCH (09:05)
[2019-07-09] MEDS: Insulin Regular 300 UNITS/3 ML VIAL SC PRN (13:13)
--- NOTE | 2019-07-09 13:43 | PDOC.HOSPP ---
- Subjective Encounter Date: 07/09/19 Encounter Time: 13:42 Subjective: Mr. Fried was seen today in follow-up of cellulitis. He does not have any complaints. He is anxious to go to Rehab. - Objective Vital Signs & Weight: Vital Signs (12 hours) Temp Pulse Resp BP BP Pulse Ox 07/09/19 12:47 68 20 95 07/09/19 07:15 97.3 F L 83 18 132/81 95 07/09/19 06:52 86 16 92 L 07/09/19 04:00 97.6 F 88 18 119/75 93 L Weight Admit Weight 203 lb 1.6 oz Weight 203 lb 1.6 oz I&O: 07/08/19 07/09/19 07/10/19 06:59 06:59 06:59 Intake Total 1935 1558 Output Total 150 Balance 1785 1558 Result Diagrams: 07/07/19 10:35 07/09/19 04:49 Additional Labs: Accuchecks 07/09/19 07/09/19 07/08/19 12:52 05:35 19:57 POC Glucose 205 H 117 H 194 H 07/08/19 16:00 POC Glucose 127 H Hospitalist ROS - Medication Medications: Active Medications Generic Name Dose Route Start Last Admin Trade Name Freq PRN Reason Stop Dose Admin Acetaminophen 650 mg 06/28/19 17:06 07/09/19 05:33 Tylenol PO 650 mg Q4H PRN Administration Headache/Fever/Mild Pain (1-3) Albuterol/Ipratropium 3 ml 06/29/19 12:30 07/09/19 12:47 Duoneb NEB 3 ml TID-RT LEIA Administration Albuterol/Ipratropium 3 ml 06/30/19 03:09 07/05/19 03:57 Duoneb NEB 3 ml Q4H PRN Administration SOB &/or Wheezing Citalopram Hydrobromide 20 mg 06/30/19 09:00 07/09/19 09:04 Celexa PO 20 mg DAILY LEIA Administration Diltiazem HCl 90 mg 06/29/19 12:00 07/09/19 12:33 Cardizem Sr PO 90 mg Q6HR LEIA Administration Ergocalciferol 1.25 mg 07/06/19 09:00 07/06/19 08:47 Drisdol PO 1.25 mg Q7DAYS LEIA Administration Ferrous Sulfate 325 mg 06/30/19 09:00 07/09/19 09:04 Feosol PO 325 mg DAILY LEIA Administration Fluticasone Propionate 1 gm 06/30/19 09:00 07/09/19 09:03 Flonase Nasal Orange NASAL 2 spray DAILY LEIA Administration Furosemide 40 mg 06/30/19 09:00 07/09/19 09:04 Lasix PO 40 mg DAILY LEIA Administration Guaifenesin/Dextromethorphan 1 tab 06/29/19 22:00 07/09/19 05:33 Mucinex Dm PO 1 tab Q8HR LEIA Administration Insulin Glargine 8 units/ 0.08 mls @ 0 mls/hr 06/30/19 09:00 07/09/19 09:04 Miscellaneous Medication SC 0.08 mls QAM LEIA Administration Insulin Human Regular 0 units 06/28/19 17:10 07/09/19 13:13 Humulin R SC 3 unit .MILD SLIDING SCALE PRN Administration Mild Correctional Scale Insulin Human Regular 0 units 06/28/19 17:10 07/01/19 21:31 Humulin R SC 2 unit .BEDTIME SLIDING SC PRN Administration Bedtime Correctional Scale Levothyroxine Sodium 100 mcg 07/02/19 06:00 07/09/19 05:33 Synthroid PO 100 mcg 0600 LEIA Administration Melatonin 3 mg 07/07/19 23:00 07/08/19 20:18 Melatonin PO 3 mg HS PRN Administration Insomnia Senna 1 tab 06/30/19 09:00 07/09/19 09:05 Senokot PO Not Given DAILY LEIA Senna/Docusate Sodium 2 tab 06/28/19 21:00 07/09/19 09:04 Senokot S PO 2 tab BID LEIA Administration Sodium Chloride 10 ml 06/28/19 17:06 07/08/19 20:18 Flush - Normal Saline IVF 10 ml PRN PRN Administration Saline Flush Warfarin Sodium 7.5 mg 07/08/19 17:00 07/08/19 17:29 Coumadin PO 7.5 mg 1700 LEIA Administration - Exam Eye: PERRL Heart: RRR, no murmur, no gallops, no rubs Respiratory: CTAB, no wheezes, no rales, no ronchi Gastrointestinal: soft, non-tender, non-distended, normal bowel sounds, no palpable masses, no hepatomegaly Extremities: no cyanosis, no clubbing, 1+ LE edema Hosp A/P (1) Cellulitis of right leg Code(s): L03.115 - CELLULITIS OF RIGHT LOWER LIMB Status: Acute (2) Atrial fibrillation Code(s): I48.91 - UNSPECIFIED ATRIAL FIBRILLATION Status: Chronic (3) Benign hypertension Code(s): I10 - ESSENTIAL (PRIMARY) HYPERTENSION Status: Chronic (4) DM2 (diabetes mellitus, type 2) Status: Chronic Qualifiers: Diabetes mellitus intermediate insulin use: with intermediate use Diabetes mellitus complication status: with kidney complications Diabetes mellitus complication detail: with chronic kidney disease Chronic kidney disease stage : stage 3 (moderate) Qualified Code(s): E11.22 - Type 2 diabetes mellitus with diabetic chronic kidney disease; N18.3 - Chronic kidney disease, stage 3 ( moderate); Z79.4 - termite inspector (current) use of insulin - Plan * Cellulitis of the right knee- resolved- All antibiotics have been discontinued * Continue local wound care and wound vac * HTN _ blood pressure is stable * DM- Blood glucose is stable- Continue Lantus and SSI * AFIB - his heart rate is stable on Cardizem, and continue coumadin for CVA prophylaxis- warfarin is being managed by Pharmacy * stable for transition to Rehab
[2019-07-09] MEDS ORDERED: traMADol HCl 50 MG TAB PO PRN (14:32)
[2019-07-09 15:27] VITALS: BP 136/73; TEMP 97.4
--- NOTE | 2019-07-10 03:19 | DIS ---
DATE OF ADMISSION: 06/29/2019 DATE OF DISCHARGE: 07/09/2019 PRIMARY CARE PHYSICIAN: Bandar Dinero MD DISCHARGE DISPOSITION: Inpatient rehab. DISCHARGE DIAGNOSES: 1. Cellulitis and abscess of the right knee. 2. Diabetes mellitus type 2. 3. Benign prostatic hypertrophy. 4. Chronic diastolic heart failure. 5. Chronic atrial fibrillation, on anticoagulation. 6. Coronary artery disease. 7. Hypothyroidism. 8. Inflammatory bowel disease. 9. History of nondisplaced fracture of the 5th metacarpal bone of the left hand. 10. History of lateral femoral chip fracture. 11. Restless legs syndrome. 12. Chronic low back pain. DISCHARGE MEDICATIONS: Include; 1. Coumadin 7.5 mg daily. 2. Tramadol 50 mg q.4 hours as needed. 3. Senokot 8.6 mg daily. 4. Zofran 4 mg q.6 as needed. 5. Meclizine 25 mg daily. 6. Levothyroxine 100 mcg p.o. daily. 7. Levemir insulin 8 units daily. 8. NovoLog as directed. 9. Dextromethorphan 1.5 mg daily. 10. Lasix 40 mg daily. 11. Iron sulfate 325 mg p.o. daily. 12. Vitamin D2 50,000 units p.o. daily. 13. Diltiazem 90 mg q.6 as needed. 14. Citalopram 20 mg daily. PROCEDURES DONE DURING THE HOSPITAL STAY: The patient had I and D of the wound on the right knee and placement of a wound VAC. HOSPITAL COURSE: Mr. Fried is a pleasant 89-year-old gentleman, who suffered a fall at home injuring his knee as well as his hand and arm. The wound on the knee became infected. He had developed hemarthrosis initially and then this area had become infected. He was admitted and seen by Orthopedic Surgery. The area was cleaned out and he was started on IV antibiotics. Due to the extensive nature of the wound, he was also seen by Plastic Surgery and it was recommended that he would need skin grafting, which would need to be done at a later date. He was also seen by Dr. Yeh, who recommended IV antibiotics during the course of his hospital stay. Cultures were done, which were essentially negative. At the time of discharge, all antibiotics were discontinued. Local wound care will be continued and to facilitate this, it will be done in the inpatient rehabilitation facility. The patient was subsequently discharged to home in stable condition on 07/09/2019. Job ID: [id number]
--- NOTE | 2019-07-10 15:15 | OP ---
DATE OF PROCEDURE: 07/09/2019 PREOPERATIVE DIAGNOSIS: Open wound, right knee. POSTOPERATIVE DIAGNOSIS: Open wound, right knee. PROCEDURE PERFORMED: Debridement of skin and subcutaneous tissue, right knee (130 cm2). DESCRIPTION OF PROCEDURE: Following induction of adequate anesthesia, the patient was prepped and draped in usual sterile fashion in supine position. The patient had a large eschar over his right knee and lower extremity. This eschar was sharply debrided for skin and subcutaneous tissue. There was a large hematoma with at least 15 cm undermining cephalad as well as inferomedially. Significant amount of old liquefying hematoma was removed. This was thought to be contributing to his cellulitis. Cultures were taken. The wound was then copiously irrigated and inspected for meticulous hemostasis prior to placing [place] under the undermined flaps. Plan will be to initiate wound care including wound VAC. The patient tolerated the procedure well. Job ID: [id number]
--- NOTE | 2019-08-11 19:39 | PQF ---
MINH SEPULVEDA MALCOLM JOE MD [id number] [id number] CLINICAL DOCUMENTATION CLARIFICATION FORM: POST DISCHARGE Addendum to original discharge summary date: ____ Late entry note date: __ DATE:08/11/2019 ATTN: Oj Ruiz Please exercise your independent, professional judgment in responding to the clarification form. Clinical indicators are provided on the bottom of this form for your review Please check appropriate box(s): Type of Debridement: [ x ] Excisional Debridement [ ] Non-excisional Debridement [ ] Other procedure diagnosis [ ] Unable to determine For continuity of documentation, please document condition throughout progress notes and discharge summary. Thank You. CLINICAL INDICATORS - SIGNS / SYMPTOMS / LABS Operative report p1 07/09 Dr Raza Debridement of skin and subcutaneous tissue, right knee Operative report p1 07/09 Dr Raza The pt had large eschar ovver his right knee and lower extremity Operative report p1 07/09 Dr Raza this escar was sharply debrided for skin and subcutaneous tissue Operative report p1 07/09 Dr Raza There was a large hematoma with at least 10cm undermining cephalad as well as inferomedially. Significant amount of old liquifying hematoma as removed RISK FACTORS H&P p1 2/ 89 year-old Male H&P p1 2/ Chronic Afib on Anticoagulant H&P p1 2/ DM type 2 H&P p1 2 CAD H&P p3 2/ Right lower extremity cellulitis H&P p3 2/ Recent fall causing right knee hemarthrosis TREATMENTS: Operative report 07/09 Debridement of Right knee by Oj Ruiz JUL 27 IV Cefepime 1gm JUL 29 IV Vancomycin 1.25 gm (This form is maintained as a part of the permanent medical record) 2014 [employer]. All Rights Reserved [email or web address]
== END 2019-07-09 16:40 | DRG 571 ==
LOC: ERS 13:02 → 2SW 15:28 → OBSVTOIN 06-29 10:56 → SURG A 06-29 15:39
PROVIDERS: ADMIT Internal Medicine; ATTEND Internal Medicine
PROC: 0JBN0ZZ Excision of Right Lower Leg Subcutaneous Tissue and Fascia, Open Approach (ICD-10-PCS; principal; 2019-07-09)
DX: L03.115 Cellulitis of right lower limb (principal); I50.32 Chronic diastolic (congestive) heart failure; I48.20 Chronic atrial fibrillation, unspecified; I13.0 Hypertensive heart and chronic kidney disease with heart failure and stage 1 through stage 4 chronic kidney disease, or unspecified chronic kidney disease; N18.4 Chronic kidney disease, stage 4 (severe); I48.92 Unspecified atrial flutter; N17.9 Acute kidney failure, unspecified; L02.415 Cutaneous abscess of right lower limb; N40.0 Benign prostatic hyperplasia without lower urinary tract symptoms; I25.10 Atherosclerotic heart disease of native coronary artery without angina pectoris; E03.9 Hypothyroidism, unspecified; G25.81 Restless legs syndrome; G89.29 Other chronic pain; M54.5 Low back pain; F41.9 Anxiety disorder, unspecified; E11.22 Type 2 diabetes mellitus with diabetic chronic kidney disease; K21.9 Gastro-esophageal reflux disease without esophagitis; D63.1 Anemia in chronic kidney disease; F39 Unspecified mood [affective] disorder; I25.5 Ischemic cardiomyopathy; Z79.01 Long term (current) use of anticoagulants; Z79.899 Other long term (current) drug therapy; Z88.8 Allergy status to other drugs, medicaments and biological substances; Z90.49 Acquired absence of other specified parts of digestive tract; Z79.890 Hormone replacement therapy
CPT/HCPCS: 36415; 36416; 71045; 80048; 80053; 80202; 83735; 85014; 85018; 85025; 85049; 85610; 85730; 87070; 87205; 93005; 93010; 93306; 94640; 96365; 96366; J0171; J0692; J1644; J1815; J2543; J2704; J3010; J3370; J3430; J3490; J7050; J7620; S0020

== ENCOUNTER 2020-11-02 03:37 | Inpatient (IN) | payer MEDICARE, OTHER ==
[2020-11-02 04:18] LABS: #Eosinphils 0.2 thou/uL (0.0-0.7); #Lymphocytes 1.1 thou/uL (1.20-3.40); #Monocytes 0.9 thou/uL (0.11-0.59); #Neutrophils 5.5 thou/uL (1.40-6.50); %Basophils 0.4 % (0.0-1.0); %Eosinophils 2.8 % (0.0-10.0); %Lymphocytes 14.6 % (21.0-51.0); %Monocytes 11.3 % (0.0-10.0); %Neutrophils 70.9 % (42.0-75.0); Hemoglobin 11.5 g/dL (14.0-18.0); Mean Corpuscular HGB CONC 33.2 g/dL (32.0-36.0); Mean Corpuscular Volume 93.5 fL (78.0-98.0); Mean Platelet Volume 7.7 fL (7.4-10.4); Platelet Count 182 thou/uL (130-400); RBC Distribution Width 12.8 % (11.5-14.5); White Blood Cell (WBC) Count 7.7 thou/uL (4.8-10.8)
[2020-11-02 05:29] LABS: ALT (SGPT) 23 U/L (8-55); AST (SGOT) 34 U/L (5-34); Albumin 3.9 g/dL (3.4-4.8); Alkaline Phosphatase 80 U/L (40-110); Anion Gap 15 mmol/L (10-20); BUN (Urea Nitrogen) 42 mg/dL (8.4-25.7); Bilirubin, Total 0.5 mg/dL (0.2-1.2); Calc. Creatinine Clearance 0 mL/min (70-130); Carbon Dioxide 27 mmol/L (23-31); Chloride 103 mmol/L (98-107); Globulin 2.9 g/dL (2.4-3.5); Glucose 192 mg/dL (83-110); Potassium 4.6 mmol/L (3.5-5.1); Protein, Total 6.8 g/dL (5.8-8.1); Sodium 140 mmol/L (136-145)
[2020-11-02 07:37] LABS: Troponin I 0.039 ng/mL (< 0.028)
[2020-11-02] MEDS ORDERED: Cefepime 2 GM VIAL ONE (07:39)
[2020-11-02] MEDS ORDERED: Dextrose 50% Abboject 50 ML SYRINGE SLOW IVP PRN (08:16)
[2020-11-02] MEDS ORDERED: Dextrose 5% in Water 1,000 ML IV PRN (08:16)
[2020-11-02] MEDS ORDERED: Bisacodyl 10 MG SUPP PR PRN (08:22)
[2020-11-02] MEDS ORDERED: Calcium Carbonate 500 MG ChewTAB PO PRN (08:22)
[2020-11-02] MEDS ORDERED: traMADol HCl 50 MG TAB PO PRN (08:26)
[2020-11-02] MEDS ORDERED: Polyethylene Glycol 3350 17 GM Packet PO PRN (09:41)
[2020-11-02] MEDS: Cefepime 1 GM in Sodium Chloride 0.9% 100 ML IVPB SCH ×2 (10:16→23:18)
[2020-11-02 10:35] LABS: Troponin I 0.029 ng/mL (< 0.028)
[2020-11-02] MEDS: Doxycycline 100 MG CAP PO SCH ×2 (11:05→23:57)
[2020-11-02] MEDS: Senokot S 8.6-50 MG TAB PO SCH ×2 (11:05→23:57)
[2020-11-02] MEDS: guaiFENesin ER 600 MG TAB PO SCH (11:05)
[2020-11-02] MEDS: Apixaban 2.5 MG TAB PO SCH ×2 (11:05→23:58)
[2020-11-02 14:35] LABS: SARS-CoV-2 PCR by NAA Not Detected (NotDetected)
[2020-11-02] MEDS: Insulin Regular 300 UNITS/3 ML VIAL SC PRN (17:26)
[2020-11-02] MEDS: Budesonide 0.5 MG/2 ML NEB NEB SCH (18:25)
[2020-11-02] MEDS: Cyanocobalamin (Vitamin B-12) 1,000 MCG TAB PO SCH (23:58)
[2020-11-03] MEDS: guaiFENesin ER 600 MG TAB PO SCH ×3 (00:22→21:59)
[2020-11-03 01:22] LABS: Legionella Urinary Ag Negative (Negative); Strep pneumo Urine Ag NEGATIVE (NEGATIVE)
[2020-11-03 04:42] LABS: #Eosinphils 0.4 thou/uL (0.0-0.7); #Lymphocytes 1.7 thou/uL (1.20-3.40); #Monocytes 0.9 thou/uL (0.11-0.59); %Basophils 0.2 % (0.0-1.0); %Eosinophils 4.5 % (0.0-10.0); %Lymphocytes 20.9 % (21.0-51.0); %Monocytes 11.8 % (0.0-10.0); %Neutrophils 62.6 % (42.0-75.0); Hemoglobin 11.1 g/dL (14.0-18.0); Mean Corpuscular HGB CONC 33.1 g/dL (32.0-36.0); Mean Corpuscular Hemoglobin 31.2 pg (27.0-31.0); Mean Corpuscular Volume 94.4 fL (78.0-98.0); Mean Platelet Volume 8.3 fL (7.4-10.4); Platelet Count 178 thou/uL (130-400); RBC Distribution Width 12.8 % (11.5-14.5); Red Blood Cell (RBC) Count 3.57 mill/uL (4.70-6.10); White Blood Cell (WBC) Count 7.9 thou/uL (4.8-10.8)
[2020-11-03 05:02] LABS: ALT (SGPT) 23 U/L (8-55); AST (SGOT) 31 U/L (5-34); Albumin 3.7 g/dL (3.4-4.8); Alkaline Phosphatase 77 U/L (40-110); Anion Gap 12 mmol/L (10-20); BUN (Urea Nitrogen) 38 mg/dL (8.4-25.7); Bilirubin, Total 0.6 mg/dL (0.2-1.2); Calc. Creatinine Clearance 40 mL/min (70-130); Carbon Dioxide 30 mmol/L (23-31); Chloride 105 mmol/L (98-107); Globulin 2.9 g/dL (2.4-3.5); Glucose 146 mg/dL (83-110); Magnesium 1.9 mg/dL (1.6-2.6); Potassium 4.6 mmol/L (3.5-5.1); Protein, Total 6.6 g/dL (5.8-8.1); Sodium 142 mmol/L (136-145)
[2020-11-03] MEDS: Levothyroxine Sodium 100 MCG TAB PO SCH (05:34)
[2020-11-03] MEDS ORDERED: Budesonide 0.25 MG/2 ML NEB ONE (07:26)
[2020-11-03] MEDS: Budesonide 0.5 MG/2 ML NEB NEB SCH ×2 (07:31→18:06)
[2020-11-03] MEDS: Senokot S 8.6-50 MG TAB PO SCH ×2 (10:02→21:57)
[2020-11-03] MEDS: Cefepime 1 GM in Sodium Chloride 0.9% 100 ML IVPB SCH ×2 (10:02→21:55)
[2020-11-03] MEDS: Doxycycline 100 MG CAP PO SCH ×2 (10:02→21:58)
[2020-11-03] MEDS: Saccharomyces boulardii 250 MG CAP PO SCH (10:02)
[2020-11-03] MEDS: Apixaban 2.5 MG TAB PO SCH ×2 (10:02→21:58)
[2020-11-03 16:50] LABS: Bilirubin Negative (Negative); Blood, Urine Small (Negative); Glucose, Urine (Dipstick) 250 mg/dL (Negative); Ketone, Urine Trace mg/dL (Negative); Leukocyte Negative (Negative); Nitrite Negative (Negative); Protein, Urine (Dipstick) 30 mg/dL (Neg-Trace); Urobilinogen 0.2 mg/dL (Less than 2)
[2020-11-03 16:56] LABS: Clarity Clear (Clear)
[2020-11-03 17:02] LABS: Bacteria/HPF 1+ HPF (None Seen); Squamous Epithelial None Seen HPF (0-3); WBC/HPF 0-3 HPF (0-3)
[2020-11-03 17:03] LABS: Urine Culture Reflex Yes Yes
[2020-11-03] MEDS ORDERED: Amlodipine 5 MG TAB PO SCH (18:45)
[2020-11-03] MEDS: Cyanocobalamin (Vitamin B-12) 1,000 MCG TAB PO SCH (21:58)
[2020-11-03] MEDS: Insulin Regular 300 UNITS/3 ML VIAL SC PRN (22:54)
[2020-11-04] MEDS: Budesonide 0.5 MG/2 ML NEB NEB SCH ×2 (07:05→18:52)
[2020-11-04] MEDS: Levothyroxine Sodium 100 MCG TAB PO SCH (07:34)
[2020-11-04] MEDS: guaiFENesin ER 600 MG TAB PO SCH ×2 (08:42→21:17)
[2020-11-04] MEDS: Senokot S 8.6-50 MG TAB PO SCH ×2 (08:42→21:18)
[2020-11-04] MEDS: Cefepime 1 GM in Sodium Chloride 0.9% 100 ML IVPB SCH ×2 (08:42→21:18)
[2020-11-04] MEDS: Saccharomyces boulardii 250 MG CAP PO SCH (08:42)
[2020-11-04] MEDS: Doxycycline 100 MG CAP PO SCH ×2 (08:42→21:17)
[2020-11-04] MEDS: Amlodipine 5 MG TAB PO SCH (08:43)
[2020-11-04] MEDS: Apixaban 2.5 MG TAB PO SCH ×2 (08:43→21:17)
[2020-11-04] MEDS ORDERED: cloNIDine 0.1mg/24 Hour PATCH TD SCH (09:00)
[2020-11-04] MEDS: Insulin Regular 300 UNITS/3 ML VIAL SC PRN (21:14)
[2020-11-04] MEDS: Cyanocobalamin (Vitamin B-12) 1,000 MCG TAB PO SCH (21:18)
[2020-11-05] MEDS: Levothyroxine Sodium 100 MCG TAB PO SCH (06:14)
[2020-11-05] MEDS: Insulin Regular 300 UNITS/3 ML VIAL SC PRN ×3 (06:16→17:18)
[2020-11-05] MEDS: Budesonide 0.5 MG/2 ML NEB NEB SCH ×2 (06:49→19:32)
[2020-11-05] MEDS: Senokot S 8.6-50 MG TAB PO SCH ×2 (09:07→22:09)
[2020-11-05] MEDS: Amlodipine 5 MG TAB PO SCH (09:08)
[2020-11-05] MEDS: Saccharomyces boulardii 250 MG CAP PO SCH (09:08)
[2020-11-05] MEDS: Apixaban 2.5 MG TAB PO SCH ×2 (09:08→21:58)
[2020-11-05] MEDS: Cefepime 1 GM in Sodium Chloride 0.9% 100 ML IVPB SCH (09:08)
[2020-11-05] MEDS: guaiFENesin ER 600 MG TAB PO SCH ×2 (09:08→21:58)
[2020-11-05] MEDS: Doxycycline 100 MG CAP PO SCH ×2 (09:12→21:58)
[2020-11-05] MEDS: Scopolamine 1.5 mg/72 hour Patch TD SCH (12:10)
[2020-11-05 16:27] LABS: Hemoglobin 10.8 g/dL (14.0-18.0); Mean Corpuscular HGB CONC 33.6 g/dL (32.0-36.0); Mean Corpuscular Hemoglobin 31.4 pg (27.0-31.0); Mean Corpuscular Volume 93.4 fL (78.0-98.0); Mean Platelet Volume 7.8 fL (7.4-10.4); Platelet Count 185 thou/uL (130-400); RBC Distribution Width 13.1 % (11.5-14.5); Red Blood Cell (RBC) Count 3.45 mill/uL (4.70-6.10); White Blood Cell (WBC) Count 13.7 thou/uL (4.8-10.8)
[2020-11-05 16:46] LABS: Anion Gap 12 mmol/L (10-20); BUN (Urea Nitrogen) 51 mg/dL (8.4-25.7); Calc. Creatinine Clearance 35 mL/min (70-130); Calcium 8.6 mg/dL (7.8-10.44); Carbon Dioxide 26 mmol/L (23-31); Chloride 107 mmol/L (98-107); Glucose 210 mg/dL (83-110); Magnesium 2.2 mg/dL (1.6-2.6); Potassium 4.2 mmol/L (3.5-5.1); Sodium 141 mmol/L (136-145)
[2020-11-05] MEDS ORDERED: Metoprolol Tartrate 25 MG TAB PO PRN (18:52)
[2020-11-05] MEDS ORDERED: Sodium Chloride 0.9% 500 ML IV SCH (19:00)
[2020-11-05] MEDS: Sodium Chloride 0.9% 1,000 ML IV SCH (20:00)
[2020-11-05] MEDS ORDERED: Metoprolol Tartrate 25 MG TAB PO SCH (21:00)
[2020-11-05] MEDS: Cyanocobalamin (Vitamin B-12) 1,000 MCG TAB PO SCH (21:58)
[2020-11-05] MEDS: Cefdinir 300 MG CAP PO SCH (21:58)
[2020-11-06] MEDS: Piperacillin/Tazobactam 3.375 GM in Sodium Chloride 0.9% 100 ML IVPB SCH ×4 (00:50→19:07)
[2020-11-06] MEDS: Acetaminophen 325 MG TAB PO PRN ×2 (01:39→22:11)
[2020-11-06] MEDS: Levothyroxine Sodium 100 MCG TAB PO SCH (05:30)
[2020-11-06] MEDS: Budesonide 0.5 MG/2 ML NEB NEB SCH ×2 (07:20→19:00)
[2020-11-06] MEDS: Saccharomyces boulardii 250 MG CAP PO SCH (08:06)
[2020-11-06] MEDS: Senokot S 8.6-50 MG TAB PO SCH ×2 (08:06→22:05)
[2020-11-06] MEDS: Doxycycline 100 MG CAP PO SCH ×2 (08:07→22:00)
[2020-11-06] MEDS: guaiFENesin ER 600 MG TAB PO SCH ×2 (08:07→22:00)
[2020-11-06] MEDS: Apixaban 2.5 MG TAB PO SCH ×2 (08:07→22:00)
[2020-11-06] MEDS: Cefdinir 300 MG CAP PO SCH ×2 (08:07→22:00)
[2020-11-06 08:36] LABS: #Lymphocytes 1.1 thou/uL (1.20-3.40); #Neutrophils 10.1 thou/uL (1.40-6.50); %Basophils 0.2 % (0.0-1.0); %Eosinophils 0.3 % (0.0-10.0); %Lymphocytes 9.2 % (21.0-51.0); %Monocytes 8.2 % (0.0-10.0); %Neutrophils 82.1 % (42.0-75.0); Hemoglobin 11.3 g/dL (14.0-18.0); Mean Corpuscular HGB CONC 32.9 g/dL (32.0-36.0); Mean Corpuscular Hemoglobin 30.9 pg (27.0-31.0); Mean Corpuscular Volume 94.1 fL (78.0-98.0); Mean Platelet Volume 7.7 fL (7.4-10.4); Platelet Count 206 thou/uL (130-400); RBC Distribution Width 12.9 % (11.5-14.5); Red Blood Cell (RBC) Count 3.66 mill/uL (4.70-6.10); White Blood Cell (WBC) Count 12.4 thou/uL (4.8-10.8)
[2020-11-06 09:18] LABS: ALT (SGPT) 21 U/L (8-55); AST (SGOT) 27 U/L (5-34); Albumin 3.5 g/dL (3.4-4.8); Alkaline Phosphatase 69 U/L (40-110); Anion Gap 14 mmol/L (10-20); BUN (Urea Nitrogen) 55 mg/dL (8.4-25.7); Bilirubin, Total 0.9 mg/dL (0.2-1.2); Calc. Creatinine Clearance 32 mL/min (70-130); Calcium 8.7 mg/dL (7.8-10.44); Carbon Dioxide 24 mmol/L (23-31); Chloride 108 mmol/L (98-107); Glucose 230 mg/dL (83-110); Potassium 4.1 mmol/L (3.5-5.1); Protein, Total 6.5 g/dL (5.8-8.1); Sodium 142 mmol/L (136-145)
[2020-11-06] MEDS ORDERED: Furosemide 20 MG/2 ML VIAL SLOW IVP SCH (12:00)
[2020-11-06] MEDS ORDERED: Metoprolol Tartrate 25 MG TAB PO SCH (12:30)
[2020-11-06] MEDS: Sodium Chloride 0.9% 1,000 ML IV SCH (15:53)
[2020-11-06] MEDS: Insulin Regular 300 UNITS/3 ML VIAL SC PRN (17:19)
[2020-11-06] MEDS: Cyanocobalamin (Vitamin B-12) 1,000 MCG TAB PO SCH (22:00)
[2020-11-06] MEDS: Metoprolol Tartrate 25 MG TAB PO SCH (22:00)
[2020-11-07] MEDS: Piperacillin/Tazobactam 3.375 GM in Sodium Chloride 0.9% 100 ML IVPB SCH ×4 (00:24→17:29)
[2020-11-07] MEDS: Levothyroxine Sodium 100 MCG TAB PO SCH (05:51)
[2020-11-07] MEDS: Budesonide 0.5 MG/2 ML NEB NEB SCH ×2 (07:37→19:07)
[2020-11-07] MEDS: Metoprolol Tartrate 25 MG TAB PO SCH ×2 (09:31→20:09)
[2020-11-07] MEDS: Cefdinir 300 MG CAP PO SCH ×2 (09:31→20:08)
[2020-11-07] MEDS: Saccharomyces boulardii 250 MG CAP PO SCH (09:31)
[2020-11-07] MEDS: Doxycycline 100 MG CAP PO SCH ×2 (09:31→20:08)
[2020-11-07] MEDS: Senokot S 8.6-50 MG TAB PO SCH ×2 (09:31→20:09)
[2020-11-07] MEDS: guaiFENesin ER 600 MG TAB PO SCH ×2 (09:31→20:08)
[2020-11-07] MEDS: Apixaban 2.5 MG TAB PO SCH ×2 (09:31→20:08)
[2020-11-07 11:56] LABS: Anion Gap 13 mmol/L (10-20); BUN (Urea Nitrogen) 58 mg/dL (8.4-25.7); Calc. Creatinine Clearance 28 mL/min (70-130); Carbon Dioxide 22 mmol/L (23-31); Chloride 106 mmol/L (98-107); Glucose 285 mg/dL (83-110); Potassium 3.8 mmol/L (3.5-5.1); Sodium 137 mmol/L (136-145)
[2020-11-07] MEDS: Insulin Regular 300 UNITS/3 ML VIAL SC PRN (13:28)
[2020-11-07] MEDS ORDERED: Sodium Chloride 0.9% 1,000 ML IV SCH (17:30)
[2020-11-07] MEDS: Albumin 25% 25 GM/100 ML BOT IVPB SCH (18:39)
[2020-11-07] MEDS: Cyanocobalamin (Vitamin B-12) 1,000 MCG TAB PO SCH (20:08)
[2020-11-08] MEDS: Piperacillin/Tazobactam 3.375 GM in Sodium Chloride 0.9% 100 ML IVPB SCH ×4 (00:51→17:37)
[2020-11-08] MEDS: Albumin 25% 25 GM/100 ML BOT IVPB SCH (01:59)
[2020-11-08 06:14] LABS: Anion Gap 14 mmol/L (10-20); BUN (Urea Nitrogen) 59 mg/dL (8.4-25.7); Calc. Creatinine Clearance 28 mL/min (70-130); Carbon Dioxide 23 mmol/L (23-31); Glucose 158 mg/dL (83-110)
[2020-11-08] MEDS: Levothyroxine Sodium 100 MCG TAB PO SCH (06:15)
[2020-11-08 06:28] LABS: Chloride 107 mmol/L (98-107); Potassium 3.9 mmol/L (3.5-5.1); Sodium 140 mmol/L (136-145)
[2020-11-08] MEDS: Budesonide 0.5 MG/2 ML NEB NEB SCH ×2 (07:12→18:57)
[2020-11-08] MEDS: Cefdinir 300 MG CAP PO SCH ×2 (08:55→21:29)
[2020-11-08] MEDS: Saccharomyces boulardii 250 MG CAP PO SCH (08:55)
[2020-11-08] MEDS: Apixaban 2.5 MG TAB PO SCH ×2 (08:55→21:29)
[2020-11-08] MEDS: Doxycycline 100 MG CAP PO SCH ×2 (08:55→21:35)
[2020-11-08] MEDS: guaiFENesin ER 600 MG TAB PO SCH ×2 (08:55→21:30)
[2020-11-08] MEDS: Metoprolol Tartrate 25 MG TAB PO SCH ×2 (08:55→21:31)
[2020-11-08] MEDS: Senokot S 8.6-50 MG TAB PO SCH ×2 (08:55→21:31)
[2020-11-08] MEDS ORDERED: Furosemide 20 MG/2 ML VIAL SLOW IVP SCH (10:45)
[2020-11-08] MEDS: Scopolamine 1.5 mg/72 hour Patch TD SCH (11:17)
[2020-11-08] MEDS: Insulin Regular 300 UNITS/3 ML VIAL SC PRN (11:42)
[2020-11-08] MEDS: Cyanocobalamin (Vitamin B-12) 1,000 MCG TAB PO SCH (21:30)
[2020-11-09] MEDS: Piperacillin/Tazobactam 3.375 GM in Sodium Chloride 0.9% 100 ML IVPB SCH ×2 (00:45→06:20)
[2020-11-09] MEDS: Levothyroxine Sodium 100 MCG TAB PO SCH (06:20)
[2020-11-09 06:52] LABS: Chloride 107 mmol/L (98-107); Potassium 4.1 mmol/L (3.5-5.1); Sodium 140 mmol/L (136-145)
[2020-11-09 06:53] LABS: Anion Gap 15 mmol/L (10-20); BUN (Urea Nitrogen) 64 mg/dL (8.4-25.7); Calc. Creatinine Clearance 25 mL/min (70-130); Calcium 7.8 mg/dL (7.8-10.44); Carbon Dioxide 22 mmol/L (23-31); Glucose 172 mg/dL (83-110)
[2020-11-09] MEDS: Budesonide 0.5 MG/2 ML NEB NEB SCH ×2 (07:07→19:27)
[2020-11-09] MEDS: Cefdinir 300 MG CAP PO SCH ×2 (09:24→20:29)
[2020-11-09] MEDS: Apixaban 2.5 MG TAB PO SCH ×2 (09:24→20:29)
[2020-11-09] MEDS: Metoprolol Tartrate 25 MG TAB PO SCH ×2 (09:24→20:29)
[2020-11-09] MEDS: guaiFENesin ER 600 MG TAB PO SCH ×2 (09:24→20:29)
[2020-11-09] MEDS: Senokot S 8.6-50 MG TAB PO SCH ×2 (09:24→20:29)
[2020-11-09] MEDS: Saccharomyces boulardii 250 MG CAP PO SCH (09:24)
[2020-11-09] MEDS: Insulin Regular 300 UNITS/3 ML VIAL SC PRN ×2 (12:03→17:01)
[2020-11-09 14:47] LABS: #Eosinphils 0.2 thou/uL (0.0-0.7); #Lymphocytes 0.9 thou/uL (1.20-3.40); #Monocytes 0.9 thou/uL (0.11-0.59); #Neutrophils 7.1 thou/uL (1.40-6.50); %Basophils 0.4 % (0.0-1.0); %Eosinophils 2.2 % (0.0-10.0); %Lymphocytes 9.5 % (21.0-51.0); %Neutrophils 77.8 % (42.0-75.0); Mean Corpuscular HGB CONC 33.5 g/dL (32.0-36.0); Mean Corpuscular Hemoglobin 31.2 pg (27.0-31.0); Mean Platelet Volume 7.5 fL (7.4-10.4); Platelet Count 181 thou/uL (130-400); RBC Distribution Width 12.8 % (11.5-14.5); Red Blood Cell (RBC) Count 3.22 mill/uL (4.70-6.10); White Blood Cell (WBC) Count 9.2 thou/uL (4.8-10.8)
[2020-11-09 18:22] LABS: Clarity Cloudy (Clear); Leukocyte Unable to Interpret (Negative); Nitrite Unable to Interpret (Negative); Protein, Urine (Dipstick) Unable to Interpret mg/dL (Neg-Trace); Specific Gravity, Urine 1.018 (1.002-1.036); pH, Urine 5.5 (5.0-9.0)
[2020-11-09 18:23] LABS: Bilirubin Unable to Interpret (Negative); Blood, Urine Unable to Interpret (Negative); Glucose, Urine (Dipstick) Unable to Interpret mg/dL (Negative); Ketone, Urine Unable to Interpret mg/dL (Negative); Urobilinogen UNABLE TO INTERPRET mg/dL (Less than 2)
[2020-11-09 18:29] LABS: Bacteria/HPF 2+ HPF (None Seen); RBC/HPF Greater than 50 HPF (0-3); Squamous Epithelial 0-3 HPF (0-3)
[2020-11-09 18:31] LABS: Urine Culture Reflex Yes Yes
[2020-11-09] MEDS: Cyanocobalamin (Vitamin B-12) 1,000 MCG TAB PO SCH (20:29)
[2020-11-10] MEDS: Levothyroxine Sodium 100 MCG TAB PO SCH (05:25)
[2020-11-10] MEDS: Insulin Regular 300 UNITS/3 ML VIAL SC PRN ×3 (05:29→16:11)
[2020-11-10] MEDS: Budesonide 0.5 MG/2 ML NEB NEB SCH ×2 (06:14→18:19)
[2020-11-10 06:55] LABS: Anion Gap 15 mmol/L (10-20); BUN (Urea Nitrogen) 70 mg/dL (8.4-25.7); Calc. Creatinine Clearance 22 mL/min (70-130); Calcium 7.9 mg/dL (7.8-10.44); Carbon Dioxide 23 mmol/L (23-31); Chloride 106 mmol/L (98-107); Glucose 166 mg/dL (83-110); Sodium 140 mmol/L (136-145)
[2020-11-10 08:33] LABS: #Eosinphils 0.4 thou/uL (0.0-0.7); #Lymphocytes 1.3 thou/uL (1.20-3.40); #Monocytes 0.9 thou/uL (0.11-0.59); #Neutrophils 7.4 thou/uL (1.40-6.50); %Basophils 0.5 % (0.0-1.0); %Eosinophils 4.3 % (0.0-10.0); %Lymphocytes 12.7 % (21.0-51.0); %Monocytes 9.3 % (0.0-10.0); %Neutrophils 73.3 % (42.0-75.0); Hemoglobin 9.3 g/dL (14.0-18.0); Mean Corpuscular Volume 94.1 fL (78.0-98.0); Mean Platelet Volume 7.7 fL (7.4-10.4); Platelet Count 190 thou/uL (130-400); RBC Distribution Width 12.7 % (11.5-14.5); Red Blood Cell (RBC) Count 3.01 mill/uL (4.70-6.10)
[2020-11-10] MEDS: Senokot S 8.6-50 MG TAB PO SCH ×2 (09:01→20:53)
[2020-11-10] MEDS: guaiFENesin ER 600 MG TAB PO SCH ×2 (09:01→20:53)
[2020-11-10] MEDS: Metoprolol Tartrate 25 MG TAB PO SCH ×2 (09:01→20:54)
[2020-11-10] MEDS: Apixaban 2.5 MG TAB PO SCH ×2 (09:01→20:53)
[2020-11-10] MEDS: Cefdinir 300 MG CAP PO SCH ×2 (09:01→20:53)
[2020-11-10] MEDS: Saccharomyces boulardii 250 MG CAP PO SCH (09:01)
[2020-11-10] MEDS: Albumin 25% 25 GM/100 ML BOT IVPB SCH ×2 (13:44→18:11)
[2020-11-10] MEDS: Cyanocobalamin (Vitamin B-12) 1,000 MCG TAB PO SCH (20:54)
[2020-11-11] MEDS: Levothyroxine Sodium 100 MCG TAB PO SCH (06:16)
[2020-11-11] MEDS: Budesonide 0.5 MG/2 ML NEB NEB SCH ×2 (07:03→19:04)
[2020-11-11 08:21] LABS: #Eosinphils 0.4 thou/uL (0.0-0.7); #Lymphocytes 1.3 thou/uL (1.20-3.40); #Monocytes 0.9 thou/uL (0.11-0.59); #Neutrophils 6.1 thou/uL (1.40-6.50); %Basophils 0.3 % (0.0-1.0); %Eosinophils 4.9 % (0.0-10.0); %Lymphocytes 15.2 % (21.0-51.0); %Monocytes 9.9 % (0.0-10.0); %Neutrophils 69.7 % (42.0-75.0); Hemoglobin 8.8 g/dL (14.0-18.0); Mean Corpuscular HGB CONC 32.8 g/dL (32.0-36.0); Mean Corpuscular Hemoglobin 30.9 pg (27.0-31.0); Mean Corpuscular Volume 94.2 fL (78.0-98.0); Mean Platelet Volume 7.7 fL (7.4-10.4); Platelet Count 183 thou/uL (130-400); RBC Distribution Width 12.8 % (11.5-14.5); Red Blood Cell (RBC) Count 2.83 mill/uL (4.70-6.10); White Blood Cell (WBC) Count 8.7 thou/uL (4.8-10.8)
[2020-11-11 08:39] LABS: Anion Gap 14 mmol/L (10-20); BUN (Urea Nitrogen) 76 mg/dL (8.4-25.7); Calc. Creatinine Clearance 19 mL/min (70-130); Calcium 7.9 mg/dL (7.8-10.44); Carbon Dioxide 22 mmol/L (23-31); Chloride 106 mmol/L (98-107); Glucose 177 mg/dL (83-110); Potassium 4.2 mmol/L (3.5-5.1); Sodium 138 mmol/L (136-145)
[2020-11-11] MEDS: Cefdinir 300 MG CAP PO SCH ×2 (09:09→20:56)
[2020-11-11] MEDS: Metoprolol Tartrate 25 MG TAB PO SCH ×2 (09:09→20:57)
[2020-11-11] MEDS: guaiFENesin ER 600 MG TAB PO SCH ×2 (09:09→20:56)
[2020-11-11] MEDS: Saccharomyces boulardii 250 MG CAP PO SCH (09:09)
[2020-11-11] MEDS: Apixaban 2.5 MG TAB PO SCH ×2 (09:10→20:57)
[2020-11-11] MEDS: Senokot S 8.6-50 MG TAB PO SCH ×2 (09:10→20:57)
[2020-11-11] MEDS ORDERED: Sodium Chloride 0.9% 1,000 ML IV SCH (11:30)
[2020-11-11 11:31] VITALS: BMI 33.3
[2020-11-11] MEDS: Scopolamine 1.5 mg/72 hour Patch TD SCH (13:19)
[2020-11-11] MEDS: Insulin Regular 300 UNITS/3 ML VIAL SC PRN ×2 (13:20→17:42)
[2020-11-11] MEDS: Cyanocobalamin (Vitamin B-12) 1,000 MCG TAB PO SCH (20:57)
[2020-11-12] MEDS: Levothyroxine Sodium 100 MCG TAB PO SCH (06:10)
[2020-11-12] MEDS: Insulin Regular 300 UNITS/3 ML VIAL SC PRN ×3 (06:11→20:54)
[2020-11-12] MEDS: Budesonide 0.5 MG/2 ML NEB NEB SCH ×2 (06:50→18:59)
[2020-11-12 07:32] LABS: Anion Gap 15 mmol/L (10-20); BUN (Urea Nitrogen) 73 mg/dL (8.4-25.7); Calc. Creatinine Clearance 23 mL/min (70-130); Calcium 7.7 mg/dL (7.8-10.44); Carbon Dioxide 17 mmol/L (23-31); Chloride 108 mmol/L (98-107); Glucose 206 mg/dL (83-110); Potassium 4.2 mmol/L (3.5-5.1); Sodium 136 mmol/L (136-145)
[2020-11-12 08:48] LABS: #Eosinphils 0.5 thou/uL (0.0-0.7); #Lymphocytes 1.3 thou/uL (1.20-3.40); #Monocytes 0.9 thou/uL (0.11-0.59); #Neutrophils 5.7 thou/uL (1.40-6.50); %Basophils 0.3 % (0.0-1.0); %Eosinophils 5.5 % (0.0-10.0); %Lymphocytes 15.5 % (21.0-51.0); %Monocytes 10.1 % (0.0-10.0); %Neutrophils 68.6 % (42.0-75.0); Hemoglobin 8.8 g/dL (14.0-18.0); Mean Corpuscular HGB CONC 33.2 g/dL (32.0-36.0); Mean Corpuscular Hemoglobin 31.3 pg (27.0-31.0); Mean Corpuscular Volume 94.3 fL (78.0-98.0); Mean Platelet Volume 7.5 fL (7.4-10.4); Platelet Count 218 thou/uL (130-400); RBC Distribution Width 12.9 % (11.5-14.5); White Blood Cell (WBC) Count 8.4 thou/uL (4.8-10.8)
[2020-11-12] MEDS: Lantus 1000 UNITS/10 ML VIAL SC SCH (11:08)
[2020-11-12] MEDS: Cefdinir 300 MG CAP PO SCH (11:09)
[2020-11-12] MEDS: Saccharomyces boulardii 250 MG CAP PO SCH (11:09)
[2020-11-12] MEDS: Metoprolol Tartrate 25 MG TAB PO SCH ×2 (11:09→20:53)
[2020-11-12] MEDS: Senokot S 8.6-50 MG TAB PO SCH ×2 (11:09→20:53)
[2020-11-12] MEDS: guaiFENesin ER 600 MG TAB PO SCH ×2 (11:09→20:53)
[2020-11-12] MEDS: Apixaban 2.5 MG TAB PO SCH ×2 (11:09→20:53)
[2020-11-12] MEDS: Cyanocobalamin (Vitamin B-12) 1,000 MCG TAB PO SCH (20:53)
[2020-11-13] MEDS: Levothyroxine Sodium 100 MCG TAB PO SCH (06:25)
[2020-11-13 06:33] LABS: Anion Gap 11 mmol/L (10-20); BUN (Urea Nitrogen) 73 mg/dL (8.4-25.7); Calc. Creatinine Clearance 24 mL/min (70-130); Calcium 8.1 mg/dL (7.8-10.44); Carbon Dioxide 22 mmol/L (23-31); Chloride 108 mmol/L (98-107); Glucose 118 mg/dL (83-110); Potassium 4.3 mmol/L (3.5-5.1); Sodium 137 mmol/L (136-145)
[2020-11-13] MEDS: Budesonide 0.5 MG/2 ML NEB NEB SCH ×2 (06:35→18:49)
[2020-11-13] MEDS: Metoprolol Tartrate 25 MG TAB PO SCH ×2 (09:01→21:12)
[2020-11-13] MEDS: Saccharomyces boulardii 250 MG CAP PO SCH (09:01)
[2020-11-13] MEDS: guaiFENesin ER 600 MG TAB PO SCH ×2 (09:01→21:12)
[2020-11-13] MEDS: Apixaban 2.5 MG TAB PO SCH ×2 (09:01→21:12)
[2020-11-13] MEDS: Senokot S 8.6-50 MG TAB PO SCH ×2 (09:05→21:12)
[2020-11-13] MEDS: Lantus 1000 UNITS/10 ML VIAL SC SCH (09:07)
[2020-11-13] MEDS: Insulin Regular 300 UNITS/3 ML VIAL SC PRN ×2 (13:04→17:46)
[2020-11-13] MEDS: Cyanocobalamin (Vitamin B-12) 1,000 MCG TAB PO SCH (21:12)
[2020-11-13] MEDS: Acetaminophen 325 MG TAB PO PRN (23:00)
[2020-11-14] MEDS: Levothyroxine Sodium 100 MCG TAB PO SCH (06:16)
[2020-11-14 07:10] LABS: Anion Gap 11 mmol/L (10-20); BUN (Urea Nitrogen) 71 mg/dL (8.4-25.7); Calc. Creatinine Clearance 27 mL/min (70-130); Carbon Dioxide 24 mmol/L (23-31); Chloride 108 mmol/L (98-107); Glucose 122 mg/dL (83-110); Potassium 4.1 mmol/L (3.5-5.1); Sodium 139 mmol/L (136-145)
[2020-11-14] MEDS: Budesonide 0.5 MG/2 ML NEB NEB SCH ×2 (07:42→19:55)
[2020-11-14] MEDS: Metoprolol Tartrate 25 MG TAB PO SCH ×2 (10:07→21:18)
[2020-11-14] MEDS: Senokot S 8.6-50 MG TAB PO SCH ×2 (10:07→21:18)
[2020-11-14] MEDS: Apixaban 2.5 MG TAB PO SCH ×2 (10:07→21:18)
[2020-11-14] MEDS: Saccharomyces boulardii 250 MG CAP PO SCH (10:07)
[2020-11-14] MEDS: guaiFENesin ER 600 MG TAB PO SCH ×2 (10:07→21:18)
[2020-11-14] MEDS: Lantus 1000 UNITS/10 ML VIAL SC SCH ×2 (10:26→11:07)
[2020-11-14] MEDS: Scopolamine 1.5 mg/72 hour Patch TD SCH (13:34)
[2020-11-14] MEDS: Insulin Regular 300 UNITS/3 ML VIAL SC PRN ×2 (18:04→21:21)
[2020-11-14] MEDS: Cyanocobalamin (Vitamin B-12) 1,000 MCG TAB PO SCH (21:18)
[2020-11-15] MEDS: Levothyroxine Sodium 100 MCG TAB PO SCH (06:25)
[2020-11-15] MEDS: Budesonide 0.5 MG/2 ML NEB NEB SCH ×2 (07:31→18:43)
[2020-11-15] MEDS: Metoprolol Tartrate 25 MG TAB PO SCH ×2 (08:28→23:17)
[2020-11-15] MEDS: Senokot S 8.6-50 MG TAB PO SCH ×2 (08:28→23:16)
[2020-11-15] MEDS: guaiFENesin ER 600 MG TAB PO SCH ×2 (08:28→23:16)
[2020-11-15] MEDS: Saccharomyces boulardii 250 MG CAP PO SCH (08:28)
[2020-11-15] MEDS: Apixaban 2.5 MG TAB PO SCH ×2 (08:29→23:17)
[2020-11-15] MEDS: Lantus 1000 UNITS/10 ML VIAL SC SCH (08:29)
[2020-11-15] MEDS: Insulin Regular 300 UNITS/3 ML VIAL SC PRN (12:00)
[2020-11-15] MEDS: Cyanocobalamin (Vitamin B-12) 1,000 MCG TAB PO SCH (23:17)
[2020-11-15] MEDS ORDERED: Melatonin 3 MG TAB PO PRN (23:22)
[2020-11-15] MEDS: Acetaminophen 325 MG TAB PO PRN (23:29)
[2020-11-16] MEDS: Levothyroxine Sodium 100 MCG TAB PO SCH (06:20)
[2020-11-16] MEDS: Budesonide 0.5 MG/2 ML NEB NEB SCH ×2 (07:04→19:06)
[2020-11-16] MEDS: guaiFENesin ER 600 MG TAB PO SCH ×2 (10:52→21:00)
[2020-11-16] MEDS: Saccharomyces boulardii 250 MG CAP PO SCH (10:52)
[2020-11-16] MEDS: Metoprolol Tartrate 25 MG TAB PO SCH ×2 (10:53→21:00)
[2020-11-16] MEDS: Senokot S 8.6-50 MG TAB PO SCH ×2 (10:53→21:00)
[2020-11-16] MEDS: Apixaban 2.5 MG TAB PO SCH ×2 (10:53→21:00)
[2020-11-16] MEDS: Lantus 1000 UNITS/10 ML VIAL SC SCH (10:55)
[2020-11-16] MEDS: Cyanocobalamin (Vitamin B-12) 1,000 MCG TAB PO SCH (21:00)
[2020-11-17] MEDS: Levothyroxine Sodium 100 MCG TAB PO SCH (06:40)
[2020-11-17] MEDS: Budesonide 0.5 MG/2 ML NEB NEB SCH (07:21)
[2020-11-17] MEDS ORDERED: Sodium Chloride 0.65% Nasal 44 ML BOT EA NARE PRN (08:21)
[2020-11-17] MEDS ORDERED: Bisacodyl 10 MG SUPP PR PRN (08:21)
[2020-11-17] MEDS ORDERED: Loratadine 10 MG TAB PO PRN (08:21)
[2020-11-17] MEDS ORDERED: Ondansetron ODT 4 MG TAB PO PRN (08:21)
[2020-11-17] MEDS ORDERED: GUAIFENESIN SF SOLN 200 MG/10 ML UDCUP PO PRN (08:21)
[2020-11-17] MEDS ORDERED: Cepastat Lozenges 1 LOZ PO PRN (08:21)
[2020-11-17] MEDS ORDERED: Ondansetron PF 4 MG/2 ML Vial IVP PRN (08:21)
[2020-11-17] MEDS ORDERED: hydrALAZINE 20 MG/ML VIAL SLOW IVP PRN (08:21)
[2020-11-17] MEDS ORDERED: Loperamide HCl 2 MG CAP PO PRN (08:21)
[2020-11-17] MEDS: Metoprolol Tartrate 25 MG TAB PO SCH (08:23)
[2020-11-17] MEDS: Apixaban 2.5 MG TAB PO SCH (08:23)
[2020-11-17] MEDS: Saccharomyces boulardii 250 MG CAP PO SCH (08:23)
[2020-11-17] MEDS: Lantus 1000 UNITS/10 ML VIAL SC SCH (08:23)
[2020-11-17] MEDS: Senokot S 8.6-50 MG TAB PO SCH (08:23)
[2020-11-17] MEDS: guaiFENesin ER 600 MG TAB PO SCH (08:23)
[2020-11-17 09:23] LABS: #Basophils 0.1 thou/uL (0.0-0.2); #Eosinphils 0.4 thou/uL (0.0-0.7); #Lymphocytes 1.5 thou/uL (1.20-3.40); #Monocytes 0.7 thou/uL (0.11-0.59); #Neutrophils 7.2 thou/uL (1.40-6.50); %Basophils 0.6 % (0.0-1.0); %Eosinophils 3.8 % (0.0-10.0); %Monocytes 6.7 % (0.0-10.0); %Neutrophils 73.9 % (42.0-75.0); Hemoglobin 8.1 g/dL (14.0-18.0); Mean Corpuscular HGB CONC 31.9 g/dL (32.0-36.0); Mean Corpuscular Hemoglobin 30.4 pg (27.0-31.0); Mean Corpuscular Volume 95.1 fL (78.0-98.0); Mean Platelet Volume 7.1 fL (7.4-10.4); Platelet Count 344 thou/uL (130-400); RBC Distribution Width 13.5 % (11.5-14.5); Red Blood Cell (RBC) Count 2.67 mill/uL (4.70-6.10); White Blood Cell (WBC) Count 9.7 thou/uL (4.8-10.8)
[2020-11-17 09:49] LABS: ALT (SGPT) 7 U/L (8-55); AST (SGOT) 15 U/L (5-34); Albumin 3.5 g/dL (3.4-4.8); Alkaline Phosphatase 73 U/L (40-110); Anion Gap 13 mmol/L (10-20); BUN (Urea Nitrogen) 51 mg/dL (8.4-25.7); Bilirubin, Total 0.4 mg/dL (0.2-1.2); Calc. Creatinine Clearance 35 mL/min (70-130); Calcium 8.5 mg/dL (7.8-10.44); Carbon Dioxide 26 mmol/L (23-31); Chloride 108 mmol/L (98-107); Globulin 2.5 g/dL (2.4-3.5); Glucose 122 mg/dL (83-110); Potassium 4.7 mmol/L (3.5-5.1); Sodium 142 mmol/L (136-145)
[2020-11-17 12:03] VITALS: BP 128/73; TEMP 97.7
[2020-11-17] MEDS: Scopolamine 1.5 mg/72 hour Patch TD SCH (14:02)
== END 2020-11-17 17:20 | disposition hospice, home (50) | DRG 871 ==
LOC: ERS 03:37 → 2NO 06:47 → T4-A 11-04 18:55
PROVIDERS: ADMIT Internal Medicine; ATTEND Internal Medicine
PROC: 0T9B70Z Drainage of Bladder with Drainage Device, Via Natural or Artificial Opening (ICD-10-PCS; principal; 2020-11-09)
PROC: 3E1K78Z Irrigation of Genitourinary Tract using Irrigating Substance, Via Natural or Artificial Opening (ICD-10-PCS; 2020-11-09)
DX: A41.50 Gram-negative sepsis, unspecified (principal); G92 Toxic encephalopathy; I50.43 Acute on chronic combined systolic (congestive) and diastolic (congestive) heart failure; J15.6 Pneumonia due to other Gram-negative bacteria; J96.11 Chronic respiratory failure with hypoxia; I48.20 Chronic atrial fibrillation, unspecified; I13.0 Hypertensive heart and chronic kidney disease with heart failure and stage 1 through stage 4 chronic kidney disease, or unspecified chronic kidney disease; N17.9 Acute kidney failure, unspecified; F02.81 Dementia in other diseases classified elsewhere, unspecified severity, with behavioral disturbance; F05 Delirium due to known physiological condition; I42.9 Cardiomyopathy, unspecified; J44.0 Chronic obstructive pulmonary disease with (acute) lower respiratory infection; N18.4 Chronic kidney disease, stage 4 (severe); R65.20 Severe sepsis without septic shock; Z20.822 Contact with and (suspected) exposure to COVID-19; Z66 Do not resuscitate; Z51.5 Encounter for palliative care; R91.8 Other nonspecific abnormal finding of lung field; E11.22 Type 2 diabetes mellitus with diabetic chronic kidney disease; E03.9 Hypothyroidism, unspecified; I25.10 Atherosclerotic heart disease of native coronary artery without angina pectoris; G30.9 Alzheimer's disease, unspecified; M19.90 Unspecified osteoarthritis, unspecified site; K21.9 Gastro-esophageal reflux disease without esophagitis; N40.1 Benign prostatic hyperplasia with lower urinary tract symptoms; R33.8 Other retention of urine; F32.9 Major depressive disorder, single episode, unspecified; G25.81 Restless legs syndrome; G89.29 Other chronic pain; E55.9 Vitamin D deficiency, unspecified; E53.8 Deficiency of other specified B group vitamins; M25.512 Pain in left shoulder; D63.1 Anemia in chronic kidney disease; D50.9 Iron deficiency anemia, unspecified; E88.09 Other disorders of plasma-protein metabolism, not elsewhere classified; N39.498 Other specified urinary incontinence; F41.9 Anxiety disorder, unspecified; E66.9 Obesity, unspecified; M48.00 Spinal stenosis, site unspecified; R35.0 Frequency of micturition; R31.0 Gross hematuria; Z98.42 Cataract extraction status, left eye; Z98.41 Cataract extraction status, right eye; Z99.81 Dependence on supplemental oxygen; Z98.890 Other specified postprocedural states; Z80.9 Family history of malignant neoplasm, unspecified; Z68.33 Body mass index [BMI] 33.0-33.9, adult; Z91.013 Allergy to seafood; Z79.890 Hormone replacement therapy; Z90.49 Acquired absence of other specified parts of digestive tract; Z88.5 Allergy status to narcotic agent; Z88.8 Allergy status to other drugs, medicaments and biological substances; Z91.018 Allergy to other foods; Z79.899 Other long term (current) drug therapy; Z79.4 Long term (current) use of insulin; Z79.01 Long term (current) use of anticoagulants; Z83.3 Family history of diabetes mellitus; Z78.1 Physical restraint status
CPT/HCPCS: 36415; 36416; 70450; 71045; 71250; 72125; 74018; 76770; 80048; 80053; 81001; 83735; 84145; 84484; 85025; 85027; 86140; 87086; 87449; 87631; 87899; 93005; 93010; 93306; 96365; J0692; J1815; J1940; J2543; J3490; J7620; J7626; P9047; U0003; U0005